=== PATIENT | female | born 1960 | race Caucasian/White ===

== ENCOUNTER 2016-09-22 05:30 | Emergency (ER) | payer OTHER ==
[~2016-09-22] VITALS: Ht 162.6 cm; Wt 69.2 kg
[~2016-09-22 05:30] MED LIST: AMB10 PO; ASPI81TA28 PO; ATV5X PO; CALC500C70 PO; CLOP1TAB15 PO; FLUO40CA8 PO; LPT40 PO; LSN5 PO; METO25TA56 PO; OXYC-106 PO; PEDICHW50 PO
[2016-09-22 05:39] VITALS: TEMP 36.6; Ht 162.6 cm; Wt 69.2 kg
[2016-09-22] MEDS ORDERED: ONDANSETRON INJ 2 MG/ML 2 ML VIAL IV STA (05:59)
[2016-09-22] MEDS ORDERED: SODIUM CHLORIDE 0.9% 1000ML 500 ML IV STA (05:59)
[2016-09-22] MEDS ORDERED: MoRPHine SULFATE 10 MG/ML CARP/VIAL IV PRN (06:00)
--- NOTE | 2016-09-22 06:09 | EMERGENCY ROOM VISIT NOTE ---
History Report prepared by Joseibnarindre: Cindy Cagle Under the Supervision of: Dr. Qasim Smith M.D. First contact with patient: 05:52 Chief Complaint: HYPERTENSION Stated Complaint: LEFT ARM PAIN/HIGH BLOOD PRESSURE History of Present Illness The patient is a 56 year old female who presents to the Emergency Room with complaints of persistent hypertension for the past day. She reports she has been experiencing left arm pain for the past day, that started after she woke up yesterday. She rates her discomfort as a 7/10. Certain movements worsen her discomfort and she thinks she may have slept on something the wrong way to cause her pain. She checked her BP at home and noticed it was high, and with her history of previous TN's, she decided to come to the ED this morning. The patient has undergone some recent medication changes but notes she takes Plavix , Metoprolol and Atorvastatin. She denies any recent chest pain but does feel mildly short of breath. She denies any recent fevers. 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 A total of 10 systems reviewed and were otherwise negative. Past Medical & Surgical Medical Problems: (1) History of TN (myocardial infarction) (2) PAD (peripheral artery disease) (3) Precordial chest pain Family History Patient reports no known family medical history. Social History Smoking Status: Current Every Day Smoker Alcohol Use: none Drug Use: none Marital Status: , Housing Status: lives with family Occupation Status: unemployed, disabled Current/Historical Medications Scheduled Aspirin (Aspirin Chewable), 81 MG PO DAILY Atorvastatin (Atorvastatin Calcium), 40 MG PO DAILY Biotin W/ Vitamins C & E (Hair/Skin/Nails 1250-7.5-7.5 Mcg-mg-Unt), 1 TAB PO DAILY Clonidine Hcl (Catapres), 0.1 MG PO BID Clopidogrel (Plavix), 75 MG PO DAILY Fluoxetine (Prozac), 40 MG PO QAM Metoprolol Succinate (Metoprolol Succinate ER), 25 MG PO DAILY Pediatric Multiple Vitamin W/ (Flintstones Chewable), 1 TAB PO QAM Scheduled PRN Lorazepam (Lorazepam), 1 TAB PO BID PRN for Anxiety/Insomnia Oxycodone/Acetaminophen 5MG/325MG (Oxycodone/Acetaminophen 5MG/325MG), 1 TABLET PO TID PRN for Pain Zolpidem Tartrate (Ambien), 10 MG PO HS PRN for Sleep Allergies Coded Allergies: No Known Allergies (Unverified , 09/22/16) Physical Exam Vital Signs Date Time Temp Pulse Resp B/P Pulse Ox O2 Delivery O2 Flow Rate FiO2 09/22/16 07:32 70 20 170/93 95 09/22/16 07:28 70 18 170/93 95 Room Air 09/22/16 06:37 76 20 155/106 95 Room Air 09/22/16 06:13 96 Room Air 09/22/16 05:58 72 09/22/16 05:39 36.6 68 24 148/106 94 Room Air Physical Exam GENERAL: Patient is in no acute distress. HEENT: No acute trauma, normocephalic atraumatic, mucous membranes moist, no nasal congestion, no scleral icterus. NECK: No stridor, no adenopathy, no meningismus, trachea is midline. LUNGS: Clear to auscultation bilaterally, no wheeze, no rhonchi, breath sounds equal. HEART: Without murmurs gallops or rubs, regular rate and rhythm. ABDOMEN: Soft, nontender, bowel sounds positive, no hernias, no peritonitis. EXTREMITIES: Tender to palpate the left lateral shoulder and the left bicep, no rash or cellulitis. Pain worsens with shoulder and elbow movement. 2+ radial pulses distally. NEUROLOGIC: Oriented x 3, no acute motor or sensory deficits, no focal weakness. SKIN: No rash, no jaundice, no diaphoresis. Medical Decision & Procedures ER Provider Diagnostic Interpretation: This X-Ray was reviewed and interpreted by myself as we do not have a radiologist on staff overnight. CHEST X-RAY No mediastinal widening, no pneumonia or pneumothorax. Laboratory Results 09/22/16 05:50 09/22/16 05:50 Test 09/22/16 05:50 Red Blood Count 5.40 M/uL (4.2-5.4) Mean Corpuscular Volume 90.7 fL (80-100) Mean Corpuscular Hemoglobin 30.6 pg (25-34) Mean Corpuscular Hemoglobin Concent 33.7 g/dl (32-36) RDW Standard Deviation 54.1 fL (36.4-46.3) RDW Coefficient of Variation 16.5 % (11.5-14.5) Mean Platelet Volume 11.2 fL (7.4-10.4) Prothrombin Time 10.7 SECONDS (9.0-12.0) Prothromb Time International Ratio 1.0 (0.9-1.1) Activated Partial Thromboplast Time 26.3 SECONDS (21.0-31.0) Partial Thromboplastin Ratio 1.0 Anion Gap 9.0 mmol/L (3-11) Est Creatinine Clear Calc Drug Dose 71.4 ml/min Estimated GFR () 89.4 Estimated GFR (Non- 77.1 BUN/Creatinine Ratio 12.8 (10-20) Calcium Level 9.9 mg/dl (8.5-10.1) Total Bilirubin 0.3 mg/dl (0.2-1) Aspartate Amino Transf (AST/SGOT) 33 U/L (15-37) Alanine Aminotransferase (ALT/SGPT) 42 U/L (12-78) Alkaline Phosphatase 94 U/L (45-117) Troponin I < 0.015 ng/ml (0-0.045) Total Protein 7.9 gm/dl (6.4-8.2) Albumin 4.0 gm/dl (3.4-5.0) Globulin 3.9 gm/dl (2.5-4.0) Albumin/Globulin Ratio 1.0 (0.9-2) Laboratory results reviewed by me. Medications Administered Medications (Trade) Dose Ordered Sig/Alexander Route Start Time Stop Time Status Last Admin Dose Admin Sodium Chloride (Nss 1000ml) 500 ml @ 999 mls/hr Q31M STAT IV 09/22/16 05:59 09/22/16 06:29 DC 09/22/16 06:12 999 MLS/HR Ondansetron HCl (Zofran Inj) 4 mg NOW STAT IV 09/22/16 05:59 09/22/16 06:01 DC 09/22/16 06:09 4 MG Morphine Sulfate (MoRPHine SULFATE INJ) 4 mg STK-MED ONCE .ROUTE 09/22/16 06:12 09/22/16 06:13 DC 09/22/16 06:09 4 MG Clonidine HCl (Catapres Tab) 0.1 mg NOW ONCE PO 09/22/16 07:15 09/22/16 07:16 DC 09/22/16 07:27 0.1 MG ECG Indication: other (hypertension) Rate (beats per minute): 61 Rhythm: normal sinus (normal sinus rhythm) Findings: RBBB, no acute ischemic change, other (baseline artifact) Change: no significant change (No significant change from previous EKG) ED Course 0554: The patient was evaluated in room B11. A complete history and physical exam was performed. 0559: Zofran 4 mg IV, NSS 500 ml @ 999 mls/hr IV. 0600: Morphine Sulfate 4 mg IV. 0659: I reevaluated the patient. Her pressure is still elevated but has improved. I discussed her results and discharge instructions and she verbalized complete understanding and agreement. 0715: Clonidine HCl 0.1 mg PO. Medical Decision The differential diagnoses considered include musculoskeletal pain, nerve impingement, pneumothorax, aortic dissection, TN, anemia, electrolyte imbalance. There is no significant leukocytosis. No worrisome anemia. No significant electrolyte abnormality, kidney failure or hepatitis. There is no coagulopathy. EKG shows a normal sinus rhythm with a right bundle branch block , no acute ischemia. Cardiac enzyme testing times one is not consistent with acute cardiac injury. Chest x-ray shows no pneumonia, mediastinal widening or pneumothorax. The patient was given IV saline, IV Zofran and IV morphine. She did receive a dose of oral clonidine. The clonidine was for her elevated blood pressure. The patient looks well, I think the pain she has in her arm is musculoskeletal. It is reproducible. Her workup is benign. Because of the persistently high blood pressure, I have added some clonidine for now. She can follow with her doctor this week for further blood pressure medication adjustment. If things are worsening, the patient can return. She does have pain medication at home to use for her left arm discomfort. Impression Primary Impression: Left arm pain Additional Impression: Hypertension Scribe Attestation The scribe's documentation has been prepared under my direction and personally reviewed by me in its entirety. I confirm that the note above accurately reflects all work, treatment, procedures, and medical decision making performed by me. Departure Information Dispostion Home / Self-Care Prescriptions Clonidine Hcl (CATAPRES) 0.1 Mg Tab 0.1 MG PO BID for 7 Days, #14 TAB Prov: Qasim Smith M.D. 09/22/16 Referrals Cookie Jones D.O. (PCP) Patient Instructions My [facility] Additional Instructions start clonidine every 12 hours continue all your other meds use your pain meds for the arm pain massage and heat may help return for worsening symptoms see your doctor this week for a recheck and recheck of your blood pressure heart testing today was all ok Problem Qualifiers
[2016-09-22] MEDS ORDERED: MoRPHine SULFATE 4 MG/ML 1 ML CARP\\VIAL ONE (06:12)
[2016-09-22 06:13] VITALS: O2SAT 96
[2016-09-22 06:26] LABS: MEAN CELL VOLUME 90.7 fL (80-100); MEAN CORPUSCULAR HEMOGLOBIN 30.6 pg (25-34); MEAN CORPUSCULAR HGB CONC 33.7 g/dl (32-36); MEAN PLATELET VOLUME 11.2 fL (7.4-10.4); PLATELET COUNT 261 K/uL (130-400); WHITE BLOOD COUNT 10.88 K/uL (4.8-10.8)
[2016-09-22] MEDS ORDERED: ZOLP10TA PO (06:37)
[2016-09-22] MEDS ORDERED: TPRSR/25 PO (06:37)
[2016-09-22 06:38] LABS: PROTHROMBIN TIME (PATIENT) 10.7 SECONDS (9.0-12.0)
[2016-09-22] MEDS ORDERED: ASPCH81X PO (06:38)
[2016-09-22] MEDS ORDERED: OXYC-643 PO (06:39)
[2016-09-22] MEDS ORDERED: BIOT1CHW PO (06:40)
[2016-09-22 06:45] LABS: ALT/SGPT 42 U/L (12-78); AST/SGOT 33 U/L (15-37); BLOOD UREA NITROGEN 11 mg/dl (7-18); BUN/CREATININE RATIO 12.8 (10-20); CALCIUM 9.9 mg/dl (8.5-10.1); CARBON DIOXIDE 28 mmol/L (21-32); CHLORIDE 108 mmol/L (98-107); CREATININE 0.85 mg/dl (0.60-1.20); GLUCOSE 116 mg/dl (70-99); POTASSIUM 3.5 mmol/L (3.5-5.1); SODIUM 145 mmol/L (136-145)
[2016-09-22 06:49] LABS: ALKALINE PHOSPHATASE 94 U/L (45-117)
--- NOTE | 2016-09-22 06:52 | DIAGNOSTIC IMAGING REPORT ---
CHEST ONE VIEW PORTABLE CLINICAL HISTORY: CHEST PAIN dyspnea COMPARISON STUDY: 01/30/2016 FINDINGS: The bones soft tissues and hemidiaphragms are normal. The cardiomediastinal silhouette is normal. The lungs are clear. The pulmonary vasculature is normal. IMPRESSION: Negative chest. Electronically signed by: Bill Osborne M.D. 09/22/2016 6:51 AM Dictated Date/Time: 09/22/2016 6:45 AM
[2016-09-22] MEDS ORDERED: CTP/1 PO (07:07)
[2016-09-22] MEDS ORDERED: CLONIDINE HCL 0.1 MG TAB PO ONE (07:15)
[2016-09-22] MEDS ORDERED: CLONIDINE HCL 0.1 MG TAB ONE (07:24)
[2016-09-22 07:32] VITALS: BP 170/93; PULSE 70; O2SAT 95
[2016-10-26] MEDS ORDERED: METR-163 PO (12:23)
[2016-10-26] MEDS ORDERED: OXYC-88 PO (12:23)
[2016-11-27] MEDS ORDERED: PRT40 PO (13:47)
[2016-11-27] MEDS ORDERED: MTR500 PO (13:47)
[2016-11-27] MEDS ORDERED: CPR500 PO (13:47)
[2017-04-03] MEDS ORDERED: PANT40TA PO (10:59)
[2017-04-03] MEDS ORDERED: HYDR-4079 PO (10:59)
== END 2016-09-22 07:34 | disposition home or self-care (01) ==
LOC: C.EDB 05:32
DX: M79.602 Pain in left arm (principal); I10 Essential (primary) hypertension; I25.2 Old myocardial infarction; I73.9 Peripheral vascular disease, unspecified; F17.200 Nicotine dependence, unspecified, uncomplicated; Z79.02 Long term (current) use of antithrombotics/antiplatelets; Z79.82 Long term (current) use of aspirin; Z79.899 Other long term (current) drug therapy

== ENCOUNTER → 2016-10-10 | Outpatient (CLI) | payer OTHER ==
[~2016-10-10] MED LIST changes: -AMB10 PO; +ASPCH81X PO; -ASPI81TA28 PO; +ATOR-24 PO; +BIOT1CHW PO; -CALC500C70 PO; +CEPH500C2 PO; +CIPR1TAB10 PO; +CPR500 PO; +DOXY100C41 PO; +HYDR-4079 PO; +KETO10TA PO; +LISI-461 PO; -LSN5 PO; -METO25TA56 PO; +METR-163 PO; +MTR500 PO; +OXYC-643 PO; +OXYC-88 PO; +PANT40TA PO; +PRT40 PO; +TPRSR/25 PO; +ZOLP10TA PO
[2016-10-10 12:39] LABS: BASO % 0.4 %; BASO ABS # 0.05 K/uL (0-0.2); COMPLETE YES; EOS % 2.4 %; HEMATOCRIT 48.5 % (37-47); IG% 0.1 %; LYMPH % 36.3 %; LYMPH ABS # 4.21 K/uL (1.2-3.4); MEAN CORPUSCULAR HEMOGLOBIN 29.4 pg (25-34); MEAN PLATELET VOLUME 10.7 fL (7.4-10.4); MONO % 4.8 %; PLATELET COUNT 249 K/uL (130-400); RED BLOOD COUNT 5.27 M/uL (4.2-5.4)
[2016-10-10 12:58] LABS: ALT/SGPT 46 U/L (12-78); AST/SGOT 36 U/L (15-37); BLOOD UREA NITROGEN 12 mg/dl (7-18); BUN/CREATININE RATIO 14.9 (10-20); CARBON DIOXIDE 27 mmol/L (21-32); CHLORIDE 110 mmol/L (98-107); CHOLESTEROL 117 mg/dl (0-200); CREATININE 0.79 mg/dl (0.60-1.20); GLUCOSE 90 mg/dl (70-99); POTASSIUM 4.3 mmol/L (3.5-5.1); SODIUM 145 mmol/L (136-145); TRIGLYCERIDES 113 mg/dl (0-150); VERY LOW DENSITY LIPOPROT CALC 23 mg/dl
[2016-10-10 13:03] LABS: CALCIUM 9.5 mg/dl (8.5-10.1)
[2016-10-10 13:04] LABS: HDL CHOLESTEROL 58 mg/dl; LDL CHOLESTEROL CALCULATED 36 mg/dl
== END | disposition home or self-care (01) ==
LOC: C.LAB1850 10:02
PROVIDERS: ATTEND Physician Assistant
DX: I10 Essential (primary) hypertension (principal); E78.00 Pure hypercholesterolemia, unspecified; I25.10 Atherosclerotic heart disease of native coronary artery without angina pectoris

== ENCOUNTER 2016-10-22 19:20 | Inpatient (IN) | payer OTHER ==
[~2016-10-22] VITALS: Ht 162.6 cm; Wt 67.5 kg
[~2016-10-22 19:20] MED LIST changes: -ATOR-24 PO; -CEPH500C2 PO; -CIPR1TAB10 PO; -CPR500 PO; -DOXY100C41 PO; -HYDR-4079 PO; -KETO10TA PO; -LISI-461 PO; -METR-163 PO; -MTR500 PO; -OXYC-106 PO; -OXYC-88 PO; -PANT40TA PO; -PRT40 PO
[2016-10-22] MEDS ORDERED: MoRPHine SULFATE 4 MG/ML 1 ML CARP\\VIAL IV STA ×2 (20:10→22:28)
[2016-10-22] MEDS ORDERED: SODIUM CHLORIDE 0.9% 1000ML 1,000 ML IV ONE (20:10)
[2016-10-22] MEDS ORDERED: ONDANSETRON INJ 2 MG/ML 2 ML VIAL IV STA (20:10)
[2016-10-22] MEDS ORDERED: SODIUM CHLORIDE 0.9% 1000ML 1,000 ML IV STA (20:10)
[2016-10-22] MEDS ORDERED: OPTIRAY 320 IV PRN (20:15)
--- NOTE | 2016-10-22 20:36 | DIAGNOSTIC IMAGING REPORT ---
SINGLE VIEW CHEST CLINICAL HISTORY: Atypical chest pain. FINDINGS: An AP, portable, upright chest radiograph is compared to study dated 09/22/2016. The examination is degraded by portable technique and apical lordotic positioning. The heart is top normal for projection. The pulmonary vasculature is noncongested. There is minimal left basilar atelectasis. The lungs and pleural spaces are otherwise clear. No pneumothorax is seen. The bony thorax is grossly intact. IMPRESSION: No active disease in the chest. Electronically signed by: Qasim Krause M.D. 10/22/2016 8:35 PM Dictated Date/Time: 10/22/2016 8:34 PM
[2016-10-22] MEDS ORDERED: LISI-461 PO (20:38)
[2016-10-22] MEDS ORDERED: ATOR-24 PO (20:38)
[2016-10-22] MEDS ORDERED: OXYC-88 PO (20:38)
[2016-10-22 20:46] LABS: BASO % 0.6 %; BASO ABS # 0.06 K/uL (0-0.2); COMPLETE YES; EOS % 1.7 %; HEMATOCRIT 47.5 % (37-47); IG% 0.3 %; LYMPH % 36.3 %; LYMPH ABS # 3.67 K/uL (1.2-3.4); MEAN CELL VOLUME 90.5 fL (80-100); MEAN CORPUSCULAR HEMOGLOBIN 29.9 pg (25-34); MEAN CORPUSCULAR HGB CONC 33.1 g/dl (32-36); MEAN PLATELET VOLUME 10.5 fL (7.4-10.4); NEUT % 55.1 %; PLATELET COUNT 230 K/uL (130-400); RED BLOOD COUNT 5.25 M/uL (4.2-5.4); WHITE BLOOD COUNT 10.11 K/uL (4.8-10.8)
[2016-10-22 21:00] LABS: PROTHROMBIN TIME (PATIENT) 10.7 SECONDS (9.0-12.0)
[2016-10-22 21:02] LABS: BUN/CREATININE RATIO 21.7 (10-20); CREATININE 0.83 mg/dl (0.60-1.20); POTASSIUM 3.6 mmol/L (3.5-5.1)
[2016-10-22 21:55] LABS: CALCIUM 9.1 mg/dl (8.5-10.1)
--- NOTE | 2016-10-22 22:46 | DIAGNOSTIC IMAGING REPORT ---
CT SCAN OF THE ABDOMEN AND PELVIS WITH IV CONTRAST CLINICAL HISTORY: Generalized abdominal pain. COMPARISON STUDY: Abdominal CT dated 04/17/2014. TECHNIQUE: Following the IV administration of 92 cc of Optiray 320, CT scan of the abdomen and pelvis is performed from the lung bases to the proximal femora. Images are reviewed in the axial, sagittal, and coronal planes. IV contrast was administered without complication. Automated dose control exposure was utilized. CT DOSE: 358.58 mGy.cm FINDINGS: Lung bases: The heart is normal in size and without pericardial effusion. There are coronary artery calcifications. A 6 mm nodule at the left lung base is unchanged from 2014 as seen on image #28. Calcified granulomas are noted in the right lung base. The lung bases are otherwise clear noting dependent atelectasis. Emphysema is suspected. Liver: The contrast-enhanced liver is normal in size, contour, and attenuation. There is mild central intrahepatic biliary ductal dilatation. The hepatic veins and portal veins are patent. Gallbladder: Surgically absent noting clips in the gallbladder fossa. Spleen: Normal in size and attenuation. Pancreas: Atrophic and grossly unremarkable. Adrenal glands: Unremarkable. Kidneys: The contrast enhanced kidneys are atrophic, asymmetrically greater on the left. There is no hydronephrosis. There are 2 nonobstructing calculi in the lower pole of left kidney measuring up to 10 mm. The kidneys enhance symmetrically. Abdominal vasculature: The abdominal aorta is normal in course and caliber noting moderate atherosclerotic calcification. A stent is seen in the left iliac artery. There is at least moderate stenosis within the proximal superior mesenteric artery. Stomach and bowel: A tiny hiatal hernia is identified. There are postoperative changes consistent with a history of Jessica-en-Y gastric bypass surgery. There is a ventral hernia containing nonobstructed loops of small bowel as seen on axial image #239. There is no bowel obstruction. There is a mildly thick-walled loop of proximal jejunum identified in the posterior mid abdomen on axial image #184. There is mild surrounding inflammation. The appendix is well-visualized and normal. Focal narrowing with mucosal thickening is suggested in the sigmoid colon on axial image #291. Peritoneum: There is no intraperitoneal free air or abdominal ascites. Lymphadenopathy: None. Pelvic viscera: The bladder, uterus, and adnexa are normal as visualized. Skeletal structures: The skeletal structures are osteopenic. There is mild lumbosacral spondylosis. No lytic or blastic lesions are seen. IMPRESSION: 1. There are postoperative changes consistent with a history of Jessica-en-Y gastric bypass surgery. No bowel obstruction is seen. 2. There is a mildly thick-walled loop of proximal jejunum seen in the midabdomen with surrounding inflammatory change. The appearance suggests a nonspecific enteritis. Clinical correlation will be required. 3. There is a ventral hernia in the midline pelvis which contains nonobstructed loops of small bowel. 4. There is a short segment of focal narrowing with associated mucosal thickening suggested in the sigmoid colon. This is not well assessed by CT and may simply represent underdistention. Follow-up with a nonemergent colonoscopy is recommended to assess for underlying colonic lesion. 5. Suspect emphysema. 6. Nonobstructing left renal calculi. 7. A 6 mm pulmonary nodule at the left lung base is unchanged dating back to 2013. This is of doubtful significance given over 2 years of stability. 8. Additional findings as above. Electronically signed by: Qasim Krause M.D. 10/22/2016 10:45 PM Dictated Date/Time: 10/22/2016 10:35 PM
[2016-10-22] MEDS ORDERED: CIPROFLOXACIN 400MG / 200ML D5W IV STA (23:36)
[2016-10-22] MEDS ORDERED: METRONIDAZOLE 500MG / 100ML NSS IV STA (23:36)
--- NOTE | 2016-10-22 23:59 | EMERGENCY ROOM VISIT NOTE ---
History Report prepared by Vishal: Promise Julien Under the Supervision of: Dr. Manas Reese M.D. First contact with patient: 20:02 Chief Complaint: ABDOMINAL PAIN Stated Complaint: STOMACH PAIN History of Present Illness The patient is a 56 year old female who presents to the Emergency Room with complaints of worsening abdominal pain starting 1 week ago. She was sent over from her doctor's office. She has abdominal pain all over and bloating which has worsened over the last week. She describes the pain as sharp and cramping. The pain worsens with eating. She has back pain which stems from her back problems. She denies any calf tenderness, chest pain, SOB, nausea, vomiting, changes in bowel movement, or urinary symptoms. She previously had an abdominal surgery for an internal hernia at which time no malignancies were found. She had a gastric bypass in 2009. She has a history of IL and peripheral artery disease. She is on Plavix. Source of History: patient Onset: 1 week ago Position: abdomen Quality: sharp, cramping Timing: worsening Modifying Factors (Worsening): eating Associated Symptoms: + back pain, No SOB, No chest pain, No nausea, No urinary symptoms, No vomiting Note: Pt denies calf pain, changes in bowel movement. Review of Systems See HPI for pertinent positives & negatives. A total of 10 systems reviewed and were otherwise negative. Past Medical & Surgical Medical Problems: (1) History of IL (myocardial infarction) (2) PAD (peripheral artery disease) (3) Precordial chest pain Old medical records were reviewed. Nurse's notes were reviewed and I agree with. Family History Diabetes mellitus FH: heart disease FH: lung disease FHx: cancer Hypertension Social History Smoking Status: Current Every Day Smoker Alcohol Use: none Drug Use: none Marital Status: Housing Status: lives with family Occupation Status: unemployed, disabled Current/Historical Medications Scheduled Aspirin (Aspirin Chewable), 81 MG PO DAILY Atorvastatin (Lipitor), 40 MG PO DAILY Biotin W/ Vitamins C & E (Hair/Skin/Nails 1250-7.5-7.5 Mcg-mg-Unt), 1 TAB PO DAILY Clopidogrel (Plavix), 75 MG PO DAILY Fluoxetine (Prozac), 40 MG PO QAM Lisinopril (Lisinopril), 10 MG PO DAILY Metoprolol Succinate (Metoprolol Succinate ER), 25 MG PO DAILY Pediatric Multiple Vitamin W/ (Flintstones Chewable), 1 TAB PO QAM Scheduled PRN Lorazepam (Lorazepam), 1 TAB PO BID PRN for Anxiety/Insomnia Oxycodone/Acetaminophen 10MG/325MG (Oxycodone/Acetaminophen 10MG/325MG), 1 TAB PO TID PRN for Pain Zolpidem Tartrate (Ambien), 10 MG PO HS PRN for Sleep Allergies Coded Allergies: No Known Allergies (Unverified , 10/22/16) Physical Exam Vital Signs Date Time Temp Pulse Resp B/P Pulse Ox O2 Delivery O2 Flow Rate FiO2 10/22/16 22:53 74 18 141/86 96 Room Air 10/22/16 21:12 76 16 133/76 95 Room Air 10/22/16 19:23 36.8 100 20 121/83 97 Room Air Physical Exam General: Mildly uncomfortable appearing middle aged female with complaints of abdominal pain, in no respiratory distress. Well developed well nourished, breathing comfortably on room air. Normal speech HEENT: Normal cephalic atraumatic. Pupils are equal round and reactive to light. Extraocular movements are intact. Sclerae anicteric. Oropharynx is pink with moist mucous membranes. No swelling of the mouth lips or tongue. Neck: Supple with a midline trachea. No meningeal signs or stiffness, no JVD or bruits. No Stridor. Chest: Clear to auscultation bilaterally. No wheezes or rhonchi. No increased work of breathing. Heart: regular rate and rhythm. Abdomen: Soft, tenderness mostly to the upper bilateral abdomen, nondistended without rebound guarding or rigidity. Surgical scar from previous surgery, no redness or warmth, reducible ventral hernia. Extremities: No cyanosis clubbing or edema. No calf tenderness or assymetry Spine/Back. Non tender to palpation. No CVA tenderness Skin: Good turgor without rashes. Neurologic exam: Cranial nerves two through 12 are intact. Motor and sensation are intact and symmetrical throughout. Medical Decision & Procedures ER Provider Diagnostic Interpretation: X-ray results as stated below per interpretation by me and the radiologist. Radiology results as stated below per my review and radiologist interpretation: SINGLE VIEW CHEST CLINICAL HISTORY: Atypical chest pain. FINDINGS: An AP, portable, upright chest radiograph is compared to study dated 09/22/2016. The examination is degraded by portable technique and apical lordotic positioning. The heart is top normal for projection. The pulmonary vasculature is noncongested. There is minimal left basilar atelectasis. The lungs and pleural spaces are otherwise clear. No pneumothorax is seen. The bony thorax is grossly intact. IMPRESSION: No active disease in the chest. Electronically signed by: Qasim Krause M.D. 10/22/2016 8:35 PM Dictated Date/Time: 10/22/2016 8:[address] SCAN OF THE ABDOMEN AND PELVIS WITH IV CONTRAST CLINICAL HISTORY: Generalized abdominal pain. COMPARISON STUDY: Abdominal CT dated 04/17/2014. TECHNIQUE: Following the IV administration of 92 cc of Optiray 320, CT scan of the abdomen and pelvis is performed from the lung bases to the proximal femora. Images are reviewed in the axial, sagittal, and coronal planes. IV contrast was administered without complication. Automated dose control exposure was utilized. CT DOSE: 358.58 mGy.cm FINDINGS: Lung bases: The heart is normal in size and without pericardial effusion. There are coronary artery calcifications. A 6 mm nodule at the left lung base is unchanged from 2014 as seen on image #28. Calcified granulomas are noted in the right lung base. The lung bases are otherwise clear noting dependent atelectasis. Emphysema is suspected. Liver: The contrast-enhanced liver is normal in size, contour, and attenuation. There is mild central intrahepatic biliary ductal dilatation. The hepatic veins and portal veins are patent. Gallbladder: Surgically absent noting clips in the gallbladder fossa. Spleen: Normal in size and attenuation. Pancreas: Atrophic and grossly unremarkable. Adrenal glands: Unremarkable. Kidneys: The contrast enhanced kidneys are atrophic, asymmetrically greater on the left. There is no hydronephrosis. There are 2 nonobstructing calculi in the lower pole of left kidney measuring up to 10 mm. The kidneys enhance symmetrically. Abdominal vasculature: The abdominal aorta is normal in course and caliber noting moderate atherosclerotic calcification. A stent is seen in the left iliac artery. There is at least moderate stenosis within the proximal superior mesenteric artery. Stomach and bowel: A tiny hiatal hernia is identified. There are postoperative changes consistent with a history of Jessica-en-Y gastric bypass surgery. There is a ventral hernia containing nonobstructed loops of small bowel as seen on axial image #239. There is no bowel obstruction. There is a mildly thick-walled loop of proximal jejunum identified in the posterior mid abdomen on axial image #184. There is mild surrounding inflammation. The appendix is well-visualized and normal. Focal narrowing with mucosal thickening is suggested in the sigmoid colon on axial image #291. Peritoneum: There is no intraperitoneal free air or abdominal ascites. Lymphadenopathy: None. Pelvic viscera: The bladder, uterus, and adnexa are normal as visualized. Skeletal structures: The skeletal structures are osteopenic. There is mild lumbosacral spondylosis. No lytic or blastic lesions are seen. IMPRESSION: 1. There are postoperative changes consistent with a history of Jessica-en-Y gastric bypass surgery. No bowel obstruction is seen. 2. There is a mildly thick-walled loop of proximal jejunum seen in the midabdomen with surrounding inflammatory change. The appearance suggests a nonspecific enteritis. Clinical correlation will be required. 3. There is a ventral hernia in the midline pelvis which contains nonobstructed loops of small bowel. 4. There is a short segment of focal narrowing with associated mucosal thickening suggested in the sigmoid colon. This is not well assessed by CT and may simply represent underdistention. Follow-up with a nonemergent colonoscopy is recommended to assess for underlying colonic lesion. 5. Suspect emphysema. 6. Nonobstructing left renal calculi. 7. A 6 mm pulmonary nodule at the left lung base is unchanged dating back to 2013. This is of doubtful significance given over 2 years of stability. 8. Additional findings as above. Electronically signed by: Qasim Krause M.D. 10/22/2016 10:45 PM Dictated Date/Time: 10/22/2016 10:35 PM Laboratory Results 10/22/16 20:35 Red Blood Count 5.25, Mean Corpuscular Volume 90.5, Mean Corpuscular Hemoglobin 29.9, Mean Corpuscular Hemoglobin Concent 33.1, Mean Platelet Volume 10.5, Neutrophils (%) (Auto) 55.1, Lymphocytes (%) (Auto) 36.3, Monocytes (%) (Auto) 6.0, Eosinophils (%) (Auto) 1.7, Basophils (%) (Auto) 0.6, Neutrophils # (Auto) 5.57, Lymphocytes # (Auto) 3.67, Monocytes # (Auto) 0.61, Eosinophils # (Auto) 0.17, Basophils # (Auto) 0.06 10/22/16 20:35 Test 10/22/16 20:35 10/22/16 20:42 White Blood Count 10.11 K/uL (4.8-10.8) Red Blood Count 5.25 M/uL (4.2-5.4) Hemoglobin 15.7 g/dL (12.0-16.0) Hematocrit 47.5 % (37-47) Mean Corpuscular Volume 90.5 fL (80-100) Mean Corpuscular Hemoglobin 29.9 pg (25-34) Mean Corpuscular Hemoglobin Concent 33.1 g/dl (32-36) Platelet Count 230 K/uL (130-400) Mean Platelet Volume 10.5 fL (7.4-10.4) Neutrophils (%) (Auto) 55.1 % Lymphocytes (%) (Auto) 36.3 % Monocytes (%) (Auto) 6.0 % Eosinophils (%) (Auto) 1.7 % Basophils (%) (Auto) 0.6 % Neutrophils # (Auto) 5.57 K/uL (1.4-6.5) Lymphocytes # (Auto) 3.67 K/uL (1.2-3.4) Monocytes # (Auto) 0.61 K/uL (0.11-0.59) Eosinophils # (Auto) 0.17 K/uL (0-0.5) Basophils # (Auto) 0.06 K/uL (0-0.2) RDW Standard Deviation 54.1 fL (36.4-46.3) RDW Coefficient of Variation 16.3 % (11.5-14.5) Immature Granulocyte % (Auto) 0.3 % Immature Granulocyte # (Auto) 0.03 K/uL (0.00-0.02) Prothrombin Time 10.7 SECONDS (9.0-12.0) Prothromb Time International Ratio 1.0 (0.9-1.1) Activated Partial Thromboplast Time 26.6 SECONDS (21.0-31.0) Partial Thromboplastin Ratio 1.0 Anion Gap 8.0 mmol/L (3-11) Est Creatinine Clear Calc Drug Dose 72.3 ml/min Estimated GFR () 92.0 Estimated GFR (Non- 79.4 BUN/Creatinine Ratio 21.7 (10-20) Calcium Level 9.1 mg/dl (8.5-10.1) Total Bilirubin 0.4 mg/dl (0.2-1) Direct Bilirubin 0.1 mg/dl (0-0.2) Aspartate Amino Transf (AST/SGOT) 17 U/L (15-37) Alanine Aminotransferase (ALT/SGPT) 23 U/L (12-78) Alkaline Phosphatase 73 U/L (45-117) Total Protein 6.3 gm/dl (6.4-8.2) Albumin 3.2 gm/dl (3.4-5.0) Lipase 99 U/L (73-393) Bedside Troponin I 0.000 ng/ml (0-0.045) Laboratory studies as stated above per my review. Medications Administered Medications (Trade) Dose Ordered Sig/Alexander Route Start Time Stop Time Status Last Admin Dose Admin Sodium Chloride 1,000 ml @ 999 mls/hr Q1H1M STAT IV 10/22/16 20:10 10/22/16 21:10 DC 10/22/16 21:02 999 MLS/HR Sodium Chloride (Nss 1000ml) 1,000 ml @ 150 mls/hr Q6H40M ONCE IV 10/22/16 20:10 10/23/16 02:49 10/22/16 21:02 150 MLS/HR Morphine Sulfate (MoRPHine SULFATE INJ) 4 mg NOW STAT IV 10/22/16 20:10 10/22/16 20:13 DC 10/22/16 21:01 4 MG Ondansetron HCl (Zofran Inj) 4 mg NOW STAT IV 10/22/16 20:10 10/22/16 20:14 DC 10/22/16 21:00 4 MG Morphine Sulfate (MoRPHine SULFATE INJ) 4 mg NOW STAT IV 10/22/16 22:28 10/22/16 22:29 DC 10/22/16 22:35 4 MG Ciprofloxacin/ Dextrose (Cipro / D5w) 400 mg NOW STAT IV 10/22/16 23:36 10/22/16 23:38 DC 10/22/16 23:46 400 MG Metronidazole (Flagyl / Nss) 500 mg NOW STAT IV 10/22/16 23:36 10/22/16 23:38 DC 10/22/16 23:46 500 MG ECG Indication: abdominal pain Rate (beats per minute): 74 Rhythm: normal sinus Findings: LAFB, RBBB, no acute ischemic change Comparison ECG Date: 22-Sep-2016 Change: no significant change ED Course 2004: Past medical records reviewed. The patient was evaluated in room C4, and a complete history and physical examination were performed. 2009: Zofran Inj 4 mg IV, Morphine Sulfate 4 mg IV, NSS 1000 ml @ 150 mls/hr IV , NSS 1000 ml @ 999 mls/hr IV. 2138: I reevaluated the patient. She still has some pain. She is going to CT now. 2224: I reevaluated the patient. She is still having pain and requests more pain medications. We are waiting on the CT results. 8: Morphine Sulfate 4 mg IV. 2323: I reevaluated the patient. She appears more comfortably, but she is still having pain. I discussed the results and treatment plan with the patient. She verbalized agreement of the treatment plan. The patient will be evaluated for further management. 2336: Metronidazole 500 mg IV, Cipro / D5w 400 mg IV. 2345: I discussed the patient's case with Dr. Ramírez, [facility] [place] - hospitalist. The patient will be evaluated for further management. Medical Decision Differentials include, but are not limited to; bowel obstruction, hernia, colitis, diverticulitis, cardiac disease, infection, electrolyte or metabolic abnormality. This patient comes in as described above. She was placed in room C4. She is here for treatment and evaluation of abdominal pains been going on for about a week and is worse after she eats. She's been afebrile she's had no vomiting or diarrhea. She does have a history of gastric bypass remotely. She's also had a history of an internal hernia that was operated on by Dr. Poon locally a couple years ago. Her abdomen exam has some mild tenderness but no peritonitis. She has a ventral hernia which is easily reducible and is not red or warm. EKG does not suggest acute coronary syndrome nor do her symptoms. She has no white count elevation fever to suggest sepsis. She has nothing to suggest liver, gallbladder, or pancreas disease. I did do a CAT scan. She does have a nonspecific enteritis which is most likely causing her symptoms. She also does have some moderate narrowing of her superior mesenteric artery and it is potential that this could be causing her symptoms as well she does have a long history of vascular disease. She has nothing to suggest an acute surgical process or bowel obstruction. She did receive morphine IV several times while she was here as well as IV Zofran and IV hydration. Given the enteritis, I also gave her Cipro and Flagyl IV and I do think she needs to be admitted for pain management and further treatment and evaluation. I have consulted Dr. Waldron to see this patient in the emergency department. Consults Time Called: [id number] Consulting Physician: Dr. Ramírez [facility] [place] - hospitalist Returned Call: [phone] I discussed the patient's case with him. The patient will be evaluated for further management. Impression Primary Impression: Central abdominal pain Additional Impressions: Enteritis SMA stenosis Scribe Attestation The scribe's documentation has been prepared under my direction and personally reviewed by me in its entirety. I confirm that the note above accurately reflects all work, treatment, procedures, and medical decision making performed by me. Departure Information Dispostion Being Evaluated By Hospitalist Referrals Cookie JonesDFridaOFrida (PCP) Patient Instructions My [facility] Problem Qualifiers
[2016-10-23] MEDS ORDERED: ONDANSETRON INJ 2 MG/ML 2 ML VIAL IV PRN (01:15)
[2016-10-23] MEDS ORDERED: ACETAMINOPHEN 325 MG TAB PO PRN (01:15)
[2016-10-23] MEDS ORDERED: ACETAMINOPHEN IV 100 ML IV PRN (01:15)
[2016-10-23] MEDS ORDERED: IV FLUIDS COMPLETED PRN (01:30)
[2016-10-23 01:45] VITALS: BP 142/91; PULSE 70; TEMP 36.5; O2SAT 96; Ht 162.6 cm; Wt 67.5 kg
[2016-10-23 02:08] VITALS: BP 142/91; PULSE 70; TEMP 36.5; O2SAT 96
[2016-10-23] MEDS: NSS + 20MEQ KCL 1000ML 1,000 ML IV SCH ×3 (02:46→21:48)
[2016-10-23] MEDS: LORAZEPAM 0.5 MG TAB PO PRN (02:58)
[2016-10-23] MEDS: MoRPHine SULFATE 2 MG/ML CARP IV PRN ×4 (03:19→14:43)
--- NOTE | 2016-10-23 05:07 | History and Physical ---
History & Physical Date & Time of Service: October 23, 2016 at 04:53. The patient was examined on 10/22/2016. Chief Complaint: Central Abdominal Pain, Enteritis Primary Care Physician: Cookie Jones D.O. History of Present Illness Source: patient The patient is a 56-year-old female presents emergency department with progressively worsening sharp, crampy abdominal pain, accompanied by bloating, that began 1 week prior to arrival. When she was seen at her PCPs office today , she was sent to the emergency department for assessment. She has a history of gastric bypass surgery in 2009, and a previous surgery for an internal hernia. She also has a history of coronary artery disease with previous RI, and peripheral arterial disease for which she is on Plavix. Family History Diabetes mellitus FH: heart disease FH: lung disease FHx: cancer Hypertension Social History Smoking Status: Current Every Day Smoker Smokeless Tobacco Use: No Alcohol Use: none Drug Use: none Marital Status: Housing status: lives with family Occupational Status: unemployed, disabled Immunizations History of Influenza Vaccine: Yes Influenza Vaccine Date: Apr 15, 2013 History of Tetanus Vaccine?: Unknown Tetanus Immunization Date: Mar 04, 2010 History of Pneumococcal: Yes Pneumococcal Date: Jul 22, 2010 History of Hepatitis B Vaccine: No Multi-Drug Resistant Organisms History of MDRO: No Allergies Coded Allergies: No Known Allergies (Unverified , 10/22/16) Home Medications Scheduled Aspirin (Aspirin Chewable), 81 MG PO DAILY Atorvastatin (Lipitor), 40 MG PO DAILY Biotin W/ Vitamins C & E (Hair/Skin/Nails 1250-7.5-7.5 Mcg-mg-Unt), 1 TAB PO DAILY Clopidogrel (Plavix), 75 MG PO DAILY Fluoxetine (Prozac), 40 MG PO QAM Lisinopril (Lisinopril), 10 MG PO DAILY Metoprolol Succinate (Metoprolol Succinate ER), 25 MG PO DAILY Pediatric Multiple Vitamin W/ (Flintstones Chewable), 1 TAB PO QAM Scheduled PRN Lorazepam (Lorazepam), 1 TAB PO BID PRN for Anxiety/Insomnia Oxycodone/Acetaminophen 10MG/325MG (Oxycodone/Acetaminophen 10MG/325MG), 1 TAB PO TID PRN for Pain Zolpidem Tartrate (Ambien), 10 MG PO HS PRN for Sleep Review of Systems Constitutional: No chills, No fatigue, No fever, No problem reported, No sweats , No weakness, No weight loss Eyes: No diplopia, No discharge, No eye pain, No problem reported, No redness, No worsening of vision ENT: No dental problems, No hearing loss, No nasal symptoms, No problem reported, No sore throat, No tinnitus, No trouble swallowing, No unusual epistaxis Respiratory: No cough, No dyspnea at rest, No dyspnea on exertion, No hemoptysis, No problem reported, No shortness of breath, No sputum, No wheezing Cardiovascular: No PND, No chest pain, No claudication, No edema, No orthopnea , No palpitations, No problem reported Abdomen: + nausea, + pain, No GI bleeding, No constipation, No diarrhea, No vomiting Musculoskeletal: + problem reported (she does have chronic low back pain due to previous back problems.), No calf pain, No joint pain, No muscle pain, No swelling Genitourinary - Female: No dysmenorrhea, No dysuria, No hematuria, No menorrhagia, No metrorrhagia, No , No problem reported, No rash, No urinary frequency, No urinary incontinence, No urinary retention, No urinary urgency, No vaginal bleeding, No vaginal discharge, No vaginal itching, No vulvodynia Neurologic: No balance problems, No memory loss, No numbness/tingling, No paralysis, No problem reported, No vertigo, No weakness Psychiatric: No anhedonism, No anxiety, No depression symptoms, No insomnia, No problem reported, No substance abuse Endocrine: No excessive thirst, No excessive urination, No fatigue, No problem reported Hematologic / Lymphatic: No abnormal bleeding/bruising, No clotting problems, No night sweats, No problem reported, No swollen lymph nodes Integumentary: No bleeding, No color change, No itch, No new/changing skin lesions, No problem reported, No rash Allergic / Immunologic: No environmental allergies, No food allergies, No frequent infections, No hives, No pet sensitivities, No poor healing, No problem reported, No prolonged convalescence, No seasonal allergies Physical Exam Vital Signs Date Time Temp Pulse Resp B/P Pulse Ox O2 Delivery O2 Flow Rate FiO2 10/23/16 02:08 36.5 70 16 142/91 96 Room Air 10/23/16 01:45 Room Air 5/4/17 01:42 72 18 128/86 96 10/23/16 00:55 70 18 135/83 95 Room Air 10/22/16 22:53 74 18 141/86 96 Room Air 10/22/16 21:12 76 16 133/76 95 Room Air 10/22/16 19:23 36.8 100 20 121/83 97 Room Air General Appearance: WD/WN, no apparent distress Head: normocephalic, atraumatic Eyes: normal inspection, PERRL, EOMI, sclerae normal ENT: normal ENT inspection, hearing grossly normal, pharynx normal Neck: supple, no adenopathy, thyroid normal, no JVD, no carotid bruits Respiratory/Chest: chest non-tender, lungs clear, normal breath sounds, no respiratory distress, no accessory muscle use Cardiovascular: regular rate, rhythm, no edema, no gallop, no JVD, no murmur, normal peripheral pulses Abdomen/GI: normal bowel sounds, soft, no pulsatile mass, + tenderness (mildly generalized), + hernia (midline abdominal hernia) Back: normal inspection, no CVA tenderness, no muscle spasm, normal range of motion Extremities/Musculoskelatal: normal inspection, no calf tenderness, normal capillary refill, no pedal edema, normal range of motion, non-tender Neurologic/Psych: technical training manager II-XII nml as tested, no motor/sensory deficits, alert, normal mood/affect, normal reflexes, oriented x 3 Skin: normal color, warm/dry, no rash Lymphatic: no adenopathy Diagnostics Laboratory Results Results Past 24 Hours Test 10/22/16 20:35 10/22/16 20:42 Range/Units White Blood Count 10.11 4.8-10.8 K/uL Red Blood Count 5.25 4.2-5.4 M/uL Hemoglobin 15.7 12.0-16.0 g/dL Hematocrit 47.5 37-47 % Mean Corpuscular Volume 90.5 80-100 fL Mean Corpuscular Hemoglobin 29.9 25-34 pg Mean Corpuscular Hemoglobin Concent 33.1 32-36 g/dl Platelet Count 230 130-400 K/uL Mean Platelet Volume 10.5 7.4-10.4 fL Neutrophils (%) (Auto) 55.1 % Lymphocytes (%) (Auto) 36.3 % Monocytes (%) (Auto) 6.0 % Eosinophils (%) (Auto) 1.7 % Basophils (%) (Auto) 0.6 % Neutrophils # (Auto) 5.57 1.4-6.5 K/uL Lymphocytes # (Auto) 3.67 1.2-3.4 K/uL Monocytes # (Auto) 0.61 0.11-0.59 K/uL Eosinophils # (Auto) 0.17 0-0.5 K/uL Basophils # (Auto) 0.06 0-0.2 K/uL RDW Standard Deviation 54.1 36.4-46.3 fL RDW Coefficient of Variation 16.3 11.5-14.5 % Immature Granulocyte % (Auto) 0.3 % Immature Granulocyte # (Auto) 0.03 0.00-0.02 K/uL Prothrombin Time 10.7 9.0-12.0 SECONDS Prothromb Time International Ratio 1.0 0.9-1.1 Activated Partial Thromboplast Time 26.6 21.0-31.0 SECONDS Partial Thromboplastin Ratio 1.0 Sodium Level 143 136-145 mmol/L Potassium Level 3.6 3.5-5.1 mmol/L Chloride Level 110 98-107 mmol/L Carbon Dioxide Level 25 21-32 mmol/L Anion Gap 8.0 3-11 mmol/L Blood Urea Nitrogen 18 7-18 mg/dl Creatinine 0.83 0.60-1.20 mg/dl Est Creatinine Clear Calc Drug Dose 72.3 ml/min Estimated GFR () 92.0 Estimated GFR (Non- 79.4 BUN/Creatinine Ratio 21.7 10-20 Random Glucose 87 70-99 mg/dl Calcium Level 9.1 8.5-10.1 mg/dl Total Bilirubin 0.4 0.2-1 mg/dl Direct Bilirubin 0.1 0-0.2 mg/dl Aspartate Amino Transf (AST/SGOT) 17 15-37 U/L Alanine Aminotransferase (ALT/SGPT) 23 12-78 U/L Alkaline Phosphatase 73 45-117 U/L Total Protein 6.3 6.4-8.2 gm/dl Albumin 3.2 3.4-5.0 gm/dl Lipase 99 73-393 U/L Bedside Troponin I 0.000 0-0.045 ng/ml Diagnostic Radiology Patient Name: LOUIS LOVE Unit Number: [id number] Dictated: 10/22/162033 Transcribed: 10/22/162033 EV Printed Date/Time: [~ rep prt dt]/[~ rep prt tm] [~ rep ct labl] - [~ rep ct ivnm] [facility] Radiology Department [place] [id number] Dictated: 10/22/162033 Transcribed: 10/22/162033 EV Printed Date/Time: [~ rep prt dt]/[~ rep prt tm] [~ rep ct labl] - [~ rep ct ivnm] [~ rep ct add3]] SINGLE VIEW CHEST CLINICAL HISTORY: Atypical chest pain. FINDINGS: An AP, portable, upright chest radiograph is compared to study dated 09/22/2016. The examination is degraded by portable technique and apical lordotic positioning. The heart is top normal for projection. The pulmonary vasculature is noncongested. There is minimal left basilar atelectasis. The lungs and pleural spaces are otherwise clear. No pneumothorax is seen. The bony thorax is grossly intact. IMPRESSION: No active disease in the chest. Electronically signed by: Qasim Krause M.D. 10/22/2016 8:35 PM Dictated Date/Time: 10/22/2016 8:34 PM The status of this report is Signed. Draft = Not yet reviewed or approved by Radiologist. Signed = Reviewed and approved by Radiologist. <AttendingPhy></AttendingPhy> <FamilyPhy>Cookie Jones D.O.</FamilyPhy> < PrimaryPhy>Cookie Jones D.O.</PrimaryPhy> <UnitNumber>[id number]</ UnitNumber> <VisitNumber>[id number]</VisitNumber> <PatientName>LOUIS LOVE</PatientName> <DateOfBirth>1960</DateOfBirth> <Location>[facility]</ Location> <ServiceDate>10/22/16</ServiceDate> <MNE>ESINDI</MNE> <OrderingPhy> Manas Reese M.D.</OrderingPhy> <OrderingPhyMNE>f rep ord dr valderrama</ OrderingPhyMNE> <DictatingPhyMNE>f rep dict dr valderrama</DictatingPhyMNE> <CCListMNE> f rep ct mne</CCListMNE> <AdmittingPhyMNE>f pt admit dr valderrama</AdmittingPhyMNE> < AttendingPhyMNE>f pt attend dr valderrama</AttendingPhyMNE> <ConsultingPhyMNE>f pt consult dr valderrama</ConsultingPhyMNE> <FamilyPhyMNE>f pt fam dr valderrama</FamilyPhyMNE> <OtherPhyMNE>f pt other dr valderrama</OtherPhyMNE> < PrimaryPhyMNE>f pt prim care dr valderrama</PrimaryPhyMNE> <ReferringPhyMNE>f pt referring dr valderrama</ReferringPhyMNE> Patient Name: LOUIS LOVE Unit Number: [id number] Dictated: 10/22/162234 Transcribed: 10/22/162234 EV Printed Date/Time: [~ rep prt dt]/[~ rep prt tm] [~ rep ct labl] - [~ rep ct ivnm] [facility] Radiology Department [place] [id number] Dictated: 10/22/162234 Transcribed: 10/22/162234 EV Printed Date/Time: [~ rep prt dt]/[~ rep prt tm] [~ rep ct labl] - [~ rep ct ivnm] CT SCAN OF THE ABDOMEN AND PELVIS WITH IV CONTRAST CLINICAL HISTORY: Generalized abdominal pain. COMPARISON STUDY: Abdominal CT dated 04/17/2014. TECHNIQUE: Following the IV administration of 92 cc of Optiray 320, CT scan of the abdomen and pelvis is performed from the lung bases to the proximal femora. Images are reviewed in the axial, sagittal, and coronal planes. IV contrast was administered without complication. Automated dose control exposure was utilized. CT DOSE: 358.58 mGy.cm FINDINGS: Lung bases: The heart is normal in size and without pericardial effusion. There are coronary artery calcifications. A 6 mm nodule at the left lung base is unchanged from 2014 as seen on image #28. Calcified granulomas are noted in the right lung base. The lung bases are otherwise clear noting dependent atelectasis. Emphysema is suspected. Liver: The contrast-enhanced liver is normal in size, contour, and attenuation. There is mild central intrahepatic biliary ductal dilatation. The hepatic veins and portal veins are patent. Gallbladder: Surgically absent noting clips in the gallbladder fossa. Spleen: Normal in size and attenuation. Pancreas: Atrophic and grossly unremarkable. Adrenal glands: Unremarkable. Kidneys: The contrast enhanced kidneys are atrophic, asymmetrically greater on the left. There is no hydronephrosis. There are 2 nonobstructing calculi in the lower pole of left kidney measuring up to 10 mm. The kidneys enhance symmetrically. Abdominal vasculature: The abdominal aorta is normal in course and caliber noting moderate atherosclerotic calcification. A stent is seen in the left iliac artery. There is at least moderate stenosis within the proximal superior mesenteric artery. Stomach and bowel: A tiny hiatal hernia is identified. There are postoperative changes consistent with a history of Jessica-en-Y gastric bypass surgery. There is a ventral hernia containing nonobstructed loops of small bowel as seen on axial image #239. There is no bowel obstruction. There is a mildly thick-walled loop of proximal jejunum identified in the posterior mid abdomen on axial image #184. There is mild surrounding inflammation. The appendix is well-visualized and normal. Focal narrowing with mucosal thickening is suggested in the sigmoid colon on axial image #291. Peritoneum: There is no intraperitoneal free air or abdominal ascites. Lymphadenopathy: None. Pelvic viscera: The bladder, uterus, and adnexa are normal as visualized. Skeletal structures: The skeletal structures are osteopenic. There is mild lumbosacral spondylosis. No lytic or blastic lesions are seen. IMPRESSION: 1. There are postoperative changes consistent with a history of Jessica-en-Y gastric bypass surgery. No bowel obstruction is seen. 2. There is a mildly thick-walled loop of proximal jejunum seen in the midabdomen with surrounding inflammatory change. The appearance suggests a nonspecific enteritis. Clinical correlation will be required. 3. There is a ventral hernia in the midline pelvis which contains nonobstructed loops of small bowel. 4. There is a short segment of focal narrowing with associated mucosal thickening suggested in the sigmoid colon. This is not well assessed by CT and may simply represent underdistention. Follow-up with a nonemergent colonoscopy is recommended to assess for underlying colonic lesion. 5. Suspect emphysema. 6. Nonobstructing left renal calculi. 7. A 6 mm pulmonary nodule at the left lung base is unchanged dating back to 2014. This is of doubtful significance given over 2 years of stability. 8. Additional findings as above. Electronically signed by: Qasim Krause M.D. 10/22/2016 10:45 PM Dictated Date/Time: 10/22/2016 10:35 PM The status of this report is Signed. Draft = Not yet reviewed or approved by Radiologist. Signed = Reviewed and approved by Radiologist. <AttendingPhy></AttendingPhy> <FamilyPhy>Cookie Jones D.O.</FamilyPhy> < PrimaryPhy>Cookie Jones D.O.</PrimaryPhy> <UnitNumber>[id number]</ UnitNumber> <VisitNumber>[id number]</VisitNumber> <PatientName>LOUIS LOVE</PatientName> <DateOfBirth>1960</DateOfBirth> <Location>[facility]</ Location> <ServiceDate>10/22/16</ServiceDate> <MNE>ESINDI</MNE> <OrderingPhy> Manas Reese M.D.</OrderingPhy> <OrderingPhyMNE>f rep ord dr valderrama</ OrderingPhyMNE> <DictatingPhyMNE>f rep dict dr valderrama</DictatingPhyMNE> <CCListMNE> f rep ct jannie</CCListMNE> <AdmittingPhyMNE>f pt admit dr valderrama</AdmittingPhyMNE> < AttendingPhyMNE>f pt attend dr valderrama</AttendingPhyMNE> <ConsultingPhyMNE>f pt consult dr valderrama</ConsultingPhyMNE> <FamilyPhyMNE>f pt fam dr valderrama</FamilyPhyMNE> <OtherPhyMNE>f pt other dr valderrama</OtherPhyMNE> < PrimaryPhyMNE>f pt prim care dr valderrama</PrimaryPhyMNE> <ReferringPhyMNE>f pt referring dr valderrama</ReferringPhyMNE> EKG EKG shows normal sinus rhythm at 74 bpm, right bundle branch block, left anterior fascicular block, no acute ST-T changes. Impression Assessment and Plan Enteritis--the patient will be admitted to the medical floor on clear liquids. We'll continue the Cipro and Flagyl IV the emergency department, and place on IV fluids. We'll consult gastroenterology, and she is status post gastric bypass 2009, and the possibility of anastomotic ulcer is always a concern. We' ll place on Protonix 40 mg IV daily, and Zofran 4 mg IV every 6 hours when necessary. CAD/hypertension/history of RI/PAD--for now hold aspirin 81 mg by mouth daily and clopidogrel 75 mg by mouth daily. Continue lisinopril 10 mg by mouth daily and metoprolol succinate ER 25 mg by mouth daily. Depression--continue fluoxetine 40 mg by mouth every morning. Hypercholesterolemia--hold atorvastatin 40 mg by mouth daily. Anxiety--continue lorazepam when necessary. Chronic pain syndrome--we'll hold by mouth Percocet, and have available morphine sulfate 2-4 mg IV every 2 hours when necessary. Level of Care Med/Surg Advanced Directives Existing Advance Directive: No Existing Living Will: No Existing Power of Flow Specialist: No Resuscitation Status FULL RESUSCITATION VTE Prophylaxis VTE Risk Assessment Done? Y/N: Yes Risk Level: Moderate Given or contraindicated: SCD's Social Service Consult None Apply
[2016-10-23] MEDS: METRONIDAZOLE / NSS 500 MG in PREMIXED NSS 100 ML IV SCH ×2 (07:44→17:36)
[2016-10-23 07:59] VITALS: BP 128/82; PULSE 73; TEMP 36.6; O2SAT 93
[2016-10-23] MEDS: METOPROLOL SUCC 25MG EXT REL TAB PO SCH (09:16)
[2016-10-23] MEDS: FLUOXETINE HCL 20 MG CAP PO SCH (09:16)
[2016-10-23] MEDS: PANTOprazole INJ 40 MG in SYRINGE 0 ML IV SCH (10:11)
[2016-10-23] MEDS: CIPROFLOXACIN / D5W 400 MG in PREMIXED IN D5W 200 ML IV SCH (12:25)
--- NOTE | 2016-10-23 12:27 | Progress Note ---
Subjective Date of Service: October 23, 2016. Subjective Pt evaluation today including: conversation w/ patient, physical exam, lab review, review of studies, review of inpatient medication list Pain: better when not eating PO Intake: NPO since admission Voiding: no voiding problems patient says that her main symptom is abdominal pain, actually not eating has helped significantly no vomiting or diarrhea she says her stools are always a little loose with the gastric bypass no blood or dark tarry stools that she has noticed overall she feels better, the Morphine helps with pain and she has been able to sleep Problem List Medical Problems: (1) Central abdominal pain Status: Acute (2) Enteritis Status: Acute (3) Hypertension Status: Acute (4) Left arm pain Status: Acute (5) Left sided chest pain Status: Acute (6) SMA stenosis Status: Acute Review of Systems Abdomen: + pain All Other Systems: Reviewed and Negative Medications Current Inpatient Medications Medications (Trade) Dose Ordered Sig/Alexander Route Start Time Stop Time Status Last Admin Dose Admin Ioversol (Optiray 320) 100 ml UD PRN IV 10/22/16 20:15 10/26/16 20:14 Acetaminophen 650 mg 650 mg Q4H PRN PO 10/23/16 01:15 11/22/16 01:14 Potassium Chloride/Sodium Chloride 1,000 ml @ 100 mls/hr Q10H IV 10/23/16 02:45 11/22/16 02:44 10/23/16 02:46 100 MLS/HR Pantoprazole Sodium 40 mg/ Syringe 10 ml @ 5 mls/min DAILY@11 IV 10/23/16 11:00 11/22/16 10:59 10/23/16 10:11 5 MLS/MIN Acetaminophen (Ofirmev Iv) 100 ml @ 400 mls/hr Q8H PRN IV 10/23/16 01:15 11/22/16 01:14 Ondansetron HCl (Zofran Inj) 4 mg Q6H PRN IV 10/23/16 01:15 11/22/16 01:14 Fluoxetine HCl (Prozac Cap) 40 mg QAM PO 10/23/16 09:00 11/22/16 08:59 10/23/16 09:16 40 MG Lorazepam (Ativan Tab) 0.5 mg BID PRN PO 10/23/16 01:15 11/22/16 01:14 10/23/16 02:58 0.5 MG Metoprolol Succinate 25 mg 25 mg DAILY PO 10/23/16 09:00 11/22/16 08:59 10/23/16 09:16 25 MG Ciprofloxacin/ Dextrose 400 mg/ Prmx 200 ml @ 100 mls/hr Q12H IV 10/23/16 12:00 11/02/16 11:59 Metronidazole/Prmx (Flagyl / Nss/ Premixed Nss) 100 ml @ 100 mls/hr Q8H IV 10/23/16 08:00 11/02/16 07:59 10/23/16 07:44 100 MLS/HR Miscellaneous (Iv Fluids Completed) 1 ea PRN PRN N/A 10/23/16 01:30 10/23/17 01:29 Morphine Sulfate (MoRPHine SULFATE INJ) 2 mg Q2H PRN IV 10/23/16 03:15 11/06/16 03:14 10/23/16 10:11 2 MG Morphine Sulfate (MoRPHine SULFATE INJ) 4 mg Q2H PRN IV 10/23/16 03:15 11/06/16 03:14 Objective Vital Signs Date Time Temp Pulse Resp B/P Pulse Ox O2 Delivery O2 Flow Rate FiO2 10/23/16 09:53 Room Air 10/23/16 07:59 36.6 73 16 128/82 93 Room Air 10/23/16 02:08 36.5 70 16 142/91 96 Room Air 10/23/16 01:45 36.5 70 16 142/91 96 Room Air 10/23/16 01:45 Room Air 10/23/16 01:42 72 18 128/86 96 10/23/16 00:55 70 18 135/83 95 Room Air 10/22/16 22:53 74 18 141/86 96 Room Air 10/22/16 21:12 76 16 133/76 95 Room Air 10/22/16 19:23 36.8 100 20 121/83 97 Room Air Physical Exam General Appearance: WD/WN, no apparent distress Eyes: normal inspection, EOMI, sclerae normal Neck: supple, no adenopathy, no JVD, trachea midline Respiratory/Chest: chest non-tender, lungs clear, normal breath sounds, no respiratory distress, no accessory muscle use Cardiovascular: regular rate, rhythm, no edema, no gallop, no JVD, no murmur Abdomen: normal bowel sounds, soft, no organomegaly, + tenderness ( periumbilical, no rebound, no rigidity) Extremities: normal range of motion, non-tender, normal inspection, no pedal edema, no calf tenderness, pelvis stable Neurologic/Psychiatric: pan devulcanizer helper II-XII nml as tested, no motor/sensory deficits, alert, normal mood/affect, oriented x 3 Skin: normal color, warm/dry, no rash Laboratory Results Last 24 Hours Test 10/22/16 20:35 10/22/16 20:42 White Blood Count 10.11 K/uL Red Blood Count 5.25 M/uL Hemoglobin 15.7 g/dL Hematocrit 47.5 % Mean Corpuscular Volume 90.5 fL Mean Corpuscular Hemoglobin 29.9 pg Mean Corpuscular Hemoglobin Concent 33.1 g/dl Platelet Count 230 K/uL Mean Platelet Volume 10.5 fL Neutrophils (%) (Auto) 55.1 % Lymphocytes (%) (Auto) 36.3 % Monocytes (%) (Auto) 6.0 % Eosinophils (%) (Auto) 1.7 % Basophils (%) (Auto) 0.6 % Neutrophils # (Auto) 5.57 K/uL Lymphocytes # (Auto) 3.67 K/uL Monocytes # (Auto) 0.61 K/uL Eosinophils # (Auto) 0.17 K/uL Basophils # (Auto) 0.06 K/uL RDW Standard Deviation 54.1 fL RDW Coefficient of Variation 16.3 % Immature Granulocyte % (Auto) 0.3 % Immature Granulocyte # (Auto) 0.03 K/uL Prothrombin Time 10.7 SECONDS Prothromb Time International Ratio 1.0 Activated Partial Thromboplast Time 26.6 SECONDS Partial Thromboplastin Ratio 1.0 Sodium Level 143 mmol/L Potassium Level 3.6 mmol/L Chloride Level 110 mmol/L Carbon Dioxide Level 25 mmol/L Anion Gap 8.0 mmol/L Blood Urea Nitrogen 18 mg/dl Creatinine 0.83 mg/dl Est Creatinine Clear Calc Drug Dose 72.3 ml/min Estimated GFR () 92.0 Estimated GFR (Non- 79.4 BUN/Creatinine Ratio 21.7 Random Glucose 87 mg/dl Calcium Level 9.1 mg/dl Total Bilirubin 0.4 mg/dl Direct Bilirubin 0.1 mg/dl Aspartate Amino Transf (AST/SGOT) 17 U/L Alanine Aminotransferase (ALT/SGPT) 23 U/L Alkaline Phosphatase 73 U/L Total Protein 6.3 gm/dl Albumin 3.2 gm/dl Lipase 99 U/L Bedside Troponin I 0.000 ng/ml Assessment and Plan 56 yo female with h/o gastric bypass, presents with one week of worsening epigastric and adan umbilical abdominal pain, poor appetite, no vomiting or diarrhea CT scan showed enteritis in the jejunum - Enteritis: continue Cipro and Flagyl, IV fluids, NPO for bowel rest overall she is feeling better, continue the Morphine PRN for pain control awaiting GI consult for recommendations continue Protonix - CAD: no chest pain, holding aspirin and Plavix for now but likely resume tomorrow continue metoprolol and lisinopril - HTN: BP stable on metoprolol and lisinopril - Depression: continue fluoxetine 40 mg by mouth every morning. - Hypercholesterolemia: hold atorvastatin 40 mg by mouth daily. - Anxiety: continue lorazepam when necessary. - DVT prophylaxis: heparin SC
[2016-10-23] MEDS: HEPARIN SOD 5000 UNIT/0.5 ML CARP SQ SCH ×2 (13:31→21:47)
--- NOTE | 2016-10-23 13:43 | Gastrointestinal Consultation ---
Gastrointestinal Consultation Date of Consultation: October 23, 2016 Attending Physician: Napoleon Burroughs Consulting Physician: Talat Parks Reason for Consultation: Abd pain History of Present Illness Patient is a 56 year old female w PMHx of CAD, PAD, sleep apnea, GERD, dyslipidemia, DM II who presented to ED w c/o sharp cramping pain on mid abd area associated w bloating x 1 week. She has hx of gastric bypass in 2009, revised Jessica en Y in 2010, also hx of incisional hernia repair, mesentery root mass excision. She had previous EGDs between 2009 - 2010 which showed gastric ulcers and stenosed vertical banded gastroplasty. She also had choledocholithiasis s/p removal and sphincterectomy. She smokes daily, denies any ETOH use, no illicit drugs. Upon eval, labs didnt' show leukocytosis, H/H stable, CMP including LFTs and Lipase normal. She had a negative CXR, CT abd/ pelvis showed non specific enteritis (mildly thick walled loop of proximal jejunum in posterior mid abd, w mild inflammation), focal narrowing w mucosal thickening on sigmoid colon. Her bowels are loose since her gastric bypass and she denies increased diarrhea recently. Also no fever, chills, n/v. She denies any recent antibx, no sick contact though she visited family members recently in hospital. Past Medical/Surgical History Medical Problems: (1) Central abdominal pain Status: Acute (2) Enteritis Status: Acute (3) Hypertension Status: Acute (4) Left arm pain Status: Acute (5) Left sided chest pain Status: Acute (6) SMA stenosis Status: Acute Past Surgical History: See above T&A Cholecystectomy Family History Diabetes mellitus FH: heart disease FH: lung disease FHx: cancer Hypertension Social History Smoking Status: Current Every Day Smoker Alcohol Use: none Drug Use: none Marital Status: Housing Status: lives with family Occupation Status: unemployed, disabled Allergies Coded Allergies: No Known Allergies (Unverified , 10/22/16) Current Medications Home Meds and Scripts Medications Dose Route/Sig Max Daily Dose Days Date Category Lisinopril 10 Mg Tab 10 Mg PO DAILY 10/22/16 Reported Lipitor (Atorvastatin Calcium) 40 Mg Tab 40 Mg PO DAILY 10/22/16 Reported Oxycodone/Acetaminophen 10MG/325MG 1 Tab Tab 1 Tab PO TID PRN 30 10/22/16 Reported Hair/Skin/Nails 1250-7.5-7.5 Mcg-mg-Unt (Biotin W/ Vitamins C & E) 1 Chw Chw 1 Tab PO DAILY 09/22/16 Reported Aspirin Chewable (Aspirin) 81 Mg Chew 81 Mg PO DAILY 09/22/16 Reported Metoprolol Succinate ER (Metoprolol Succinate) 25 Mg Tabcr 25 Mg PO DAILY 09/22/16 Reported Ambien (Zolpidem Tartrate) 10 Mg Tab 10 Mg PO HS PRN 09/22/16 Reported Plavix (Clopidogrel Bisulfate) 75 Mg Tab 75 Mg PO DAILY 01/30/16 Reported Lorazepam 0.5 Mg Tab 1 Tab PO BID PRN 01/16/16 Reported Flintstones Chewable (Pediatric Multiple Vitamin W/) 1 Chw Chw 1 Tab PO QAM 01/16/16 Reported Prozac (Fluoxetine HCl) 40 Mg Cap 40 Mg PO QAM 07/19/11 Reported Review of Systems Constitutional: No chills, No fever Respiratory: No cough, No shortness of breath Cardiac: No chest pain, No edema Abdomen: + pain, No diarrhea, No nausea, No vomiting Physical Exam Date Time Temp Pulse Resp B/P Pulse Ox O2 Delivery O2 Flow Rate FiO2 10/23/16 09:53 Room Air 10/23/16 07:59 36.6 73 16 128/82 93 Room Air 10/23/16 02:08 36.5 70 16 142/91 96 Room Air 10/23/16 01:45 36.5 70 16 142/91 96 Room Air 10/23/16 01:45 Room Air 10/23/16 01:42 72 18 128/86 96 10/23/16 00:55 70 18 135/83 95 Room Air 10/22/16 22:53 74 18 141/86 96 Room Air 10/22/16 21:12 76 16 133/76 95 Room Air 10/22/16 19:23 36.8 100 20 121/83 97 Room Air General Appearance: WD/WN, no apparent distress Eyes: normal inspection, PERRL, EOMI Neck: supple, no JVD, trachea midline Respiratory/Chest: normal breath sounds, no respiratory distress, no accessory muscle use Cardiovascular: regular rate, rhythm, no gallop, no murmur Abdomen: normal bowel sounds, soft, + tenderness (across mid abd ) Extremities: normal inspection, no pedal edema, no calf tenderness Neurologic/Psych: alert, normal mood/affect, oriented x 3 Skin: normal color, no jaundice, no rash Laboratory Results Last 24 Hours Test 10/22/16 20:35 10/22/16 20:42 White Blood Count 10.11 K/uL Red Blood Count 5.25 M/uL Hemoglobin 15.7 g/dL Hematocrit 47.5 % Mean Corpuscular Volume 90.5 fL Mean Corpuscular Hemoglobin 29.9 pg Mean Corpuscular Hemoglobin Concent 33.1 g/dl Platelet Count 230 K/uL Mean Platelet Volume 10.5 fL Neutrophils (%) (Auto) 55.1 % Lymphocytes (%) (Auto) 36.3 % Monocytes (%) (Auto) 6.0 % Eosinophils (%) (Auto) 1.7 % Basophils (%) (Auto) 0.6 % Neutrophils # (Auto) 5.57 K/uL Lymphocytes # (Auto) 3.67 K/uL Monocytes # (Auto) 0.61 K/uL Eosinophils # (Auto) 0.17 K/uL Basophils # (Auto) 0.06 K/uL RDW Standard Deviation 54.1 fL RDW Coefficient of Variation 16.3 % Immature Granulocyte % (Auto) 0.3 % Immature Granulocyte # (Auto) 0.03 K/uL Prothrombin Time 10.7 SECONDS Prothromb Time International Ratio 1.0 Activated Partial Thromboplast Time 26.6 SECONDS Partial Thromboplastin Ratio 1.0 Sodium Level 143 mmol/L Potassium Level 3.6 mmol/L Chloride Level 110 mmol/L Carbon Dioxide Level 25 mmol/L Anion Gap 8.0 mmol/L Blood Urea Nitrogen 18 mg/dl Creatinine 0.83 mg/dl Est Creatinine Clear Calc Drug Dose 72.3 ml/min Estimated GFR () 92.0 Estimated GFR (Non- 79.4 BUN/Creatinine Ratio 21.7 Random Glucose 87 mg/dl Calcium Level 9.1 mg/dl Total Bilirubin 0.4 mg/dl Direct Bilirubin 0.1 mg/dl Aspartate Amino Transf (AST/SGOT) 17 U/L Alanine Aminotransferase (ALT/SGPT) 23 U/L Alkaline Phosphatase 73 U/L Total Protein 6.3 gm/dl Albumin 3.2 gm/dl Lipase 99 U/L Bedside Troponin I 0.000 ng/ml Impression Patient is a 56 year old female w hx of gastric bypass surgery in 2009, revised in 2011; hx of gastric ulcer, here for abd pain across middle section. CT abd/ pelvis showed non specific enteritis, no obstructive process. Plan - Continue Cipro/Flagyl antibx for now - Protonix 40mg BID, encouraged tobacco cessation as this may increase risk for ulcer recurrence - Defer endoscopic evals for now. - Check stool cx and Cdiff. - Symptomatic management. I have seen, examined and agree with the plan as outlined by YOLANDA Grimes as above. -exam reveals soft abd -likely infectious etiology
[2016-10-23 15:02] LABS: ISTAT CARBON DIOXIDE 22 mEq/l (24-31); ISTAT CHLORIDE 105 mEq/L (101-112); ISTAT CREATININE 0.9 mg/dl (0.6-1.3); ISTAT HEMATOCRIT 45 % (37-47); ISTAT HEMOGLOBIN 15.3 g/dl (12.0-16.0); ISTAT IONIZED CALCIUM 1.28 mmol/l (1.12-1.32); ISTAT SODIUM 143 mEq/L (135-144)
[2016-10-23 15:10] VITALS: BP 133/83; PULSE 66; TEMP 36.5; O2SAT 99
[2016-10-23] MEDS: MoRPHine SULFATE 4 MG/ML 1 ML CARP\\VIAL IV PRN ×2 (17:41→21:47)
[2016-10-23 23:19] VITALS: BP 157/89; PULSE 72; TEMP 36.5; O2SAT 95
[2016-10-24] MEDS: METRONIDAZOLE / NSS 500 MG in PREMIXED NSS 100 ML IV SCH ×4 (00:05→23:42)
[2016-10-24] MEDS: LORAZEPAM 0.5 MG TAB PO PRN ×2 (00:05→18:13)
[2016-10-24] MEDS: CIPROFLOXACIN / D5W 400 MG in PREMIXED IN D5W 200 ML IV SCH ×3 (00:05→23:42)
[2016-10-24] MEDS: MoRPHine SULFATE 4 MG/ML 1 ML CARP\\VIAL IV PRN ×3 (00:06→06:21)
[2016-10-24] MEDS: HEPARIN SOD 5000 UNIT/0.5 ML CARP SQ SCH ×3 (05:49→21:03)
[2016-10-24 06:43] LABS: BASO % 0.9 %; BASO ABS # 0.06 K/uL (0-0.2); COMPLETE YES; EOS % 3.2 %; HEMATOCRIT 40.3 % (37-47); IG% 0.2 %; LYMPH % 39.5 %; LYMPH ABS # 2.62 K/uL (1.2-3.4); MEAN CELL VOLUME 93.9 fL (80-100); MEAN CORPUSCULAR HEMOGLOBIN 30.1 pg (25-34); MONO % 6.6 %; NEUT % 49.6 %; PLATELET COUNT 190 K/uL (130-400); RED BLOOD COUNT 4.29 M/uL (4.2-5.4); WHITE BLOOD COUNT 6.63 K/uL (4.8-10.8)
[2016-10-24 07:12] VITALS: BP 153/79; PULSE 69; TEMP 36.6; O2SAT 92
[2016-10-24 07:20] LABS: BUN/CREATININE RATIO 20.3 (10-20); CALCIUM 8.3 mg/dl (8.5-10.1); CREATININE 0.58 mg/dl (0.60-1.20); MAGNESIUM 1.9 mg/dl (1.8-2.4); POTASSIUM 4.8 mmol/L (3.5-5.1)
[2016-10-24] MEDS: METOPROLOL SUCC 25MG EXT REL TAB PO SCH (08:27)
[2016-10-24] MEDS: FLUOXETINE HCL 20 MG CAP PO SCH (08:27)
[2016-10-24] MEDS: NSS + 20MEQ KCL 1000ML 1,000 ML IV SCH (08:30)
[2016-10-24] MEDS: MoRPHine SULFATE 2 MG/ML CARP IV PRN ×6 (08:36→22:04)
[2016-10-24] MEDS ORDERED: DICYCLOMINE HCL 20 MG TAB PO ONE (10:45)
[2016-10-24] MEDS: PANTOprazole INJ 40 MG in SYRINGE 0 ML IV SCH (11:14)
--- NOTE | 2016-10-24 12:07 | Gastroenterology Progress Note ---
Progress Note Date of Service: October 24, 2016 Subjective Pt evaluation today including: conversation w/ patient, physical exam, chart review, lab review, review of inpatient medication list Pt had some CL food and had lower abd cramping. Mild nausea, no vomiting. Loose BM this AM Review of Systems Constitutional: No chills, No fever Respiratory: No cough, No shortness of breath Abdomen: + diarrhea, + nausea, + pain, + see HPI, No vomiting Medications Current Inpatient Medications Medications (Trade) Dose Ordered Sig/Alexander Route Start Time Stop Time Status Last Admin Dose Admin Ioversol (Optiray 320) 100 ml UD PRN IV 10/22/16 20:15 10/26/16 20:14 Acetaminophen 650 mg 650 mg Q4H PRN PO 10/23/16 01:15 11/22/16 01:14 Potassium Chloride/Sodium Chloride 1,000 ml @ 50 mls/hr Q20H IV 10/23/16 02:45 11/23/16 02:44 10/24/16 08:30 100 MLS/HR Pantoprazole Sodium 40 mg/ Syringe 10 ml @ 5 mls/min DAILY@11 IV 10/23/16 11:00 11/22/16 10:59 10/24/16 11:14 5 MLS/MIN Acetaminophen (Ofirmev Iv) 100 ml @ 400 mls/hr Q8H PRN IV 10/23/16 01:15 11/22/16 01:14 Ondansetron HCl (Zofran Inj) 4 mg Q6H PRN IV 10/23/16 01:15 11/22/16 01:14 Fluoxetine HCl (Prozac Cap) 40 mg QAM PO 10/23/16 09:00 11/22/16 08:59 10/24/16 08:27 40 MG Lorazepam (Ativan Tab) 0.5 mg BID PRN PO 10/23/16 01:15 11/22/16 01:14 10/24/16 00:05 0.5 MG Metoprolol Succinate 25 mg 25 mg DAILY PO 10/23/16 09:00 11/22/16 08:59 10/24/16 08:27 25 MG Ciprofloxacin/ Dextrose 400 mg/ Prmx 200 ml @ 100 mls/hr Q12H IV 10/23/16 12:00 11/02/16 11:59 10/24/16 00:05 100 MLS/HR Metronidazole/Prmx (Flagyl / Nss/ Premixed Nss) 100 ml @ 100 mls/hr Q8H IV 10/23/16 08:00 11/02/16 07:59 10/24/16 08:23 100 MLS/HR Miscellaneous (Iv Fluids Completed) 1 ea PRN PRN N/A 10/23/16 01:30 10/23/17 01:29 Morphine Sulfate (MoRPHine SULFATE INJ) 2 mg Q2H PRN IV 10/23/16 03:15 11/06/16 03:14 10/24/16 11:15 2 MG Morphine Sulfate (MoRPHine SULFATE INJ) 4 mg Q2H PRN IV 10/23/16 03:15 11/06/16 03:14 10/24/16 06:21 4 MG Heparin Sodium (Porcine) (Heparin Sq 5000 Unit/0.5ml) 5,000 unit Q8 SQ 10/23/16 14:00 11/22/16 13:59 10/24/16 05:49 5,000 UNIT Dicyclomine HCl (Bentyl Cap) 10 mg BID PO 10/24/16 21:00 11/23/16 20:59 Objective Vital Signs Date Time Temp Pulse Resp B/P Pulse Ox O2 Delivery O2 Flow Rate FiO2 10/24/16 08:00 Room Air 10/24/16 07:12 36.6 69 17 153/79 92 Room Air 10/23/16 23:38 Room Air 10/23/16 23:19 36.5 72 16 157/89 95 Room Air 10/23/16 17:30 Room Air 10/23/16 15:10 36.5 66 16 133/83 99 Room Air Physical Exam General Appearance: WD/WN, no apparent distress Eyes: normal inspection, PERRL, EOMI Neck: supple, no JVD, trachea midline Respiratory/Chest: normal breath sounds, no respiratory distress, no accessory muscle use Cardiovascular: regular rate, rhythm, no gallop, no murmur Abdomen: normal bowel sounds, soft, + tenderness (LLQ, RLQ) Neurologic/Psych: alert, normal mood/affect, oriented x 3 Skin: normal color, no jaundice, no rash Laboratory Results Last 24 Hours Test 10/24/16 06:15 White Blood Count 6.63 K/uL Red Blood Count 4.29 M/uL Hemoglobin 12.9 g/dL Hematocrit 40.3 % Mean Corpuscular Volume 93.9 fL Mean Corpuscular Hemoglobin 30.1 pg Mean Corpuscular Hemoglobin Concent 32.0 g/dl Platelet Count 190 K/uL Mean Platelet Volume 11.0 fL Neutrophils (%) (Auto) 49.6 % Lymphocytes (%) (Auto) 39.5 % Monocytes (%) (Auto) 6.6 % Eosinophils (%) (Auto) 3.2 % Basophils (%) (Auto) 0.9 % Neutrophils # (Auto) 3.29 K/uL Lymphocytes # (Auto) 2.62 K/uL Monocytes # (Auto) 0.44 K/uL Eosinophils # (Auto) 0.21 K/uL Basophils # (Auto) 0.06 K/uL RDW Standard Deviation 58.5 fL RDW Coefficient of Variation 16.9 % Immature Granulocyte % (Auto) 0.2 % Immature Granulocyte # (Auto) 0.01 K/uL Sodium Level 146 mmol/L Potassium Level 4.8 mmol/L Chloride Level 115 mmol/L Carbon Dioxide Level 26 mmol/L Anion Gap 5.0 mmol/L Blood Urea Nitrogen 12 mg/dl Creatinine 0.58 mg/dl Est Creatinine Clear Calc Drug Dose 103.5 ml/min Estimated GFR () 120.3 Estimated GFR (Non- 103.8 BUN/Creatinine Ratio 20.3 Random Glucose 70 mg/dl Calcium Level 8.3 mg/dl Magnesium Level 1.9 mg/dl Assessment and Plan Impression Patient is a 56 year old female w hx of gastric bypass surgery in 2009, revised in 2010; hx of gastric ulcer, here for abd pain across middle section. CT abd/ pelvis showed non specific enteritis, no obstructive process. Plans - Continue Cipro/Flagyl antibx for now - Protonix 40mg BID, encouraged tobacco cessation as this may increase risk for ulcer recurrence - Defer endoscopic evals for now. - Check stool cx and Cdiff. - Symptomatic management. - CL diet; advance as tolerated - Add Bentyl 10mg BID for abd cramping I have seen, examined and agree with the plan as outlined by YOLANDA Grimes as above. -exam reveals soft abd -eating regular diet in bed sitting up in bed
--- NOTE | 2016-10-24 14:59 | Progress Note ---
Subjective Date of Service: October 24, 2016. Subjective Pt evaluation today including: conversation w/ patient, physical exam, lab review, review of inpatient medication list Pain: still with pain, slightly less today PO Intake: tolerating clears Voiding: no voiding problems patient still with pain, although slightly less tolerating clear liquids no vomiting + flatus but no BM discussed with Dr. Parks, no need for any GI work up, continue Cipro/Flagyl Problem List Medical Problems: (1) Central abdominal pain Status: Acute (2) Enteritis Status: Acute (3) Hypertension Status: Acute (4) Left arm pain Status: Acute (5) Left sided chest pain Status: Acute (6) SMA stenosis Status: Acute Review of Systems Constitutional: + fatigue, + weakness Abdomen: + constipation, + pain All Other Systems: Reviewed and Negative Medications Current Inpatient Medications Medications (Trade) Dose Ordered Sig/Alexander Route Start Time Stop Time Status Last Admin Dose Admin Ioversol (Optiray 320) 100 ml UD PRN IV 10/22/16 20:15 10/26/16 20:14 Acetaminophen 650 mg 650 mg Q4H PRN PO 10/23/16 01:15 11/22/16 01:14 Potassium Chloride/Sodium Chloride 1,000 ml @ 50 mls/hr Q20H IV 10/23/16 02:45 11/23/16 02:44 10/24/16 08:30 100 MLS/HR Pantoprazole Sodium 40 mg/ Syringe 10 ml @ 5 mls/min DAILY@11 IV 10/23/16 11:00 11/22/16 10:59 10/24/16 11:14 5 MLS/MIN Acetaminophen (Ofirmev Iv) 100 ml @ 400 mls/hr Q8H PRN IV 10/23/16 01:15 11/22/16 01:14 Ondansetron HCl (Zofran Inj) 4 mg Q6H PRN IV 10/23/16 01:15 11/22/16 01:14 Fluoxetine HCl (Prozac Cap) 40 mg QAM PO 10/23/16 09:00 11/22/16 08:59 10/24/16 08:27 40 MG Lorazepam (Ativan Tab) 0.5 mg BID PRN PO 10/23/16 01:15 11/22/16 01:14 10/24/16 00:05 0.5 MG Metoprolol Succinate 25 mg 25 mg DAILY PO 10/23/16 09:00 11/22/16 08:59 10/24/16 08:27 25 MG Ciprofloxacin/ Dextrose 400 mg/ Prmx 200 ml @ 100 mls/hr Q12H IV 10/23/16 12:00 11/02/16 11:59 10/24/16 12:08 100 MLS/HR Metronidazole/Prmx (Flagyl / Nss/ Premixed Nss) 100 ml @ 100 mls/hr Q8H IV 10/23/16 08:00 11/02/16 07:59 10/24/16 08:23 100 MLS/HR Miscellaneous (Iv Fluids Completed) 1 ea PRN PRN N/A 10/23/16 01:30 10/23/17 01:29 Morphine Sulfate (MoRPHine SULFATE INJ) 2 mg Q2H PRN IV 10/23/16 03:15 11/06/16 03:14 10/24/16 13:55 2 MG Morphine Sulfate (MoRPHine SULFATE INJ) 4 mg Q2H PRN IV 10/23/16 03:15 11/06/16 03:14 10/24/16 06:21 4 MG Heparin Sodium (Porcine) (Heparin Sq 5000 Unit/0.5ml) 5,000 unit Q8 SQ 10/23/16 14:00 11/22/16 13:59 10/24/16 13:49 5,000 UNIT Dicyclomine HCl (Bentyl Cap) 10 mg BID PO 10/24/16 21:00 11/23/16 20:59 Objective Vital Signs Date Time Temp Pulse Resp B/P Pulse Ox O2 Delivery O2 Flow Rate FiO2 10/24/16 08:00 Room Air 10/24/16 07:12 36.6 69 17 153/79 92 Room Air 10/23/16 23:38 Room Air 10/23/16 23:19 36.5 72 16 157/89 95 Room Air 10/23/16 17:30 Room Air 10/23/16 15:10 36.5 66 16 133/83 99 Room Air Physical Exam General Appearance: no apparent distress, + thin Eyes: normal inspection, EOMI, sclerae normal Neck: supple, no adenopathy, no JVD Respiratory/Chest: chest non-tender, lungs clear, normal breath sounds, no respiratory distress, no accessory muscle use Cardiovascular: regular rate, rhythm, no edema, no gallop, no JVD, no murmur Abdomen: normal bowel sounds, soft, no organomegaly, + tenderness (adan umbilical) Extremities: normal range of motion, non-tender, normal inspection, no pedal edema, no calf tenderness Neurologic/Psychiatric: unit tender II-XII nml as tested, no motor/sensory deficits, alert, normal mood/affect, oriented x 3 Skin: normal color, warm/dry, no rash Lymphatic: no adenopathy Laboratory Results Last 24 Hours Test 10/24/16 06:15 White Blood Count 6.63 K/uL Red Blood Count 4.29 M/uL Hemoglobin 12.9 g/dL Hematocrit 40.3 % Mean Corpuscular Volume 93.9 fL Mean Corpuscular Hemoglobin 30.1 pg Mean Corpuscular Hemoglobin Concent 32.0 g/dl Platelet Count 190 K/uL Mean Platelet Volume 11.0 fL Neutrophils (%) (Auto) 49.6 % Lymphocytes (%) (Auto) 39.5 % Monocytes (%) (Auto) 6.6 % Eosinophils (%) (Auto) 3.2 % Basophils (%) (Auto) 0.9 % Neutrophils # (Auto) 3.29 K/uL Lymphocytes # (Auto) 2.62 K/uL Monocytes # (Auto) 0.44 K/uL Eosinophils # (Auto) 0.21 K/uL Basophils # (Auto) 0.06 K/uL RDW Standard Deviation 58.5 fL RDW Coefficient of Variation 16.9 % Immature Granulocyte % (Auto) 0.2 % Immature Granulocyte # (Auto) 0.01 K/uL Sodium Level 146 mmol/L Potassium Level 4.8 mmol/L Chloride Level 115 mmol/L Carbon Dioxide Level 26 mmol/L Anion Gap 5.0 mmol/L Blood Urea Nitrogen 12 mg/dl Creatinine 0.58 mg/dl Est Creatinine Clear Calc Drug Dose 103.5 ml/min Estimated GFR () 120.3 Estimated GFR (Non- 103.8 BUN/Creatinine Ratio 20.3 Random Glucose 70 mg/dl Calcium Level 8.3 mg/dl Magnesium Level 1.9 mg/dl Assessment and Plan 56 yo female with h/o gastric bypass, presents with one week of worsening epigastric and adan umbilical abdominal pain, poor appetite, no vomiting or diarrhea CT scan showed enteritis in the jejunum - Enteritis: continue Cipro and Flagyl, IV fluids, tolerated clear liquids, will advance to regular overall she is feeling better but still not well enough to go home, continue the Morphine PRN for pain control GI consult - no endoscopy needed continue Protonix - CAD: no chest pain, resume aspirin and Plavix continue metoprolol and lisinopril - HTN: BP stable on metoprolol and lisinopril - Depression: continue fluoxetine 40 mg by mouth every morning. - Hypercholesterolemia: hold atorvastatin 40 mg by mouth daily. - Anxiety: continue lorazepam when necessary. - DVT prophylaxis: heparin SC
[2016-10-24 15:43] VITALS: BP 160/90; PULSE 58; TEMP 36.9; O2SAT 98
[2016-10-24 16:00] VITALS: O2SAT 98
[2016-10-24 20:00] VITALS: BP 161/83
[2016-10-24] MEDS: DICYCLOMINE HCL 10 MG CAP PO SCH (20:22)
[2016-10-24 23:30] VITALS: BP 157/81; PULSE 76; TEMP 36.4; O2SAT 92
[2016-10-25] VITALS (9 sets, daily range): BP systolic 150–178; BP diastolic 87–100; PULSE 57–65; TEMP 36.4–36.5; O2SAT 95–97
[2016-10-25] MEDS: MoRPHine SULFATE 2 MG/ML CARP IV PRN ×7 (00:16→23:29)
[2016-10-25] MEDS: NSS + 20MEQ KCL 1000ML 1,000 ML IV SCH (02:55)
[2016-10-25] MEDS: HEPARIN SOD 5000 UNIT/0.5 ML CARP SQ SCH ×3 (05:38→22:49)
[2016-10-25 06:10] LABS: BASO % 0.8 %; BASO ABS # 0.06 K/uL (0-0.2); COMPLETE YES; HEMATOCRIT 40.2 % (37-47); IG% 0.3 %; LYMPH % 34.9 %; LYMPH ABS # 2.79 K/uL (1.2-3.4); MEAN CELL VOLUME 92.6 fL (80-100); MEAN CORPUSCULAR HEMOGLOBIN 30.2 pg (25-34); MEAN CORPUSCULAR HGB CONC 32.6 g/dl (32-36); MEAN PLATELET VOLUME 10.9 fL (7.4-10.4); MONO % 4.8 %; NEUT % 56.2 %; PLATELET COUNT 209 K/uL (130-400); RED BLOOD COUNT 4.34 M/uL (4.2-5.4); WHITE BLOOD COUNT 7.99 K/uL (4.8-10.8)
[2016-10-25 06:42] LABS: BUN/CREATININE RATIO 19.5 (10-20); CALCIUM 8.3 mg/dl (8.5-10.1); CREATININE 0.63 mg/dl (0.60-1.20); POTASSIUM 4.2 mmol/L (3.5-5.1)
[2016-10-25] MEDS: METRONIDAZOLE / NSS 500 MG in PREMIXED NSS 100 ML IV SCH ×3 (07:23→23:18)
[2016-10-25] MEDS: LORAZEPAM 0.5 MG TAB PO PRN ×2 (07:42→20:56)
[2016-10-25] MEDS: ASPIRIN 81 MG ECTAB PO SCH (08:31)
[2016-10-25] MEDS: METOPROLOL SUCC 25MG EXT REL TAB PO SCH (08:31)
[2016-10-25] MEDS: CLOPIDOGREL BISULFATE 75 MG TAB PO SCH (08:31)
[2016-10-25] MEDS: DICYCLOMINE HCL 10 MG CAP PO SCH ×2 (08:31→20:57)
[2016-10-25] MEDS: FLUOXETINE HCL 20 MG CAP PO SCH (08:31)
[2016-10-25] MEDS: PANTOprazole INJ 40 MG in SYRINGE 0 ML IV SCH (11:06)
[2016-10-25] MEDS: CIPROFLOXACIN / D5W 400 MG in PREMIXED IN D5W 200 ML IV SCH ×2 (12:11→23:18)
--- NOTE | 2016-10-25 13:39 | Progress Note ---
Subjective Date of Service: October 25, 2016. Subjective Pt evaluation today including: conversation w/ patient, physical exam, conversation w/ medical social consultant, review of inpatient medication list Pain: improving but still moderate PO Intake: could not eat dinner last night due to pain, breakfast went better today Voiding: no voiding problems patient does not think Jessa is helping her pain is slightly better though, eating better this AM discussed going home, she is concerned because of how bad her pain was last night I agree, we will try to d/c in the morning as long as she continues to tolerate diet she had a BM today, no vomiting Problem List Medical Problems: (1) Central abdominal pain Status: Acute (2) Enteritis Status: Acute (3) Hypertension Status: Acute (4) Left arm pain Status: Acute (5) Left sided chest pain Status: Acute (6) SMA stenosis Status: Acute Review of Systems Constitutional: + fatigue, + weakness Abdomen: + pain All Other Systems: Reviewed and Negative Medications Current Inpatient Medications Medications (Trade) Dose Ordered Sig/Alexander Route Start Time Stop Time Status Last Admin Dose Admin Ioversol (Optiray 320) 100 ml UD PRN IV 10/22/16 20:15 10/26/16 20:14 Acetaminophen 650 mg 650 mg Q4H PRN PO 10/23/16 01:15 11/22/16 01:14 Potassium Chloride/Sodium Chloride 1,000 ml @ 50 mls/hr Q20H IV 10/23/16 02:45 11/23/16 02:44 10/25/16 02:55 50 MLS/HR Pantoprazole Sodium 40 mg/ Syringe 10 ml @ 5 mls/min DAILY@11 IV 10/23/16 11:00 11/22/16 10:59 10/25/16 11:06 5 MLS/MIN Acetaminophen (Ofirmev Iv) 100 ml @ 400 mls/hr Q8H PRN IV 10/23/16 01:15 11/22/16 01:14 Ondansetron HCl (Zofran Inj) 4 mg Q6H PRN IV 10/23/16 01:15 11/22/16 01:14 Fluoxetine HCl (Prozac Cap) 40 mg QAM PO 10/23/16 09:00 11/22/16 08:59 10/25/16 08:31 40 MG Lorazepam (Ativan Tab) 0.5 mg BID PRN PO 10/23/16 01:15 11/22/16 01:14 10/25/16 07:42 0.5 MG Metoprolol Succinate 25 mg 25 mg DAILY PO 10/23/16 09:00 11/22/16 08:59 10/25/16 08:31 25 MG Ciprofloxacin/ Dextrose 400 mg/ Prmx 200 ml @ 100 mls/hr Q12H IV 10/23/16 12:00 11/02/16 11:59 10/25/16 12:11 100 MLS/HR Metronidazole/Prmx (Flagyl / Nss/ Premixed Nss) 100 ml @ 100 mls/hr Q8H IV 10/23/16 08:00 11/02/16 07:59 10/25/16 07:23 100 MLS/HR Miscellaneous (Iv Fluids Completed) 1 ea PRN PRN N/A 10/23/16 01:30 10/23/17 01:29 Morphine Sulfate (MoRPHine SULFATE INJ) 2 mg Q2H PRN IV 10/23/16 03:15 11/06/16 03:14 10/25/16 11:11 2 MG Morphine Sulfate (MoRPHine SULFATE INJ) 4 mg Q2H PRN IV 10/23/16 03:15 11/06/16 03:14 10/24/16 06:21 4 MG Heparin Sodium (Porcine) (Heparin Sq 5000 Unit/0.5ml) 5,000 unit Q8 SQ 10/23/16 14:00 11/22/16 13:59 10/25/16 05:38 5,000 UNIT Dicyclomine HCl (Bentyl Cap) 10 mg BID PO 10/24/16 21:00 11/23/16 20:59 10/25/16 08:31 10 MG Aspirin (Ecotrin Tab) 81 mg DAILY PO 10/25/16 09:00 11/24/16 08:59 10/25/16 08:31 81 MG Clopidogrel Bisulfate (plAVix TAB) 75 mg DAILY PO 10/25/16 09:00 11/24/16 08:59 10/25/16 08:31 75 MG Objective Vital Signs Date Time Temp Pulse Resp B/P Pulse Ox O2 Delivery O2 Flow Rate FiO2 10/25/16 13:33 168/94 10/25/16 11:37 36.5 61 14 150/95 95 10/25/16 08:34 155/91 10/25/16 07:54 36.5 62 14 170/100 97 Room Air 10/25/16 07:20 97 Room Air 10/24/16 23:45 Room Air 10/24/16 23:30 36.4 76 16 157/81 92 Room Air 10/24/16 20:00 161/83 10/24/16 16:00 98 Room Air 10/24/16 15:43 36.9 58 14 160/90 98 Room Air Physical Exam General Appearance: WD/WN, no apparent distress Eyes: normal inspection, EOMI, sclerae normal ENT: + pertinent finding (poor dentition) Neck: supple, no adenopathy, no JVD, trachea midline Respiratory/Chest: chest non-tender, lungs clear, normal breath sounds, no respiratory distress, no accessory muscle use Cardiovascular: regular rate, rhythm, no edema, no gallop, no JVD, no murmur Abdomen: normal bowel sounds, soft, no organomegaly, + tenderness (adan umbilical, no rebound or rigidity) Extremities: normal range of motion, non-tender, normal inspection, no pedal edema, no calf tenderness, pelvis stable Neurologic/Psychiatric: [employer]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 II-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 nml as tested, no motor/sensory deficits, alert, normal mood/affect, oriented x 3 Skin: normal color, warm/dry, no rash Lymphatic: no adenopathy Laboratory Results Last 24 Hours Test 10/25/16 05:32 White Blood Count 7.99 K/uL Red Blood Count 4.34 M/uL Hemoglobin 13.1 g/dL Hematocrit 40.2 % Mean Corpuscular Volume 92.6 fL Mean Corpuscular Hemoglobin 30.2 pg Mean Corpuscular Hemoglobin Concent 32.6 g/dl Platelet Count 209 K/uL Mean Platelet Volume 10.9 fL Neutrophils (%) (Auto) 56.2 % Lymphocytes (%) (Auto) 34.9 % Monocytes (%) (Auto) 4.8 % Eosinophils (%) (Auto) 3.0 % Basophils (%) (Auto) 0.8 % Neutrophils # (Auto) 4.50 K/uL Lymphocytes # (Auto) 2.79 K/uL Monocytes # (Auto) 0.38 K/uL Eosinophils # (Auto) 0.24 K/uL Basophils # (Auto) 0.06 K/uL RDW Standard Deviation 57.1 fL RDW Coefficient of Variation 16.7 % Immature Granulocyte % (Auto) 0.3 % Immature Granulocyte # (Auto) 0.02 K/uL Sodium Level 144 mmol/L Potassium Level 4.2 mmol/L Chloride Level 111 mmol/L Carbon Dioxide Level 27 mmol/L Anion Gap 6.0 mmol/L Blood Urea Nitrogen 12 mg/dl Creatinine 0.63 mg/dl Est Creatinine Clear Calc Drug Dose 95.3 ml/min Estimated GFR () 117.0 Estimated GFR (Non- 101.0 BUN/Creatinine Ratio 19.5 Random Glucose 107 mg/dl Calcium Level 8.3 mg/dl Magnesium Level 2.0 mg/dl Assessment and Plan 56 yo female with h/o gastric bypass, presents with one week of worsening epigastric and adan umbilical abdominal pain, poor appetite, no vomiting or diarrhea CT scan showed enteritis in the jejunum - Enteritis: continue Cipro and Flagyl, IV fluids can be stopped, regular diet overall she is feeling better but still not well enough to go home, continue the Morphine PRN for pain control GI consult - no endoscopy needed continue Protonix and Bentyl plan for d/c tomorrow - CAD: no chest pain, resume aspirin and Plavix continue metoprolol and lisinopril - HTN: BP stable on metoprolol and lisinopril - Depression: continue fluoxetine 40 mg by mouth every morning. - Hypercholesterolemia: hold atorvastatin 40 mg by mouth daily. - Anxiety: continue lorazepam when necessary. - DVT prophylaxis: heparin SC
[2016-10-25] MEDS ORDERED: OXYCODONE/ACETAMINOPHEN 10/325MG TAB PO PRN (13:45)
[2016-10-25] MEDS ORDERED: ZOLPIDEM TARTRATE 10 MG TAB PO PRN (13:45)
[2016-10-25] MEDS: LISINOPRIL 10 MG TAB PO SCH (14:04)
[2016-10-25] MEDS ORDERED: HydrALAZINE HCL 20 MG/ML VIAL IV. PRN (15:30)
[2016-10-25] MEDS ORDERED: NURSING VERBAL MED ORDER ONE (16:15)
[2016-10-25] MEDS: OXYCODONE/ACETAMINOPHEN 10/325MG TAB PO PRN (17:07)
[2016-10-26] MEDS: HEPARIN SOD 5000 UNIT/0.5 ML CARP SQ SCH ×2 (05:40→14:00)
[2016-10-26 06:55] VITALS: BP 169/92; PULSE 60; TEMP 36.5; O2SAT 99
[2016-10-26] MEDS: OXYCODONE/ACETAMINOPHEN 10/325MG TAB PO PRN (08:04)
[2016-10-26] MEDS: METRONIDAZOLE / NSS 500 MG in PREMIXED NSS 100 ML IV SCH (08:06)
[2016-10-26] MEDS: DICYCLOMINE HCL 10 MG CAP PO SCH (08:51)
[2016-10-26] MEDS: ASPIRIN 81 MG ECTAB PO SCH (08:53)
[2016-10-26] MEDS: LISINOPRIL 10 MG TAB PO SCH (08:53)
[2016-10-26] MEDS: CLOPIDOGREL BISULFATE 75 MG TAB PO SCH (08:53)
[2016-10-26 09:00] VITALS: BP 170/90; PULSE 68
[2016-10-26] MEDS: METOPROLOL SUCC 25MG EXT REL TAB PO SCH (09:13)
[2016-10-26] MEDS: FLUOXETINE HCL 20 MG CAP PO SCH (09:14)
[2016-10-26 09:46] VITALS: BP 147/80
[2016-10-26] MEDS: PANTOprazole INJ 40 MG in SYRINGE 0 ML IV SCH (10:53)
[2016-10-26] MEDS: CIPROFLOXACIN / D5W 400 MG in PREMIXED IN D5W 200 ML IV SCH ×2 (12:00→12:07)
[2016-10-26] MEDS ORDERED: OXYC-88 PO (12:23)
[2016-10-26] MEDS ORDERED: METR-163 PO (12:23)
--- NOTE | 2016-10-26 12:28 | Discharge Instructions ---
Discharge Instructions Date of Service October 26, 2016. Admission Reason for Admission: Enteritis Discharge Discharge Diagnosis / Problem: Enteritis Discharge Goals Goal(s): Decrease discomfort, Improve function Activity Recommendations Activity Limitations: resume your previous activity Lifting Limitations: none Exercise/Sports Limitations: as tolerated May Resume Sexual Activity: when tolerated Shower/Bathe: no limitations . Instructions / Follow-Up Instructions / Follow-Up Medications: - FLAGYL: 500mg TID x 4 more days to treat enteritis - PERCOCET: 3 day prescription provided to get you covered until Thursday Enteritis: seen in jejunum (section of small bowel) on CT scan, this was the only positive finding on CT and the likely cause of symptoms self limiting, you received antibiotics while admitted and will complete 4 more days of Flagyl on discharge continue to advance diet as tolerated, stay well hydrated, get rest stool cultures were all negative you were seen by gastroenterology during admission, tried Bentyl but did not help symptoms FOLLOW UP - call office of Dr. Jones to get an appointment at the end of this week or beginning of next week Current Hospital Diet Patient's current hospital diet: Regular Diet Discharge Diet Recommended Diet: Regular Diet Pending Studies Studies pending at discharge: no Laboratory Results Lipid Panel Test 10/10/16 10:09 Range/Units Triglycerides Level 113 0-150 mg/dl Cholesterol Level 117 0-200 mg/dl HDL Cholesterol 58 mg/dl Cholesterol/HDL Ratio 2.0 LDL Cholesterol, Calculated 36 mg/dl Medical Emergencies . Who to Call and When: Medical Emergencies: If at any time you feel your situation is an emergency, please call 911 immediately. . Non-Emergent Contact Non-Emergency issues call your: Primary Care Provider Call Non-Emergent contact if: your pain is worsening, you have any medication questions . . "Provider Documentation" section prepared by Napoleon Burroughs. . VTE Core Measure Inpt VTE Proph given/why not?: SCD's [place] Drug Monitoring Program Search Results: patient reviewed within database
--- NOTE | 2016-10-26 12:34 | Discharge Summary ---
Discharge Summary Date of Service October 26, 2016. Discharge Summary Admission Date: October 24, 2016 at 14:54 Discharge Date: October 26, 2016 Discharge Disposition: Home Principal Diagnosis: Enteritis Problems/Secondary Diagnoses: s/p gastric bypass chronic pain dehydration Immunizations: Have You Had Influenza Vaccine: Yes Influenza Vaccine Date: Apr 15, 2013 History of Tetanus Vaccine?: Unknown Tetanus Immunization Date: Mar 04, 2010 History of Pneumococcal: Yes Pneumococcal Date: Jul 22, 2010 History of Hepatitis B Vaccine: No Procedures: none Consultations: Gastroenterology Medication Reconciliation New Medications: Metronidazole (Flagyl) 500 Mg Tab 500 MG PO TID for 4 Days, #12 TAB Continued Medications: Aspirin (Aspirin Chewable) 81 Mg Chew 81 MG PO DAILY Atorvastatin (Lipitor) 40 Mg Tab 40 MG PO DAILY, TAB Biotin W/ Vitamins C & E (Hair/Skin/Nails 1250-7.5-7.5 Mcg-mg-Unt) 1 Chw Chw 1 TAB PO DAILY Clopidogrel (Plavix) 75 Mg Tab 75 MG PO DAILY, TAB Fluoxetine (Prozac) 40 Mg Cap 40 MG PO QAM, 0 Refills Lisinopril (Lisinopril) 10 Mg Tab 10 MG PO DAILY Lorazepam (Lorazepam) 0.5 Mg Tab 1 TAB PO BID PRN for Anxiety/Insomnia Metoprolol Succinate (Metoprolol Succinate ER) 25 Mg Tabcr 25 MG PO DAILY Oxycodone/Acetaminophen 10MG/325MG (Oxycodone/Acetaminophen 10MG/325MG) 1 Tab Tab 1 TAB PO TID PRN for Pain for 30 Days, #9 TAB 0 Refills (This prescription has been renewed) Pediatric Multiple Vitamin W/ (Flintstones Chewable) 1 Chw Chw 1 TAB PO QAM, TAB Zolpidem Tartrate (Ambien) 10 Mg Tab 10 MG PO HS PRN for Sleep, TAB Discharge Exam Patient feeling well today, eating her meals, moving bowels, no vomiting. Admits that she feels ready to go home. discussed that enteritis should resolve in the next few days said that she did not have any Percocet at home, prescribed by Dr. Jones said that she had a script for her on Thursday, prescribed 90 at a time gave her 3 day script (9 tabs) to get her through until Thursday Review of Systems: Constitutional: No chills, No fatigue, No fever, No problem reported, No sweats, No weakness, No weight loss Eyes: No diplopia, No discharge, No eye pain, No problem reported, No redness, No worsening of vision ENT: No dental problems, No hearing loss, No nasal symptoms, No problem reported, No sore throat, No tinnitus, No trouble swallowing, No unusual epistaxis Respiratory: No cough, No dyspnea at rest, No dyspnea on exertion, No hemoptysis, No problem reported, No shortness of breath, No sputum, No wheezing Cardiovascular: No PND, No chest pain, No claudication, No edema, No orthopnea, No palpitations, No problem reported Abdomen: + pain (epigastric, moderate, better), No GI bleeding, No constipation, No diarrhea, No nausea, No problem reported, No vomiting Musculoskeletal: No calf pain, No joint pain, No muscle pain, No problem reported, No swelling Genitourinary - Female: No dysuria, No urinary frequency, No urinary incontinence, No urinary urgency Neurologic: No balance problems, No memory loss, No numbness/tingling, No paralysis, No problem reported, No vertigo, No weakness Psychiatric: No anhedonism, No anxiety, No depression symptoms, No insomnia , No problem reported, No substance abuse Endocrine: No excessive thirst, No excessive urination, No fatigue, No problem reported Hematologic / Lymphatic: No abnormal bleeding/bruising, No clotting problems , No night sweats, No problem reported, No swollen lymph nodes Integumentary: No bleeding, No color change, No itch, No new/changing skin lesions, No problem reported, No rash Physical Exam: General Appearance: WD/WN, no apparent distress Eyes: normal inspection, EOMI, sclerae normal ENT: normal ENT inspection, hearing grossly normal, pharynx normal Neck: supple, no adenopathy, no JVD, trachea midline Respiratory/Chest: chest non-tender, lungs clear, normal breath sounds, no respiratory distress, no accessory muscle use Cardiovascular: regular rate, rhythm, no edema, no gallop, no JVD, no murmur , normal peripheral pulses Abdomen / GI: normal bowel sounds, soft, no organomegaly, + tenderness ( mild epigastric and periumbilical tenderness) Extremities: normal inspection, no calf tenderness, normal capillary refill , no pedal edema, normal range of motion, pelvis stable Neurologic/Psychiatric: cutter barrel drum II-XII nml as tested, no motor/sensory deficits , alert, normal mood/affect, normal reflexes, oriented x 3 Skin: normal color, warm/dry, no rash Lymphatic: no adenopathy Hospital Course 56 yo female with h/o gastric bypass, presents with one week of worsening epigastric and adan umbilical abdominal pain, poor appetite, no vomiting or diarrhea CT scan showed enteritis in the jejunum - Enteritis: continue Cipro and Flagyl, IV fluids can be stopped, regular diet will d/c on Flagyl 500mg TID x 4 more days overall she is feeling better and ready to go home GI consult - no endoscopy needed, tried Bentyl but no help with symptoms follow up with PCP - CAD: no chest pain, resume aspirin and Plavix continue metoprolol and lisinopril - HTN: BP stable on metoprolol and lisinopril - Depression: continue fluoxetine 40 mg by mouth every morning. - Hypercholesterolemia: hold atorvastatin 40 mg by mouth daily. - Anxiety: continue lorazepam when necessary. - DVT prophylaxis: heparin SC Total Time Spent: Less than 30 minutes This includes examination of the patient, discharge planning, medication reconciliation, and communication with other providers. Discharge Instructions Please refer to the electronic Patient Visit Report (Discharge Instructions) for additional information. Follow-Up Dr. Jones in one week Additional Copies To Cookie Jones D.O.
[2016-10-26 15:10] VITALS: BP 147/80; PULSE 68; TEMP 36.5; O2SAT 99
[2016-11-27] MEDS ORDERED: MTR500 PO (13:47)
[2016-11-27] MEDS ORDERED: PRT40 PO (13:47)
[2016-11-27] MEDS ORDERED: CPR500 PO (13:47)
[2017-04-03] MEDS ORDERED: PANT40TA PO (10:59)
[2017-04-03] MEDS ORDERED: HYDR-4079 PO (10:59)
== END 2016-10-26 15:45 | disposition home or self-care (01) | DRG 392 ==
LOC: ENRESERVDT → ENRESERVTM → C.EDB 19:22 → C.MSW 10-23 01:04 → OBSVTOIN 10-24 14:54
PROVIDERS: ADMIT Hospitalist; ATTEND Internal Medicine
DX: A09 Infectious gastroenteritis and colitis, unspecified (principal); I25.10 Atherosclerotic heart disease of native coronary artery without angina pectoris; I10 Essential (primary) hypertension; E11.9 Type 2 diabetes mellitus without complications; E78.00 Pure hypercholesterolemia, unspecified; G89.4 Chronic pain syndrome; I73.9 Peripheral vascular disease, unspecified; F41.9 Anxiety disorder, unspecified; F32.9 Major depressive disorder, single episode, unspecified; G47.30 Sleep apnea, unspecified; F17.200 Nicotine dependence, unspecified, uncomplicated; I25.2 Old myocardial infarction; Z87.11 Personal history of peptic ulcer disease; Z98.84 Bariatric surgery status; Z79.02 Long term (current) use of antithrombotics/antiplatelets; Z79.82 Long term (current) use of aspirin; Z79.891 Long term (current) use of opiate analgesic; Z79.899 Other long term (current) drug therapy

== ENCOUNTER 2016-11-20 20:13 | Emergency (ER) | payer OTHER ==
[~2016-11-20] VITALS: Ht 162.6 cm; Wt 67.0 kg
[~2016-11-20 20:13] MED LIST changes: +ATOR-24 PO; +LISI-461 PO; -LPT40 PO; -OXYC-643 PO; +OXYC-88 PO
[2016-11-20 20:17] VITALS: Ht 162.6 cm; Wt 67.0 kg
[2016-11-20] MEDS ORDERED: PROCHLORPERAZINE 5 MG/ML 2 ML VIAL IV STA (20:58)
[2016-11-20] MEDS ORDERED: SODIUM CHLORIDE 0.9% 1000ML 1,000 ML IV STA (20:58)
[2016-11-20] MEDS ORDERED: KETOROLAC TROMETHAMINE 30 MG/ML VIAL IV STA (20:58)
[2016-11-20] MEDS ORDERED: MoRPHine SULFATE 4 MG/ML 1 ML CARP\\VIAL IV PRN (21:00)
--- NOTE | 2016-11-20 21:36 | DIAGNOSTIC IMAGING REPORT ---
CHEST ONE VIEW PORTABLE HISTORY: Epigastric pain. COMPARISON: Chest 10/22/2016. FINDINGS: The lungs are clear. Cardiac silhouette is top normal in size. No pleural effusions. No pneumothorax. IMPRESSION: No significant change compared to the prior study. No acute process. Electronically signed by: Good Valdovinos M.D. 11/20/2016 9:35 PM Dictated Date/Time: 11/20/2016 9:34 PM
--- NOTE | 2016-11-20 23:15 | EMERGENCY ROOM VISIT NOTE ---
History Report prepared by Vishal: Sara Yoder Under the Supervision of: Dr. Nir Lucas D.O. First contact with patient: 20:51 Chief Complaint: ABDOMINAL PAIN Stated Complaint: STOMACH PAIN Nursing Triage Summary: HERE 3 WEEKS AGO FOR SAME WITH ABD PAIN IS THE SAME PAIN. History of Present Illness The patient is a 56 year old female who presents to the Emergency Room with complaints of constant abdominal pain beginning last night. The patient states that she was seen here 3 weeks ago for similar pain. She notes that it feels similar to her previous enteritis. She notes that she has an endoscopy scheduled and had a CT scan last time she was here. She complains of nausea and diarrhea. She denies any vomiting. She rates her pain as a 9/10 in severity. Source of History: patient Onset: last night Position: abdomen Symptom Intensity: 9/10 Timing: constant Associated Symptoms: + nausea, + diarrhea, No vomiting Review of Systems See HPI for pertinent positives & negatives. A total of 10 systems reviewed and were otherwise negative. Past Medical & Surgical Medical Problems: (1) History of [place] (myocardial infarction) (2) PAD (peripheral artery disease) (3) Precordial chest pain Family History Diabetes mellitus FH: heart disease FH: lung disease FHx: cancer Hypertension Social History Smoking Status: Current Every Day Smoker Alcohol Use: none Drug Use: none Marital Status: Housing Status: lives with family Occupation Status: unemployed, disabled Current/Historical Medications Scheduled Aspirin (Aspirin Chewable), 81 MG PO DAILY Atorvastatin (Lipitor), 40 MG PO DAILY Biotin W/ Vitamins C & E (Hair/Skin/Nails 1250-7.5-7.5 Mcg-mg-Unt), 1 TAB PO DAILY Clopidogrel (Plavix), 75 MG PO DAILY Fluoxetine (Prozac), 40 MG PO QAM Lisinopril (Lisinopril), 10 MG PO DAILY Metoprolol Succinate (Metoprolol Succinate ER), 25 MG PO DAILY Pediatric Multiple Vitamin W/ (Flintstones Chewable), 1 TAB PO QAM Scheduled PRN Lorazepam (Lorazepam), 1 TAB PO BID PRN for Anxiety/Insomnia Oxycodone/Acetaminophen 10MG/325MG (Oxycodone/Acetaminophen 10MG/325MG), 1 TAB PO TID PRN for Pain Zolpidem Tartrate (Ambien), 10 MG PO HS PRN for Sleep Allergies Coded Allergies: No Known Allergies (Unverified , 11/20/16) Physical Exam Vital Signs Date Time Temp Pulse Resp B/P (MAP) Pulse Ox O2 Delivery O2 Flow Rate FiO2 11/20/16 22:55 85 18 98/58 95 Room Air 11/20/16 22:04 102/66 11/20/16 21:55 93 16 86/65 96 Room Air 11/20/16 20:17 36.6 76 20 104/74 98 Room Air Physical Exam CONSTITUTIONAL/VITAL SIGNS: Reviewed / noted above. GENERAL: Non-toxic in appearance. INTEGUMENTARY: Warm, dry, and [place]. HEAD: Normocephalic. EYES: without scleral icterus or trauma. ENT/OROPHARYNX: clear and moist. LYMPHADENOPATHY/NECK: Is supple without lymphadenopathy or meningismus. RESPIRATORY: Lungs clear and equal. CARDIOVASCULAR: Regular rate and rhythm. GI/ABDOMEN: Soft. No organomegaly or pulsatile mass. No rebound or guarding. Normal bowel sounds. Mild diffuse abdominal tenderness. EXTREMITIES: Warm and well perfused. BACK: No CVA tenderness. NEUROLOGICAL: Intact without focal deficits. PSYCHIATRIC: normal affect. MUSCULOSKELETAL: Normally developed with good muscle tone. Medical Decision & Procedures ER Provider Diagnostic Interpretation: X ray results and stated below per my interpretation and radiology interpretation. CHEST ONE VIEW PORTABLE FINDINGS: The lungs are clear. Cardiac silhouette is top normal in size. No pleural effusions. No pneumothorax. IMPRESSION: No significant change compared to the prior study. No acute process. Electronically signed by: Good Valdovinos M.D. 11/20/2016 9:35 PM Dictated Date/Time: 11/20/2016 9:34 PM Laboratory Results Test 11/20/16 20:58 Laboratory results as stated above per my review. Medications Administered Medications (Trade) Dose Ordered Sig/Alexander Route Start Time Stop Time Status Last Admin Dose Admin Sodium Chloride 1,000 ml @ 999 mls/hr Q1H1M STAT IV 11/20/16 20:58 11/20/16 21:58 DC 11/20/16 21:04 999 MLS/HR Ketorolac Tromethamine (Toradol Inj) 30 mg NOW STAT IV 11/20/16 20:58 11/20/16 21:00 DC 11/20/16 21:05 30 MG Morphine Sulfate (MoRPHine SULFATE INJ) 4 mg Q1H PRN IV 11/20/16 21:00 12/04/16 20:59 11/20/16 21:06 4 MG Prochlorperazine Edisylate (Compazine Inj) 10 mg NOW STAT IV 11/20/16 20:58 11/20/16 21:00 DC 11/20/16 21:04 10 MG ED Course 2050: Previous medical records were reviewed. The patient was evaluated in room B9. A complete history and physical examination was performed. 2057: Compazine Inj 10mg IV, Toradol Inj 30mg IV, Sodium Chloride 1000 ml @ 999 mls/hr IV. 2099: Morphine Sulfate 4mg PRN IV pain. 0: I reevaluated the patient and she is feeling much better. 0: On reevaluation, the patient is doing well. I discussed the results and findings with the patient. She verbalized agreement of the treatment plan. The patient was discharged home. Medical Decision Differential considered: pancreatitis, hepatitis, or acute cholecystitis, AAA, UTI, pyelonephritis, kidney stones, appendicitis, diverticulitis, shingles, bowel obstruction mesenteric ischemia, intussusception,hernia, testicular torsion, ovarian torsion, ruptured ovarian cyst,ectopic , . Medication Reconciliation: I attest that I have personally reviewed the patient' s current medication list. Blood pressure Screening: Patient was found to have normal blood pressure on screening and does not require follow-up. This is a 56-year-old female who presents to the ED with a chief complaint of diffuse abdominal discomfort. The patient reports that she has had similar symptoms in the past and has been diagnosed with enteritis. She denies any fevers or vomiting. The patient reports some diarrhea. Her physical exam reveals mild diffuse tenderness. The chest x-ray did not show any acute disease. Lab work was apparently lost. The patient was treated with IV fluids , IV Compazine and IV morphine. She was also given IV Toradol. On reassessment , the patient was told the results of her x-ray. She was advised that her laboratory studies were lost. She was feeling somewhat better. She decided that she would rather go home and wait for additional labs to be drawn at this time. The patient was discharged, per her wishes. Impression Primary Impression: Abdominal pain Additional Impression: Diarrhea Scribe Attestation The scribe's documentation has been prepared under my direction and personally reviewed by me in its entirety. I confirm that the note above accurately reflects all work, treatment, procedures, and medical decision making performed by me. Departure Information Dispostion Home / Self-Care Referrals Cookie Jones D.O. (PCP) Patient Instructions Diarrhea, My [facility] Additional Instructions Follow-up with your doctor for further care and evaluation in 1-2 days. Return to the emergency department for worsening or new symptoms or any concerns. You have been examined and treated today on an emergency basis only. This is not a substitute for, or an effort to provide, complete comprehensive medical care. It is impossible to recognize and treat all injuries or illnesses in a single emergency department visit. It is therefore important that you follow up closely with your doctor. Call as soon as possible for an appointment. Problem Qualifiers
[2016-11-20 23:44] VITALS: BP 98/58; PULSE 85; TEMP 36.6; O2SAT 95
[2016-11-27] MEDS ORDERED: PRT40 PO (13:47)
[2016-11-27] MEDS ORDERED: CPR500 PO (13:47)
[2016-11-27] MEDS ORDERED: MTR500 PO (13:47)
[2017-04-03] MEDS ORDERED: HYDR-4079 PO (10:59)
[2017-04-03] MEDS ORDERED: PANT40TA PO (10:59)
== END 2016-11-20 23:46 | disposition home or self-care (01) ==
LOC: C.EDB 20:15
DX: R10.9 Unspecified abdominal pain (principal); R19.7 Diarrhea, unspecified; I25.2 Old myocardial infarction; I73.9 Peripheral vascular disease, unspecified; Z83.3 Family history of diabetes mellitus; Z82.49 Family history of ischemic heart disease and other diseases of the circulatory system; Z83.6 Family history of other diseases of the respiratory system; Z80.9 Family history of malignant neoplasm, unspecified; F17.210 Nicotine dependence, cigarettes, uncomplicated; Z79.82 Long term (current) use of aspirin; Z79.02 Long term (current) use of antithrombotics/antiplatelets; Z79.899 Other long term (current) drug therapy

== ENCOUNTER 2016-11-22 10:57 | Inpatient (IN) | payer OTHER ==
[~2016-11-22] VITALS: Ht 162.6 cm; Wt 66.0 kg
[2016-11-22] MEDS ORDERED: MoRPHine SULFATE 4 MG/ML 1 ML CARP\\VIAL IV STA ×3 (12:28→17:28)
[2016-11-22] MEDS ORDERED: ONDANSETRON INJ 2 MG/ML 2 ML VIAL IV STA (12:28)
[2016-11-22] MEDS ORDERED: SODIUM CHLORIDE 0.9% 1000ML 1,000 ML IV STA ×2 (12:28→16:19)
--- NOTE | 2016-11-22 12:31 | EMERGENCY ROOM VISIT NOTE ---
History Report prepared by Vishal: Sara Yoder Under the Supervision of: Dr. Nazia Youssef D.O. First contact with patient: 11:30 Chief Complaint: ABDOMINAL PAIN Stated Complaint: STOMACH PAIN Nursing Triage Summary: c/o diffuse abd pain since thursday History of Present Illness The patient is a 56 year old female who presents to the Emergency Room with complaints of constant abdominal pain beginning 3 days ago. The patient reports that she has a history of abdominal pain and has had enteritis, gastric bypass, hernias, twisted intestines, and infection. She notes that her symptoms today feel similar to when her intestines were twisted. The patient states that she has been having abdominal pain for 3 days and she notes that she was seen here in the ED 2 days ago but after feeling better she was sent home. She notes that her pain has persisted and that is why she decided to come in again today. The patient complains of nausea, increased passing of gas, and diarrhea. She denies any changes in diet, recent medication changes. She notes that she was seen here inpatient for her abdominal pain on 10/24 and she reports that her her last colonoscopy was in 2011. The patient states that she was scheduled for an endoscopy but it was postponed. She notes that her last bowel movement was last night. She rates her pain as an 8/10 in severity. Source of History: patient Onset: 3 days ago Position: abdomen Symptom Intensity: 8/10 Timing: constant Associated Symptoms: + nausea Note: The patient complains of increased passing of gas. She denies any changes in diet, recent medication changes. Review of Systems See HPI for pertinent positives & negatives. A total of 10 systems reviewed and were otherwise negative. Past Medical & Surgical Medical Problems: (1) History of PR (myocardial infarction) (2) PAD (peripheral artery disease) (3) Precordial chest pain Family History Diabetes mellitus FH: heart disease FH: lung disease FHx: cancer Hypertension Social History Smoking Status: Current Every Day Smoker Alcohol Use: none Drug Use: none Marital Status: Housing Status: lives with family Occupation Status: unemployed, disabled Current/Historical Medications Scheduled Aspirin (Aspirin Chewable), 81 MG PO DAILY Atorvastatin (Lipitor), 40 MG PO DAILY Biotin W/ Vitamins C & E (Hair/Skin/Nails 1250-7.5-7.5 Mcg-mg-Unt), 1 TAB PO DAILY Clopidogrel (Plavix), 75 MG PO DAILY Fluoxetine (Prozac), 40 MG PO QAM Lisinopril (Lisinopril), 10 MG PO DAILY Metoprolol Succinate (Metoprolol Succinate ER), 25 MG PO DAILY Pediatric Multiple Vitamin W/ (Flintstones Chewable), 1 TAB PO QAM Scheduled PRN Lorazepam (Lorazepam), 1 TAB PO BID PRN for Anxiety/Insomnia Oxycodone/Acetaminophen 10MG/325MG (Oxycodone/Acetaminophen 10MG/325MG), 1 TAB PO TID PRN for Pain Zolpidem Tartrate (Ambien), 10 MG PO HS PRN for Sleep Allergies Coded Allergies: No Known Allergies (Unverified , 11/22/16) Physical Exam Vital Signs Date Time Temp Pulse Resp B/P (MAP) Pulse Ox O2 Delivery O2 Flow Rate FiO2 11/22/16 17:19 61 16 118/72 98 Room Air 11/22/16 15:25 71 16 113/75 97 11/22/16 13:04 69 16 140/81 100 Room Air 11/22/16 10:59 36.4 72 16 107/74 95 Physical Exam GENERAL: alert, well appearing, well nourished, no distress, non-toxic EYE EXAM: normal conjunctiva, PERRL and EOM's grossly intact OROPHARYNX: no exudate, no erythema, lips, buccal mucosa, and tongue normal and mucous membranes are moist NECK: supple, no nuchal rigidity, no adenopathy, non-tender LUNGS: Clear to auscultation. Normal chest wall mechanics HEART: no murmurs, S1 normal and S2 normal ABDOMEN: abdomen soft, central abdominal tenderness, hyper-active bowel sounds, no masses, no rebound or guarding. BACK: Back is symmetrical on inspection and there is no deformity, no midline tenderness, no CVA tenderness. SKIN: no rashes and no bruising UPPER EXTREMITIES: upper extremities are grossly normal. LOWER EXTREMITIES: No pitting edema. NEURO EXAM: Normal sensorium, cranial nerves II-XII grossly intact, normal speech, no gross weakness of arms, no gross weakness of legs. Medical Decision & Procedures ER Provider Diagnostic Interpretation: Radiology results have been interpreted by the radiologist and reviewed by me. CHEST AND ABDOMEN 2 VIEWS FINDINGS: The lungs are clear. The heart is normal in size. Prior gastric bypass. Gas and stool within the colon. A few distended gas-filled loops of small bowel seen within the abdomen. These have slightly progressed in the interval. Left external iliac artery stent. Left-sided nephrolithiasis. IMPRESSION: 1. No acute process within the chest. 2. A few distended gas-filled loops of small bowel seen within the abdomen. These have slightly progressed in the interval. This could be due to the suspected enteritis or partial small bowel obstruction given the gas and stool distal within the colon. 3. Left-sided nephrolithiasis. Electronically signed by: Good Valdovinos M.D. 11/22/2016 2:14 PM Dictated Date/Time: 11/22/2016 2:[address] SCAN OF THE ABDOMEN AND PELVIS WITHOUT IV CONTRAST FINDINGS: Lung bases: The heart is normal in size and there is trace pericardial effusion. There are coronary artery calcifications. A 6 mm nodule at the left lung base is unchanged from 2014 as seen on image #42. Calcified granulomas are noted in the right lung base. The lung bases are otherwise clear noting dependent atelectasis. Liver: The unenhanced liver is normal in size, contour, and attenuation. There is mild central intrahepatic biliary ductal dilatation. Gallbladder: Surgically absent noting clips in the gallbladder fossa. Spleen: Normal in size and attenuation. Pancreas: The unenhanced pancreas is moderately atrophic and grossly unremarkable. Adrenal glands: Unremarkable. Kidneys: The unenhanced kidneys are atrophic, asymmetrically greater on the left. There is no hydronephrosis. There is no evidence of contour deforming mass lesion. There are 2 nonobstructing left renal calculi which measure up to 11 mm. No calculi are seen in the right kidney. Abdominal vasculature: The abdominal aorta is normal in course and caliber noting moderate to advanced atherosclerotic calcification. A stent is seen in the left iliac artery. Stomach and bowel: A tiny hiatal hernia is identified. There are postoperative changes consistent with a history of Jessica-en-Y gastric bypass surgery. There is a ventral hernia containing nonobstructed loops of small bowel as seen on axial image #213. There is no bowel obstruction. There is unchanged appearance of mildly thick-walled and edematous degenerative in the central pelvis, best seen on image #218. There is surrounding perienteric stranding. The appendix is well-visualized and normal. Peritoneum: There is no intraperitoneal free air or abdominal ascites. Lymphadenopathy: None. Pelvic viscera: The bladder is decompressed and grossly unremarkable. The uterus and adnexa are normal as visualized. Skeletal structures: The skeletal structures are osteopenic. There is mild lumbosacral spondylosis. No lytic or blastic lesions are seen. IMPRESSION: 1. Significantly suboptimal examination without oral and IV contrast. 2. There are postoperative changes consistent with a history of Jessica-en-Y gastric bypass surgery. No bowel obstruction is seen. 3. Again seen are thick walled and mildly distended loops of jejunum in the mid abdomen with surrounding inflammatory change. This has modestly worsened from the 10/22/2016 examination, and the appearance remains typical for a nonspecific enteritis. Clinical correlation will be required. 4. There is a ventral hernia in the midline pelvis which contains nonobstructed loops of small bowel. 5. Nonobstructing left renal calculi. 6. A 6 mm pulmonary nodule at the left lung base is unchanged dating back to 2013. This is of doubtful significance given over 2 years of stability. 7. Additional findings as above. Electronically signed by: Qasim Krause M.D. 11/22/2016 3:19 PM Dictated Date/Time: 11/22/2016 3:03 PM Laboratory Results Test 11/22/16 11:20 11/22/16 13:00 11/22/16 14:50 Total Bilirubin 0.3 mg/dl (0.2-1) Aspartate Amino Transf (AST/SGOT) 10 U/L (15-37) Alanine Aminotransferase (ALT/SGPT) 17 U/L (12-78) Alkaline Phosphatase 74 U/L (45-117) Total Protein 6.7 gm/dl (6.4-8.2) Albumin 3.1 gm/dl (3.4-5.0) Globulin 3.6 gm/dl (2.5-4.0) Albumin/Globulin Ratio 0.9 (0.9-2) Lipase 87 U/L (73-393) Lactic Acid Level 0.9 mmol/L (0.4-2.0) Urine WBC (Auto) 1-5 /hpf (0-5) Urine RBC (Auto) 0-4 /hpf (0-4) Urine Hyaline Casts (Auto) 5-10 /lpf (0-5) Urine Epithelial Cells (Auto) >30 /lpf (0-5) Urine Bacteria (Auto) NEG (NEG) Laboratory results per my review. Medications Administered Medications (Trade) Dose Ordered Sig/Alexander Route Start Time Stop Time Status Last Admin Dose Admin Sodium Chloride 1,000 ml @ 999 mls/hr Q1H1M STAT IV 11/22/16 12:28 11/22/16 13:28 DC 11/22/16 13:06 999 MLS/HR Ondansetron HCl (Zofran Inj) 4 mg NOW STAT IV 11/22/16 12:28 11/22/16 12:33 DC 11/22/16 13:05 4 MG Morphine Sulfate (MoRPHine SULFATE INJ) 4 mg NOW STAT IV 11/22/16 12:28 11/22/16 12:33 DC 11/22/16 13:06 4 MG Morphine Sulfate (MoRPHine SULFATE INJ) 4 mg NOW STAT IV 11/22/16 14:31 11/22/16 14:33 DC 11/22/16 14:50 4 MG Dicyclomine HCl (Bentyl Tab) 20 mg NOW STAT PO 11/22/16 16:18 11/22/16 16:19 DC 11/22/16 16:18 20 MG Ketorolac Tromethamine (Toradol Inj) 30 mg NOW STAT IV 11/22/16 16:18 11/22/16 16:19 DC 11/22/16 16:32 30 MG Sodium Chloride 1,000 ml @ 999 mls/hr Q1H1M STAT IV 11/22/16 16:19 11/22/16 17:19 DC 11/22/16 16:19 999 MLS/HR Pantoprazole Sodium 40 mg/ Syringe 10 ml @ 5 mls/min NOW ONCE IV 11/22/16 16:30 11/22/16 16:31 DC 11/22/16 16:38 5 MLS/MIN Al Hydroxide/Mg Hydroxide (Maalox Susp) 15 ml NOW STAT PO 11/22/16 16:29 11/22/16 16:30 DC 11/22/16 16:38 15 ML Morphine Sulfate (MoRPHine SULFATE INJ) 4 mg NOW STAT IV 11/22/16 17:28 11/22/16 17:29 DC 11/22/16 17:39 4 MG Metronidazole (Flagyl / Nss) 500 mg NOW STAT IV 11/22/16 17:36 11/22/16 17:39 DC 11/22/16 17:47 500 MG Ciprofloxacin/ Dextrose (Cipro / D5W) 400 mg NOW STAT IV 11/22/16 17:36 11/22/16 17:39 DC 11/22/16 17:59 400 MG ECG Indication: abdominal pain Rate (beats per minute): 66 Rhythm: sinus rhythm Findings: RBBB, left axis deviation, other (normal QTC, inverted T waves in L3 , AVF and V3) Comparison ECG Date: 10/22/16 Change: no significant change ED Course 1130: The patient was evaluated in room C10. A complete history and physical exam was performed. 1228: Morphine Sulfate 4mg IV, Zofran Inj 4mg IV, Sodium Chloride 1000 ml @ 999 mls/hr IV. 1431: Morphine Sulfate 4mg IV. 1618: Toradol Inj 30mg IV, Bentyl Tab 20mg PO. 1619: Sodium Chloride 1000 ml @ 999 mls/hr IV. 1621: I reevaluated the patient and updated her. She still has some slight abdominal pain. 1629: Maalox Susp 15ml PO, Pantoprazole 10ml @ 5mls/min. 1728: I reevaluated the patient and she is still having a lot of pain. 1728: Morphine Sulfate 4mg IV. 1735: I reviewed the patient's case with Dr. Mcclelland of [facility]. He will evaluate the patient for further management. He recommends re-initiation of Cipro and Flagyl. 1736: Cipro / D5W 400mg IV, Flagyl/Nss 500mg IV. 1742: Upon reevaluation, the patient is doing well. I discussed the findings and the treatment plan with the patient. She expresses agreement and understanding. I spoke with Dr. Mcclelland of the [facility] Hospitalist Service. The patient will be evaluated for further management. Medical Decision Differential diagnosis: Etiologies such as appendicitis, diverticulitis, PUD, biliary pathology, UTI, pancreatitis, obstruction, mesenteric ischemia, aortic pathology, infections, inflammatory bowel disease, renal colic, as well as others were entertained. Pt well appearing here despite complaints. Unclear etiology of recurrent pain. Ct similar to prior, yet pain had resolved for several weeks before returning. Pt awaiting additional Gi evaluation and procedures. Likely inflammatory reaction, however discussed antibiotics with hospitalists. Doubt ischemic, no evidence of perf, labs reassuring. However given persistent pain not well controlled, pt admitted for additional evaluation/treatment. Consults Time Called: 173 Consulting Physician: Dr. Mcclelland - [facility] Returned Call: 1730 I reviewed the patient's case with Dr. Mcclelland of [facility]. He will evaluate the patient for further management. He recommends re-initiation of Cipro and Flagyl. Impression Primary Impression: Central abdominal pain Scribe Attestation The scribe's documentation has been prepared under my direction and personally reviewed by me in its entirety. I confirm that the note above accurately reflects all work, treatment, procedures, and medical decision making performed by me. Departure Information Referrals Cookie Jones D.O. (PCP) Patient Instructions [facility]
[2016-11-22 12:52] LABS: BASO % 0.3 %; BASO ABS # 0.04 K/uL (0-0.2); COMPLETE YES; EOS % 1.9 %; HEMATOCRIT 46.6 % (37-47); IG% 0.2 %; LYMPH % 31.2 %; LYMPH ABS # 3.59 K/uL (1.2-3.4); MEAN CELL VOLUME 92.6 fL (80-100); MEAN CORPUSCULAR HGB CONC 33.5 g/dl (32-36); MEAN PLATELET VOLUME 10.9 fL (7.4-10.4); MONO % 5.7 %; NEUT % 60.7 %; PLATELET COUNT 199 K/uL (130-400); RED BLOOD COUNT 5.03 M/uL (4.2-5.4); WHITE BLOOD COUNT 11.49 K/uL (4.8-10.8)
[2016-11-22 12:59] LABS: ALT/SGPT 17 U/L (12-78); AST/SGOT 10 U/L (15-37); BLOOD UREA NITROGEN 15 mg/dl (7-18); BUN/CREATININE RATIO 16.1 (10-20); CALCIUM 8.8 mg/dl (8.5-10.1); CARBON DIOXIDE 26 mmol/L (21-32); CHLORIDE 112 mmol/L (98-107); CREATININE 0.91 mg/dl (0.60-1.20); GLUCOSE 100 mg/dl (70-99); POTASSIUM 3.8 mmol/L (3.5-5.1); SODIUM 145 mmol/L (136-145)
[2016-11-22 13:04] LABS: ALB/GLOB RATIO 0.9 (0.9-2); ALKALINE PHOSPHATASE 74 U/L (45-117)
--- NOTE | 2016-11-22 14:16 | DIAGNOSTIC IMAGING REPORT ---
CHEST AND ABDOMEN 2 VIEWS HISTORY: Generalized abdominal pain. COMPARISON: Chest 11/20/2016. Abdomen and pelvis CT 10/22/2016. FINDINGS: The lungs are clear. The heart is normal in size. Prior gastric bypass. Gas and stool within the colon. A few distended gas-filled loops of small bowel seen within the abdomen. These have slightly progressed in the interval. Left external iliac artery stent. Left-sided nephrolithiasis. IMPRESSION: 1. No acute process within the chest. 2. A few distended gas-filled loops of small bowel seen within the abdomen. These have slightly progressed in the interval. This could be due to the suspected enteritis or partial small bowel obstruction given the gas and stool distal within the colon. 3. Left-sided nephrolithiasis. Electronically signed by: Good Valdovinos M.D. 11/22/2016 2:14 PM Dictated Date/Time: 11/22/2016 2:09 PM
[2016-11-22 15:08] LABS: URINE APPEARANCE CLEAR (CLEAR); URINE COLOR DK YELLOW; URINE EPITHELIAL CELL AUTO >30 /lpf (0-5); URINE NITRITE NEG (NEG); URINE PH 5.5 (4.5-7.5); URINE SPECIFIC GRAVITY 1.028 (1.000-1.030); UROBILINOGEN NEG (NEG); ZZUR CULT IF INDIC CLEAN CATCH NO
--- NOTE | 2016-11-22 15:20 | DIAGNOSTIC IMAGING REPORT ---
CT SCAN OF THE ABDOMEN AND PELVIS WITHOUT IV CONTRAST CLINICAL HISTORY: Generalized abdominal pain. COMPARISON STUDY: Abdominal CT scans dated 10/22/2016 and 04/17/2014. TECHNIQUE: CT scan of the abdomen and pelvis is performed from the lung bases to the proximal femora. Images are reviewed in the axial, sagittal, and coronal planes. IV contrast was not administered as per the referring clinician. Note that the examination was performed in significantly suboptimal fashion without oral and IV contrast. Automated dose control exposure was utilized. CT DOSE: 324.17 mGy.cm FINDINGS: Lung bases: The heart is normal in size and there is trace pericardial effusion. There are coronary artery calcifications. A 6 mm nodule at the left lung base is unchanged from 2014 as seen on image #42. Calcified granulomas are noted in the right lung base. The lung bases are otherwise clear noting dependent atelectasis. Liver: The unenhanced liver is normal in size, contour, and attenuation. There is mild central intrahepatic biliary ductal dilatation. Gallbladder: Surgically absent noting clips in the gallbladder fossa. Spleen: Normal in size and attenuation. Pancreas: The unenhanced pancreas is moderately atrophic and grossly unremarkable. Adrenal glands: Unremarkable. Kidneys: The unenhanced kidneys are atrophic, asymmetrically greater on the left. There is no hydronephrosis. There is no evidence of contour deforming mass lesion. There are 2 nonobstructing left renal calculi which measure up to 11 mm. No calculi are seen in the right kidney. Abdominal vasculature: The abdominal aorta is normal in course and caliber noting moderate to advanced atherosclerotic calcification. A stent is seen in the left iliac artery. Stomach and bowel: A tiny hiatal hernia is identified. There are postoperative changes consistent with a history of Jessica-en-Y gastric bypass surgery. There is a ventral hernia containing nonobstructed loops of small bowel as seen on axial image #213. There is no bowel obstruction. There is unchanged appearance of mildly thick-walled and edematous degenerative in the central pelvis, best seen on image #218. There is surrounding perienteric stranding. The appendix is well-visualized and normal. Peritoneum: There is no intraperitoneal free air or abdominal ascites. Lymphadenopathy: None. Pelvic viscera: The bladder is decompressed and grossly unremarkable. The uterus and adnexa are normal as visualized. Skeletal structures: The skeletal structures are osteopenic. There is mild lumbosacral spondylosis. No lytic or blastic lesions are seen. IMPRESSION: 1. Significantly suboptimal examination without oral and IV contrast. 2. There are postoperative changes consistent with a history of Jessica-en-Y gastric bypass surgery. No bowel obstruction is seen. 3. Again seen are thick walled and mildly distended loops of jejunum in the mid abdomen with surrounding inflammatory change. This has modestly worsened from the 10/22/2016 examination, and the appearance remains typical for a nonspecific enteritis. Clinical correlation will be required. 4. There is a ventral hernia in the midline pelvis which contains nonobstructed loops of small bowel. 5. Nonobstructing left renal calculi. 6. A 6 mm pulmonary nodule at the left lung base is unchanged dating back to 2014. This is of doubtful significance given over 2 years of stability. 7. Additional findings as above. Electronically signed by: Qasim Krause M.D. 11/22/2016 3:19 PM Dictated Date/Time: 11/22/2016 3:03 PM
[2016-11-22 15:23] LABS: MANUAL MICROSCOPIC REQUIRED? NO; REVIEW REQ? NO
[2016-11-22 15:24] LABS: URINE BILIRUBIN NEG (NEG)
[2016-11-22] MEDS ORDERED: DICYCLOMINE HCL 20 MG TAB PO STA (16:18)
[2016-11-22] MEDS ORDERED: KETOROLAC TROMETHAMINE 30 MG/ML VIAL IV STA (16:18)
[2016-11-22] MEDS ORDERED: ALUMINUM/MAGNESIUM SUSP 30 ML UDC PO STA (16:29)
[2016-11-22] MEDS ORDERED: PANTOprazole INJ 40 MG in SYRINGE 0 ML IV ONE (16:30)
[2016-11-22] MEDS ORDERED: METRONIDAZOLE 500MG / 100ML NSS IV STA (17:36)
[2016-11-22] MEDS ORDERED: CIPROFLOXACIN 400MG / 200ML D5W IV STA (17:36)
[2016-11-22] MEDS ORDERED: ONDANSETRON INJ 2 MG/ML 2 ML VIAL IV PRN (18:15)
[2016-11-22] MEDS ORDERED: ACETAMINOPHEN 325 MG TAB PO PRN (18:15)
--- NOTE | 2016-11-22 18:40 | History and Physical ---
History & Physical Date & Time of Service: Nov 22, 2016 at 18:30 Chief Complaint: Stomach Pain Primary Care Physician: Cookie Jones D.O. History of Present Illness Source: patient Pt is a 56 yo female who presents to the ER with complaints of progressive diffuse abdominal pain beginning 3 days ago. The patient reports that she has a history of abdominal pain and was recently admitted to [facility] [place] for enteritis just this past month. At that time pt was diagnosed with enteritis and placed on cipro and flagyl. She notes initially feeling well on discharge but notes her pain just started again and has persisted for past 3 days. The patient complains of nausea, increased passing of gas, and diarrhea. She denies any changes in diet, recent medication changes. The patient states that she was scheduled for an endoscopy but it was postponed due to GI wanting to have the endoscopy in the hospital instead as OP due to cardiac hx. Family History Diabetes mellitus FH: heart disease FH: lung disease FHx: cancer Hypertension Social History Smoking Status: Current Every Day Smoker Drug Use: none Marital Status: Housing status: lives with family Occupational Status: unemployed, disabled Immunizations History of Influenza Vaccine: Yes Influenza Vaccine Date: Apr 15, 2013 History of Tetanus Vaccine?: Unknown Tetanus Immunization Date: Mar 04, 2010 History of Pneumococcal: Yes Pneumococcal Date: Jul 22, 2010 History of Hepatitis B Vaccine: No Multi-Drug Resistant Organisms History of MDRO: No Allergies Coded Allergies: No Known Allergies (Unverified , 11/22/16) Home Medications Scheduled Aspirin (Aspirin Chewable), 81 MG PO DAILY Atorvastatin (Lipitor), 40 MG PO DAILY Biotin W/ Vitamins C & E (Hair/Skin/Nails 1250-7.5-7.5 Mcg-mg-Unt), 1 TAB PO DAILY Clopidogrel (Plavix), 75 MG PO DAILY Fluoxetine (Prozac), 40 MG PO QAM Lisinopril (Lisinopril), 10 MG PO DAILY Metoprolol Succinate (Metoprolol Succinate ER), 25 MG PO DAILY Pediatric Multiple Vitamin W/ (Flintstones Chewable), 1 TAB PO QAM Scheduled PRN Lorazepam (Lorazepam), 1 TAB PO BID PRN for Anxiety/Insomnia Oxycodone/Acetaminophen 10MG/325MG (Oxycodone/Acetaminophen 10MG/325MG), 1 TAB PO TID PRN for Pain Zolpidem Tartrate (Ambien), 10 MG PO HS PRN for Sleep Review of Systems Constitutional: No fever, No chills, No sweats, No weight loss, No weakness Respiratory: No cough, No sputum, No wheezing, No shortness of breath, No dyspnea on exertion Cardiovascular: No chest pain, No orthopnea, No PND, No edema Abdomen: + pain, + nausea, + diarrhea, No vomiting, No constipation Musculoskeletal: No joint pain, No muscle pain, No swelling, No calf pain Genitourinary - Female: No dysuria, No urinary frequency, No urinary urgency, No urinary incontinence Neurologic: No memory loss, No paralysis, No weakness, No numbness/tingling Psychiatric: No depression symptoms, No anhedonism, No anxiety, No insomnia Integumentary: No rash, No itch Physical Exam Vital Signs Date Time Temp Pulse Resp B/P (MAP) Pulse Ox O2 Delivery O2 Flow Rate FiO2 11/22/16 17:19 61 16 118/72 98 Room Air 11/22/16 15:25 71 16 113/75 97 11/22/16 13:04 69 16 140/81 100 Room Air 11/22/16 10:59 36.4 72 16 107/74 95 General Appearance: WD/WN, + mild distress Head: normocephalic, atraumatic Eyes: normal inspection, PERRL, EOMI, sclerae normal Neck: supple, no adenopathy, thyroid normal, no JVD Respiratory/Chest: lungs clear, normal breath sounds, no respiratory distress, no accessory muscle use Cardiovascular: regular rate, rhythm, no edema, no gallop, no JVD Abdomen/GI: normal bowel sounds, non tender, soft, no organomegaly Back: normal inspection, no CVA tenderness, no muscle spasm, normal range of motion Neurologic/Psych: alert, normal mood/affect, normal reflexes, oriented x 3 Diagnostics Laboratory Results Results Past 24 Hours Test 11/22/16 11:20 11/22/16 13:00 11/22/16 14:50 Range/Units White Blood Count 11.49 4.8-10.8 K/uL Red Blood Count 5.03 4.2-5.4 M/uL Hemoglobin 15.6 12.0-16.0 g/dL Hematocrit 46.6 37-47 % Mean Corpuscular Volume 92.6 80-100 fL Mean Corpuscular Hemoglobin 31.0 25-34 pg Mean Corpuscular Hemoglobin Concent 33.5 32-36 g/dl Platelet Count 199 130-400 K/uL Mean Platelet Volume 10.9 7.4-10.4 fL Neutrophils (%) (Auto) 60.7 % Lymphocytes (%) (Auto) 31.2 % Monocytes (%) (Auto) 5.7 % Eosinophils (%) (Auto) 1.9 % Basophils (%) (Auto) 0.3 % Neutrophils # (Auto) 6.97 1.4-6.5 K/uL Lymphocytes # (Auto) 3.59 1.2-3.4 K/uL Monocytes # (Auto) 0.65 0.11-0.59 K/uL Eosinophils # (Auto) 0.22 0-0.5 K/uL Basophils # (Auto) 0.04 0-0.2 K/uL RDW Standard Deviation 57.5 36.4-46.3 fL RDW Coefficient of Variation 16.9 11.5-14.5 % Immature Granulocyte % (Auto) 0.2 % Immature Granulocyte # (Auto) 0.02 0.00-0.02 K/uL Sodium Level 145 136-145 mmol/L Potassium Level 3.8 3.5-5.1 mmol/L Chloride Level 112 98-107 mmol/L Carbon Dioxide Level 26 21-32 mmol/L Anion Gap 7.0 3-11 mmol/L Blood Urea Nitrogen 15 7-18 mg/dl Creatinine 0.91 0.60-1.20 mg/dl Est Creatinine Clear Calc Drug Dose 65.3 ml/min Estimated GFR () 82.3 Estimated GFR (Non- 71.0 BUN/Creatinine Ratio 16.1 10-20 Random Glucose 100 70-99 mg/dl Calcium Level 8.8 8.5-10.1 mg/dl Total Bilirubin 0.3 0.2-1 mg/dl Aspartate Amino Transf (AST/SGOT) 10 15-37 U/L Alanine Aminotransferase (ALT/SGPT) 17 12-78 U/L Alkaline Phosphatase 74 45-117 U/L Troponin I < 0.015 0-0.045 ng/ml Total Protein 6.7 6.4-8.2 gm/dl Albumin 3.1 3.4-5.0 gm/dl Globulin 3.6 2.5-4.0 gm/dl Albumin/Globulin Ratio 0.9 0.9-2 Lipase 87 73-393 U/L Lactic Acid Level 0.9 0.4-2.0 mmol/L Urine Color DK YELLOW Urine Appearance CLEAR CLEAR Urine pH 5.5 4.5-7.5 Urine Specific Harmony 1.028 1.000-1.030 Urine Protein NEG NEG Urine Glucose (UA) NEG NEG Urine Ketones 1+ NEG Urine Occult Blood NEG NEG Urine Nitrite NEG NEG Urine Bilirubin NEG NEG Urine Urobilinogen NEG NEG Urine Leukocyte Esterase TRACE NEG Urine WBC (Auto) 1-5 0-5 /hpf Urine RBC (Auto) 0-4 0-4 /hpf Urine Hyaline Casts (Auto) 5-10 0-5 /lpf Urine Epithelial Cells (Auto) >30 0-5 /lpf Urine Bacteria (Auto) NEG NEG Impression Assessment and Plan Abd pain likely from worsening enteritis as evidenced from CT abd/pelvis--the patient will be admitted to the medical floor on clear liquids. Start on Cipro and Flagyl IV and place on IV fluids. We'll consult gastroenterology for further recs and hopefully endoscopy during inpatient stay. We'll place on Protonix 40 mg IV daily, and Zofran 4 mg IV every 6 hours when necessary. CAD/hypertension/history of NC/PAD--cont aspirin 81 mg by mouth daily and clopidogrel 75 mg by mouth daily. Continue lisinopril 10 mg by mouth daily and metoprolol succinate ER 25 mg by mouth daily. Depression--continue fluoxetine 40 mg by mouth every morning. Hypercholesterolemia--cont atorvastatin 40 mg by mouth daily. Anxiety--continue lorazepam when necessary. Chronic pain syndrome--cont PO percocet and morphine IV PRN Pt is FULL CODE VTE Prophylaxis VTE Risk Assessment Done? Y/N: Yes Risk Level: Moderate
[2016-11-22 20:00] VITALS: BP 113/76; TEMP 36.6; O2SAT 95; Ht 162.6 cm; Wt 66.0 kg
[2016-11-22 20:13] VITALS: BP 133/88; PULSE 62; TEMP 36.8; O2SAT 100
[2016-11-22] MEDS: OXYCODONE/ACETAMINOPHEN 10/325MG TAB PO PRN (21:37)
[2016-11-22] MEDS: SODIUM CHLORIDE 0.9% 1000ML 1,000 ML IV SCH (21:38)
[2016-11-22] MEDS: ZOLPIDEM TARTRATE 10 MG TAB PO PRN (21:42)
[2016-11-22 23:16] VITALS: BP 113/76; PULSE 75; TEMP 36.6; O2SAT 95
[2016-11-23 00:05] VITALS: O2SAT 95
[2016-11-23] MEDS: METRONIDAZOLE / NSS 500 MG in PREMIXED NSS 100 ML IV SCH ×3 (02:22→17:11)
[2016-11-23] MEDS: LORAZEPAM 0.5 MG TAB PO PRN ×2 (03:25→16:05)
[2016-11-23] MEDS: CIPROFLOXACIN / D5W 400 MG in PREMIXED IN D5W 200 ML IV SCH ×2 (06:20→17:11)
[2016-11-23] MEDS: SODIUM CHLORIDE 0.9% 1000ML 1,000 ML IV SCH ×2 (06:21→16:06)
[2016-11-23 06:58] LABS: BASO % 0.3 %; BASO ABS # 0.02 K/uL (0-0.2); COMPLETE YES; EOS % 3.3 %; HEMATOCRIT 40.3 % (37-47); IG% 0.1 %; LYMPH % 31.5 %; LYMPH ABS # 2.41 K/uL (1.2-3.4); MEAN CELL VOLUME 93.3 fL (80-100); MEAN CORPUSCULAR HEMOGLOBIN 29.2 pg (25-34); MEAN CORPUSCULAR HGB CONC 31.3 g/dl (32-36); MEAN PLATELET VOLUME 10.9 fL (7.4-10.4); MONO % 4.8 %; PLATELET COUNT 175 K/uL (130-400); RED BLOOD COUNT 4.32 M/uL (4.2-5.4); WHITE BLOOD COUNT 7.65 K/uL (4.8-10.8)
[2016-11-23 07:05] LABS: BLOOD UREA NITROGEN 13 mg/dl (7-18); CALCIUM 8.1 mg/dl (8.5-10.1); CARBON DIOXIDE 25 mmol/L (21-32); CHLORIDE 116 mmol/L (98-107); CREATININE 0.57 mg/dl (0.60-1.20); GLUCOSE 74 mg/dl (70-99); POTASSIUM 4.1 mmol/L (3.5-5.1); SODIUM 147 mmol/L (136-145)
[2016-11-23] MEDS: LISINOPRIL 10 MG TAB PO SCH (07:40)
[2016-11-23] MEDS: OXYCODONE/ACETAMINOPHEN 10/325MG TAB PO PRN ×2 (07:40→19:32)
[2016-11-23] MEDS: CLOPIDOGREL BISULFATE 75 MG TAB PO SCH (07:40)
[2016-11-23] MEDS: METOPROLOL SUCC 25MG EXT REL TAB PO SCH (07:41)
[2016-11-23] MEDS: ATORVASTATIN 40 MG TAB PO SCH (07:41)
[2016-11-23] MEDS: ASPIRIN 81 MG CHEW PO SCH (07:42)
[2016-11-23] MEDS: FLINTSTONES COMPLETE CHEWABLE TAB PO SCH (07:42)
[2016-11-23] MEDS: FLUOXETINE HCL 20 MG CAP PO SCH (07:42)
[2016-11-23 07:51] VITALS: BP 150/89; PULSE 62; TEMP 36.6; O2SAT 96
[2016-11-23 08:00] VITALS: O2SAT 95
[2016-11-23] MEDS: PANTOprazole INJ 40 MG in SYRINGE 0 ML IV SCH (10:04)
[2016-11-23] MEDS ORDERED: HYDROmorphone INJ 1 MG/ML SYR ONE (12:05)
[2016-11-23 15:24] VITALS: BP 135/78; PULSE 55; TEMP 36.5; O2SAT 96
--- NOTE | 2016-11-23 15:55 | Progress Note ---
Subjective Date of Service: Nov 23, 2016. Subjective Pt evaluation today including: conversation w/ patient, physical exam, lab review, review of inpatient medication list Pain: 7 out of 10 PO Intake: full liquids Voiding: no voiding problems patient complains about not getting additional pain medications will try to provide comfort with Dilaudid plan for EGD tomorrow overall very little improvement in symptoms Problem List Medical Problems: (1) Central abdominal pain Status: Acute (2) Central abdominal pain Status: Acute (3) Diarrhea Status: Acute (4) Enteritis Status: Acute (5) Hypertension Status: Acute (6) Left arm pain Status: Acute (7) Left sided chest pain Status: Acute (8) SMA stenosis Status: Acute Review of Systems Abdomen: + pain, + diarrhea All Other Systems: Reviewed and Negative Medications Current Inpatient Medications Medications (Trade) Dose Ordered Sig/Alexander Route Start Time Stop Time Status Last Admin Dose Admin Acetaminophen (Tylenol Tab) 650 mg Q4H PRN PO 11/22/16 18:15 12/22/16 18:14 Ondansetron HCl (Zofran Inj) 4 mg Q6H PRN IV 11/22/16 18:15 12/22/16 18:14 Aspirin (Aspirin Chew) 81 mg DAILY PO 11/23/16 09:00 12/23/16 08:59 11/23/16 07:42 81 MG Atorvastatin Calcium (Lipitor Tab) 40 mg DAILY PO 11/23/16 09:00 12/23/16 08:59 11/23/16 07:41 40 MG Clopidogrel Bisulfate (plAVix TAB) 75 mg DAILY PO 11/23/16 09:00 12/23/16 08:59 11/23/16 07:40 75 MG Fluoxetine HCl (Prozac Cap) 40 mg QAM PO 11/23/16 09:00 12/23/16 08:59 11/23/16 07:42 40 MG Lisinopril (Zestril Tab) 10 mg DAILY PO 11/23/16 09:00 12/23/16 08:59 11/23/16 07:40 10 MG Lorazepam (Ativan Tab) 0.5 mg BID PRN PO 11/22/16 18:15 12/22/16 18:14 11/23/16 03:25 0.5 MG Metoprolol Succinate (Toprol Xl Tab) 25 mg DAILY PO 11/23/16 09:00 12/23/16 08:59 11/23/16 07:41 25 MG Oxycodone/ Acetaminophen (Percocet 10-325MG Tab) 1 tab TID PRN PO 11/22/16 18:15 12/06/16 18:14 11/23/16 07:40 1 TAB Multivitamins (Flintstones Complete Tab) 1 tab QAM PO 11/23/16 09:00 12/23/16 08:59 11/23/16 07:42 1 TAB Zolpidem Tartrate (Ambien Tab) 10 mg HS PRN PO 11/22/16 18:15 12/22/16 18:14 11/22/16 21:42 10 MG Ciprofloxacin/ Dextrose 400 mg/ Prmx 200 ml @ 100 mls/hr Q12@0600,1800 IV 11/23/16 06:00 12/03/16 05:59 11/23/16 06:20 100 MLS/HR Metronidazole 500 mg/Prmx 100 ml @ 100 mls/hr Q8@0200,1000,1800 IV 11/23/16 02:00 12/03/16 01:59 11/23/16 10:04 100 MLS/HR Pantoprazole Sodium 40 mg/ Syringe 10 ml @ 5 mls/min DAILY@11 IV 11/23/16 11:00 12/23/16 10:59 11/23/16 10:04 5 MLS/MIN Sodium Chloride 1,000 ml @ 100 mls/hr Q10H IV 11/22/16 20:30 12/22/16 20:29 11/23/16 06:21 100 MLS/HR Hydromorphone HCl (Dilaudid Inj) 0.5 mg Q4H PRN IV 11/23/16 11:45 12/07/16 11:44 Objective Vital Signs Date Time Temp Pulse Resp B/P (MAP) Pulse Ox O2 Delivery O2 Flow Rate FiO2 11/23/16 15:24 36.5 55 16 135/78 (97) 96 Room Air 11/23/16 08:00 95 Room Air 11/23/16 07:51 36.6 62 16 150/89 (109) 96 Room Air 11/23/16 00:05 95 Room Air 11/22/16 23:16 36.6 75 18 113/76 (88) 95 Room Air 11/22/16 20:13 36.8 62 18 133/88 (103) 100 Room Air 11/22/16 20:00 36.6 18 113/76 95 Room Air 11/22/16 19:15 72 18 107/80 98 11/22/16 18:36 68 16 136/86 98 Room Air 11/22/16 17:19 61 16 118/72 98 Room Air Physical Exam General Appearance: WD/WN, no apparent distress Eyes: normal inspection, EOMI, sclerae normal Neck: supple, no adenopathy, no JVD, trachea midline Respiratory/Chest: chest non-tender, lungs clear, normal breath sounds, no respiratory distress, no accessory muscle use Cardiovascular: regular rate, rhythm, no edema, no gallop, no JVD, no murmur Abdomen: normal bowel sounds, soft, no organomegaly, + tenderness (epigastric) Extremities: normal range of motion, non-tender, normal inspection, no pedal edema, no calf tenderness Neurologic/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: 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 as tested, no motor/sensory deficits, alert, normal mood/affect, oriented x 3 Skin: normal color, warm/dry, no rash Lymphatic: no adenopathy Laboratory Results Last 24 Hours Test 11/22/16 22:05 11/23/16 06:18 11/23/16 13:55 Troponin I < 0.015 ng/ml < 0.015 ng/ml < 0.015 ng/ml White Blood Count 7.65 K/uL Red Blood Count 4.32 M/uL Hemoglobin 12.6 g/dL Hematocrit 40.3 % Mean Corpuscular Volume 93.3 fL Mean Corpuscular Hemoglobin 29.2 pg Mean Corpuscular Hemoglobin Concent 31.3 g/dl Platelet Count 175 K/uL Mean Platelet Volume 10.9 fL Neutrophils (%) (Auto) 60.0 % Lymphocytes (%) (Auto) 31.5 % Monocytes (%) (Auto) 4.8 % Eosinophils (%) (Auto) 3.3 % Basophils (%) (Auto) 0.3 % Neutrophils # (Auto) 4.59 K/uL Lymphocytes # (Auto) 2.41 K/uL Monocytes # (Auto) 0.37 K/uL Eosinophils # (Auto) 0.25 K/uL Basophils # (Auto) 0.02 K/uL RDW Standard Deviation 56.8 fL RDW Coefficient of Variation 16.6 % Immature Granulocyte % (Auto) 0.1 % Immature Granulocyte # (Auto) 0.01 K/uL Sodium Level 147 mmol/L Potassium Level 4.1 mmol/L Chloride Level 116 mmol/L Carbon Dioxide Level 25 mmol/L Anion Gap 6.0 mmol/L Blood Urea Nitrogen 13 mg/dl Creatinine 0.57 mg/dl Est Creatinine Clear Calc Drug Dose 104.3 ml/min Estimated GFR () 121.0 Estimated GFR (Non- 104.4 BUN/Creatinine Ratio 22.0 Random Glucose 74 mg/dl Calcium Level 8.1 mg/dl Assessment and Plan Abd pain likely from worsening enteritis as evidenced from CT abd/pelvis-- slightly better today, still c/o 7 out of 10 pain GI consulted, patient said she is on for EGD tomorrow continue Cipro and Flagyl, Protonix on Percocet 10/325mg which she takes at home, will add some Dilaudid IV for breakthrough NPO after midnight CAD/hypertension/history of AL/PAD--cont aspirin 81 mg by mouth daily and clopidogrel 75 mg by mouth daily. Continue lisinopril 10 mg by mouth daily and metoprolol succinate ER 25 mg by mouth daily. Depression--continue fluoxetine 40 mg by mouth every morning. Hypercholesterolemia--cont atorvastatin 40 mg by mouth daily. Anxiety--continue lorazepam when necessary. Chronic pain syndrome--cont PO percocet and morphine IV PRN Pt is FULL CODE
[2016-11-23 16:00] VITALS: O2SAT 95
[2016-11-23] MEDS: HYDROmorphone INJ 1 MG/ML SYR IV PRN ×2 (16:05→21:33)
--- NOTE | 2016-11-23 16:06 | Medical Consult ---
Consultation Note Date of Service Nov 23, 2016. 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 She was hospitalized in early October for this pain, underwent CT which showed jejunal wall thickening, and was dx'd with infection enteritis, and treated with cipro and flagyl. She reports some mild relief of pain at time of discharge, but pain then recurred. Pain has increased in severity since last Thu, preventing pt from eating. She was seen in ER on and then dc'd home after receiving Morphine and Toradol; she was admitted last night after she returned to ER and CT again showed mild jejunal wall thickening in the central abdomen. She was admitted for w/u, and has been treated with bowel rest, narcs, cipro/flagyl. Her pain this morning is unchanged from admission, and she is taking only small amts of PO per her report. Her bowel movements are typically irregular and have been unremarkable. Denies fever. Denies NSAID use. Denies recent weight loss. Weight stable in [facility]. On chronic narcotics, but use has been stable. Past Medical history/ Surgical History: See above T&A Cholecystectomy Family History Diabetes mellitus FH: heart disease FH: lung disease FHx: cancer Hypertension Social History Smoking Status: Current Every Day Smoker Alcohol Use: none Drug Use: none Marital Status: Housing Status: lives with family Occupation Status: unemployed, disabled Date Time Temp Pulse Resp B/P (MAP) Pulse Ox O2 Delivery O2 Flow Rate FiO2 11/23/16 15:24 36.5 55 16 135/78 (97) 96 Room Air 11/23/16 08:00 95 Room Air 11/23/16 07:51 36.6 62 16 150/89 (109) 96 Room Air 11/23/16 00:05 95 Room Air 11/22/16 23:16 36.6 75 18 113/76 (88) 95 Room Air 11/22/16 20:13 36.8 62 18 133/88 (103) 100 Room Air 11/22/16 20:00 36.6 18 113/76 95 Room Air 11/22/16 19:15 72 18 107/80 98 11/22/16 18:36 68 16 136/86 98 Room Air 11/22/16 17:19 61 16 118/72 98 Room Air Tearful, crying. She does not appear to be in pain HEENT: oc clear. anicteric, moist, no cervical LAD CV: RRR Resp: CTA ABD: mod pannus. Abd is soft but mildly distended with normal BS. SHe has mod tenderness throughout abdomen upon deep palpation Extrem: no edema Labs and imaging reviewed. A/P: Abdominal pain, CT findings of jejunal wall thickening - Etiology of her symptoms are not clear, and I am not sure if her pain is related to CT findings of jejunal wall thick. Will schedule for EGD for to r/ o PUD and abdominal doppler to rule out mesenteric vasc stenosis. If these tests are unrevealing, would consider MR angiography, again to r/o vasc stenosis and SBFT to look for obstructive or adhesive disease. DDX includes functional disease, mass lesion of small intestine, functional disease, or ( less likely) IBD. WOuld consider further testing for these possibilities if initial w/u unrevealing. - THere does not seem to be a clear indication for abx - the duration of her symptoms is longer than wuold be expected for an infectious enteritis, and she is without diarrhea or fever. An infectious enteritis seems unlikely, but will check stool cx. Cont clears for now.
[2016-11-23] MEDS: ZOLPIDEM TARTRATE 10 MG TAB PO PRN (21:33)
[2016-11-23 22:47] VITALS: BP 155/98; PULSE 66; TEMP 36.8; O2SAT 96
[2016-11-24] MEDS: METRONIDAZOLE / NSS 500 MG in PREMIXED NSS 100 ML IV SCH ×3 (01:46→17:53)
[2016-11-24] MEDS: HYDROmorphone INJ 1 MG/ML SYR IV PRN ×5 (01:47→21:51)
[2016-11-24] MEDS: SODIUM CHLORIDE 0.9% 1000ML 1,000 ML IV SCH ×3 (01:51→20:12)
[2016-11-24 03:34] VITALS: BP 159/97; PULSE 57; TEMP 36.8; O2SAT 97
[2016-11-24] MEDS: CIPROFLOXACIN / D5W 400 MG in PREMIXED IN D5W 200 ML IV SCH ×2 (05:38→17:53)
[2016-11-24 07:46] LABS: BASO % 0.6 %; BASO ABS # 0.04 K/uL (0-0.2); COMPLETE YES; EOS % 3.5 %; HEMATOCRIT 39.5 % (37-47); IG% 0.2 %; LYMPH % 36.7 %; LYMPH ABS # 2.41 K/uL (1.2-3.4); MEAN CELL VOLUME 93.8 fL (80-100); MEAN CORPUSCULAR HEMOGLOBIN 29.7 pg (25-34); MEAN CORPUSCULAR HGB CONC 31.6 g/dl (32-36); MEAN PLATELET VOLUME 11.3 fL (7.4-10.4); MONO % 5.8 %; NEUT % 53.2 %; PLATELET COUNT 185 K/uL (130-400); RED BLOOD COUNT 4.21 M/uL (4.2-5.4); WHITE BLOOD COUNT 6.56 K/uL (4.8-10.8)
[2016-11-24 07:52] VITALS: BP_SYST 156; BP_SYST 159; BP_DIAS 100; BP_DIAS 97; PULSE 57; TEMP 36.8; O2SAT 97
[2016-11-24 08:18] LABS: BUN/CREATININE RATIO 9.7 (10-20); CREATININE 0.61 mg/dl (0.60-1.20); POTASSIUM 3.9 mmol/L (3.5-5.1)
[2016-11-24 08:38] LABS: CALCIUM 8.1 mg/dl (8.5-10.1)
--- NOTE | 2016-11-24 09:18 | DIAGNOSTIC IMAGING REPORT ---
DOPPLER ULTRASOUND OF THE MAJOR MESENTERIC VESSELS CLINICAL HISTORY: Abdominal pain. COMPARISON STUDY: CT of the abdomen and pelvis November 22, 2016. FINDINGS: Peak systolic velocity within the superior mesenteric artery was 192 cm/s. Peak systolic velocity within the celiac axis was 98 cm/s. There was moderate atherosclerotic plaque within the abdominal aorta. IMPRESSION: No evidence of a hemodynamically significant stenosis within the superior mesenteric artery or celiac axis. Electronically signed by: Darrel Galicia M.D. 11/24/2016 9:17 AM Dictated Date/Time: 11/24/2016 9:08 AM
[2016-11-24] MEDS ORDERED: LIDOCAINE HCL 2% 2 ML VIAL (20MG/ML) ONE (09:46)
[2016-11-24] MEDS ORDERED: FENTANYL CITRATE INJ 50 MCG/1 ML 2 ML VIAL ONE (09:46)
[2016-11-24] MEDS ORDERED: PROPOFOL IV EMULSION 10 MG/ML 20 ML VIAL IV ONE (09:46)
[2016-11-24] MEDS ORDERED: EpHEDrine SULFATE INJ 50 MG/ML AMP IV PRN (10:15)
[2016-11-24] MEDS ORDERED: ATROPINE SULFATE 0.1 MG/ML 5ML SYR IV PRN (10:15)
--- NOTE | 2016-11-24 10:49 | Anesthesiology Progress Note ---
Anesthesia Post Op Note Date & Time Nov 24, 2016 at 10:49 Vital Signs Pain Intensity: 0 Vital Signs Past 12 Hours Date Time Temp Pulse Resp B/P (MAP) Pulse Ox O2 Delivery O2 Flow Rate FiO2 11/24/16 10:40 57 18 175/104 97 Room Air 11/24/16 10:26 59 18 140/78 96 Room Air 11/24/16 10:19 57 18 122/63 97 Room Air 11/24/16 09:43 37.2 58 18 168/101 98 Room Air 11/24/16 07:52 36.8 57 16 156/100 (118) 97 Room Air 159/97 (117) 11/24/16 04:05 Room Air 11/24/16 03:34 36.8 57 16 159/97 97 Room Air 11/24/16 00:05 Room Air Notes Mental Status: alert / awake / arousable, participated in evaluation Pt Amnestic to Procedure: Yes Nausea / Vomiting: adequately controlled Pain: adequately controlled Airway Patency, RR, SpO2: stable & adequate BP & HR: stable & adequate Hydration State: stable & adequate Anesthetic Complications: no major complications apparent
[2016-11-24 11:00] VITALS: BP 176/93; PULSE 54; TEMP 36.5; O2SAT 98
[2016-11-24] MEDS: METOPROLOL SUCC 25MG EXT REL TAB PO SCH (11:09)
[2016-11-24] MEDS: ASPIRIN 81 MG CHEW PO SCH (11:21)
[2016-11-24] MEDS: ATORVASTATIN 40 MG TAB PO SCH (11:22)
[2016-11-24] MEDS: FLINTSTONES COMPLETE CHEWABLE TAB PO SCH (11:22)
[2016-11-24] MEDS: FLUOXETINE HCL 20 MG CAP PO SCH (11:23)
[2016-11-24] MEDS: CLOPIDOGREL BISULFATE 75 MG TAB PO SCH (11:23)
[2016-11-24] MEDS: LISINOPRIL 10 MG TAB PO SCH (11:23)
--- NOTE | 2016-11-24 11:25 | GI REPORT ---
Procedure Date: 11/24/2016 9:54 AM Procedure: Upper GI endoscopy Indications: Epigastric abdominal pain, Nausea Medicines: See the Anesthesia note for documentation of the administered medications Complications: No immediate complications. Estimated Blood Loss: Estimated blood loss: none. Procedure: Pre-Anesthesia Assessment: - Prior to the procedure, a History and Physical was performed, and patient medications, allergies and sensitivities were reviewed. The patient's tolerance of previous anesthesia was reviewed. - The risks and benefits of the procedure and the sedation options and risks were discussed with the patient. All questions were answered and informed consent was obtained. - Patient identification and proposed procedure were verified prior to the procedure by the physician and the nurse. The procedure was verified in the pre-procedure area. - Pre-procedure physical examination revealed no contraindications to sedation. - After reviewing the risks and benefits, the patient was deemed in satisfactory condition to undergo the procedure. After obtaining informed consent, the endoscope was passed under direct vision. Throughout the procedure, the patient's blood pressure, pulse, and oxygen saturations were monitored continuously. The On-site loaner was introduced through the mouth, and advanced to the afferent and efferent jejunal loops. The upper GI endoscopy was accomplished without difficulty. The patient tolerated the procedure well. Findings: The esophagus was normal. Evidence of a gastric bypass was found. A gastric pouch with a small size was found. The gastrojejunal anastomosis was characterized by healthy appearing mucosa. The jejunojejunal anastomosis was characterized by healthy appearing mucosa. The examined jejunum was normal. Impression: - Normal esophagus. - Gastric bypass with a small-sized pouch. Gastrojejunal anastomosis characterized by healthy appearing mucosa. - Normal examined jejunum. - No specimens collected. Recommendation: - Return patient to hospital smalls for ongoing care. - Advance diet as tolerates. Manish Simeon M.D. Manish Simeon MD 11/24/2016 11:24:34 AM This report has been signed electronically. Note Initiated On: 11/24/2016 9:54 AM I attest to the content of the Intraoperative Record and orders documented therein, exceptions below
[2016-11-24] MEDS: LORAZEPAM 0.5 MG TAB PO PRN (11:29)
[2016-11-24] MEDS: PANTOprazole INJ 40 MG in SYRINGE 0 ML IV SCH (11:53)
--- NOTE | 2016-11-24 12:36 | Hospitalist Progress Note ---
Hospitalist Progress Note Date of Service Nov 24, 2016. Subjective Pt evaluation today including: conversation w/ patient, physical exam, chart review, lab review, review of studies, review of inpatient medication list Patient seen and evaluated. EGD and Abd U/S completed today. No evidence of gastric ulcers and no significant stenosis suggesting mesenteric stenosis Reporting pain is improving but remains in lower abdomen and reports it is near the area of her ventral hernia. States the pain is generally constant but feels like she may spasm and it feels like her bowels are "clamped down" Constitutional: No fever, No chills Respiratory: No cough, No shortness of breath Cardiovascular: No chest pain Abdomen: + pain (mid abdomen), + problem reported (bloating), No nausea, No vomiting Musculoskeletal: No swelling, No calf pain Female : No dysuria Medications Current Inpatient Medications Medications (Trade) Dose Ordered Sig/Alexander Route Start Time Stop Time Status Last Admin Dose Admin Acetaminophen (Tylenol Tab) 650 mg Q4H PRN PO 11/22/16 18:15 12/22/16 18:14 Ondansetron HCl (Zofran Inj) 4 mg Q6H PRN IV 11/22/16 18:15 12/22/16 18:14 Aspirin (Aspirin Chew) 81 mg DAILY PO 11/23/16 09:00 12/23/16 08:59 11/24/16 11:21 81 MG Atorvastatin Calcium (Lipitor Tab) 40 mg DAILY PO 11/23/16 09:00 12/23/16 08:59 11/24/16 11:22 40 MG Clopidogrel Bisulfate (plAVix TAB) 75 mg DAILY PO 11/23/16 09:00 12/23/16 08:59 11/24/16 11:23 75 MG Fluoxetine HCl (Prozac Cap) 40 mg QAM PO 11/23/16 09:00 12/23/16 08:59 11/24/16 11:23 40 MG Lisinopril (Zestril Tab) 10 mg DAILY PO 11/23/16 09:00 12/23/16 08:59 11/24/16 11:23 10 MG Lorazepam (Ativan Tab) 0.5 mg BID PRN PO 11/22/16 18:15 12/22/16 18:14 11/24/16 11:29 0.5 MG Metoprolol Succinate (Toprol Xl Tab) 25 mg DAILY PO 11/23/16 09:00 12/23/16 08:59 11/23/16 07:41 25 MG Oxycodone/ Acetaminophen (Percocet 10-325MG Tab) 1 tab TID PRN PO 11/22/16 18:15 12/06/16 18:14 11/23/16 19:32 1 TAB Multivitamins (Flintstones Complete Tab) 1 tab QAM PO 11/23/16 09:00 12/23/16 08:59 11/24/16 11:22 1 TAB Zolpidem Tartrate (Ambien Tab) 10 mg HS PRN PO 11/22/16 18:15 12/22/16 18:14 11/23/16 21:33 10 MG Ciprofloxacin/ Dextrose 400 mg/ Prmx 200 ml @ 100 mls/hr Q12@0600,1800 IV 11/23/16 06:00 12/03/16 05:59 11/24/16 05:38 100 MLS/HR Metronidazole 500 mg/Prmx 100 ml @ 100 mls/hr Q8@0200,1000,1800 IV 11/23/16 02:00 12/03/16 01:59 11/24/16 11:53 100 MLS/HR Pantoprazole Sodium 40 mg/ Syringe 10 ml @ 5 mls/min DAILY@11 IV 11/23/16 11:00 12/23/16 10:59 11/24/16 11:53 5 MLS/MIN Sodium Chloride 1,000 ml @ 100 mls/hr Q10H IV 11/22/16 20:30 12/22/16 20:29 11/24/16 11:53 100 MLS/HR Hydromorphone HCl (Dilaudid Inj) 0.5 mg Q4H PRN IV 11/23/16 11:45 12/07/16 11:44 11/24/16 05:38 0.5 MG Ephedrine Sulfate (EpHEDrine SULFATE INJ) 5 mg Q5M PRN IV 11/24/16 10:15 11/24/16 15:15 Atropine Sulfate (Atropine Sulfate 0.1MG/Ml Inj) 0.5 mg Q1M PRN IV 11/24/16 10:15 11/24/16 15:15 Objective Vital Signs Date Time Temp Pulse Resp B/P (MAP) Pulse Ox O2 Delivery O2 Flow Rate FiO2 11/24/16 11:00 36.5 54 14 176/93 (120) 98 Room Air 11/24/16 10:40 57 18 175/104 97 Room Air 11/24/16 10:26 59 18 140/78 96 Room Air 11/24/16 10:19 57 18 122/63 97 Room Air 11/24/16 09:43 37.2 58 18 168/101 98 Room Air 11/24/16 08:00 Room Air 11/24/16 07:52 36.8 57 16 156/100 (118) 97 Room Air 159/97 (117) 11/24/16 04:05 Room Air 11/24/16 03:34 36.8 57 16 159/97 97 Room Air 11/24/16 00:05 Room Air 11/23/16 22:47 36.8 66 16 155/98 (117) 96 Room Air 11/23/16 20:05 Room Air 11/23/16 16:00 95 Room Air 11/23/16 15:24 36.5 55 16 135/78 (97) 96 Room Air Physical Exam General Appearance: WD/WN, no apparent distress Eyes: sclerae normal ENT: hearing grossly normal Neck: supple, no JVD, trachea midline Respiratory/Chest: lungs clear, normal breath sounds, no respiratory distress, no accessory muscle use Cardiovascular: regular rate, rhythm, no gallop, no murmur Abdomen: normal bowel sounds, soft, + tenderness (mid-abdomen extending to R and L lower quadrants) Extremities: no pedal edema, no calf tenderness Neurologic/Psychiatric: alert, oriented x 3 Skin: normal color, warm/dry Laboratory Results Last 24 Hours Test 11/23/16 13:55 11/24/16 07:11 Troponin I < 0.015 ng/ml White Blood Count 6.56 K/uL Red Blood Count 4.21 M/uL Hemoglobin 12.5 g/dL Hematocrit 39.5 % Mean Corpuscular Volume 93.8 fL Mean Corpuscular Hemoglobin 29.7 pg Mean Corpuscular Hemoglobin Concent 31.6 g/dl Platelet Count 185 K/uL Mean Platelet Volume 11.3 fL Neutrophils (%) (Auto) 53.2 % Lymphocytes (%) (Auto) 36.7 % Monocytes (%) (Auto) 5.8 % Eosinophils (%) (Auto) 3.5 % Basophils (%) (Auto) 0.6 % Neutrophils # (Auto) 3.49 K/uL Lymphocytes # (Auto) 2.41 K/uL Monocytes # (Auto) 0.38 K/uL Eosinophils # (Auto) 0.23 K/uL Basophils # (Auto) 0.04 K/uL RDW Standard Deviation 56.4 fL RDW Coefficient of Variation 16.2 % Immature Granulocyte % (Auto) 0.2 % Immature Granulocyte # (Auto) 0.01 K/uL Sodium Level 144 mmol/L Potassium Level 3.9 mmol/L Chloride Level 111 mmol/L Carbon Dioxide Level 26 mmol/L Anion Gap 7.0 mmol/L Blood Urea Nitrogen 6 mg/dl Creatinine 0.61 mg/dl Est Creatinine Clear Calc Drug Dose 97.5 ml/min Estimated GFR () 118.3 Estimated GFR (Non- 102.1 BUN/Creatinine Ratio 9.7 Random Glucose 86 mg/dl Calcium Level 8.1 mg/dl Assessment and Plan Abdominal Pain: Enteritis - Ciprofloxacin 400 mg IV Q12H and Flagyl 500 mg IV Q8H - Protonix 40 mg IV daily - GI following - recommendations reviewed -- EGD completed - no evidence of PUD -- Abd U/S - report reviewed - no significant stenosis -- Advance diet as tolerated Chronic Pain Syndrome: - Percocet 1 tab TID PRN CAD S/P [place] with H/O PAD and HTN: - ASA 81 mg daily and Plavix 75 mg daily - Lisinopril 10 mg daily and Metoprolol Succ 25 mg daily HLD: - Atorvastatin 40 mg daily Anxiety/Depression: - Prozac 40 mg daily and Ativan BID PRN Code Status: FULL RESUSCITATION Disposition: Possible D/C 1-2 days
[2016-11-24] MEDS: OXYCODONE/ACETAMINOPHEN 10/325MG TAB PO PRN (15:31)
[2016-11-24 15:34] VITALS: BP 157/86; PULSE 57; TEMP 36.4; O2SAT 94
[2016-11-24] MEDS: ZOLPIDEM TARTRATE 10 MG TAB PO PRN (21:51)
[2016-11-24 23:36] VITALS: BP 158/92; PULSE 63; TEMP 36.8; O2SAT 96
[2016-11-24] MEDS: HydrALAZINE HCL 20 MG/ML VIAL IV. PRN (23:58)
[2016-11-25] VITALS: O2SAT 96
[2016-11-25 01:22] VITALS: BP 156/88
[2016-11-25] MEDS: OXYCODONE/ACETAMINOPHEN 10/325MG TAB PO PRN ×3 (01:28→18:53)
[2016-11-25] MEDS: METRONIDAZOLE / NSS 500 MG in PREMIXED NSS 100 ML IV SCH ×2 (01:32→09:31)
[2016-11-25] MEDS: HYDROmorphone INJ 1 MG/ML SYR IV PRN ×5 (03:23→21:30)
[2016-11-25] MEDS: LORAZEPAM 0.5 MG TAB PO PRN ×2 (04:52→18:53)
[2016-11-25] MEDS: CIPROFLOXACIN / D5W 400 MG in PREMIXED IN D5W 200 ML IV SCH (05:43)
[2016-11-25] MEDS: SODIUM CHLORIDE 0.9% 1000ML 1,000 ML IV SCH (07:10)
[2016-11-25 07:49] VITALS: BP 156/88; PULSE 77; TEMP 36.5; O2SAT 94
[2016-11-25 07:58] LABS: BASO % 0.4 %; BASO ABS # 0.03 K/uL (0-0.2); COMPLETE YES; EOS % 3.1 %; IG% 0.1 %; LYMPH % 33.9 %; LYMPH ABS # 2.28 K/uL (1.2-3.4); MEAN CELL VOLUME 91.5 fL (80-100); MEAN CORPUSCULAR HEMOGLOBIN 30.7 pg (25-34); MEAN CORPUSCULAR HGB CONC 33.5 g/dl (32-36); MEAN PLATELET VOLUME 10.7 fL (7.4-10.4); MONO % 6.1 %; NEUT % 56.4 %; PLATELET COUNT 193 K/uL (130-400); RED BLOOD COUNT 4.37 M/uL (4.2-5.4); WHITE BLOOD COUNT 6.73 K/uL (4.8-10.8)
[2016-11-25 08:24] LABS: BUN/CREATININE RATIO 8.9 (10-20); CREATININE 0.55 mg/dl (0.60-1.20)
[2016-11-25 08:47] LABS: CALCIUM 8.7 mg/dl (8.5-10.1)
--- NOTE | 2016-11-25 09:11 | DIAGNOSTIC IMAGING REPORT ---
GI SERIES AND SMALL BOWEL CLINICAL HISTORY: abdominal pain, history of gastric bypass COMPARISON STUDY: CT scan dated 11/22/2016 FLUOROSCOPY TIME: 2.3 minutes. FINDINGS: The patient swallowed barium without difficulty. There are postsurgical changes of a gastric bypass. The gastrojejunostomy appears patent. On the 20 minute film, there is a small amount of contrast within the excluded stomach. This was not visualized initial images, and may represent reflux through the afferent loop. There are no transition zone to indicate bowel obstruction. Contrast reached the colon within 50 minutes. Fluoroscopic palpation reveal no intrinsic small bowel abnormalities. There were no definite small bowel abnormalities to correlate with the thick walled mid abdominal bowel loops. Note is made of several left renal calculi. IMPRESSION: 1. Postsurgical changes are prior gastric bypass 2. No evidence of bowel obstruction 3. There were no definite findings to correlate with the thick walled bowel loops described on the recent CT scan. Electronically signed by: Brayan Buck M.D. 11/25/2016 9:10 AM Dictated Date/Time: 11/25/2016 9:05 AM
[2016-11-25] MEDS: ASPIRIN 81 MG CHEW PO SCH (09:28)
[2016-11-25] MEDS: FLINTSTONES COMPLETE CHEWABLE TAB PO SCH (09:28)
[2016-11-25] MEDS: ATORVASTATIN 40 MG TAB PO SCH (09:29)
[2016-11-25] MEDS: FLUOXETINE HCL 20 MG CAP PO SCH (09:29)
[2016-11-25] MEDS: CLOPIDOGREL BISULFATE 75 MG TAB PO SCH (09:29)
[2016-11-25] MEDS: METOPROLOL SUCC 25MG EXT REL TAB PO SCH (09:30)
[2016-11-25] MEDS: LISINOPRIL 10 MG TAB PO SCH (09:30)
--- NOTE | 2016-11-25 10:45 | Gastroenterology Progress Note ---
Progress Note Date of Service: Nov 25, 2016 Subjective Pt evaluation today including: conversation w/ patient, physical exam Pt was seen and evaluated this AM. She tells me her pain is improving and is less wide spread. More localized to mid abdomen - no more radiation of pain to her back. No nausea. No vomiting. No BM today. No BRB or melena. EGD 11/24/16: The esophagus was normal.Evidence of a gastric bypass was found. A gastric pouch with a small size was found. The gastrojejunal anastomosis was characterized by healthy appearing mucosa. The jejunojejunal anastomosis was characterized by healthy appearing mucosa. The examined jejunum was normal. Bowel series 11/25/16: The patient swallowed barium without difficulty. There are postsurgical changes of a gastric bypass. The gastrojejunostomy appears patent. On the 20 minute film, there is a small amount of contrast within the excluded stomach. This was not visualized initial images, and may represent reflux through the afferent loop. There are no transition zone to indicate bowel obstruction. Contrast reached the colon within 50 minutes. Fluoroscopic palpation reveal no intrinsic small bowel abnormalities. There were no definite small bowel abnormalities to correlate with the thick walled mid abdominal bowel loops. Review of Systems Constitutional: No fever, No chills Respiratory: + shortness of breath, No cough Cardiac: No chest pain, No edema Abdomen: + pain, + constipation, No nausea, No vomiting, No diarrhea Medications Current Inpatient Medications Medications (Trade) Dose Ordered Sig/Alexander Route Start Time Stop Time Status Last Admin Dose Admin Acetaminophen (Tylenol Tab) 650 mg Q4H PRN PO 11/22/16 18:15 12/22/16 18:14 Ondansetron HCl (Zofran Inj) 4 mg Q6H PRN IV 11/22/16 18:15 12/22/16 18:14 Aspirin (Aspirin Chew) 81 mg DAILY PO 11/23/16 09:00 12/23/16 08:59 11/25/16 09:28 81 MG Atorvastatin Calcium (Lipitor Tab) 40 mg DAILY PO 11/23/16 09:00 12/23/16 08:59 11/25/16 09:29 40 MG Clopidogrel Bisulfate (plAVix TAB) 75 mg DAILY PO 11/23/16 09:00 12/23/16 08:59 11/25/16 09:29 75 MG Fluoxetine HCl (Prozac Cap) 40 mg QAM PO 11/23/16 09:00 12/23/16 08:59 11/25/16 09:29 40 MG Lisinopril (Zestril Tab) 10 mg DAILY PO 11/23/16 09:00 12/23/16 08:59 11/25/16 09:30 10 MG Lorazepam (Ativan Tab) 0.5 mg BID PRN PO 11/22/16 18:15 12/22/16 18:14 11/25/16 04:52 0.5 MG Metoprolol Succinate (Toprol Xl Tab) 25 mg DAILY PO 11/23/16 09:00 12/23/16 08:59 11/25/16 09:30 25 MG Oxycodone/ Acetaminophen (Percocet 10-325MG Tab) 1 tab TID PRN PO 11/22/16 18:15 12/06/16 18:14 11/25/16 01:28 1 TAB Multivitamins (Flintstones Complete Tab) 1 tab QAM PO 11/23/16 09:00 12/23/16 08:59 11/25/16 09:28 1 TAB Zolpidem Tartrate (Ambien Tab) 10 mg HS PRN PO 11/22/16 18:15 12/22/16 18:14 11/24/16 21:51 10 MG Ciprofloxacin/ Dextrose 400 mg/ Prmx 200 ml @ 100 mls/hr Q12@0600,1800 IV 11/23/16 06:00 12/03/16 05:59 11/25/16 05:43 100 MLS/HR Metronidazole 500 mg/Prmx 100 ml @ 100 mls/hr Q8@0200,1000,1800 IV 11/23/16 02:00 12/03/16 01:59 11/25/16 09:31 100 MLS/HR Pantoprazole Sodium 40 mg/ Syringe 10 ml @ 5 mls/min DAILY@11 IV 11/23/16 11:00 12/23/16 10:59 11/24/16 11:53 5 MLS/MIN Sodium Chloride 1,000 ml @ 100 mls/hr Q10H IV 11/22/16 20:30 12/22/16 20:29 11/25/16 07:10 100 MLS/HR Hydromorphone HCl (Dilaudid Inj) 0.5 mg Q4H PRN IV 11/23/16 11:45 12/07/16 11:44 11/25/16 09:26 0.5 MG Hydralazine HCl (HydrALAZINE INJ) 20 mg Q6 PRN IV. 11/24/16 15:00 12/24/16 14:59 11/24/16 23:58 20 MG Objective Vital Signs Date Time Temp Pulse Resp B/P (MAP) Pulse Ox O2 Delivery O2 Flow Rate FiO2 11/25/16 08:00 Room Air 11/25/16 07:49 36.5 77 18 156/88 (110) 94 Room Air 11/25/16 01:22 156/88 (110) 11/25/16 00:00 96 Room Air 11/24/16 23:36 36.8 63 16 158/92 (114) 96 Room Air 11/24/16 16:00 Room Air 11/24/16 15:34 36.4 57 18 157/86 (109) 94 Room Air 11/24/16 11:00 36.5 54 14 176/93 (120) 98 Room Air 11/24/16 10:40 57 18 175/104 97 Room Air Physical Exam General Appearance: no apparent distress Eyes: PERRL ENT: hearing grossly normal Neck: supple Respiratory/Chest: lungs clear, no accessory muscle use Cardiovascular: regular rate, rhythm Abdomen: normal bowel sounds, soft, no organomegaly, no pulsatile mass, + distended Neurologic/Psych: alert, normal mood/affect, oriented x 3 Skin: normal color, no jaundice, warm/dry Laboratory Results Last 24 Hours Test 11/25/16 07:25 White Blood Count 6.73 K/uL Red Blood Count 4.37 M/uL Hemoglobin 13.4 g/dL Hematocrit 40.0 % Mean Corpuscular Volume 91.5 fL Mean Corpuscular Hemoglobin 30.7 pg Mean Corpuscular Hemoglobin Concent 33.5 g/dl Platelet Count 193 K/uL Mean Platelet Volume 10.7 fL Neutrophils (%) (Auto) 56.4 % Lymphocytes (%) (Auto) 33.9 % Monocytes (%) (Auto) 6.1 % Eosinophils (%) (Auto) 3.1 % Basophils (%) (Auto) 0.4 % Neutrophils # (Auto) 3.79 K/uL Lymphocytes # (Auto) 2.28 K/uL Monocytes # (Auto) 0.41 K/uL Eosinophils # (Auto) 0.21 K/uL Basophils # (Auto) 0.03 K/uL RDW Standard Deviation 53.8 fL RDW Coefficient of Variation 16.0 % Immature Granulocyte % (Auto) 0.1 % Immature Granulocyte # (Auto) 0.01 K/uL Sodium Level 144 mmol/L Potassium Level 4.0 mmol/L Chloride Level 111 mmol/L Carbon Dioxide Level 24 mmol/L Anion Gap 9.0 mmol/L Blood Urea Nitrogen 5 mg/dl Creatinine 0.55 mg/dl Est Creatinine Clear Calc Drug Dose 108.1 ml/min Estimated GFR () 122.4 Estimated GFR (Non- 105.6 BUN/Creatinine Ratio 8.9 Random Glucose 86 mg/dl Calcium Level 8.7 mg/dl Magnesium Level 2.0 mg/dl Assessment and Plan Abdominal pain with unclear etiology CT suggestive of jejunal wall thickening ( on cipro/flagyl and improving). EGD, doppler and SBFT unremarkable. Continue Cipro/Flagyl Diet as tolerated Monitor stools Miralax daily I performed a history and physical examination of the patient. I have discussed the patient's case, impression and plan with YOLANDA Marrufo . Her note reflects my findings and plan. Normal SBFT. No signs of acute luminal disease. This may be related to adhesions. Manish Simeon MD
[2016-11-25] MEDS: PANTOprazole INJ 40 MG in SYRINGE 0 ML IV SCH (10:50)
--- NOTE | 2016-11-25 13:41 | Hospitalist Progress Note ---
Hospitalist Progress Note Date of Service Nov 25, 2016. Subjective Pt evaluation today including: conversation w/ patient, physical exam, chart review, lab review, review of studies, review of inpatient medication list Patient seen and evaluated. Abd pain improving and centrally located at site of hernia. Has not had BM since admission. Tolerated full liquid diet and would like to have solids and this has been ordered. DC'd IVF. Imaging has been unremarkable for underlying etiology. Was tried on Bentyl on previous admission and didn't think it worked but was told by her PCP it wasn't a high enough dose and is willing to consider trying this again. Constitutional: No fever, No chills Respiratory: No shortness of breath Cardiovascular: No chest pain Abdomen: + pain (central around hernia), No nausea, No vomiting, No diarrhea , No constipation Musculoskeletal: No swelling, No calf pain Female : + urinary frequency, No dysuria Medications Current Inpatient Medications Medications (Trade) Dose Ordered Sig/Alexander Route Start Time Stop Time Status Last Admin Dose Admin Acetaminophen (Tylenol Tab) 650 mg Q4H PRN PO 11/22/16 18:15 12/22/16 18:14 Ondansetron HCl (Zofran Inj) 4 mg Q6H PRN IV 11/22/16 18:15 12/22/16 18:14 Aspirin (Aspirin Chew) 81 mg DAILY PO 11/23/16 09:00 12/23/16 08:59 11/25/16 09:28 81 MG Atorvastatin Calcium (Lipitor Tab) 40 mg DAILY PO 11/23/16 09:00 12/23/16 08:59 11/25/16 09:29 40 MG Clopidogrel Bisulfate (plAVix TAB) 75 mg DAILY PO 11/23/16 09:00 12/23/16 08:59 11/25/16 09:29 75 MG Fluoxetine HCl (Prozac Cap) 40 mg QAM PO 11/23/16 09:00 12/23/16 08:59 11/25/16 09:29 40 MG Lisinopril (Zestril Tab) 10 mg DAILY PO 11/23/16 09:00 12/23/16 08:59 11/25/16 09:30 10 MG Lorazepam (Ativan Tab) 0.5 mg BID PRN PO 11/22/16 18:15 12/22/16 18:14 11/25/16 04:52 0.5 MG Metoprolol Succinate (Toprol Xl Tab) 25 mg DAILY PO 11/23/16 09:00 12/23/16 08:59 11/25/16 09:30 25 MG Oxycodone/ Acetaminophen (Percocet 10-325MG Tab) 1 tab TID PRN PO 11/22/16 18:15 12/06/16 18:14 11/25/16 10:50 1 TAB Multivitamins (Flintstones Complete Tab) 1 tab QAM PO 11/23/16 09:00 12/23/16 08:59 11/25/16 09:28 1 TAB Zolpidem Tartrate (Ambien Tab) 10 mg HS PRN PO 11/22/16 18:15 12/22/16 18:14 11/24/16 21:51 10 MG Pantoprazole Sodium 40 mg/ Syringe 10 ml @ 5 mls/min DAILY@11 IV 11/23/16 11:00 12/23/16 10:59 11/25/16 10:50 5 MLS/MIN Hydromorphone HCl (Dilaudid Inj) 0.5 mg Q4H PRN IV 11/23/16 11:45 12/07/16 11:44 11/25/16 13:36 0.5 MG Hydralazine HCl (HydrALAZINE INJ) 20 mg Q6 PRN IV. 11/24/16 15:00 12/24/16 14:59 11/24/16 23:58 20 MG Ciprofloxacin (Cipro Tab) 500 mg BID PO 11/25/16 21:00 12/05/16 20:59 UNV Metronidazole (Flagyl Tab) 500 mg TID PO 11/25/16 14:00 12/05/16 13:59 UNV Objective Vital Signs Date Time Temp Pulse Resp B/P (MAP) Pulse Ox O2 Delivery O2 Flow Rate FiO2 11/25/16 08:00 Room Air 11/25/16 07:49 36.5 77 18 156/88 (110) 94 Room Air 11/25/16 01:22 156/88 (110) 11/25/16 00:00 96 Room Air 11/24/16 23:36 36.8 63 16 158/92 (114) 96 Room Air 11/24/16 16:00 Room Air 11/24/16 15:34 36.4 57 18 157/86 (109) 94 Room Air Physical Exam General Appearance: WD/WN, no apparent distress Eyes: sclerae normal ENT: hearing grossly normal Neck: supple, no JVD, trachea midline Respiratory/Chest: lungs clear, normal breath sounds, no respiratory distress, no accessory muscle use Cardiovascular: regular rate, rhythm, no gallop, no murmur Abdomen: normal bowel sounds, soft, + tenderness (with deep palpation; RLQ appears to have toughened skin/scar tissue; hernia board well-differentiated to palpation and easily reducible) Extremities: no pedal edema, no calf tenderness Neurologic/Psychiatric: alert, oriented x 3 Skin: normal color, warm/dry Laboratory Results Last 24 Hours Test 11/25/16 07:25 White Blood Count 6.73 K/uL Red Blood Count 4.37 M/uL Hemoglobin 13.4 g/dL Hematocrit 40.0 % Mean Corpuscular Volume 91.5 fL Mean Corpuscular Hemoglobin 30.7 pg Mean Corpuscular Hemoglobin Concent 33.5 g/dl Platelet Count 193 K/uL Mean Platelet Volume 10.7 fL Neutrophils (%) (Auto) 56.4 % Lymphocytes (%) (Auto) 33.9 % Monocytes (%) (Auto) 6.1 % Eosinophils (%) (Auto) 3.1 % Basophils (%) (Auto) 0.4 % Neutrophils # (Auto) 3.79 K/uL Lymphocytes # (Auto) 2.28 K/uL Monocytes # (Auto) 0.41 K/uL Eosinophils # (Auto) 0.21 K/uL Basophils # (Auto) 0.03 K/uL RDW Standard Deviation 53.8 fL RDW Coefficient of Variation 16.0 % Immature Granulocyte % (Auto) 0.1 % Immature Granulocyte # (Auto) 0.01 K/uL Sodium Level 144 mmol/L Potassium Level 4.0 mmol/L Chloride Level 111 mmol/L Carbon Dioxide Level 24 mmol/L Anion Gap 9.0 mmol/L Blood Urea Nitrogen 5 mg/dl Creatinine 0.55 mg/dl Est Creatinine Clear Calc Drug Dose 108.1 ml/min Estimated GFR () 122.4 Estimated GFR (Non- 105.6 BUN/Creatinine Ratio 8.9 Random Glucose 86 mg/dl Calcium Level 8.7 mg/dl Magnesium Level 2.0 mg/dl Assessment and Plan Abdominal Pain: Enteritis - Ciprofloxacin 500 mg po Q12H and Flagyl 500 mg po Q8H - DAY #4 - Protonix 40 mg daily - Trial of Bentyl 10 mg BID in the past but is willing to try it again (was told by PCP that a possible higher dose would help) - Bentyl 20 mg QID? - GI following - recommendations reviewed Chronic Pain Syndrome: - Percocet 1 tab TID PRN CAD S/P [place] with H/O PAD and HTN: - ASA 81 mg daily and Plavix 75 mg daily - Lisinopril 10 mg daily and Metoprolol Succ 25 mg daily HLD: - Atorvastatin 40 mg daily Anxiety/Depression: - Prozac 40 mg daily and Ativan BID PRN Code Status: FULL RESUSCITATION Disposition: Monitor for diet tolerance of regulars today - assess pain and possible D/C tomorrow Continued [facility] stay due to: inadequate po fluid intake Discharge planning: home
[2016-11-25] MEDS: METRONIDAZOLE 500 MG TAB PO SCH ×2 (14:26→21:13)
[2016-11-25 14:51] VITALS: BP 156/95; PULSE 77; TEMP 36.7; O2SAT 95
[2016-11-25] MEDS ORDERED: HYDROmorphone INJ 1 MG/ML SYR IV STA (15:21)
[2016-11-25 16:12] LABS: URINE APPEARANCE CLEAR (CLEAR); URINE BILIRUBIN NEG (NEG); URINE COLOR YELLOW; URINE NITRITE NEG (NEG); URINE SPECIFIC GRAVITY 1.006 (1.000-1.030); UROBILINOGEN NEG (NEG); ZZUR CULT IF INDIC CLEAN CATCH NO
[2016-11-25 16:15] LABS: MANUAL MICROSCOPIC REQUIRED? NO; REVIEW REQ? NO
[2016-11-25] MEDS: CIPROFLOXACIN 500 MG TAB PO SCH (21:13)
[2016-11-25] MEDS: HydrALAZINE HCL 20 MG/ML VIAL IV. PRN (23:36)
[2016-11-25] MEDS: ZOLPIDEM TARTRATE 10 MG TAB PO PRN (23:37)
[2016-11-25 23:41] VITALS: BP 176/101; PULSE 68; TEMP 36.5; O2SAT 95
[2016-11-26] VITALS: O2SAT 96
[2016-11-26] MEDS: HYDROmorphone INJ 1 MG/ML SYR IV PRN ×5 (01:45→20:19)
[2016-11-26 05:25] VITALS: BP 152/94; O2SAT 70
[2016-11-26 05:47] LABS: BASO % 0.4 %; BASO ABS # 0.04 K/uL (0-0.2); COMPLETE YES; EOS % 2.5 %; HEMATOCRIT 46.9 % (37-47); IG% 0.3 %; LYMPH % 26.2 %; LYMPH ABS # 2.54 K/uL (1.2-3.4); MEAN CELL VOLUME 90.4 fL (80-100); MEAN CORPUSCULAR HEMOGLOBIN 29.7 pg (25-34); MEAN CORPUSCULAR HGB CONC 32.8 g/dl (32-36); MEAN PLATELET VOLUME 10.9 fL (7.4-10.4); NEUT % 63.6 %; PLATELET COUNT 266 K/uL (130-400); RED BLOOD COUNT 5.19 M/uL (4.2-5.4); WHITE BLOOD COUNT 9.68 K/uL (4.8-10.8)
[2016-11-26 06:17] LABS: BUN/CREATININE RATIO 11.8 (10-20); CALCIUM 8.9 mg/dl (8.5-10.1); CREATININE 0.65 mg/dl (0.60-1.20); POTASSIUM 4.1 mmol/L (3.5-5.1)
[2016-11-26] MEDS: METRONIDAZOLE 500 MG TAB PO SCH ×3 (07:42→20:39)
[2016-11-26] MEDS: LISINOPRIL 10 MG TAB PO SCH (07:43)
[2016-11-26] MEDS: PANTOprazole SOD 40 MG TAB PO SCH (07:43)
[2016-11-26] MEDS: METOPROLOL SUCC 25MG EXT REL TAB PO SCH (07:43)
[2016-11-26] MEDS: FLUOXETINE HCL 20 MG CAP PO SCH (07:43)
[2016-11-26] MEDS: CLOPIDOGREL BISULFATE 75 MG TAB PO SCH (07:43)
[2016-11-26] MEDS: ASPIRIN 81 MG CHEW PO SCH (07:43)
[2016-11-26] MEDS: FLINTSTONES COMPLETE CHEWABLE TAB PO SCH (07:43)
[2016-11-26] MEDS: ATORVASTATIN 40 MG TAB PO SCH (07:43)
[2016-11-26] MEDS: CIPROFLOXACIN 500 MG TAB PO SCH ×2 (07:44→20:39)
[2016-11-26] MEDS: OXYCODONE/ACETAMINOPHEN 10/325MG TAB PO PRN ×2 (07:50→17:21)
[2016-11-26 08:01] VITALS: BP 121/80; PULSE 71; TEMP 36.7; O2SAT 95
[2016-11-26] MEDS: LORAZEPAM 0.5 MG TAB PO PRN (10:18)
--- NOTE | 2016-11-26 15:05 | Progress Note ---
Subjective Date of Service: Nov 26, 2016. Subjective Pt evaluation today including: conversation w/ patient, physical exam, chart review, lab review, review of studies, conversation w/ change management consultant, review of inpatient medication list Continue complaining about mid abdominal pain, common dose, tolerate some diet, however and the abdominal pain not related to the eating food Problem List Medical Problems: (1) Central abdominal pain Status: Acute (2) Central abdominal pain Status: Acute (3) Diarrhea Status: Acute (4) Enteritis Status: Acute (5) Hypertension Status: Acute (6) Left arm pain Status: Acute (7) Left sided chest pain Status: Acute (8) SMA stenosis Status: Acute Review of Systems Constitutional: No fever, No chills, No sweats, No weight loss, No weakness, No fatigue, No problem reported Eyes: No worsening of vision, No eye pain, No redness, No discharge, No diplopia ENT: No hearing loss, No unusual epistaxis, No nasal symptoms, No sore throat, No tinnitus, No dental problems, No trouble swallowing Respiratory: No cough, No sputum, No wheezing, No shortness of breath, No dyspnea on exertion, No dyspnea at rest, No hemoptysis Cardiac: No chest pain, No orthopnea, No PND, No edema, No claudication, No palpitations Abdomen: + pain, No nausea, No vomiting, No diarrhea, No constipation Musculoskeletal: No joint pain, No muscle pain, No swelling, No calf pain Female : No dysuria, No urinary frequency, No hematuria, No incontinence, No abnormal vaginal bleeding, No vaginal discharge Neurologic: No memory loss, No paralysis, No weakness, No numbness/tingling, No vertigo, No balance problems Psychiatric: No depression symptoms, No anhedonism, No anxiety, No insomnia, No substance abuse Heme: No abnormal bleeding/bruising, No clotting problems, No swollen lymph nodes, No night sweats Endo: No fatigue, No excessive thirst, No excessive urination Skin: No rash, No itch, No new/changing skin lesions, No color change, No bleeding Objective Vital Signs Date Time Temp Pulse Resp B/P (MAP) Pulse Ox O2 Delivery O2 Flow Rate FiO2 11/26/16 08:01 36.7 71 16 121/80 (94) 95 11/26/16 08:00 Room Air 11/26/16 05:25 18 152/94 (113) 70 6/7/17 00:00 96 Room Air 11/25/16 23:41 36.5 68 20 176/101 (126) 95 Room Air 11/25/16 16:00 Room Air Physical Exam General Appearance: WD/WN, no apparent distress Eyes: normal inspection, PERRL, EOMI, sclerae normal ENT: normal ENT inspection, hearing grossly normal, pharynx normal Neck: supple, no adenopathy, thyroid normal, no JVD, no carotid bruits, trachea midline Respiratory/Chest: chest non-tender, normal breath sounds, no respiratory distress, no accessory muscle use, + decreased breath sounds Cardiovascular: regular rate, rhythm, no edema, no gallop, no JVD, no murmur Abdomen: normal bowel sounds, soft, no organomegaly, no pulsatile mass, + tenderness (mid abdomen, mild) Extremities: normal range of motion, non-tender, normal inspection, no pedal edema, no calf tenderness, normal capillary refill, pelvis stable Neurologic/Psychiatric: fisher trammel net II-XII nml as tested, no motor/sensory deficits, alert, normal mood/affect, oriented x 3 Skin: normal color, warm/dry, no rash Lymphatic: no adenopathy Laboratory Results Last 24 Hours Test 11/25/16 16:05 11/26/16 05:23 Urine Color YELLOW Urine Appearance CLEAR Urine pH 8.0 Urine Specific Kennedy 1.006 Urine Protein NEG Urine Glucose (UA) NEG Urine Ketones NEG Urine Occult Blood NEG Urine Nitrite NEG Urine Bilirubin NEG Urine Urobilinogen NEG Urine Leukocyte Esterase NEG White Blood Count 9.68 K/uL Red Blood Count 5.19 M/uL Hemoglobin 15.4 g/dL Hematocrit 46.9 % Mean Corpuscular Volume 90.4 fL Mean Corpuscular Hemoglobin 29.7 pg Mean Corpuscular Hemoglobin Concent 32.8 g/dl Platelet Count 266 K/uL Mean Platelet Volume 10.9 fL Neutrophils (%) (Auto) 63.6 % Lymphocytes (%) (Auto) 26.2 % Monocytes (%) (Auto) 7.0 % Eosinophils (%) (Auto) 2.5 % Basophils (%) (Auto) 0.4 % Neutrophils # (Auto) 6.15 K/uL Lymphocytes # (Auto) 2.54 K/uL Monocytes # (Auto) 0.68 K/uL Eosinophils # (Auto) 0.24 K/uL Basophils # (Auto) 0.04 K/uL RDW Standard Deviation 53.2 fL RDW Coefficient of Variation 15.9 % Immature Granulocyte % (Auto) 0.3 % Immature Granulocyte # (Auto) 0.03 K/uL Sodium Level 143 mmol/L Potassium Level 4.1 mmol/L Chloride Level 108 mmol/L Carbon Dioxide Level 28 mmol/L Anion Gap 7.0 mmol/L Blood Urea Nitrogen 8 mg/dl Creatinine 0.65 mg/dl Est Creatinine Clear Calc Drug Dose 91.5 ml/min Estimated GFR () 115.8 Estimated GFR (Non- 99.9 BUN/Creatinine Ratio 11.8 Random Glucose 108 mg/dl Calcium Level 8.9 mg/dl Assessment and Plan 56-year-old white female with the condition in below: Abdominal Pain: With evidence of Enteritis , possible is resolving Report epigastric pain surrounding the hernia area, possible no pain is from the hiatal hernia, history of history of bypass surgery hx of large abdominal hernia that is reducible, and was seen by surgeon and there is discussion above hernia repairing Will awaiting surgeon input - Ciprofloxacin 500 mg po Q12H and Flagyl 500 mg po Q8H - DAY #5 - Protonix 40 mg daily -Continue Bentyl 10 mg BID in the past, it may be help Bentyl 20 mg QID would be okay - GI following - recommendations reviewed Chronic Pain Syndrome: - Percocet 1 tab TID PRN CAD S/P VT with H/O PAD and HTN: - ASA 81 mg daily and Plavix 75 mg daily - Lisinopril 10 mg daily and Metoprolol Succ 25 mg daily HLD: - Atorvastatin 40 mg daily Anxiety/Depression: - Prozac 40 mg daily and Ativan BID PRN GI and DVT prophylaxis is covered Waiting for surgeon input to have procedure or not I advance diet, possible discharge home tomorrow if surgeon no planning for procedure Encourage out of bed and walk Continued [facility] stay due to: inadequate po fluid intake Discharge planning: home
[2016-11-26 15:46] VITALS: BP 122/84; PULSE 64; TEMP 36.4; O2SAT 95
[2016-11-26 23:08] VITALS: BP 116/76; PULSE 60; TEMP 36.3; O2SAT 96
[2016-11-27] VITALS: O2SAT 96
[2016-11-27] MEDS: ZOLPIDEM TARTRATE 10 MG TAB PO PRN (00:38)
[2016-11-27] MEDS: HYDROmorphone INJ 1 MG/ML SYR IV PRN ×2 (00:38→04:53)
[2016-11-27 06:44] LABS: BASO % 0.5 %; BASO ABS # 0.05 K/uL (0-0.2); COMPLETE YES; EOS % 3.9 %; HEMATOCRIT 43.6 % (37-47); IG% 0.5 %; LYMPH ABS # 3.16 K/uL (1.2-3.4); MEAN CELL VOLUME 91.6 fL (80-100); MEAN CORPUSCULAR HEMOGLOBIN 29.8 pg (25-34); MEAN CORPUSCULAR HGB CONC 32.6 g/dl (32-36); MEAN PLATELET VOLUME 10.4 fL (7.4-10.4); MONO % 6.4 %; NEUT % 54.7 %; PLATELET COUNT 268 K/uL (130-400); RED BLOOD COUNT 4.76 M/uL (4.2-5.4); WHITE BLOOD COUNT 9.29 K/uL (4.8-10.8)
[2016-11-27 07:20] LABS: BUN/CREATININE RATIO 15.1 (10-20); CALCIUM 8.5 mg/dl (8.5-10.1); CREATININE 0.78 mg/dl (0.60-1.20); POTASSIUM 4.5 mmol/L (3.5-5.1)
[2016-11-27 07:27] VITALS: BP 139/85; PULSE 63; TEMP 36.4; O2SAT 93
[2016-11-27] MEDS: FLINTSTONES COMPLETE CHEWABLE TAB PO SCH (08:06)
[2016-11-27] MEDS: ASPIRIN 81 MG CHEW PO SCH (08:06)
[2016-11-27] MEDS: ATORVASTATIN 40 MG TAB PO SCH (08:07)
[2016-11-27] MEDS: METRONIDAZOLE 500 MG TAB PO SCH ×2 (08:07→14:57)
[2016-11-27] MEDS: CIPROFLOXACIN 500 MG TAB PO SCH (08:07)
[2016-11-27] MEDS: CLOPIDOGREL BISULFATE 75 MG TAB PO SCH (08:08)
[2016-11-27] MEDS: LISINOPRIL 10 MG TAB PO SCH (08:08)
[2016-11-27] MEDS: METOPROLOL SUCC 25MG EXT REL TAB PO SCH (08:08)
[2016-11-27] MEDS: PANTOprazole SOD 40 MG TAB PO SCH (08:09)
[2016-11-27] MEDS: FLUOXETINE HCL 20 MG CAP PO SCH (08:09)
[2016-11-27] MEDS: OXYCODONE/ACETAMINOPHEN 10/325MG TAB PO PRN (08:14)
--- NOTE | 2016-11-27 10:28 | Surgery Consultation ---
Consultation Date of Consultation: Nov 27, 2016. Attending Physician: Viral Michael MD, PhD Reason for Consultation: Ventral hernia History of Present Illness Gem is a 56 year-old female who presented to emergency department first on November 20 with complaint of abdominal pain, was treated with IV pain medication and sent home and then returned on November 22 with similar complaint but increasing abdominal pain. Gem was just admitted to hospital at beginning of October and was found to have enteritis of the distal Jejunum and was treated with IV antibiotics. She was discharged home and then her pain returned last week. Describes abdominal burning pain in the lower abdomen with nausea , vomiting, and bloating. States she has had a hernia for about 10 years and will notice the hernia protruding and becoming hard at times and unable to be "pushed back in". Since this admission she had a CT scan which again showed mildly distended loops of Jejunum in the mid pelvis with surrounding inflammatory change consistent with enteritis. She was placed on IV cipro and flagyl, IV fluids, and pain management. She underwent EGD given history of gastric ulcers and s/p gastric bypass which was unremarkable and not biopsies were taken. She also had a SBFT which was unremarkable, no signs of obstruction. Our services consulted for ventral hernia. She was trailed on soft diet yesterday and pain increased to when she presented to the emergency room and more in the mid abdomen. She has had multiple abdominal surgeries and last surgery was around [id number] in which she states surgeon in [place] was planning to fix the hernia however was too complicated and just closed her up without repair. She does have mesh in the abdomen from previous hernia repair. Her last bowel movement was last evening. Currently tolerating full liquids. Past Medical/Surgical History Medical Problems: (1) Central abdominal pain Status: Acute (2) Central abdominal pain Status: Acute (3) Diarrhea Status: Acute (4) Enteritis Status: Acute (5) Hypertension Status: Acute (6) Left arm pain Status: Acute (7) Left sided chest pain Status: Acute (8) SMA stenosis Status: Acute Family History Diabetes mellitus FH: heart disease FH: lung disease FHx: cancer Hypertension Social History Smoking Status: Current Every Day Smoker Drug Use: none Marital Status: Housing Status: lives with family Occupation Status: unemployed, disabled Allergies Coded Allergies: No Known Allergies (Unverified , 11/22/16) Home Medications Scheduled Aspirin (Aspirin Chewable), 81 MG PO DAILY Atorvastatin (Lipitor), 40 MG PO DAILY Biotin W/ Vitamins C & E (Hair/Skin/Nails 1250-7.5-7.5 Mcg-mg-Unt), 1 TAB PO DAILY Clopidogrel (Plavix), 75 MG PO DAILY Fluoxetine (Prozac), 40 MG PO QAM Lisinopril (Lisinopril), 10 MG PO DAILY Metoprolol Succinate (Metoprolol Succinate ER), 25 MG PO DAILY Pediatric Multiple Vitamin W/ (Flintstones Chewable), 1 TAB PO QAM Scheduled PRN Lorazepam (Lorazepam), 1 TAB PO BID PRN for Anxiety/Insomnia Oxycodone/Acetaminophen 10MG/325MG (Oxycodone/Acetaminophen 10MG/325MG), 1 TAB PO TID PRN for Pain Zolpidem Tartrate (Ambien), 10 MG PO HS PRN for Sleep Current Inpatient Medications Current Inpatient Medications Medications (Trade) Dose Ordered Sig/Alexander Route Start Time Stop Time Status Last Admin Dose Admin Acetaminophen (Tylenol Tab) 650 mg Q4H PRN PO 11/22/16 18:15 12/22/16 18:14 Ondansetron HCl (Zofran Inj) 4 mg Q6H PRN IV 11/22/16 18:15 12/22/16 18:14 Aspirin (Aspirin Chew) 81 mg DAILY PO 11/23/16 09:00 12/23/16 08:59 11/27/16 08:06 81 MG Atorvastatin Calcium (Lipitor Tab) 40 mg DAILY PO 11/23/16 09:00 12/23/16 08:59 11/27/16 08:07 40 MG Clopidogrel Bisulfate (plAVix TAB) 75 mg DAILY PO 11/23/16 09:00 12/23/16 08:59 11/27/16 08:08 75 MG Fluoxetine HCl (Prozac Cap) 40 mg QAM PO 11/23/16 09:00 12/23/16 08:59 11/27/16 08:09 40 MG Lisinopril (Zestril Tab) 10 mg DAILY PO 11/23/16 09:00 12/23/16 08:59 11/27/16 08:08 10 MG Lorazepam (Ativan Tab) 0.5 mg BID PRN PO 11/22/16 18:15 7/3/17 18:14 11/26/16 10:18 0.5 MG Metoprolol Succinate (Toprol Xl Tab) 25 mg DAILY PO 11/23/16 09:00 12/23/16 08:59 11/27/16 08:08 25 MG Oxycodone/ Acetaminophen (Percocet 10-325MG Tab) 1 tab TID PRN PO 11/22/16 18:15 12/06/16 18:14 11/27/16 08:14 1 TAB Multivitamins (Flintstones Complete Tab) 1 tab QAM PO 11/23/16 09:00 12/23/16 08:59 11/27/16 08:06 1 TAB Zolpidem Tartrate (Ambien Tab) 10 mg HS PRN PO 11/22/16 18:15 12/22/16 18:14 11/27/16 00:38 10 MG Hydromorphone HCl (Dilaudid Inj) 0.5 mg Q4H PRN IV 11/23/16 11:45 12/07/16 11:44 11/27/16 04:53 0.5 MG Hydralazine HCl (HydrALAZINE INJ) 20 mg Q6 PRN IV. 11/24/16 15:00 12/24/16 14:59 11/25/16 23:36 20 MG Ciprofloxacin (Cipro Tab) 500 mg BID PO 11/25/16 21:00 12/03/16 08:49 11/27/16 08:07 500 MG Metronidazole (Flagyl Tab) 500 mg TID PO 11/25/16 14:00 12/02/16 20:59 11/27/16 08:07 500 MG Pantoprazole Sodium (Protonix Tab) 40 mg QAM PO 11/26/16 09:00 12/26/16 08:59 11/27/16 08:09 40 MG Review of Systems Constitutional: No fever, No chills, No sweats, No weight loss Respiratory: No shortness of breath Cardiovascular: No chest pain Abdomen: + pain (cramping and burning in nature which turned to pain), + nausea , + vomiting, + problem reported (hernia mid abdomen, occasionally pops out and uanblet to push back in), No GI bleeding Genitourinary - Female: No dysuria, No urinary frequency Physical Exam Date Time Temp Pulse Resp B/P (MAP) Pulse Ox O2 Delivery O2 Flow Rate FiO2 11/27/16 08:00 Room Air 11/27/16 07:27 36.4 63 16 139/85 (103) 93 11/27/16 00:00 96 Room Air 11/26/16 23:08 36.3 60 16 116/76 (89) 96 Room Air 11/26/16 16:00 Room Air 11/26/16 15:46 36.4 64 16 122/84 (97) 95 Room Air General Appearance: WD/WN, no apparent distress Head: normocephalic, atraumatic Eyes: sclerae normal Respiratory/Chest: lungs clear, normal breath sounds, no respiratory distress, no accessory muscle use Cardiovascular: regular rate, rhythm, no murmur Abdomen/GI: soft, no organomegaly, no pulsatile mass, + pertinent finding ( large ventral hernia midline, completely reducible, no pain on palpation. no guarding or rigidity) Back: normal inspection Extremities/Musculoskelatal: normal inspection Neurologic/Psych: alert, normal mood/affect, oriented x 3 Skin: normal color, warm/dry, no rash Laboratory Results Last 24 Hours Test 11/27/16 06:02 11/27/16 06:09 Sodium Level 143 mmol/L Potassium Level 4.5 mmol/L Chloride Level 108 mmol/L Carbon Dioxide Level 29 mmol/L Anion Gap 6.0 mmol/L Blood Urea Nitrogen 12 mg/dl Creatinine 0.78 mg/dl Est Creatinine Clear Calc Drug Dose 76.2 ml/min Estimated GFR () 99.2 Estimated GFR (Non- 85.6 BUN/Creatinine Ratio 15.1 Random Glucose 93 mg/dl Calcium Level 8.5 mg/dl White Blood Count 9.29 K/uL Red Blood Count 4.76 M/uL Hemoglobin 14.2 g/dL Hematocrit 43.6 % Mean Corpuscular Volume 91.6 fL Mean Corpuscular Hemoglobin 29.8 pg Mean Corpuscular Hemoglobin Concent 32.6 g/dl Platelet Count 268 K/uL Mean Platelet Volume 10.4 fL Neutrophils (%) (Auto) 54.7 % Lymphocytes (%) (Auto) 34.0 % Monocytes (%) (Auto) 6.4 % Eosinophils (%) (Auto) 3.9 % Basophils (%) (Auto) 0.5 % Neutrophils # (Auto) 5.08 K/uL Lymphocytes # (Auto) 3.16 K/uL Monocytes # (Auto) 0.59 K/uL Eosinophils # (Auto) 0.36 K/uL Basophils # (Auto) 0.05 K/uL RDW Standard Deviation 54.5 fL RDW Coefficient of Variation 16.1 % Immature Granulocyte % (Auto) 0.5 % Immature Granulocyte # (Auto) 0.05 K/uL CT SCAN OF THE ABDOMEN AND PELVIS WITHOUT IV CONTRAST CLINICAL HISTORY: Generalized abdominal pain. COMPARISON STUDY: Abdominal CT scans dated 10/22/2016 and 04/17/2014. TECHNIQUE: CT scan of the abdomen and pelvis is performed from the lung bases to the proximal femora. Images are reviewed in the axial, sagittal, and coronal planes. IV contrast was not administered as per the referring clinician. Note that the examination was performed in significantly suboptimal fashion without oral and IV contrast. Automated dose control exposure was utilized. CT DOSE: 324.17 mGy.cm FINDINGS: Lung bases: The heart is normal in size and there is trace pericardial effusion. There are coronary artery calcifications. A 6 mm nodule at the left lung base is unchanged from 2014 as seen on image #42. Calcified granulomas are noted in the right lung base. The lung bases are otherwise clear noting dependent atelectasis. Liver: The unenhanced liver is normal in size, contour, and attenuation. There is mild central intrahepatic biliary ductal dilatation. Gallbladder: Surgically absent noting clips in the gallbladder fossa. Spleen: Normal in size and attenuation. Pancreas: The unenhanced pancreas is moderately atrophic and grossly unremarkable. Adrenal glands: Unremarkable. Kidneys: The unenhanced kidneys are atrophic, asymmetrically greater on the left. There is no hydronephrosis. There is no evidence of contour deforming mass lesion. There are 2 nonobstructing left renal calculi which measure up to 11 mm. No calculi are seen in the right kidney. Abdominal vasculature: The abdominal aorta is normal in course and caliber noting moderate to advanced atherosclerotic calcification. A stent is seen in the left iliac artery. Stomach and bowel: A tiny hiatal hernia is identified. There are postoperative changes consistent with a history of Jessica-en-Y gastric bypass surgery. There is a ventral hernia containing nonobstructed loops of small bowel as seen on axial image #213. There is no bowel obstruction. There is unchanged appearance of mildly thick-walled and edematous degenerative in the central pelvis, best seen on image #218. There is surrounding perienteric stranding. The appendix is well-visualized and normal. Peritoneum: There is no intraperitoneal free air or abdominal ascites. Lymphadenopathy: None. Pelvic viscera: The bladder is decompressed and grossly unremarkable. The uterus and adnexa are normal as visualized. Skeletal structures: The skeletal structures are osteopenic. There is mild lumbosacral spondylosis. No lytic or blastic lesions are seen. IMPRESSION: 1. Significantly suboptimal examination without oral and IV contrast. 2. There are postoperative changes consistent with a history of Jessica-en-Y gastric bypass surgery. No bowel obstruction is seen. 3. Again seen are thick walled and mildly distended loops of jejunum in the mid abdomen with surrounding inflammatory change. This has modestly worsened from the 10/22/2016 examination, and the appearance remains typical for a nonspecific enteritis. Clinical correlation will be required. 4. There is a ventral hernia in the midline pelvis which contains nonobstructed loops of small bowel. 5. Nonobstructing left renal calculi. 6. A 6 mm pulmonary nodule at the left lung base is unchanged dating back to 2013. This is of doubtful significance given over 2 years of stability. 7. Additional findings as above. GI SERIES AND SMALL BOWEL CLINICAL HISTORY: abdominal pain, history of gastric bypass COMPARISON STUDY: CT scan dated 11/22/2016 FLUOROSCOPY TIME: 2.3 minutes. FINDINGS: The patient swallowed barium without difficulty. There are postsurgical changes of a gastric bypass. The gastrojejunostomy appears patent. On the 20 minute film, there is a small amount of contrast within the excluded stomach. This was not visualized initial images, and may represent reflux through the afferent loop. There are no transition zone to indicate bowel obstruction. Contrast reached the colon within 50 minutes. Fluoroscopic palpation reveal no intrinsic small bowel abnormalities. There were no definite small bowel abnormalities to correlate with the thick walled mid abdominal bowel loops. Note is made of several left renal calculi. IMPRESSION: 1. Postsurgical changes are prior gastric bypass 2. No evidence of bowel obstruction 3. There were no definite findings to correlate with the thick walled bowel loops described on the recent CT scan. Assessment & Plan Ventral hernia without obstruction and reducible -vitals stable - history of ventral hernia repair and possible lysis of adhesions? - History of gastric bypass - CT scan on this admission again showed some jejunal thickening and surrounding inflammation suggesting nonspecific enteritis, no bowel obstruction - EGD unremarkable Plan: Patient's ventral hernia is completely reducible and patient is not having any obstructive symptoms. Given the recent enteritis would prefer to see patient as an outpatient to discuss elective ventral hernia repair. There is no acute surgical indication for hernia repair during this hospital stay. Follow-up with Dr. Vidales in 1 week following discharge Continue management per hospitalist service Thank you for consultation and involving us in the care of this patient. Dr. Vidales has seen and examined patient, agrees with above.
[2016-11-27] MEDS ORDERED: PRT40 PO (13:47)
[2016-11-27] MEDS ORDERED: CPR500 PO (13:47)
[2016-11-27] MEDS ORDERED: MTR500 PO (13:47)
--- NOTE | 2016-11-27 13:47 | Discharge Instructions ---
Discharge Instructions Date of Service Nov 27, 2016. Admission Reason for Admission: Abdominal Pain Discharge Discharge Diagnosis / Problem: enteritis Discharge Goals Goal(s): Decrease discomfort, Improve function, Increase independence, Improve disease control, Improve nutritional status, Learn about illness, Diagnostic testing, Therapeutic intervention, Prevent Disease Progression, Specific goals Activity Recommendations Activity Limitations: resume your previous activity . Instructions / Follow-Up Instructions / Follow-Up you have enteritis, I am giving you 5 days more of oral antibiotics, low residual diet you have Ventral hernia without obstruction and reducible you need to follow-up with Dr. Vidales in 1 week following discharge 56-year-old white female with the condition in below: - you need to follow up with your primary care physician in 1 week, - take medication as instructed, never overdose or any misuse, or take with alcohol, because misuse of medicine may cause organ damage or , call your primary care physician if have questions of medicaitons. - call your primary care physician OR go to local emergency room if has any fever/chill, chest pain, shortness of breathing, nausea/vomiting/abdominal pain , facial droop/slurry speech/local weakness, or if has any questions. - fall precaution - diet as instructed - you need to follow up with your subspecialist - you should understand that it is important to follow up the above instruction , and "not following the above instruction" may cause delayed or missed care of your medical conditions which may cause permanent organ damage and even . Current Hospital Diet Patient's current hospital diet: AHA Diet (Heart Healthy) Discharge Diet Recommended Diet: N/A (low residual diet) Procedures Procedures Performed: EGD Pending Studies Studies pending at discharge: no Laboratory Results Lipid Panel Test 10/10/16 10:09 Range/Units Triglycerides Level 113 0-150 mg/dl Cholesterol Level 117 0-200 mg/dl HDL Cholesterol 58 mg/dl Cholesterol/HDL Ratio 2.0 LDL Cholesterol, Calculated 36 mg/dl Medical Emergencies . Who to Call and When: Medical Emergencies: If at any time you feel your situation is an emergency, please call 911 immediately. . Non-Emergent Contact Non-Emergency issues call your: Primary Care Provider, It Systems Manager, Surgeon . . "Provider Documentation" section prepared by Viral Michael. . VTE Core Measure Inpt VTE Proph given/why not?: SCD's
[2016-11-27 14:29] VITALS: BP 139/85; PULSE 63; TEMP 36.4; O2SAT 93
--- NOTE | 2016-11-27 15:25 | Discharge Summary ---
Discharge Summary Date of Service Nov 27, 2016. Discharge Summary Admission Date: Nov 22, 2016 at 18:10 Discharge Date: Nov 27, 2016 Discharge Disposition: Home Principal Diagnosis: enteritis, Problems/Secondary Diagnoses: Ventral hernia without obstruction and reducible y Immunizations: Have You Had Influenza Vaccine: Yes Influenza Vaccine Date: Apr 15, 2013 History of Tetanus Vaccine?: Unknown Tetanus Immunization Date: Mar 04, 2010 History of Pneumococcal: Yes Pneumococcal Date: Jul 22, 2010 History of Hepatitis B Vaccine: No Procedures: EGD, small bowel follow-through, Consultations: GI consult and surgical consult Medication Reconciliation New Medications: Ciprofloxacin (Ciprofloxacin HCl) 500 Mg Tab 500 MG PO BID for 5 Days, #10 TAB Metronidazole (Metronidazole) 500 Mg Tab 500 MG PO TID for 5 Days, #15 TAB Pantoprazole (Pantoprazole Sodium) 40 Mg Tab 40 MG PO QAM for 7 Days, #7 TAB Continued Medications: Aspirin (Aspirin Chewable) 81 Mg Chew 81 MG PO DAILY Atorvastatin (Lipitor) 40 Mg Tab 40 MG PO DAILY, TAB Biotin W/ Vitamins C & E (Hair/Skin/Nails 1250-7.5-7.5 Mcg-mg-Unt) 1 Chw Chw 1 TAB PO DAILY Clopidogrel (Plavix) 75 Mg Tab 75 MG PO DAILY, TAB Fluoxetine (Prozac) 40 Mg Cap 40 MG PO QAM, 0 Refills Lisinopril (Lisinopril) 10 Mg Tab 10 MG PO DAILY Lorazepam (Lorazepam) 0.5 Mg Tab 1 TAB PO BID PRN for Anxiety/Insomnia Metoprolol Succinate (Metoprolol Succinate ER) 25 Mg Tabcr 25 MG PO DAILY Oxycodone/Acetaminophen 10MG/325MG (Oxycodone/Acetaminophen 10MG/325MG) 1 Tab Tab 1 TAB PO TID PRN for Pain for 30 Days, #9 TAB 0 Refills Pediatric Multiple Vitamin W/ (Flintstones Chewable) 1 Chw Chw 1 TAB PO QAM, TAB Zolpidem Tartrate (Ambien) 10 Mg Tab 10 MG PO HS PRN for Sleep, TAB Discharge Exam Abdominal pain is better, dressed up, ready to go home, no nausea vomiting, no diarrhea or constipation, generally feeling good Review of Systems: Constitutional: No fever, No chills, No sweats, No weight loss, No weakness , No fatigue, No problem reported Eyes: No worsening of vision, No eye pain, No redness, No discharge, No diplopia, No problem reported ENT: No hearing loss, No unusual epistaxis, No nasal symptoms, No sore throat, No tinnitus, No dental problems, No trouble swallowing, No problem reported Respiratory: No cough, No sputum, No wheezing, No shortness of breath, No dyspnea on exertion, No dyspnea at rest, No hemoptysis, No problem reported Cardiovascular: No chest pain, No orthopnea, No PND, No edema, No claudication, No palpitations, No problem reported Abdomen: No pain, No nausea, No vomiting, No diarrhea, No constipation, No GI bleeding, No problem reported Musculoskeletal: No joint pain, No muscle pain, No swelling, No calf pain, No problem reported Genitourinary - Female: No dysuria, No urinary frequency, No urinary urgency , No urinary incontinence, No urinary retention, No hematuria, No dysmenorrhea, No menorrhagia, No metrorrhagia, No rash, No vaginal bleeding, No vaginal discharge, No vaginal itching, No vulvodynia, No , No problem reported Neurologic: No memory loss, No paralysis, No weakness, No numbness/tingling , No vertigo, No balance problems, No problem reported Psychiatric: No depression symptoms, No anhedonism, No anxiety, No insomnia , No substance abuse, No problem reported Endocrine: No fatigue, No excessive thirst, No excessive urination, No problem reported Hematologic / Lymphatic: No abnormal bleeding/bruising, No clotting problems , No swollen lymph nodes, No night sweats, No problem reported Integumentary: No rash, No itch, No new/changing skin lesions, No color change, No bleeding, No problem reported Physical Exam: General Appearance: WD/WN, no apparent distress Eyes: normal inspection, PERRL ENT: normal ENT inspection, hearing grossly normal Neck: supple, thyroid normal Respiratory/Chest: chest non-tender, no respiratory distress, no accessory muscle use, + decreased breath sounds Cardiovascular: regular rate, rhythm, no edema, no gallop Abdomen / GI: normal bowel sounds, non tender, + pertinent finding (middle abdomen hiatal hernia) Extremities: normal inspection, no calf tenderness, normal capillary refill Neurologic/Psychiatric: 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, no motor/sensory deficits , alert, normal mood/affect Skin: normal color, warm/dry Hospital Course 56-year-old white female with the condition in below: Abdominal Pain: With evidence of Enteritis , improving and resolving Report epigastric pain surrounding the hernia area, possible no pain is from the hiatal hernia, history of history of bypass surgery hx of large abdominal hernia that is reducible, and was seen by surgeon and there is discussion above hernia repairing Will awaiting surgeon input - Ciprofloxacin 500 mg po Q12H and Flagyl 500 mg po Q8H - DAY #6, will continue to complete a course of antibiotic treatment - Protonix 40 mg daily -Continue Bentyl 10 mg BID in the past, it may be help Bentyl 20 mg QID would be okay - GI following - recommendations reviewed Chronic Pain Syndrome: - Percocet 1 tab TID PRN CAD S/P [place] with H/O PAD and HTN: - ASA 81 mg daily and Plavix 75 mg daily - Lisinopril 10 mg daily and Metoprolol Succ 25 mg daily HLD: - Atorvastatin 40 mg daily Anxiety/Depression: - Prozac 40 mg daily and Ativan BID PRN GI and DVT prophylaxis is covered Patient discussed with surgeon about her discharge plan and follow-up plan , Instructions / Follow-Up you have enteritis, I am giving you 5 days more of oral antibiotics, low residual diet you have Ventral hernia without obstruction and reducible you need to follow-up with Dr. Vidales in 1 week following discharge 56-year-old white female with the condition in below: - you need to follow up with your primary care physician in 1 week, - take medication as instructed, never overdose or any misuse, or take with alcohol, because misuse of medicine may cause organ damage or , call your primary care physician if have questions of medicaitons. - call your primary care physician OR go to local emergency room if has any fever/chill, chest pain, shortness of breathing, nausea/vomiting/abdominal pain , facial droop/slurry speech/local weakness, or if has any questions. - fall precaution - diet as instructed - you need to follow up with your subspecialist - you should understand that it is important to follow up the above instruction , and "not following the above instruction" may cause delayed or missed care of your medical conditions which may cause permanent organ damage and even . Total Time Spent: Less than 30 minutes This includes examination of the patient, discharge planning, medication reconciliation, and communication with other providers. Discharge Instructions Please refer to the electronic Patient Visit Report (Discharge Instructions) for additional information. Additional Copies To Dc Still M.D.
[2017-04-03] MEDS ORDERED: HYDR-4079 PO (10:59)
[2017-04-03] MEDS ORDERED: PANT40TA PO (10:59)
== END 2016-11-27 14:00 | disposition home or self-care (01) | DRG 392 ==
LOC: C.EDB 10:58 → C.MED 18:10 → ENRESERV 19:00
PROVIDERS: ADMIT Hospitalist; ATTEND Hospitalist
PROC: 0DJ08ZZ Inspection of Upper Intestinal Tract, Via Natural or Artificial Opening Endoscopic (ICD-10-PCS; principal; 2016-11-24 09:40)
DX: K52.9 Noninfective gastroenteritis and colitis, unspecified (principal); R68.89 Other general symptoms and signs; Z98.0 Intestinal bypass and anastomosis status; I73.9 Peripheral vascular disease, unspecified; I25.2 Old myocardial infarction; Z83.3 Family history of diabetes mellitus; F17.200 Nicotine dependence, unspecified, uncomplicated; Z79.82 Long term (current) use of aspirin; F32.9 Major depressive disorder, single episode, unspecified; F41.9 Anxiety disorder, unspecified; G89.4 Chronic pain syndrome; E78.5 Hyperlipidemia, unspecified; I10 Essential (primary) hypertension; K25.9 Gastric ulcer, unspecified as acute or chronic, without hemorrhage or perforation; E11.9 Type 2 diabetes mellitus without complications; Z79.891 Long term (current) use of opiate analgesic

== ENCOUNTER → 2017-03-26 | Outpatient (CLI) | payer OTHER ==
[~2017-03-26] MED LIST changes: +CPR500 PO; +MTR500 PO; +PRT40 PO
== END | disposition home or self-care (01) ==
LOC: C.MAMM 14:03
PROVIDERS: ATTEND Family Medicine
DX: R29.890 Loss of height (principal); M85.851 Other specified disorders of bone density and structure, right thigh; M85.852 Other specified disorders of bone density and structure, left thigh

== ENCOUNTER 2017-04-14 06:25 | Inpatient (IN) | payer OTHER ==
[2017-04-03 10:59] VITALS: BMI 25.0
--- NOTE | 2017-04-03 11:35 | PAT Medication Instructions ---
Service Date Apr 03, 2017. Current Home Medication List Aspirin (Aspirin Chewable), 81 MG PO HS Atorvastatin (Lipitor), 40 MG PO HS Biotin W/ Vitamins C & E (Hair/Skin/Nails 1250-7.5-7.5 Mcg-mg-Unt), 1 TAB PO HS Clopidogrel (Plavix), 75 MG PO HS Fluoxetine (Prozac), 40 MG PO HS Hydrocodone/Acetaminophen 10MG/325MG ([place] 10MG/325MG), 1-2 TABS PO Q4H PRN for Pain Lisinopril (Lisinopril), 10 MG PO HS Lorazepam (Lorazepam), 1 TAB PO BID PRN for Anxiety/Insomnia Metoprolol Succinate (Metoprolol Succinate ER), 25 MG PO HS Pantoprazole (Protonix), 40 MG PO HS Pediatric Multiple Vitamin W/ (Flintstones Chewable), 1 TAB PO HS Zolpidem Tartrate (Ambien), 10 MG PO HS PRN for Sleep Medication Instructions For Your Scheduled Surgery - Instructions to be given by surgeon: Clopidogrel (Plavix), 75 MG PO HS - Hold the following medications 24 hours prior to surgery: Lisinopril (Lisinopril), 10 MG PO HS - Take the following medications the morning of surgery with a sip of water OTHERWISE NOTHING TO EAT OR DRINK AFTER MIDNIGHT: Lorazepam (Lorazepam), 1 TAB PO BID PRN for Anxiety/Insomnia Hydrocodone/Acetaminophen 10MG/325MG ([place] 10MG/325MG), 1-2 TABS PO Q4H PRN for Pain (may take if needed up to 4 hours prior to surgery) - Take the following medications as scheduled the night before surgery: Atorvastatin (Lipitor), 40 MG PO HS Biotin W/ Vitamins C & E (Hair/Skin/Nails 1250-7.5-7.5 Mcg-mg-Unt), 1 TAB PO HS Fluoxetine (Prozac), 40 MG PO HS Metoprolol Succinate (Metoprolol Succinate ER), 25 MG PO HS Pantoprazole (Protonix), 40 MG PO HS Pediatric Multiple Vitamin W/ (Flintstones Chewable), 1 TAB PO HS Zolpidem Tartrate (Ambien), 10 MG PO HS PRN for Sleep Lorazepam (Lorazepam), 1 TAB PO BID PRN for Anxiety/Insomnia Aspirin (Aspirin Chewable), 81 MG PO HS Hydrocodone/Acetaminophen 10MG/325MG ([place] 10MG/325MG), 1-2 TABS PO Q4H PRN for Pain If you have any questions please call us at [phone] or [phone] or [phone]
[2017-04-03 12:38] LABS: CALCIUM 9.6 mg/dl (8.5-10.1); CREATININE 0.78 mg/dl (0.60-1.20); POTASSIUM 4.3 mmol/L (3.5-5.1)
[2017-04-03 14:28] LABS: BASO % 0.4 %; BASO ABS # 0.04 K/uL (0-0.2); COMPLETE YES; EOS % 1.2 %; HEMATOCRIT 49.4 % (37-47); IG% 0.3 %; LYMPH % 34.3 %; LYMPH ABS # 3.15 K/uL (1.2-3.4); MEAN CORPUSCULAR HEMOGLOBIN 29.8 pg (25-34); MEAN CORPUSCULAR HGB CONC 32.8 g/dl (32-36); MEAN PLATELET VOLUME 10.7 fL (7.4-10.4); MONO % 3.9 %; NEUT % 59.9 %; PLATELET COUNT 289 K/uL (130-400); RED BLOOD COUNT 5.43 M/uL (4.2-5.4); WHITE BLOOD COUNT 9.19 K/uL (4.8-10.8)
[~2017-04-14] VITALS: Ht 160 cm; Wt 65.7 kg
[2017-04-14] VITALS (8 sets, daily range): BP systolic 118–167; BP diastolic 72–100; PULSE 78–104; TEMP 36.6–37.3; O2SAT 91–98; Ht 160 cm; Wt 65.7 kg
[~2017-04-14 06:25] MED LIST changes: -CPR500 PO; +HYDR-4079 PO; +LACTATED RINGER'S 1000ML 1,000 ML IV SCH; -MTR500 PO; -OXYC-88 PO; +PANT40TA PO; -PRT40 PO
[2017-04-14] MEDS ORDERED: FENTANYL CITRATE INJ 50 MCG/1 ML 2 ML VIAL ONE ×4 (08:14→11:22)
[2017-04-14] MEDS ORDERED: MIDAZOLAM HCL 1 MG/ML 2ML VIAL ONE (08:14)
[2017-04-14] MEDS ORDERED: LIDOCAINE HCL 2% 2 ML VIAL (20MG/ML) ONE (08:14)
--- NOTE | 2017-04-14 08:25 | History & Physical Bridge Note ---
H&P Re-Evaluation Bridge Note: I have examined the patient, reviewed the History & Physical and in the interval since the performance of the History & Physical I have noted the following changes of clinical significance: No changes noted pt marked SO( daughter at bedside)
[2017-04-14] MEDS ORDERED: BUPIVACAINE 0.5 % 5 MG/1 ML MPF 30ML VIAL ONE (08:26)
[2017-04-14] MEDS ORDERED: LIDOCAINE HCL 1% 20 ML VIAL ONE (08:26)
[2017-04-14] MEDS ORDERED: BACITRACIN 50000 UNIT VIAL ONE (08:26)
[2017-04-14] MEDS ORDERED: CEFAZOLIN SOD 1 GM VIAL ONE (08:44)
[2017-04-14] MEDS ORDERED: METOPROLOL TARTRATE 1 MG/ML VIAL ONE (08:50)
[2017-04-14] MEDS ORDERED: PROPOFOL IV EMULSION 10 MG/ML 20 ML VIAL IV ONE (08:58)
[2017-04-14] MEDS ORDERED: SUCCINYLCHOLINE 100MG/5ML SYR IV ONE (08:58)
[2017-04-14] MEDS ORDERED: CISATRACURIUM BESYLATE IV SOLN 2 MG/ML 10 ML VIAL ONE (08:58)
[2017-04-14] MEDS ORDERED: HYDROmorphone INJ 2 MG/ML SYR/VIAL ONE (09:16)
[2017-04-14] MEDS ORDERED: EpHEDrine SULFATE 50MG/5ML SYR ONE (09:40)
[2017-04-14] MEDS ORDERED: PHENYLEPHRINE 100MCG/ML 5ML SYR ONE (09:40)
[2017-04-14] MEDS ORDERED: BACITRACIN OINT 15 GM TUBE ONE (11:08)
[2017-04-14] MEDS ORDERED: FLUMAZENIL 0.1 MG/1 ML 10 ML VIAL IV PRN (11:30)
[2017-04-14] MEDS ORDERED: OXYCODONE/ACETAMINOPHEN 5-325 TAB PO PRN (11:30)
[2017-04-14] MEDS ORDERED: PROMETHAZINE HCL INJ 12.5 MG in SODIUM CHLORIDE 0.9% 50ML 50 ML IV PRN (11:30)
[2017-04-14] MEDS ORDERED: EpHEDrine SULFATE INJ 50 MG/ML AMP IV PRN (11:30)
[2017-04-14] MEDS ORDERED: MoRPHine SULFATE 2 MG/ML CARP IV PRN (11:30)
[2017-04-14] MEDS ORDERED: LABETALOL HCL IV 5 MG/ML 20ML IV PRN (11:30)
[2017-04-14] MEDS ORDERED: ATROPINE SULFATE 0.1 MG/ML 5ML SYR IV PRN (11:30)
[2017-04-14] MEDS ORDERED: NALOXONE HCL 0.4 MG/1 ML VIAL/CARP IV PRN (11:30)
[2017-04-14] MEDS ORDERED: ONDANSETRON INJ 2 MG/ML 2 ML VIAL IV PRN ×2 (11:30)
[2017-04-14] MEDS ORDERED: KETOROLAC TROMETHAMINE 30 MG/ML VIAL IV. PRN (11:30)
--- NOTE | 2017-04-14 11:36 | [facility] Operative Report ---
Operative Report Operative Date Apr 14, 2017. Pre-Operative Diagnosis Incisional Hernia Post-Operative Diagnosis Incisional Hernia Procedure(s) Performed Open Repair Compartement Separation Incisional Hernia with Noemi vidal Surgeon Dr. Miladis Still Direct Marketing Coordinator Surgeon(s) Binh Garcia PA-C Estimated Blood Loss 75mL Findings large defect annabelle [id number] Specimens Microbiology Specimen: A: Urine from sterile pool catheter insertion for culture and sensitivity Drains 2 # 19 ivy Description of Procedure or summary dictated confirmation number [id number] I attest to the content of the Intraoperative Record and any orders documented therein. Any exceptions are noted below.
[2017-04-14] MEDS: HYDROmorphone INJ 1 MG/ML SYR IV PRN ×4 (11:37→11:52)
--- NOTE | 2017-04-14 12:11 | OPERATIVE REPORT ---
DATE OF OPERATION: 04/14/2017 SURGEON: Dc Still MD. TECHNOLOGY ADVISOR: Manas Dubois PA-C. PREOPERATIVE DIAGNOSIS: Symptomatic incisional hernia. POSTOPERATIVE DIAGNOSIS: Symptomatic incisional hernia, defect approximately 15 x 15 cm. PROCEDURE: Open repair of symptomatic incisional hernia, which compartment separation and Marlex mesh onlay. SUMMARY: The patient was brought into the operating room theater. Ellsworth catheter was inserted. The abdomen was prepped with Betadine scrubbing solution and properly draped. Systemic antibiotics were given. The patient had an incisional hernia that was from the umbilicus towards the xiphoid area, not so much extending that area. The defect was quite prominent. She had previous gastric bypass surgery. The area was then entered making a linear incision through the old scar. The incision itself was probably about 18 cm or more. This was deepened through subcutaneous tissue, where we met with significant amount of scar tissue and actually we were able to dissect a plane that we thought was peritoneum, although was significantly scarred in. We entered the peritoneal cavity in 1 area and initially saw the loop of small bowel was strictly adherent pretty much throughout the whole length of this and hernial sac once we were finished and noticed it. At this point, I elected to close this and tried not to handle the bowel which was a small opening that we made, it was proximally approximately half an inch or so. I oversewed that peritoneum staying away from the bowel and then took our plane of dissection more laterally until we were onto the abdominal wall in a [place] and circumferentially scored the subcutaneous tissue from the abdominal wall laterally all the way circumferentially a lot. After having done this, we could actually outline the edges of the defect, which turned out to be about 15 x 15 cm or so. Once we had that plane of dissection, we can tear it anteriorly so we were able then to see some subcutaneous tissue along with the hernial sac that the patient had making another small opening in the peritoneum in the more cephalic area and closed that with a chromic suture. I elected at this point, that we deric the defect, the size of the defect with interrupted 3-0 silk and Polar sutures. Then I elected to score and reinforce the hernial sac area with a compartment separation using the anterior compartment of the rectus sheath. The anterior fascia which was scored circumferentially approximately 3 cm or so from its edge had sufficiently enough mobilizing the rectus that we had very little tension on this anterior rectus sheath as we brought it in line and oversewed it over the hernial sac. We did that with #1 PDS. Hemostasis was satisfactory. There was no tension on this compartment closure. I then brought in a sheet of Marlex mesh which was about 30 x 30 cm and cut it appropriately and then sutured on the lateral aspect of the incised rectus sheath lateral to the rectus circumferentially using an 0 silk suture. The repair appeared to be free of any tension. We cut the mesh appropriately so it was tension free and we actually over ran a little bit on the suture line on the fascia to overlap closure. Once this has been completed, we then used 3-0 interrupted chromics to attach the mesh onto the previously made closure of the rectus sheath. Two Vikram drains were placed through separate stab wound inferior to the incision and placed on top of the mesh. Topical antibiotics was used plus Xylocaine and the wound was closed with 2-0 Dexon in multiple layers approximating the subcutaneous tissue on to the mesh. Skin edges closer vertical mattress of 2-0 Prolene. Dressing was applied. The procedure was tolerated well by the patient. Estimated blood loss was approximately 75 mL. The patient was taken to recovery room in good condition. I attest to the content of the Intraoperative Record and any orders documented therein. Any exceptions are noted below. MTDD
[2017-04-14] MEDS: LACTATED RINGER'S 1000ML 1,000 ML IV SCH ×2 (13:49→19:20)
[2017-04-14] MEDS: MoRPHine SULFATE 2 MG/ML CARP IV PRN ×3 (14:09→21:45)
[2017-04-14] MEDS: OXYCODONE/ACETAMINOPHEN 5-325 TAB PO PRN ×2 (15:20→19:23)
[2017-04-14] MEDS: CEFAZOLIN IV 2,000 MG in SYRINGE 0 ML IV SCH (16:11)
[2017-04-15] VITALS (7 sets, daily range): BP systolic 119–165; BP diastolic 80–92; PULSE 66–79; TEMP 36.5–37.1; O2SAT 90–95
[2017-04-15] MEDS: CEFAZOLIN IV 2,000 MG in SYRINGE 0 ML IV SCH (00:27)
[2017-04-15] MEDS: OXYCODONE/ACETAMINOPHEN 5-325 TAB PO PRN ×5 (00:47→21:15)
[2017-04-15] MEDS: LACTATED RINGER'S 1000ML 1,000 ML IV SCH ×3 (03:16→17:09)
[2017-04-15] MEDS: MoRPHine SULFATE 4 MG/ML 1 ML CARP\\VIAL IV PRN ×5 (03:17→23:32)
[2017-04-15 06:49] LABS: BASO % 0.2 %; BASO ABS # 0.03 K/uL (0-0.2); COMPLETE YES; EOS % 0.7 %; HEMATOCRIT 39.8 % (37-47); IG% 0.2 %; LYMPH % 24.7 %; LYMPH ABS # 3.01 K/uL (1.2-3.4); MEAN CELL VOLUME 91.7 fL (80-100); MEAN CORPUSCULAR HEMOGLOBIN 29.7 pg (25-34); MEAN CORPUSCULAR HGB CONC 32.4 g/dl (32-36); MEAN PLATELET VOLUME 10.7 fL (7.4-10.4); MONO % 6.8 %; NEUT % 67.4 %; PLATELET COUNT 176 K/uL (130-400); RED BLOOD COUNT 4.34 M/uL (4.2-5.4)
[2017-04-15 07:02] LABS: PROTHROMBIN TIME (PATIENT) 10.7 SECONDS (9.0-12.0)
[2017-04-15 07:21] LABS: BUN/CREATININE RATIO 13.9 (10-20); CALCIUM 8.7 mg/dl (8.5-10.1); CREATININE 0.63 mg/dl (0.60-1.20); POTASSIUM 3.9 mmol/L (3.5-5.1)
--- NOTE | 2017-04-15 07:50 | SURGERY PROGRESS NOTE ---
DATE: 04/15/2017 Gem is alert, coherent with expected abdominal discomfort since she had surgery yesterday. Intraoperative findings were discussed with the patient. The binder was removed as she was lying in bed. The dressings are almost dry. The abdomen is benign. Her Vikram drainage has been 35 total, serous, slightly sanguineous. Her urine output was 850. At this point, we will discontinue the Ellsworth, increase her activity and diet and most likely she will be in the hospital another day or so due to the extent of the surgery. Overall, she is progressing well. Her laboratory this morning was also noted along with her vitals.
[2017-04-15] MEDS: MoRPHine SULFATE 2 MG/ML CARP IV PRN (08:05)
[2017-04-15] MEDS ORDERED: ENOXAPARIN 40 MG/0.4 ML SYR SQ SCH (09:00)
[2017-04-15] MEDS: HEPARIN SOD 5000 UNIT/0.5 ML CARP SQ SCH ×2 (09:33→21:09)
[2017-04-15] MEDS ORDERED: NURSING VERBAL MED ORDER ONE (17:45)
[2017-04-15] MEDS: ATORVASTATIN 40 MG TAB PO SCH (21:06)
[2017-04-15] MEDS: CLOPIDOGREL BISULFATE 75 MG TAB PO SCH (21:06)
[2017-04-15] MEDS: ASPIRIN 81 MG ECTAB PO SCH (21:06)
[2017-04-15] MEDS: LISINOPRIL 10 MG TAB PO SCH (21:06)
[2017-04-15] MEDS: FLUOXETINE HCL 20 MG CAP PO SCH (21:06)
[2017-04-15] MEDS: PANTOprazole SOD 40 MG TAB PO SCH (21:06)
[2017-04-15] MEDS: METOPROLOL SUCC 25MG EXT REL TAB PO SCH (21:06)
[2017-04-16] VITALS (10 sets, daily range): BP systolic 147–181; BP diastolic 87–105; PULSE 75–82; TEMP 36.8–37.3; O2SAT 83–93
[2017-04-16] MEDS: OXYCODONE/ACETAMINOPHEN 5-325 TAB PO PRN ×3 (01:59→11:43)
[2017-04-16] MEDS: MoRPHine SULFATE 2 MG/ML CARP IV PRN ×2 (03:46→09:55)
[2017-04-16] MEDS ORDERED: ACETAMINOPHEN IV 100 ML IV PRN (06:45)
--- NOTE | 2017-04-16 06:46 | SURGERY PROGRESS NOTE ---
DATE: 04/16/2017 Gem is second postoperative day status post open abdominal hernia repair, incisional with compartment separation and Marlex mesh onlay. She is still complaining of abdominal discomfort, although this seems to be all related to the hernia, her abdomen is benign. She had minimal Vikram drainage and both were removed, it was serosanguineous. She does have the skin incision along the edge of old scar, is slightly compromised but very limited, but she does have lower area on both sides of the incision, probably about 10 cm or so, it seems to be mostly bruising of the skin and subcutaneous tissue, no liz ischemia. We will keep an eye on this. I encouraged her to walk around. She can wear the binder when she is up and around, but certainly she should be lying in bed, probably avoid binder. She tolerated her diet and she stated she has started passing some flatus. Her last vitals showed a temperature of 37.1, pulse 74, respiratory rate 16, blood pressure 146/88. She was restarted on the meds yesterday. At this point, we will increase activity. She may shower, and hopefully once her pain is managed, she may be able to be discharged. SUSAN
[2017-04-16] MEDS: HEPARIN SOD 5000 UNIT/0.5 ML CARP SQ SCH ×2 (08:00→20:04)
[2017-04-16] MEDS: DOCUSATE SODIUM 100 MG CAP PO SCH ×2 (10:00→21:47)
--- NOTE | 2017-04-16 10:26 | Clinical Documentation Query ---
CLINICAL DOCUMENTATION QUERY 56 yo female admitted for open incisional hernia repair. In your clinical opinion is this patient being managed for: ( ) Urinary tract infection ( x) Not Agree ( ) Other explanation of clinical findings (Please Explain) ( ) Unable to determine (Please Define) ( ) Need to Discuss The medical record reflects the following clinical findings, treatment, and risk factors. Clinical Indicators: Urine culture positive for Klebsiella Pneumoniae Treatment: Ancef IV, IV hydration, I&O Risk Factors: Ellsworth catheter, s/p surgical intervention Please clarify and document your clinical opinion in the progress notes and discharge summary. Terms such as "probable", "suspected", "likely", "questionable", "possible", or "still to be ruled out" are acceptable. IF IN AGREEMENT, YOU MUST DOCUMENT ABOVE DIAGNOSTIC STATEMENT IN DAILY PROGRESS NOTES AND DISCHARGE SUMMARY. This document is not part of the patient's record. Thank You, Lin Berry RN [phone]
[2017-04-16] MEDS: MoRPHine SULFATE 4 MG/ML 1 ML CARP\\VIAL IV PRN (14:39)
[2017-04-16] MEDS: KETOROLAC TROMETHAMINE 30 MG/ML VIAL IV PRN ×2 (16:49→23:06)
[2017-04-16] MEDS: LORAZEPAM 1 MG TAB PO PRN (16:49)
[2017-04-16] MEDS: OXYCODONE/ACETAMINOPHEN 10/325MG TAB PO PRN (19:58)
[2017-04-16] MEDS: FLUOXETINE HCL 20 MG CAP PO SCH (21:46)
[2017-04-16] MEDS: ASPIRIN 81 MG ECTAB PO SCH (21:46)
[2017-04-16] MEDS: CLOPIDOGREL BISULFATE 75 MG TAB PO SCH (21:47)
[2017-04-16] MEDS: ATORVASTATIN 40 MG TAB PO SCH (21:47)
[2017-04-16] MEDS: METOPROLOL SUCC 25MG EXT REL TAB PO SCH (21:48)
[2017-04-16] MEDS: PANTOprazole SOD 40 MG TAB PO SCH (21:48)
[2017-04-16] MEDS: LISINOPRIL 10 MG TAB PO SCH (21:49)
[2017-04-17] VITALS (7 sets, daily range): BP systolic 98–132; BP diastolic 66–84; PULSE 72–87; TEMP 36.8–38.1; O2SAT 89–92
[2017-04-17] MEDS: OXYCODONE/ACETAMINOPHEN 10/325MG TAB PO PRN ×4 (02:14→20:50)
[2017-04-17] MEDS: LORAZEPAM 1 MG TAB PO PRN ×2 (05:35→11:26)
[2017-04-17] MEDS: KETOROLAC TROMETHAMINE 30 MG/ML VIAL IV PRN (05:35)
--- NOTE | 2017-04-17 07:21 | Surgery Progress Note ---
Surgery Progress Note Date of Service Apr 17, 2017. Subjective Post OP Day: 3 + flatus, + pain controlled (better this AM), No bowel movement, No nausea Objective Vital Signs: Date Time Temp Pulse Resp B/P (MAP) Pulse Ox O2 Delivery O2 Flow Rate FiO2 04/16/17 23:26 37.3 82 16 147/87 (107) 90 Room Air 04/16/17 21:45 76 167/96 (119) 04/16/17 20:00 Room Air 04/16/17 18:45 93 Room Air 04/16/17 18:40 36.9 82 18 148/87 (107) 93 Room Air 04/16/17 16:10 181/105 (130) 04/16/17 15:37 Room Air 04/16/17 14:51 37.2 82 16 170/94 (119) 91 Nasal Cannula 2.0 04/16/17 11:45 37.3 79 24 167/105 (125) 88 Room Air 04/16/17 10:21 Room Air 04/16/17 09:00 90 2.0 04/16/17 08:29 83 Nasal Cannula 04/16/17 08:07 Room Air 2.0 04/16/17 07:28 36.8 75 22 165/99 (121) 83 Room Air Abdomen: non distended, soft Incision(s): clean, no drainage, ecchymosis (periumbilical skin, same as yesterday), findings (similar skin edge necrosis of central incision) Laboratory Results: Results Past 24 Hours Test 04/17/17 04:44 Range/Units Assessment & Plan s/p incisional hernia repair/component separation pain control better, try to transition to po meds only start on po Cipro for UTI, specimen taken in OR preop home when tolerating po meds seen with Dr. Still
[2017-04-17] MEDS ORDERED: CIPR1TAB10 PO (07:44)
[2017-04-17] MEDS ORDERED: KETO10TA PO (07:44)
[2017-04-17] MEDS ORDERED: OXYC-106 PO (07:44)
--- NOTE | 2017-04-17 07:46 | Discharge Instructions ---
Discharge Instructions Date of Service Apr 17, 2017. Admission Reason for Admission: Incisional Hernia, Diabetes Discharge Discharge Diagnosis / Problem: hernia repair Discharge Goals Goal(s): Decrease discomfort Activity Recommendations Activity Limitations: as noted below Lifting Limitations: no more than 10 pounds Shower/Bathe: no limitations (ok to shower) Driving or Machine Use: 1 week . Instructions / Follow-Up Instructions / Follow-Up Dr. Still within 1 week, call [phone] to schedule or if you have any questions Current Hospital Diet Patient's current hospital diet: Regular Diet Discharge Diet Recommended Diet: Regular Diet Procedures Procedures Performed: Open Repair Compartement Separation Incisional Hernia with Marlex onlay Pending Studies Studies pending at discharge: no Medical Emergencies . Who to Call and When: Medical Emergencies: If at any time you feel your situation is an emergency, please call 911 immediately. . Non-Emergent Contact Non-Emergency issues call your: Surgeon Call Non-Emergent contact if: you have a fever, temperature is above 101.5, your pain is not controlled, wound has increased drainage, wound has increased redness, you have any medication questions . "Provider Documentation" section prepared by David Pro. . VTE Core Measure Inpt VTE Proph given/why not?: Unfractionated heparin SQ [place] Drug Monitoring Program Search Results: patient reviewed within database
[2017-04-17 07:58] LABS: HEMATOCRIT 37.9 % (37-47); MEAN CELL VOLUME 90.5 fL (80-100); MEAN CORPUSCULAR HEMOGLOBIN 31.3 pg (25-34); MEAN CORPUSCULAR HGB CONC 34.6 g/dl (32-36); MEAN PLATELET VOLUME 11.4 fL (7.4-10.4); PLATELET COUNT 174 K/uL (130-400); RED BLOOD COUNT 4.19 M/uL (4.2-5.4); WHITE BLOOD COUNT 11.31 K/uL (4.8-10.8)
[2017-04-17] MEDS: HEPARIN SOD 5000 UNIT/0.5 ML CARP SQ SCH ×2 (08:18→19:35)
[2017-04-17] MEDS: CIPROFLOXACIN 500 MG TAB PO SCH ×2 (09:24→20:47)
[2017-04-17] MEDS: DOCUSATE SODIUM 100 MG CAP PO SCH ×2 (09:24→20:48)
[2017-04-17] MEDS: KETOROLAC TROMETHAMINE 10 MG TAB PO PRN ×2 (10:35→16:43)
[2017-04-17] MEDS: MoRPHine SULFATE 4 MG/ML 1 ML CARP\\VIAL IV PRN ×2 (13:21→19:29)
[2017-04-17] MEDS: FLUOXETINE HCL 20 MG CAP PO SCH (20:48)
[2017-04-17] MEDS: PANTOprazole SOD 40 MG TAB PO SCH (20:48)
[2017-04-17] MEDS: CLOPIDOGREL BISULFATE 75 MG TAB PO SCH (20:48)
[2017-04-17] MEDS: ATORVASTATIN 40 MG TAB PO SCH (20:48)
[2017-04-17] MEDS: METOPROLOL SUCC 25MG EXT REL TAB PO SCH (20:49)
[2017-04-17] MEDS: LISINOPRIL 10 MG TAB PO SCH (20:50)
[2017-04-17] MEDS: ASPIRIN 81 MG ECTAB PO SCH (20:50)
[2017-04-18] MEDS: OXYCODONE/ACETAMINOPHEN 10/325MG TAB PO PRN ×3 (05:54→16:16)
[2017-04-18] MEDS: LORAZEPAM 1 MG TAB PO PRN ×2 (06:12→12:45)
[2017-04-18 07:58] VITALS: BP 106/69; PULSE 71; TEMP 36.7; O2SAT 91
[2017-04-18] MEDS: MoRPHine SULFATE 2 MG/ML CARP IV PRN (08:27)
[2017-04-18] MEDS: DOCUSATE SODIUM 100 MG CAP PO SCH (09:30)
[2017-04-18] MEDS: CIPROFLOXACIN 500 MG TAB PO SCH (09:30)
[2017-04-18] MEDS: KETOROLAC TROMETHAMINE 10 MG TAB PO PRN ×2 (09:31→15:33)
[2017-04-18] MEDS: HEPARIN SOD 5000 UNIT/0.5 ML CARP SQ SCH (09:31)
--- NOTE | 2017-04-18 10:28 | SURGERY PROGRESS NOTE ---
DATE: 04/18/2017 Gem is 4th postoperative day status post repair of large incisional hernia with compartment separation and onlay Marlex mesh. Overall, she is doing well. Her main issue has been pain management, which she apparently at this time seems to be making an improvement on it. She is tolerating her diet. She is starting to pass some flatus, but he has not had a bowel movement. Last vitals show a temperature of 36.7, pulse 71, respirations 16, blood pressure 106/69, O2 sats 91 on room air. Her abdomen is benign. She has some slight skin compromise and pretty much unchanged both lower aspect of the abdomen near the panniculus and the midline incision. There is no drainage. There is no seepage around the incision. We are treating also for UTI. She had no symptoms but at the time of the surgery when we inserted a Ellsworth catheter, we got a urine for cultures, which confirmed the findings and treated appropriately. From my point of view at this time if she can tolerate her analgesics she can be discharged. Instructions are written on the chart including the prescription of meds. MTDD
[2017-04-18 12:54] VITALS: BP_SYST 102; BP_SYST 106; BP_DIAS 69; BP_DIAS 71; PULSE 71; PULSE 81; TEMP 36.6; TEMP 36.7; O2SAT 91
[2017-04-18 15:25] VITALS: BP 102/71; PULSE 81; TEMP 36.6; O2SAT 91
--- NOTE | 2017-04-21 09:59 | Anesthesiology Progress Note ---
Anesthesia Post Op Note Date & Time Apr 21, 2017 at 09:59 Vital Signs Pain Intensity: 6.0 Notes Mental Status: alert / awake / arousable, participated in evaluation Pt Amnestic to Procedure: Yes Nausea / Vomiting: adequately controlled Pain: adequately controlled Airway Patency, RR, SpO2: stable & adequate BP & HR: stable & adequate Hydration State: stable & adequate Anesthetic Complications: no major complications apparent
--- NOTE | 2017-04-22 11:30 | Discharge Summary ---
Discharge Summary Date of Service Apr 22, 2017. Admission Date/Reason Apr 14, 2017 at 07:50 Incisional Hernia, Diabetes. Discharge Date/Disposition Apr 18, 2017 Home Diagnosis Principal Diagnosis: Incisional Hernia, Diabetes. Procedure(s) Performed Open repair of symptomatic incisional hernia, with compartment separation and Marlex mesh onlay. Medication Reconciliation New Medications: Ciprofloxacin Hcl (Cipro) 500 Mg Tab 500 MG PO BID, #12 TAB Ketorolac Tromethamine (Toradol) 10 Mg Tab 10 MG PO Q6H PRN for Pain, #10 TAB Oxycodone/Acetaminophen 10MG/325MG (Percocet 10MG/325MG) Tab 1 TAB PO Q4H PRN for Pain, #30 TAB Continued Medications: Aspirin (Aspirin Chewable) 81 Mg Chew 81 MG PO HS Atorvastatin (Lipitor) 40 Mg Tab 40 MG PO HS, TAB Biotin W/ Vitamins C & E (Hair/Skin/Nails 1250-7.5-7.5 Mcg-mg-Unt) 1 Chw Chw 1 TAB PO HS Clopidogrel (Plavix) 75 Mg Tab 75 MG PO HS, TAB Fluoxetine (Prozac) 40 Mg Cap 40 MG PO HS, 0 Refills Lisinopril (Lisinopril) 10 Mg Tab 10 MG PO HS Lorazepam (Lorazepam) 0.5 Mg Tab 1 TAB PO BID PRN for Anxiety/Insomnia Metoprolol Succinate (Metoprolol Succinate ER) 25 Mg Tabcr 25 MG PO HS Pantoprazole (Protonix) 40 Mg Tab 40 MG PO HS, #30 TAB Pediatric Multiple Vitamin W/ (Flintstones Chewable) 1 Chw Chw 1 TAB PO HS, TAB Zolpidem Tartrate (Ambien) 10 Mg Tab 10 MG PO HS PRN for Sleep, TAB Discontinued Medications: Hydrocodone/Acetaminophen 10MG/325MG ([place] 10MG/325MG) Tab 1-2 TABS PO Q4H PRN for Pain, TAB PRN PAIN Admission Physical Exam As per Admitting History & Physical. Hospital Course Patient came in for an elective incisional hernia repair on 04/14/17. The hernia was repaired successfully with an open procedure utilizing marlex mesh. POD#1: Patient is alert with expected abdominal discomfort. Abdomen is benign, D /C pool, Vikram drainage has been 35 total serosanguinous. She has been using abdominal binder when OOB. Continue to increase activity and advance diet as tolerated.' POD#2: Abdominal discomfort continues, Vikram drain removed (minimal drainage), some bruising of the skin surrounding surgical incisions (will continue to watch ), + Flatus, continue use of binder, increase activity, advance diet. She may shower. POD#3: s/p incisional hernia repair/component separation, pain control better, try to transition to po meds only, start on po Cipro for UTI, specimen taken in OR preop, home when tolerating po meds. POD#4: Pain diminishing, tolerating PO pain meds. Tolerating diet. Abdomen benign. D/C to home today. Follow-up instructions and discharge prescriptions will be provided to the patient. Discharge Instructions Please refer to the electronic Patient Visit Report (Discharge Instructions) for additional information.
== END 2017-04-18 17:15 | disposition home or self-care (01) | DRG 354 ==
LOC: C.ACU 06:25 → C.MSW 07:50 → ENRESERV 11:58
PROVIDERS: ADMIT Surgery; ATTEND Surgery
PROC: 0KNK0ZZ Release Right Abdomen Muscle, Open Approach (ICD-10-PCS; principal; 2017-04-14 08:15)
PROC: 0WUF0JZ Supplement Abdominal Wall with Synthetic Substitute, Open Approach (ICD-10-PCS; principal; 2017-04-14 08:15)
PROC: 0KNL0ZZ Release Left Abdomen Muscle, Open Approach (ICD-10-PCS; principal; 2017-04-14 08:15)
DX: K43.2 Incisional hernia without obstruction or gangrene (principal); N39.0 Urinary tract infection, site not specified; I77.9 Disorder of arteries and arterioles, unspecified; F41.9 Anxiety disorder, unspecified; I20.9 Angina pectoris, unspecified; I25.10 Atherosclerotic heart disease of native coronary artery without angina pectoris; F17.210 Nicotine dependence, cigarettes, uncomplicated; E11.9 Type 2 diabetes mellitus without complications; K21.9 Gastro-esophageal reflux disease without esophagitis; E78.00 Pure hypercholesterolemia, unspecified

== ENCOUNTER 2017-04-25 12:33 | Inpatient (IN) | payer OTHER ==
[~2017-04-25] VITALS: Ht 157.5 cm; Wt 68.5 kg
[~2017-04-25 12:33] MED LIST changes: +CIPR1TAB10 PO; -HYDR-4079 PO; +KETO10TA PO; -LACTATED RINGER'S 1000ML 1,000 ML IV SCH; +OXYC-106 PO
[2017-04-25] MEDS ORDERED: CEPH500C2 PO (13:04)
[2017-04-25] MEDS ORDERED: OXYCODONE HCL IR 5 MG TAB (IMMEDIATE RELEASE) PO STA (13:29)
[2017-04-25 14:01] LABS: BASO % 0.4 %; BASO ABS # 0.07 K/uL (0-0.2); COMPLETE YES; EOS % 1.6 %; HEMATOCRIT 39.8 % (37-47); IG% 0.8 %; LYMPH % 17.8 %; LYMPH ABS # 3.52 K/uL (1.2-3.4); MEAN CELL VOLUME 91.7 fL (80-100); MEAN CORPUSCULAR HEMOGLOBIN 30.6 pg (25-34); MEAN CORPUSCULAR HGB CONC 33.4 g/dl (32-36); MEAN PLATELET VOLUME 9.3 fL (7.4-10.4); MONO % 3.5 %; NEUT % 75.9 %; PLATELET COUNT 544 K/uL (130-400); RED BLOOD COUNT 4.34 M/uL (4.2-5.4); WHITE BLOOD COUNT 19.77 K/uL (4.8-10.8)
[2017-04-25 14:09] LABS: PARTIAL THROMBOPLASTIN RATIO 1.2; PROTHROMBIN TIME (PATIENT) 10.9 SECONDS (9.0-12.0)
--- NOTE | 2017-04-25 14:15 | EMERGENCY ROOM VISIT NOTE ---
ED Visit Note First contact with patient: 12:40 I did evaluate and examine this patient myself. I did guide management for the patient. I agree with the APC's assessment as discussed. Please see the APC's dictation for further details. I did independently review the blood work. The patient's white blood cell count is almost 20,000. She has had no fevers at home. The wound margins appear to be necrotic. I did have Dr. Vidales of surgery evaluate the patient. He did examine the patient here and admitted the patient to the hospital.
[2017-04-25 14:16] LABS: BUN/CREATININE RATIO 31.5 (10-20); CALCIUM 9.3 mg/dl (8.5-10.1); CREATININE 0.65 mg/dl (0.60-1.20); POTASSIUM 4.1 mmol/L (3.5-5.1)
--- NOTE | 2017-04-25 14:18 | EMERGENCY ROOM VISIT NOTE ---
History First contact with patient: 12:40 Chief Complaint: WOUND DEHISCENCE Stated Complaint: SURGICAL INCISION OPENED History of Present Illness The patient is a 56 year old female who presents to the Emergency Room with complaints of her surgical incision opening up. The patient states that she had an incisional hernia repair done by Dr. Alcala on April 14. She had the sutures removed on Thursday. She states that they put Steri-Strips on the upper portion of the incision but did not put any on the lower portion which has now opened up. She states that he thought the skin was too thin in that area and was afraid that Steri-Strips would pull the skin off. The patient admits to mild drainage from this area. She contacted Dr. Matt WALKER's office and they instructed her to come to the emergency room. She has an appointment at his office on Thursday. Review of Systems 10 system review was performed and was negative unless stated otherwise history of present illness. Past Medical/Surgical History Medical Problems: (1) History of [place] (myocardial infarction) (2) PAD (peripheral artery disease) (3) Precordial chest pain Surgical Problems: (1) S/P hernia repair Family History Diabetes mellitus FH: heart disease FH: lung disease FHx: cancer Hypertension Social History Smoking Status: Current Every Day Smoker Alcohol Use: none Drug Use: none Marital Status: Housing Status: lives with family Occupation Status: unemployed, disabled Current/Historical Medications Scheduled Aspirin (Aspirin Chewable), 81 MG PO HS Atorvastatin (Lipitor), 40 MG PO HS Biotin W/ Vitamins C & E (Hair/Skin/Nails 1250-7.5-7.5 Mcg-mg-Unt), 1 TAB PO HS Cephalexin Monohydrate (Keflex), 500 MG PO Q6 Clopidogrel (Plavix), 75 MG PO HS Fluoxetine (Prozac), 40 MG PO HS Lisinopril (Lisinopril), 10 MG PO HS Metoprolol Succinate (Metoprolol Succinate ER), 25 MG PO HS Pantoprazole (Protonix), 40 MG PO HS Pediatric Multiple Vitamin W/ (Flintstones Chewable), 1 TAB PO HS Scheduled PRN Lorazepam (Lorazepam), 1 TAB PO BID PRN for Anxiety/Insomnia Oxycodone/Acetaminophen 10MG/325MG (Percocet 10MG/325MG), 1 TAB PO Q4H PRN for Pain Zolpidem Tartrate (Ambien), 10 MG PO HS PRN for Sleep Physical Exam Vital Signs Date Time Temp Pulse Resp B/P (MAP) Pulse Ox O2 Delivery O2 Flow Rate FiO2 04/25/17 12:35 36.9 81 18 153/90 95 Room Air Physical Exam GENERAL 56-year-old female appears in no acute distress. MENTAL Status: Alert and oriented 3. LUNGS: Clear auscultation without wheezes rales or rhonchi. CARDIAC: Regular rate and rhythm without murmur. Pulses is full and equal throughout. ABDOMEN: Positive bowel sounds all 4 quadrants. Incision is noted midline of the mid to lower abdomen. Approximately 4 cm of the inferior portion of the incision has opened up. This appears just to be superficial. Fatty tissue is visualized. No deep structures are visualized. The wound has opened up approximately 3-5 mm. The surrounding tissue is very ecchymotic. There is no erythema or increased temperature to touch. I do not visualize any purulent drainage. Medical Decision & Procedures Laboratory Results 04/25/17 13:45 Red Blood Count 4.34, Mean Corpuscular Volume 91.7, Mean Corpuscular Hemoglobin 30.6, Mean Corpuscular Hemoglobin Concent 33.4, Mean Platelet Volume 9.3, Neutrophils (%) (Auto) 75.9, Lymphocytes (%) (Auto) 17.8, Monocytes (%) (Auto) 3.5, Eosinophils (%) (Auto) 1.6, Basophils (%) (Auto) 0.4, Neutrophils # (Auto) 15.02, Lymphocytes # (Auto) 3.52, Monocytes # (Auto) 0.69, Eosinophils # (Auto) 0.32, Basophils # (Auto) 0.07 Test 04/25/17 13:45 White Blood Count 19.77 K/uL (4.8-10.8) Red Blood Count 4.34 M/uL (4.2-5.4) Hemoglobin 13.3 g/dL (12.0-16.0) Hematocrit 39.8 % (37-47) Mean Corpuscular Volume 91.7 fL (80-100) Mean Corpuscular Hemoglobin 30.6 pg (25-34) Mean Corpuscular Hemoglobin Concent 33.4 g/dl (32-36) Platelet Count 544 K/uL (130-400) Mean Platelet Volume 9.3 fL (7.4-10.4) Neutrophils (%) (Auto) 75.9 % Lymphocytes (%) (Auto) 17.8 % Monocytes (%) (Auto) 3.5 % Eosinophils (%) (Auto) 1.6 % Basophils (%) (Auto) 0.4 % Neutrophils # (Auto) 15.02 K/uL (1.4-6.5) Lymphocytes # (Auto) 3.52 K/uL (1.2-3.4) Monocytes # (Auto) 0.69 K/uL (0.11-0.59) Eosinophils # (Auto) 0.32 K/uL (0-0.5) Basophils # (Auto) 0.07 K/uL (0-0.2) RDW Standard Deviation 53.5 fL (36.4-46.3) RDW Coefficient of Variation 16.0 % (11.5-14.5) Immature Granulocyte % (Auto) 0.8 % Immature Granulocyte # (Auto) 0.15 K/uL (0.00-0.02) Prothrombin Time 10.9 SECONDS (9.0-12.0) Prothromb Time International Ratio 1.0 (0.9-1.1) Activated Partial Thromboplast Time 31.6 SECONDS (21.0-31.0) Partial Thromboplastin Ratio 1.2 Medications Administered Medications (Trade) Dose Ordered Sig/Alexander Route Start Time Stop Time Status Last Admin Dose Admin Oxycodone HCl (Roxicodone Immediate Rel Tab) 10 mg NOW STAT PO 04/25/17 13:29 04/25/17 13:31 DC 04/25/17 13:55 10 MG ED Course The patient was evaluated. The patient's EMR medication list were reviewed. Even though Dr. Alcala s not senior safety management consultant I had the secretary of state try his pager. Dr. Matt diop did not answer his page. The patient was independently evaluated by Dr. Cast. CBC and differential and renal profile was ordered. Surgical consult was obtained. The patient's lab work was reviewed. Patient's white count was over 19,000 therefore the surgeon will be admitting the patient. Medical Decision Differential diagnosis include simple wound dehiscence, infection, sepsis, necrosis of tissue [place] Drug Monitoring Program Search Results: patient reviewed within database Medication Reconcilliation Current Medication List: was personally reviewed by me Blood Pressure Screening Patient's blood pressure: Elevated blood pressure Impression Primary Impression: Elevated white blood cell count Additional Impression: Wound dehiscence, surgical Departure Information Dispostion Being Evaluated By Surgeon Condition GOOD Referrals Cookie Jones D.O. (PCP) Patient Instructions My [facility] Problem Qualifiers Primary Impression: Elevated white blood cell count Leukocytosis type: unspecified Qualified Codes: D72.829 - Elevated white blood cell count, unspecified Additional Impression: Wound dehiscence, surgical Encounter type: initial encounter Qualified Codes: T81.31XA - Disruption of external operation (surgical) wound, not elsewhere classified, initial encounter
--- NOTE | 2017-04-25 14:41 | Surgery Consultation ---
Consultation Date of Consultation: Apr 25, 2017. Attending Physician: History of Present Illness The patient is a 56 year old female who presents to the Emergency Room with complaints of her surgical incision opening up. The patient states that she had an incisional hernia repair done by Dr. Alcala on April 14. She had the sutures removed on Thursday. She states that they put Steri-Strips on the upper portion of the incision but did not put any on the lower portion which has now opened up. She states that he thought the skin was too thin in that area and was afraid that Steri-Strips would pull the skin off. The patient admits to mild drainage from this area. She contacted Dr. Matt WALKER's office and they instructed her to come to the emergency room. She has an appointment at his office on Thursday. I saw pt at ER, pt denies fever, no diarrhea, pt is on po keflex. but today, the WBC is 19.770. there is 4 cm open wound on middle line abdomen, subcutanous layer, small amount drainage, no pus is seen, Past Medical/Surgical History Medical Problems: (1) Central abdominal pain Status: Acute (2) Central abdominal pain Status: Acute (3) Diarrhea Status: Acute (4) Enteritis Status: Acute (5) Hypertension Status: Acute (6) Left arm pain Status: Acute (7) Left sided chest pain Status: Acute (8) SMA stenosis Status: Acute Family History Diabetes mellitus FH: heart disease FH: lung disease FHx: cancer Hypertension Social History Smoking Status: Current Every Day Smoker Smokeless Tobacco Use: No Alcohol Use: occasionally Drug Use: none Marital Status: Housing Status: lives with family Occupation Status: unemployed, disabled Allergies Coded Allergies: No Known Allergies (Unverified , 04/25/17) Home Medications Scheduled Aspirin (Aspirin Chewable), 81 MG PO HS Atorvastatin (Lipitor), 40 MG PO HS Biotin W/ Vitamins C & E (Hair/Skin/Nails 1250-7.5-7.5 Mcg-mg-Unt), 1 TAB PO HS Cephalexin Monohydrate (Keflex), 500 MG PO Q6 Clopidogrel (Plavix), 75 MG PO HS Fluoxetine (Prozac), 40 MG PO HS Lisinopril (Lisinopril), 10 MG PO HS Metoprolol Succinate (Metoprolol Succinate ER), 25 MG PO HS Pantoprazole (Protonix), 40 MG PO HS Pediatric Multiple Vitamin W/ (Flintstones Chewable), 1 TAB PO HS Scheduled PRN Lorazepam (Lorazepam), 1 TAB PO BID PRN for Anxiety/Insomnia Oxycodone/Acetaminophen 10MG/325MG (Percocet 10MG/325MG), 1 TAB PO Q4H PRN for Pain Zolpidem Tartrate (Ambien), 10 MG PO HS PRN for Sleep Review of Systems Constitutional: No fever, No chills, No sweats, No weight loss, No weakness, No fatigue, No problem reported Eyes: No worsening of vision, No eye pain, No redness, No discharge, No diplopia, No problem reported ENT: No hearing loss, No unusual epistaxis, No nasal symptoms, No sore throat, No tinnitus, No dental problems, No trouble swallowing, No problem reported Respiratory: No cough, No sputum, No wheezing, No shortness of breath, No dyspnea on exertion, No dyspnea at rest, No hemoptysis, No problem reported Cardiovascular: + problem reported (PVD), No chest pain, No orthopnea, No PND, No edema, No claudication, No palpitations Abdomen: + pain, + problem reported (S/P open repair ventral hernia with mesh on 02/12/2017) Musculoskeletal: No joint pain, No muscle pain, No swelling, No calf pain, No problem reported Genitourinary - Female: No dysuria, No urinary frequency, No urinary urgency, No urinary incontinence, No urinary retention, No hematuria, No dysmenorrhea, No menorrhagia, No metrorrhagia, No rash, No vaginal bleeding, No vaginal discharge, No vaginal itching, No vulvodynia, No , No problem reported Neurologic: No memory loss, No paralysis, No weakness, No numbness/tingling, No vertigo, No balance problems, No problem reported Psychiatric: No depression symptoms, No anhedonism, No anxiety, No insomnia, No substance abuse, No problem reported Endocrine: No fatigue, No excessive thirst, No excessive urination, No problem reported Hematologic / Lymphatic: No abnormal bleeding/bruising, No clotting problems, No swollen lymph nodes, No night sweats, No problem reported Integumentary: No rash, No itch, No new/changing skin lesions, No color change , No bleeding, No problem reported Physical Exam Date Time Temp Pulse Resp B/P (MAP) Pulse Ox O2 Delivery O2 Flow Rate FiO2 04/25/17 12:35 36.9 81 18 153/90 95 Room Air General Appearance: WD/WN, no apparent distress Head: normocephalic Eyes: normal inspection ENT: hearing grossly normal Neck: supple, no JVD Respiratory/Chest: chest non-tender, lungs clear, normal breath sounds Cardiovascular: regular rate, rhythm, no edema, no gallop, no JVD, no murmur Abdomen/GI: normal bowel sounds, non tender, soft, no organomegaly (4 cm open incision on middle line andomen, superficial layer, small amount drainage from the incision, some brown color around the incision, ) Extremities/Musculoskelatal: normal inspection, no calf tenderness, normal capillary refill Neurologic/Psych: no motor/sensory deficits, alert, normal mood/affect Skin: normal color, warm/dry, no rash Laboratory Results Last 24 Hours Test 04/25/17 13:45 White Blood Count 19.77 K/uL Red Blood Count 4.34 M/uL Hemoglobin 13.3 g/dL Hematocrit 39.8 % Mean Corpuscular Volume 91.7 fL Mean Corpuscular Hemoglobin 30.6 pg Mean Corpuscular Hemoglobin Concent 33.4 g/dl Platelet Count 544 K/uL Mean Platelet Volume 9.3 fL Neutrophils (%) (Auto) 75.9 % Lymphocytes (%) (Auto) 17.8 % Monocytes (%) (Auto) 3.5 % Eosinophils (%) (Auto) 1.6 % Basophils (%) (Auto) 0.4 % Neutrophils # (Auto) 15.02 K/uL Lymphocytes # (Auto) 3.52 K/uL Monocytes # (Auto) 0.69 K/uL Eosinophils # (Auto) 0.32 K/uL Basophils # (Auto) 0.07 K/uL RDW Standard Deviation 53.5 fL RDW Coefficient of Variation 16.0 % Immature Granulocyte % (Auto) 0.8 % Immature Granulocyte # (Auto) 0.15 K/uL Prothrombin Time 10.9 SECONDS Prothromb Time International Ratio 1.0 Activated Partial Thromboplast Time 31.6 SECONDS Partial Thromboplastin Ratio 1.2 Sodium Level 140 mmol/L Potassium Level 4.1 mmol/L Chloride Level 108 mmol/L Carbon Dioxide Level 26 mmol/L Anion Gap 6.0 mmol/L Blood Urea Nitrogen 21 mg/dl Creatinine 0.65 mg/dl Est Creatinine Clear Calc Drug Dose 88.7 ml/min Estimated GFR () 115.8 Estimated GFR (Non- 99.9 BUN/Creatinine Ratio 31.5 Random Glucose 81 mg/dl Calcium Level 9.3 mg/dl Assessment & Plan pt is a 56 year old female who presents with Er with open incision on abdomen, pt is S/P open repair ventral hernia with mesh on 02/12/2017, IMP: open wound on abdomen incision, base on high WBC 19.7 wound culture sent admit to hospital apply bacitricin on wound with cover 4x4 gouze. IV antibiotic repeat labs in am will F/U
[2017-04-25] MEDS ORDERED: ACETAMINOPHEN 325 MG TAB PO PRN (14:45)
[2017-04-25 16:40] VITALS: BP 180/110; PULSE 83; TEMP 37.2; O2SAT 96; Ht 157.5 cm; Wt 68.5 kg
[2017-04-25 17:00] VITALS: BP 173/93
[2017-04-25 17:19] VITALS: BP 160/88; PULSE 75
[2017-04-25] MEDS: D5W AND 1/2NSS + 20MEQ KCL 1,000 ML IV SCH (17:21)
[2017-04-25] MEDS: METRONIDAZOLE / NSS 500 MG in PREMIXED NSS 100 ML IV SCH (17:21)
[2017-04-25] MEDS: CIPROFLOXACIN / D5W 400 MG in PREMIXED IN D5W 200 ML IV SCH (17:21)
[2017-04-25 19:59] VITALS: BP 131/83; PULSE 75
[2017-04-25] MEDS: OXYCODONE/ACETAMINOPHEN 5-325 TAB PO PRN (20:00)
[2017-04-25 23:25] VITALS: BP 131/83; PULSE 75; TEMP 37.2; O2SAT 96
[2017-04-26] MEDS: OXYCODONE/ACETAMINOPHEN 5-325 TAB PO PRN ×4 (00:41→15:43)
[2017-04-26] MEDS: METRONIDAZOLE / NSS 500 MG in PREMIXED NSS 100 ML IV SCH ×2 (00:42→09:03)
[2017-04-26] MEDS: HYDROmorphone INJ 0.5 MG/0.5 ML SYR IV PRN ×6 (03:01→23:28)
[2017-04-26] MEDS: CIPROFLOXACIN / D5W 400 MG in PREMIXED IN D5W 200 ML IV SCH ×2 (05:42→17:30)
[2017-04-26 07:07] LABS: BASO % 0.4 %; BASO ABS # 0.06 K/uL (0-0.2); COMPLETE YES; EOS % 2.6 %; HEMATOCRIT 35.3 % (37-47); IG% 0.6 %; LYMPH % 21.6 %; LYMPH ABS # 2.94 K/uL (1.2-3.4); MEAN CELL VOLUME 91.5 fL (80-100); MEAN CORPUSCULAR HEMOGLOBIN 29.8 pg (25-34); MEAN CORPUSCULAR HGB CONC 32.6 g/dl (32-36); MEAN PLATELET VOLUME 9.1 fL (7.4-10.4); MONO % 4.4 %; NEUT % 70.4 %; PLATELET COUNT 525 K/uL (130-400); RED BLOOD COUNT 3.86 M/uL (4.2-5.4); WHITE BLOOD COUNT 13.59 K/uL (4.8-10.8)
[2017-04-26 07:53] LABS: CALCIUM 8.6 mg/dl (8.5-10.1); CREATININE 0.55 mg/dl (0.60-1.20); POTASSIUM 4.4 mmol/L (3.5-5.1)
[2017-04-26 07:56] LABS: ALB/GLOB RATIO 0.6 (0.9-2)
[2017-04-26 08:05] VITALS: BP 132/83; PULSE 69; TEMP 36.6; O2SAT 94
--- NOTE | 2017-04-26 09:59 | Surgery Progress Note ---
Surgery Progress Note Date of Service Apr 26, 2017. Subjective + feeling well pt is doing better, the wound is dry, pt denies fever, WBC down 13.59. Objective Vital Signs: Date Time Temp Pulse Resp B/P (MAP) Pulse Ox O2 Delivery O2 Flow Rate FiO2 04/26/17 08:22 Room Air 04/26/17 08:05 36.6 69 16 132/83 (99) 94 Room Air 04/25/17 23:25 37.2 75 17 131/83 (99) 96 Room Air 04/25/17 23:25 Room Air 04/25/17 19:59 75 131/83 (99) 04/25/17 17:19 75 160/88 (112) 04/25/17 17:00 173/93 (119) 04/25/17 16:40 37.2 83 18 180/110 (133) 96 Room Air 04/25/17 16:40 Room Air 04/25/17 16:40 Room Air 04/25/17 16:02 74 18 158/85 96 04/25/17 14:23 76 18 164/100 96 Room Air 04/25/17 12:35 36.9 81 18 153/90 95 Room Air General Appearance: WD/WN, no apparent distress Head: normocephalic Neck: supple, no JVD Respiratory/Chest: chest non-tender, lungs clear Cardiovascular: regular rate, rhythm, no edema, no gallop, no JVD, no murmur Abdomen: normal bowel sounds, non tender, non distended, soft (open wound on lower abdomen middle line, gt wound is dry, ) Extremities: normal range of motion, non-tender, normal inspection Laboratory Results: Results Past 24 Hours Test 04/25/17 13:45 04/26/17 06:46 Range/Units White Blood Count 19.77 13.59 4.8-10.8 K/uL Red Blood Count 4.34 3.86 4.2-5.4 M/uL Hemoglobin 13.3 11.5 12.0-16.0 g/dL Hematocrit 39.8 35.3 37-47 % Mean Corpuscular Volume 91.7 91.5 80-100 fL Mean Corpuscular Hemoglobin 30.6 29.8 25-34 pg Mean Corpuscular Hemoglobin Concent 33.4 32.6 32-36 g/dl Platelet Count 544 525 130-400 K/uL Mean Platelet Volume 9.3 9.1 7.4-10.4 fL Neutrophils (%) (Auto) 75.9 70.4 % Lymphocytes (%) (Auto) 17.8 21.6 % Monocytes (%) (Auto) 3.5 4.4 % Eosinophils (%) (Auto) 1.6 2.6 % Basophils (%) (Auto) 0.4 0.4 % Neutrophils # (Auto) 15.02 9.55 1.4-6.5 K/uL Lymphocytes # (Auto) 3.52 2.94 1.2-3.4 K/uL Monocytes # (Auto) 0.69 0.60 0.11-0.59 K/uL Eosinophils # (Auto) 0.32 0.36 0-0.5 K/uL Basophils # (Auto) 0.07 0.06 0-0.2 K/uL RDW Standard Deviation 53.5 53.3 36.4-46.3 fL RDW Coefficient of Variation 16.0 15.9 11.5-14.5 % Immature Granulocyte % (Auto) 0.8 0.6 % Immature Granulocyte # (Auto) 0.15 0.08 0.00-0.02 K/uL Prothrombin Time 10.9 9.0-12.0 SECONDS Prothromb Time International Ratio 1.0 0.9-1.1 Activated Partial Thromboplast Time 31.6 21.0-31.0 SECONDS Partial Thromboplastin Ratio 1.2 Sodium Level 140 140 136-145 mmol/L Potassium Level 4.1 4.4 3.5-5.1 mmol/L Chloride Level 108 106 98-107 mmol/L Carbon Dioxide Level 26 27 21-32 mmol/L Anion Gap 6.0 7.0 3-11 mmol/L Blood Urea Nitrogen 21 15 7-18 mg/dl Creatinine 0.65 0.55 0.60-1.20 mg/dl Est Creatinine Clear Calc Drug Dose 88.7 104.9 ml/min Estimated GFR () 115.8 122.4 Estimated GFR (Non- 99.9 105.6 BUN/Creatinine Ratio 31.5 27.0 10-20 Random Glucose 81 91 70-99 mg/dl Calcium Level 9.3 8.6 8.5-10.1 mg/dl Nucleated RBC Absolute Count (auto) 0.02 0-0 K/uL Nucleated Red Blood Cells % 0.2 % Total Bilirubin 0.2 0.2-1 mg/dl Aspartate Amino Transf (AST/SGOT) 12 15-37 U/L Alanine Aminotransferase (ALT/SGPT) 12 12-78 U/L Alkaline Phosphatase 80 45-117 U/L Total Protein 5.8 6.4-8.2 gm/dl Albumin 2.1 3.4-5.0 gm/dl Globulin 3.7 2.5-4.0 gm/dl Albumin/Globulin Ratio 0.6 0.9-2 Microbiology Results 04/25/17 Gram Stain - Final, Resulted 04/25/17 Wound Culture, Resulted Pending Assessment & Plan pt is doing better, no fever, I called Fredrick BROWN last night, who will see pt on Thursday continue treatment repeat labs in AM, will F/U
[2017-04-26] MEDS: D5W AND 1/2NSS + 20MEQ KCL 1,000 ML IV SCH (13:22)
[2017-04-26 15:33] VITALS: BP 156/82; PULSE 84; TEMP 36.9; O2SAT 93
[2017-04-26 19:41] VITALS: BP 121/79; PULSE 81; TEMP 36.7; O2SAT 93
[2017-04-26 23:16] VITALS: BP 150/87; PULSE 65; TEMP 37.2; O2SAT 93
[2017-04-27] MEDS: HYDROmorphone INJ 0.5 MG/0.5 ML SYR IV PRN ×6 (02:38→19:59)
[2017-04-27] MEDS: CIPROFLOXACIN / D5W 400 MG in PREMIXED IN D5W 200 ML IV SCH (05:55)
[2017-04-27 06:04] LABS: BASO % 0.5 %; BASO ABS # 0.07 K/uL (0-0.2); COMPLETE YES; EOS % 1.9 %; HEMATOCRIT 36.2 % (37-47); IG% 0.8 %; LYMPH % 23.2 %; LYMPH ABS # 3.02 K/uL (1.2-3.4); MEAN CELL VOLUME 91.2 fL (80-100); MEAN CORPUSCULAR HEMOGLOBIN 30.5 pg (25-34); MEAN CORPUSCULAR HGB CONC 33.4 g/dl (32-36); MEAN PLATELET VOLUME 9.1 fL (7.4-10.4); MONO % 3.9 %; NEUT % 69.7 %; PLATELET COUNT 564 K/uL (130-400); RED BLOOD COUNT 3.97 M/uL (4.2-5.4); WHITE BLOOD COUNT 12.99 K/uL (4.8-10.8)
[2017-04-27 06:38] LABS: BUN/CREATININE RATIO 21.5 (10-20); CALCIUM 8.8 mg/dl (8.5-10.1); CREATININE 0.53 mg/dl (0.60-1.20); POTASSIUM 4.5 mmol/L (3.5-5.1)
[2017-04-27 06:41] LABS: ALB/GLOB RATIO 0.6 (0.9-2)
[2017-04-27] MEDS ORDERED: ZOLPIDEM TARTRATE 10 MG TAB PO PRN (06:45)
[2017-04-27] MEDS ORDERED: LORAZEPAM 0.5 MG TAB PO PRN (06:45)
[2017-04-27] MEDS ORDERED: PIPERACILL/TAZOBAC CONSULT ACTIVE PRN (07:00)
[2017-04-27 07:52] VITALS: BP 150/90; PULSE 76; TEMP 36.4; O2SAT 93
[2017-04-27] MEDS: OXYCODONE/ACETAMINOPHEN 10/325MG TAB PO PRN ×4 (07:54→23:29)
[2017-04-27] MEDS: D5W AND 1/2NSS + 20MEQ KCL 1,000 ML IV SCH ×2 (07:56→08:20)
[2017-04-27] MEDS: DOCUSATE SODIUM 100 MG CAP PO SCH ×2 (07:56→20:56)
[2017-04-27] MEDS ORDERED: PIPERACILL/TAZOBAC IV 3.375 GM in DEXTROSE 5% 100ML IV ONE (08:00)
[2017-04-27 08:05] VITALS: O2SAT 93
--- NOTE | 2017-04-27 08:29 | SURGERY PROGRESS NOTE ---
DATE: 04/27/2017 Gem was admitted by Dr. Vidales on 04/25/2017 for what appeared to be a small wound dehisced in the midline incision. She was started on broad spectrum antibiotics. As I see her today, she definitely has ischemic on the lower aspect of the incision bilaterally, probably from the flaps that we raised to close this large abdominal defect that was onlay Marlex mesh. She also has areas of what appeared to be hematomas most likely from the perioperative injection of anticoagulation. She is still on Plavix. With this finding today, the patient's temperature is 37.2, pulse 65, respirations 16, blood pressure 150/87, O2 sat is 93 on room air. Laboratory chaney yesterday electrolytes were fine. White count was 12.99 slightly decreased from admission, but she still has a left shift. At this point, my plan is to proceed with surgery in a sense to do an abdominal wall debridement and proximally place a VAC system once this is all completely debrided. The risk of this was explained to the patient includes possibility of a mesh infection, but hopefully it is a Marlex mesh that may close over with the VAC system. Of note, when she was discharged, she continued to smoke at home. She has not smoked since she was admitted. I am not sure how much this had to do with it, but she did have a large incisional hernia at the abdominal wall that the skin and subcutaneous tissue was pretty much thinned out over it. We will keep her n.p.o. after midnight, change her antibiotics. As expected microbiology was noted as a Gram-negative staph and core bacteria. Final cultures are pending.
[2017-04-27 12:00] VITALS: BP 128/82; PULSE 84; TEMP 36.9; O2SAT 92
[2017-04-27] MEDS ORDERED: PIPERACILL/TAZOBAC IV 3.375 GM in DEXTROSE 5% 100ML 100 ML IV SCH (12:00)
[2017-04-27] MEDS: PIPERACILL/TAZOBAC IV 3.375 GM in DEXTROSE 5% 100ML IV SCH ×2 (12:17→20:50)
--- NOTE | 2017-04-27 14:32 | Anesthesiology Progress Note ---
Anesthesia Progress Note Date of Service Apr 27, 2017. Progress Notes Pt added on for I&D abdominal wound on 04/28/17. Chart reviewed and pre-op evaluation competed. Pt s/p incisional hernia repair on 04/14/17. No issues with anesthesia. Patient evaluated, discussed anesthetic plan, consent to be obtained on day of surgery.
[2017-04-27 15:09] VITALS: BP 107/73; PULSE 76; TEMP 37.2; O2SAT 92
[2017-04-27] MEDS: ASPIRIN 81 MG CHEW PO SCH (20:54)
[2017-04-27] MEDS: ATORVASTATIN 20 MG TAB PO SCH (20:56)
[2017-04-27] MEDS: CLOPIDOGREL BISULFATE 75 MG TAB PO SCH (20:57)
[2017-04-27] MEDS: PANTOprazole SOD 40 MG TAB PO SCH (20:57)
[2017-04-27] MEDS: FLUOXETINE HCL 20 MG CAP PO SCH (20:58)
[2017-04-27 21:00] VITALS: BP 113/74; PULSE 75
[2017-04-27] MEDS: LISINOPRIL 10 MG TAB PO SCH (21:00)
[2017-04-27] MEDS: METOPROLOL SUCC 25MG EXT REL TAB PO SCH (21:03)
[2017-04-27 23:05] VITALS: BP 111/71; PULSE 76; TEMP 37.5; O2SAT 91
[2017-04-28] VITALS (11 sets, daily range): BP systolic 102–139; BP diastolic 66–84; PULSE 67–89; TEMP 36.4–37.1; O2SAT 91–95
[2017-04-28] MEDS: HYDROmorphone INJ 0.5 MG/0.5 ML SYR IV PRN ×2 (01:18→07:46)
[2017-04-28] MEDS: PIPERACILL/TAZOBAC IV 3.375 GM in DEXTROSE 5% 100ML IV SCH ×3 (04:09→22:07)
[2017-04-28] MEDS: D5W AND 1/2NSS + 20MEQ KCL 1,000 ML IV SCH (04:09)
[2017-04-28] MEDS: OXYCODONE/ACETAMINOPHEN 10/325MG TAB PO PRN ×2 (04:10→14:07)
--- NOTE | 2017-04-28 06:50 | SURGERY PROGRESS NOTE ---
DATE: 04/28/2017 Gem is resting comfortably anticipating surgery today. On examination she has some skin necrosis along the midline incision just at the edge. In the lower aspect almost in the panniculus, she does have more evidence of what it appears to be a hematoma underneath the skin with some skin ischemia. At this point, we will proceed with debridement and evacuation of this area and wait a day or so and apply a wound VAC. The patient is agreeable to that. Discussions regarding wound VAC and fci care were also had with the patient.
[2017-04-28] MEDS: DOCUSATE SODIUM 100 MG CAP PO SCH ×2 (07:46→20:47)
[2017-04-28] MEDS ORDERED: LIDOCAINE HCL 2% 2 ML VIAL (20MG/ML) ONE (10:57)
[2017-04-28] MEDS ORDERED: MIDAZOLAM HCL 1 MG/ML 2ML VIAL ONE (10:57)
[2017-04-28] MEDS ORDERED: FENTANYL CITRATE INJ 50 MCG/1 ML 2 ML VIAL ONE ×2 (10:57→11:39)
[2017-04-28] MEDS ORDERED: PROPOFOL IV EMULSION 10 MG/ML 20 ML VIAL IV ONE ×2 (10:57→11:24)
[2017-04-28] MEDS ORDERED: BUPIVACAINE 0.5 % 5 MG/1 ML MPF 30ML VIAL ONE (10:58)
[2017-04-28] MEDS ORDERED: ONDANSETRON INJ 2 MG/ML 2 ML VIAL ONE (11:17)
[2017-04-28] MEDS ORDERED: DEXAMETHASONE SOD INJ 4 MG/ML VIAL ONE (11:17)
[2017-04-28] MEDS ORDERED: EpHEDrine SULFATE 50MG/5ML SYR ONE (11:30)
[2017-04-28] MEDS ORDERED: HYDROmorphone INJ 0.5 MG/0.5 ML SYR IV PRN (12:00)
--- NOTE | 2017-04-28 12:00 | [facility] Operative Report ---
Operative Report Operative Date Apr 28, 2017. Pre-Operative Diagnosis Abdominal wall abscess Post-Operative Diagnosis necrosisskin and sub cutaneous tissue Procedure(s) Performed Abdominal Wall Debridement skin and sub cut [id number] Surgeon Dr Still Centrifugal Spinner Surgeon(s) David Pro PA-C Estimated Blood Loss 150ML Findings necrosis a skin and sub cutaneous tissue annabelle 20 x 10 cm size Specimens Culture #1 necrotic abdominal wall abscess for gram stain, aerobic and anaerobic sent out at 1130 Culture #2 necrotic abdominal wall abscess for gram stain, aerobic and anaerobic sent out at 1130 a. Abdominal wall abscess (skin and subcutaneous tissue) Description of Procedure OR summary dictated I attest to the content of the Intraoperative Record and any orders documented therein. Any exceptions are noted below.
[2017-04-28] MEDS ORDERED: HYDROmorphone INJ 2 MG/ML SYR/VIAL ONE (12:10)
--- NOTE | 2017-04-28 12:12 | OPERATIVE REPORT ---
DATE OF OPERATION: 04/28/2017 SURGEON: Dc Still MD EDITOR MANAGING NEWSPAPER: David Pro PA-C PREOPERATIVE DIAGNOSIS: Abscess and necrosed abdominal wall. POSTOPERATIVE DIAGNOSIS: Necrosis of the skin and subcutaneous tissue in the abdominal wall finds about 20 cm transversely about 10 cm. PROCEDURE: Wide debridement of abdominal wall skin and subcutaneous tissue. DESCRIPTION OF PROCEDURE: The patient was brought into the operating room theater. The abdomen was prepped with Betadine solution and properly draped. The patient had had a midline incision made from above down to the umbilicus and we repaired a large abdominal wall defect hernia from previous surgery. Again at this point, the patient had necrosis, mostly what appeared to be in a panniculus involving transversely from the inferior aspect of the incision to both flanks with some induration on both areas. The skin necrosis was elliptically incised down to the subcutaneous tissue which was quite edematous and necrotic what appeared to be like venous obstruction as primary etiology. We went down all the way down to the abdominal wall where we were able to find some viable tissue, was subcutaneous tissue being viable. The abdominal wall itself was free of any inflammation. The mesh, we could see in the inferior aspect was intact. We then continued debridement mostly what appeared to be the panniculus all the way to the right side and when we were done, we closed both iliac crests. As we had freed this all up and by the time we were finished, we had about 20 x 10 cm area of resection. Once hemostasis was satisfactory, we then packed the area with a large 6-inch Kerlix moist and held it in place loosely with some nylon sutures. Our intent was that we probably leave this in a day or so and then bring the patient back after this and cleaned it up once more, change the dressing and may be put a VAC system. Estimated blood loss was approximately 150 mL. I attest to the content of the Intraoperative Record and any orders documented therein. Any exception s are noted below.
[2017-04-28] MEDS ORDERED: EpHEDrine SULFATE INJ 50 MG/ML AMP IV PRN (12:15)
[2017-04-28] MEDS ORDERED: ATROPINE SULFATE 0.1 MG/ML 5ML SYR IV PRN (12:15)
[2017-04-28] MEDS ORDERED: NALOXONE HCL 0.4 MG/1 ML VIAL/CARP IV PRN ×2 (12:15→16:15)
[2017-04-28] MEDS ORDERED: LABETALOL HCL IV 5 MG/ML 20ML IV PRN (12:15)
[2017-04-28] MEDS ORDERED: PROMETHAZINE HCL INJ 12.5 MG in SODIUM CHLORIDE 0.9% 50ML 50 ML IV PRN (12:15)
[2017-04-28] MEDS ORDERED: ONDANSETRON INJ 2 MG/ML 2 ML VIAL IV PRN (12:15)
[2017-04-28] MEDS ORDERED: FLUMAZENIL 0.1 MG/1 ML 10 ML VIAL IV PRN (12:15)
[2017-04-28] MEDS: HYDROmorphone INJ 1 MG/ML SYR IV PRN ×4 (12:33→12:48)
--- NOTE | 2017-04-28 12:56 | Anesthesiology Progress Note ---
Anesthesia Post Op Note Date & Time Apr 28, 2017 at 12:55 Vital Signs Pain Intensity: 8 Vital Signs Past 12 Hours Date Time Temp Pulse Resp B/P (MAP) Pulse Ox O2 Delivery O2 Flow Rate FiO2 04/28/17 12:35 78 15 147/80 94 Oxymask 4 04/28/17 12:25 73 16 139/84 95 Oxymask 4 04/28/17 12:15 77 16 135/79 95 Oxymask 10 04/28/17 12:05 71 16 145/79 97 Oxymask 10 04/28/17 11:59 36.8 68 16 145/80 96 Oxymask 10 04/28/17 11:34 Room Air 04/28/17 08:02 37.1 68 20 128/72 (90) 94 Room Air 04/28/17 07:40 Room Air 04/28/17 03:35 37.1 67 16 139/84 (102) 92 Room Air Notes Mental Status: alert / awake / arousable, participated in evaluation Pt Amnestic to Procedure: Yes Nausea / Vomiting: adequately controlled Pain: adequately controlled Airway Patency, RR, SpO2: stable & adequate BP & HR: stable & adequate Hydration State: stable & adequate Anesthetic Complications: no major complications apparent
[2017-04-28] MEDS ORDERED: HYDROmorphone INJ 1 MG/ML SYR IV PRN (13:00)
--- NOTE | 2017-04-28 14:18 | Progress Note ---
Progress Note Date of Service Apr 28, 2017. Progress Note ID Consult Dictated# [id number] A/P: 1. Abd wound -Continue abx, follow cultures
[2017-04-28] MEDS: SODIUM CHLORIDE 0.9% 1000ML 1,000 ML IV SCH (16:15)
--- NOTE | 2017-04-28 16:24 | INFECT. DISEASE CONSULTATION ---
DATE OF CONSULTATION: 04/28/2017 REQUESTING PHYSICIAN: Dr. Vidales. HISTORY OF PRESENT ILLNESS: This is a 56-year-old female who was admitted to the hospital after she had wound dehiscence. She initially underwent surgery on 04/14/2017 for an incisional hernia repair. She did have mesh placement at that time. She did follow up in the office and had her Steri-Strips checked. She did have a significant wound dehiscence measuring 4 cm at the time of hospitalization. She was initially cultured and grew corynebacterium and coagulase negative staph, and no sensitivities were done. She has been on Zosyn and is tolerating this well. In the ER, she was found to have a white blood cell count of 19, this has improved to 12. She has been afebrile since admission to the hospital. She had appearance of necrotic tissue and was taken to the operating room earlier today for incision and debridement. She tolerated this well. She is just returning from the operating room and is groggy on my examination. She does have family present with her and they help provide history. She currently is complaining of abdominal pain. She denies any fevers or chills. She has no nausea, vomiting or diarrhea. Otherwise, her remaining review of systems are unremarkable. Intraoperative cultures were obtained and results of these are pending. She previously was on Keflex prior to hospitalization. PAST MEDICAL HISTORY: Significant for enteritis, hypertension, SMA stenosis. PAST SURGICAL HISTORY: Significant for incisional hernia repair with mesh placement on the . FAMILY HISTORY: Noncontributory. SOCIAL HISTORY: Significant for daily tobacco use. She denies any drug or alcohol use. ALLERGIES: She has no known drug allergies. MEDICATIONS: Include Dilaudid, Romazicon, Zofran, promethazine, labetalol, aspirin, Lipitor, Plavix, Prozac, lisinopril, Toprol-XL, Protonix, Zosyn, Colace, Ativan, Percocet, Ambien. PHYSICAL EXAMINATION: VITAL SIGNS: She is afebrile, pulse 72, respiratory rate 16, blood pressure 114/72, oxygen saturation is 93% on 4 liters nasal cannula. GENERAL: She is awake but groggy. She is appropriate. HEENT: Mucous membranes are dry. Extraocular muscles are intact. HEART: Rate is regular. I did not auscultate a murmur. LUNGS: Clear. ABDOMEN: Not examined secondary to recent surgery and abdominal pain. SKIN: Without rash. There is no edema. LABORATORY STUDIES: CBC yesterday reveals a white blood cell count 12.9, hemoglobin 12.1 and platelets of 564. Chemistry panel on the 6th reveals a sodium of 141, potassium 4.5, chloride 108, bicarbonate 27, BUN 11, creatinine 0.5, glucose 82. LFTs are within normal limits. Previous superficial cultures growing skin maritza. OR cultures are pending. There is no imaging from this admission to review. ASSESSMENT AND PLAN: Abdominal wound dehiscence. She will remain on Zosyn pending the results of her intraoperative cultures, and antibiotics will be adjusted accordingly. We will follow along with you. Thank you for this consultation.
[2017-04-28] MEDS: HYDROmorphone HCL 0.5MG/ML 50 ML CASSETTE IV PRN ×2 (17:28→22:59)
[2017-04-28] MEDS: ASPIRIN 81 MG CHEW PO SCH (20:47)
[2017-04-28] MEDS: ATORVASTATIN 20 MG TAB PO SCH (20:47)
[2017-04-28] MEDS: FLUOXETINE HCL 20 MG CAP PO SCH (20:47)
[2017-04-28] MEDS: METOPROLOL SUCC 25MG EXT REL TAB PO SCH (20:47)
[2017-04-28] MEDS: LISINOPRIL 10 MG TAB PO SCH (20:47)
[2017-04-28] MEDS: CLOPIDOGREL BISULFATE 75 MG TAB PO SCH (20:47)
[2017-04-28] MEDS: PANTOprazole SOD 40 MG TAB PO SCH (20:47)
[2017-04-28] MEDS: LORAZEPAM INJ 1 MG in SYRINGE 0.5 ML IV PRN (21:13)
[2017-04-29] VITALS (9 sets, daily range): BP systolic 96–129; BP diastolic 58–78; PULSE 67–96; TEMP 36.8–37.8; O2SAT 95–97
[2017-04-29] MEDS: D5W AND 1/2NSS + 20MEQ KCL 1,000 ML IV SCH ×2 (01:06→22:02)
[2017-04-29] MEDS: PIPERACILL/TAZOBAC IV 3.375 GM in DEXTROSE 5% 100ML IV SCH ×3 (05:42→22:02)
[2017-04-29] MEDS: LORAZEPAM INJ 1 MG in SYRINGE 0.5 ML IV PRN ×3 (05:42→22:04)
[2017-04-29] MEDS: HYDROmorphone HCL 0.5MG/ML 50 ML CASSETTE IV PRN ×3 (07:07→23:07)
--- NOTE | 2017-04-29 07:12 | Surgery Progress Note ---
Surgery Progress Note Date of Service Apr 29, 2017. Subjective Post OP Day: 1 pain control better with REGISTERED MAIL CLERK, Ativan also added, no nausea Objective Vital Signs: Date Time Temp Pulse Resp B/P (MAP) Pulse Ox O2 Delivery O2 Flow Rate FiO2 04/29/17 03:40 36.8 67 16 129/78 (95) 95 Nasal Cannula 4.0 04/29/17 00:43 37.6 04/28/17 23:30 36.6 69 16 112/76 (88) 95 Nasal Cannula 4.0 04/28/17 23:25 Nasal Cannula 4.0 04/28/17 20:30 37.0 80 20 106/71 (83) 92 Nasal Cannula 4.0 04/28/17 19:51 36.7 77 18 102/66 (78) 91 Nasal Cannula 2.0 04/28/17 18:30 36.7 89 18 118/80 (93) 94 Nasal Cannula 4.0 04/28/17 17:29 37.1 74 16 102/71 (81) 93 Nasal Cannula 4.0 04/28/17 15:30 36.4 68 18 112/70 (84) 92 Nasal Cannula 4.0 04/28/17 15:30 Nasal Cannula 4.0 04/28/17 14:30 36.5 68 17 112/71 (85) 91 Nasal Cannula 4.0 04/28/17 13:59 36.6 72 16 114/72 (86) 93 Nasal Cannula 4.0 04/28/17 13:30 36.7 70 14 123/80 (94) 94 Nasal Cannula 4.0 04/28/17 13:30 Nasal Cannula 4.0 04/28/17 13:05 70 14 129/74 95 Oxymask 4 04/28/17 12:55 36.4 67 14 132/81 95 Oxymask 4 04/28/17 12:45 77 14 141/85 95 Oxymask 4 04/28/17 12:35 78 15 147/80 94 Oxymask 4 04/28/17 12:25 73 16 139/84 95 Oxymask 4 04/28/17 12:15 77 16 135/79 95 Oxymask 10 04/28/17 12:05 71 16 145/79 97 Oxymask 10 04/28/17 11:59 36.8 68 16 145/80 96 Oxymask 10 04/28/17 11:34 Room Air 04/28/17 08:02 37.1 68 20 128/72 (90) 94 Room Air 04/28/17 07:40 Room Air Abdomen: non distended Incision(s): dry (dressing) Laboratory Results: Microbiology Results 04/28/17 Gram Stain, Received Pending 04/28/17 Bacterial Culture, Received Pending 04/28/17 Gram Stain, Received Pending 04/28/17 Bacterial Culture, Received Pending Assessment & Plan s/p debridement of abdominal wall/skin necrosis continue IV abx will take back to OR tomorrow for second look seen with Dr. Still
[2017-04-29 08:41] LABS: BASO % 0.2 %; BASO ABS # 0.03 K/uL (0-0.2); COMPLETE YES; EOS % 0.3 %; IG% 0.4 %; LYMPH % 16.6 %; LYMPH ABS # 2.76 K/uL (1.2-3.4); MEAN CELL VOLUME 92.9 fL (80-100); MEAN CORPUSCULAR HEMOGLOBIN 30.3 pg (25-34); MEAN CORPUSCULAR HGB CONC 32.6 g/dl (32-36); MEAN PLATELET VOLUME 8.9 fL (7.4-10.4); MONO % 4.9 %; NEUT % 77.6 %; PLATELET COUNT 677 K/uL (130-400); RED BLOOD COUNT 4.09 M/uL (4.2-5.4); WHITE BLOOD COUNT 16.65 K/uL (4.8-10.8)
[2017-04-29] MEDS: DOCUSATE SODIUM 100 MG CAP PO SCH ×2 (09:08→22:03)
--- NOTE | 2017-04-29 09:58 | Progress Note ---
Subjective Date of Service: Apr 29, 2017. Subjective Pt evaluation today including: conversation w/ patient, physical exam, chart review, lab review pt seen in followup, improved today. pain controlled, denies f/c. tolerating zosyn. for OR in am. hungry. no n/v/d. OR culture with rare gpc on gram stain. All remaining ros reviewed and are negative. Problem List Medical Problems: (1) Central abdominal pain Status: Acute (2) Central abdominal pain Status: Acute (3) Diarrhea Status: Acute (4) Elevated white blood cell count Status: Acute (5) Enteritis Status: Acute (6) Hypertension Status: Acute (7) Left arm pain Status: Acute (8) Left sided chest pain Status: Acute (9) SMA stenosis Status: Acute (10) Wound dehiscence, surgical Status: Acute Objective Vital Signs Date Time Temp Pulse Resp B/P (MAP) Pulse Ox O2 Delivery O2 Flow Rate FiO2 04/29/17 08:02 96 Nasal Cannula 4.0 04/29/17 07:50 37.2 74 18 100/68 (79) 96 Nasal Cannula 04/29/17 03:40 36.8 67 16 129/78 (95) 95 Nasal Cannula 4.0 04/29/17 00:43 37.6 04/28/17 23:30 36.6 69 16 112/76 (88) 95 Nasal Cannula 4.0 04/28/17 23:25 Nasal Cannula 4.0 04/28/17 20:30 37.0 80 20 106/71 (83) 92 Nasal Cannula 4.0 04/28/17 19:51 36.7 77 18 102/66 (78) 91 Nasal Cannula 2.0 04/28/17 18:30 36.7 89 18 118/80 (93) 94 Nasal Cannula 4.0 04/28/17 17:29 37.1 74 16 102/71 (81) 93 Nasal Cannula 4.0 04/28/17 15:30 36.4 68 18 112/70 (84) 92 Nasal Cannula 4.0 04/28/17 15:30 Nasal Cannula 4.0 04/28/17 14:30 36.5 68 17 112/71 (85) 91 Nasal Cannula 4.0 04/28/17 13:59 36.6 72 16 114/72 (86) 93 Nasal Cannula 4.0 04/28/17 13:30 36.7 70 14 123/80 (94) 94 Nasal Cannula 4.0 04/28/17 13:30 Nasal Cannula 4.0 04/28/17 13:05 70 14 129/74 95 Oxymask 4 04/28/17 12:55 36.4 67 14 132/81 95 Oxymask 4 04/28/17 12:45 77 14 141/85 95 Oxymask 4 04/28/17 12:35 78 15 147/80 94 Oxymask 4 04/28/17 12:25 73 16 139/84 95 Oxymask 4 04/28/17 12:15 77 16 135/79 95 Oxymask 10 04/28/17 12:05 71 16 145/79 97 Oxymask 10 04/28/17 11:59 36.8 68 16 145/80 96 Oxymask 10 04/28/17 11:34 Room Air Physical Exam General Appearance: WD/WN, no apparent distress Eyes: normal inspection, EOMI Neck: supple Respiratory/Chest: lungs clear, normal breath sounds, no respiratory distress Cardiovascular: regular rate, rhythm, no edema Abdomen: soft, + pertinent finding (abd binder in place, c/d/i) Extremities: non-tender, no pedal edema Neurologic/Psychiatric: alert, oriented x 3 Skin: normal color, no rash Laboratory Results Item Value Date Time Gram Stain - Final Resulted 04/28/17 1125 Tissue Abdomen Gram Stain - Final Resulted 04/28/17 1125 Abscess Abdomen Last 24 Hours Test 04/29/17 08:23 White Blood Count 16.65 K/uL Red Blood Count 4.09 M/uL Hemoglobin 12.4 g/dL Hematocrit 38.0 % Mean Corpuscular Volume 92.9 fL Mean Corpuscular Hemoglobin 30.3 pg Mean Corpuscular Hemoglobin Concent 32.6 g/dl Platelet Count 677 K/uL Mean Platelet Volume 8.9 fL Neutrophils (%) (Auto) 77.6 % Lymphocytes (%) (Auto) 16.6 % Monocytes (%) (Auto) 4.9 % Eosinophils (%) (Auto) 0.3 % Basophils (%) (Auto) 0.2 % Neutrophils # (Auto) 12.92 K/uL Lymphocytes # (Auto) 2.76 K/uL Monocytes # (Auto) 0.82 K/uL Eosinophils # (Auto) 0.05 K/uL Basophils # (Auto) 0.03 K/uL RDW Standard Deviation 54.1 fL RDW Coefficient of Variation 15.9 % Immature Granulocyte % (Auto) 0.4 % Immature Granulocyte # (Auto) 0.07 K/uL Assessment and Plan (1) Wound dehiscence, surgical Assessment & Plan: continue zosyn, add vanco for rare gpc noted on OR culture and follow cultures, OR findings in am. Problem Qualifiers (1) Wound dehiscence, surgical: Encounter type: initial encounter Qualified Codes: T81.31XA - Disruption of external operation (surgical) wound, not elsewhere classified, initial encounter
[2017-04-29] MEDS ORDERED: VANCOMYCIN CONSULT ACTIVE PRN (12:45)
[2017-04-29] MEDS ORDERED: VANCOMYCIN INJ 1,750 MG in SODIUM CHLORIDE 0.9% 500ML 500 ML IV ONE (12:45)
[2017-04-29 13:35] LABS: CREATININE 0.8 mg/dl (0.60-1.20)
--- NOTE | 2017-04-29 13:59 | Pharmacy Progress Note ---
Pharmacy Antibiotic Consult Date of Service: Apr 29, 2017. Pharmacy Dosing Scope Pharmacy is consulted to initiate vancomycin IV dosing therapy, order appropriate labs and adjust drug dose/frequency. Subjective The patient is a 56 year old female admitted on Apr 25, 2017 at 14:47. Objective Height (Feet): 5 Height (Inches): 2.00 Weight (Kilograms): 68.500 Lab Results (24hrs): Test 04/29/17 08:23 04/29/17 12:39 White Blood Count 16.65 K/uL (4.8-10.8) Red Blood Count 4.09 M/uL (4.2-5.4) Hemoglobin 12.4 g/dL (12.0-16.0) Hematocrit 38.0 % (37-47) Mean Corpuscular Volume 92.9 fL (80-100) Mean Corpuscular Hemoglobin 30.3 pg (25-34) Mean Corpuscular Hemoglobin Concent 32.6 g/dl (32-36) Platelet Count 677 K/uL (130-400) Mean Platelet Volume 8.9 fL (7.4-10.4) Neutrophils (%) (Auto) 77.6 % Lymphocytes (%) (Auto) 16.6 % Monocytes (%) (Auto) 4.9 % Eosinophils (%) (Auto) 0.3 % Basophils (%) (Auto) 0.2 % Neutrophils # (Auto) 12.92 K/uL (1.4-6.5) Lymphocytes # (Auto) 2.76 K/uL (1.2-3.4) Monocytes # (Auto) 0.82 K/uL (0.11-0.59) Eosinophils # (Auto) 0.05 K/uL (0-0.5) Basophils # (Auto) 0.03 K/uL (0-0.2) RDW Standard Deviation 54.1 fL (36.4-46.3) RDW Coefficient of Variation 15.9 % (11.5-14.5) Immature Granulocyte % (Auto) 0.4 % Immature Granulocyte # (Auto) 0.07 K/uL (0.00-0.02) Creatinine 0.80 mg/dl (0.60-1.20) Est Creatinine Clear Calc Drug Dose 72.1 ml/min Estimated GFR () 96.2 Estimated GFR (Non- 83.0 Assessment & Plan Patient started on zosyn 04/27 for wound infection, now vancomycin add for Gm+ coverage per ID. Patient is s/p debridement of abdominal wall/skin necrosis. Vancomycin: * LD of vancomycin 1750 mg (~25 mg/kg) x 1 given * Will start MD of vancomycin 1000 mg (~15 mg/kg) iv q 12 hrs to achieve an estimated trough ~15-20 mcg/ml * Repeat cx of abdomen are still pending at this time * Estimated kinetics: t1/2~10 hrs, ke~.06 hr-1, CrCl ~72 ml/min * Will await further sensitivities before ordering vancomycin trough Pharmacy will continue to follow and will adjust dose/frequency as necessary. Thank you
[2017-04-29] MEDS: SODIUM CHLORIDE 0.9% 1000ML 1,000 ML IV SCH (16:15)
[2017-04-29] MEDS: LISINOPRIL 10 MG TAB PO SCH (21:00)
[2017-04-29] MEDS: METOPROLOL SUCC 25MG EXT REL TAB PO SCH (21:00)
[2017-04-29] MEDS: PANTOprazole SOD 40 MG TAB PO SCH (22:03)
[2017-04-29] MEDS: CLOPIDOGREL BISULFATE 75 MG TAB PO SCH (22:03)
[2017-04-29] MEDS: FLUOXETINE HCL 20 MG CAP PO SCH (22:04)
[2017-04-29] MEDS: ATORVASTATIN 20 MG TAB PO SCH (22:04)
[2017-04-29] MEDS: ASPIRIN 81 MG CHEW PO SCH (22:04)
[2017-04-30] VITALS (10 sets, daily range): BP systolic 92–109; BP diastolic 60–73; PULSE 72–99; TEMP 36.5–38.8; O2SAT 92–97
[2017-04-30] MEDS: VANCOMYCIN INJ 1,000 MG in SODIUM CHLORIDE 0.9% 250ML 250 ML IV SCH ×2 (01:48→13:43)
[2017-04-30] MEDS: LORAZEPAM INJ 1 MG in SYRINGE 0.5 ML IV PRN ×2 (05:55→21:38)
[2017-04-30] MEDS: PIPERACILL/TAZOBAC IV 3.375 GM in DEXTROSE 5% 100ML IV SCH ×3 (05:55→21:39)
--- NOTE | 2017-04-30 06:31 | SURGERY PROGRESS NOTE ---
DATE: 04/30/2017 Gem is resting comfortably. She has spiked a temperature last evening until this morning where it is 38.8, pulse is 99. The abdomen is completely benign. The packing is intact. There is no evidence of any further ischemia of the abdominal wall. At this point, we will proceed with changing of the packing and possibly either leaving it open or applying a VAC system. We will obtain blood cultures at this time and also get a chest x-ray.
[2017-04-30] MEDS: HYDROmorphone HCL 0.5MG/ML 50 ML CASSETTE IV PRN ×6 (07:06→23:07)
[2017-04-30 07:16] LABS: BASO % 0.3 %; BASO ABS # 0.06 K/uL (0-0.2); COMPLETE YES; EOS % 0.8 %; HEMATOCRIT 33.5 % (37-47); IG% 0.3 %; LYMPH % 16.7 %; LYMPH ABS # 2.88 K/uL (1.2-3.4); MEAN CELL VOLUME 92.5 fL (80-100); MEAN CORPUSCULAR HEMOGLOBIN 29.6 pg (25-34); MEAN CORPUSCULAR HGB CONC 31.9 g/dl (32-36); MEAN PLATELET VOLUME 8.8 fL (7.4-10.4); MONO % 6.7 %; NEUT % 75.2 %; PLATELET COUNT 559 K/uL (130-400); RED BLOOD COUNT 3.62 M/uL (4.2-5.4)
--- NOTE | 2017-04-30 07:20 | DIAGNOSTIC IMAGING REPORT ---
CHEST ONE VIEW PORTABLE HISTORY: 56 years-old Female preop preoperative exam without acute chest complaints COMPARISON: Acute abdominal series radiographs 11/22/2016 TECHNIQUE: Portable upright AP view of the chest FINDINGS: Cardiac silhouette is mildly enlarged, unchanged. There is no pneumothorax or pleural effusion. Linear subsegmental bibasilar opacities suggest atelectasis. No overt pulmonary edema. Surgical clips of the right upper abdomen suggest prior cholecystectomy. IMPRESSION: Linear subsegmental opacities suggest atelectasis. No acute cardiopulmonary process. The above report was generated using voice recognition software. It may contain grammatical, syntax or spelling errors. Electronically signed by: Huy Hi M.D. 04/30/2017 7:18 AM Dictated Date/Time: 04/30/2017 7:17 AM
[2017-04-30 07:52] LABS: CREATININE 0.78 mg/dl (0.60-1.20)
[2017-04-30] MEDS ORDERED: ONDANSETRON INJ 2 MG/ML 2 ML VIAL IV PRN ×2 (08:00→11:45)
[2017-04-30] MEDS ORDERED: ATROPINE SULFATE 0.1 MG/ML 5ML SYR IV PRN (08:00)
[2017-04-30] MEDS ORDERED: EpHEDrine SULFATE INJ 50 MG/ML AMP IV PRN (08:00)
[2017-04-30] MEDS: DOCUSATE SODIUM 100 MG CAP PO SCH ×2 (08:48→20:43)
[2017-04-30] MEDS ORDERED: MIDAZOLAM HCL 1 MG/ML 2ML VIAL ONE (10:22)
[2017-04-30] MEDS ORDERED: FENTANYL CITRATE INJ 50 MCG/1 ML 2 ML VIAL ONE ×4 (10:22→11:29)
[2017-04-30] MEDS ORDERED: CEFOXITIN SOD 1 GM VIAL ONE (10:26)
[2017-04-30] MEDS ORDERED: ONDANSETRON INJ 2 MG/ML 2 ML VIAL ONE (11:04)
[2017-04-30] MEDS ORDERED: PROPOFOL IV EMULSION 10 MG/ML 20 ML VIAL IV ONE (11:04)
[2017-04-30] MEDS ORDERED: DEXAMETHASONE SOD INJ 4 MG/ML VIAL ONE (11:04)
[2017-04-30] MEDS ORDERED: HYDROmorphone INJ 2 MG/ML SYR/VIAL ONE (11:32)
[2017-04-30] MEDS ORDERED: PHENYLEPHRINE 100MCG/ML 5ML SYR ONE (11:34)
[2017-04-30] MEDS ORDERED: EpHEDrine SULFATE 50MG/5ML SYR ONE (11:34)
--- NOTE | 2017-04-30 11:48 | [facility] Operative Report ---
Operative Report Operative Date Apr 30, 2017. Pre-Operative Diagnosis Ischemic Abdominal Wall Skin and Subcutaneous Tissue Post-Operative Diagnosis Same as preoperative Procedure(s) Performed Wide Debridement of Abdominal Wall Skin and Subcutaneous Tissue(3cm width and 20cm [facility] Surgeon Dr. Dc Still [facility] Manager Surgeon(s) Dvaid Pro PA-C Estimated Blood Loss 150 cc Findings ongoing ischemia of lower abdominal skin and sub cut tissue Specimens None per surgeon Drains 2 19 ivy and 0ne 5/8 inch brian I attest to the content of the Intraoperative Record and any orders documented therein. Any exceptions are noted below.
[2017-04-30] MEDS: FENTANYL CITRATE INJ 50 MCG/1 ML 2 ML VIAL IV PRN ×4 (12:17→12:32)
--- NOTE | 2017-04-30 12:30 | Anesthesiology Progress Note ---
Anesthesia Post Op Note Date & Time Apr 30, 2017 at 12:30 Vital Signs Pain Intensity: 5 Vital Signs Past 12 Hours Date Time Temp Pulse Resp B/P (MAP) Pulse Ox O2 Delivery O2 Flow Rate FiO2 04/30/17 12:20 88 14 112/71 95 Nasal Cannula 4 04/30/17 12:10 95 14 102/76 98 Nasal Cannula 4 04/30/17 12:00 90 14 115/71 98 Oxymask 10 04/30/17 11:50 92 16 106/75 98 Oxymask 10 04/30/17 11:42 37.7 95 14 109/68 98 Oxymask 10 04/30/17 07:43 36.7 82 16 94/62 (73) 94 2.0 04/30/17 07:10 Nasal Cannula 4.0 04/30/17 06:22 37.4 04/30/17 03:09 38.8 99 16 106/73 (84) 97 Nasal Cannula 4.0 Notes Mental Status: alert / awake / arousable, participated in evaluation Pt Amnestic to Procedure: Yes Nausea / Vomiting: adequately controlled Pain: adequately controlled Airway Patency, RR, SpO2: stable & adequate BP & HR: stable & adequate Hydration State: stable & adequate Anesthetic Complications: no major complications apparent
--- NOTE | 2017-04-30 14:56 | Progress Note ---
Subjective Date of Service: Apr 30, 2017. Subjective Pt evaluation today including: conversation w/ patient, physical exam, chart review, lab review pt seen in followup, had surgery today, increased debridement. pt lethargic, c/ o surgical site pain. had fever ovenight, cxr with atelectasis. blood cultures pending. OR culture 04/28 with director of reimbursement 1/2 cultures, spoke with micro will do sensitivities. continues on abx. tolerating well. remaining ros reviewed and are negative. Problem List Medical Problems: (1) Central abdominal pain Status: Acute (2) Central abdominal pain Status: Acute (3) Diarrhea Status: Acute (4) Elevated white blood cell count Status: Acute (5) Enteritis Status: Acute (6) Hypertension Status: Acute (7) Left arm pain Status: Acute (8) Left sided chest pain Status: Acute (9) SMA stenosis Status: Acute (10) Wound dehiscence, surgical Status: Acute Objective Vital Signs Date Time Temp Pulse Resp B/P (MAP) Pulse Ox O2 Delivery O2 Flow Rate FiO2 04/30/17 14:14 36.6 82 16 106/71 (83) 95 Nasal Cannula 4.0 04/30/17 13:45 36.8 84 14 109/73 (85) 94 Nasal Cannula 4.0 04/30/17 13:15 36.9 90 14 104/69 (81) 94 Nasal Cannula 4.0 04/30/17 13:15 Nasal Cannula 4.0 04/30/17 13:15 94 Nasal Cannula 4.0 04/30/17 12:50 92 16 109/73 95 Nasal Cannula 4 04/30/17 12:40 91 13 105/66 95 Nasal Cannula 4 04/30/17 12:30 89 15 103/70 95 Nasal Cannula 4 04/30/17 12:20 88 14 112/71 95 Nasal Cannula 4 04/30/17 12:10 95 14 102/76 98 Nasal Cannula 4 04/30/17 12:00 90 14 115/71 98 Oxymask 10 04/30/17 11:50 92 16 106/75 98 Oxymask 10 04/30/17 11:42 37.7 95 14 109/68 98 Oxymask 10 04/30/17 07:43 36.7 82 16 94/62 (73) 94 2.0 04/30/17 07:10 Nasal Cannula 4.0 04/30/17 06:22 37.4 04/30/17 03:09 38.8 99 16 106/73 (84) 97 Nasal Cannula 4.0 04/29/17 23:45 Nasal Cannula 4.0 04/29/17 22:57 37.5 04/29/17 22:55 37.8 96 16 106/71 (83) 95 Nasal Cannula 4.0 04/29/17 19:15 37.8 94 16 109/72 (84) 95 Nasal Cannula 4.0 04/29/17 16:20 Nasal Cannula 4.0 04/29/17 15:08 37.5 85 17 96/65 (75) 97 Nasal Cannula 4.0 Physical Exam General Appearance: WD/WN, no apparent distress Eyes: normal inspection, EOMI Neck: supple Respiratory/Chest: lungs clear, normal breath sounds, no respiratory distress, + decreased breath sounds Cardiovascular: regular rate, rhythm, no edema Abdomen: soft, + pertinent finding (maddie drain with serosang drainage, abd binder in place) Extremities: non-tender, no pedal edema Neurologic/Psychiatric: alert, oriented x 3 Skin: normal color, no rash Laboratory Results Item Value Date Time Gram Stain - Final Resulted 04/28/17 1125 Tissue Abdomen Gram Stain - Final Resulted 04/28/17 1125 Abscess Abdomen Gram Stain - Final Resulted 04/28/17 1125 Tissue Abdomen Last 24 Hours Test 04/30/17 06:40 04/30/17 12:52 White Blood Count 17.20 K/uL Red Blood Count 3.62 M/uL Hemoglobin 10.7 g/dL Hematocrit 33.5 % Mean Corpuscular Volume 92.5 fL Mean Corpuscular Hemoglobin 29.6 pg Mean Corpuscular Hemoglobin Concent 31.9 g/dl Platelet Count 559 K/uL Mean Platelet Volume 8.8 fL Neutrophils (%) (Auto) 75.2 % Lymphocytes (%) (Auto) 16.7 % Monocytes (%) (Auto) 6.7 % Eosinophils (%) (Auto) 0.8 % Basophils (%) (Auto) 0.3 % Neutrophils # (Auto) 12.93 K/uL Lymphocytes # (Auto) 2.88 K/uL Monocytes # (Auto) 1.15 K/uL Eosinophils # (Auto) 0.13 K/uL Basophils # (Auto) 0.06 K/uL RDW Standard Deviation 55.5 fL RDW Coefficient of Variation 16.1 % Immature Granulocyte % (Auto) 0.3 % Immature Granulocyte # (Auto) 0.05 K/uL Creatinine 0.78 mg/dl Est Creatinine Clear Calc Drug Dose 73.9 ml/min Estimated GFR () 99.2 Estimated GFR (Non- 85.6 Bedside Glucose 115 mg/dl Assessment and Plan (1) Wound dehiscence, surgical Assessment & Plan: continue abx, follow final culture Problem Qualifiers (1) Wound dehiscence, surgical: Encounter type: initial encounter Qualified Codes: T81.31XA - Disruption of external operation (surgical) wound, not elsewhere classified, initial encounter
--- NOTE | 2017-04-30 15:00 | OPERATIVE REPORT ---
DATE OF OPERATION: 04/30/2017 SURGEON: Dc Still MD NURSING HOME ASSISTANT ADMINISTRATOR: David Pro PA-C PREOPERATIVE DIAGNOSIS: Status post wide excision and debridement of subcutaneous tissue and abdominal wall. POSTOPERATIVE DIAGNOSIS: Further necrosis of the abdominal wall skin and subcutaneous tissue. PROCEDURE: Excision of necrotic tissue approximately 3 cm in diameter and 20 cm in length of the abdominal wall and removal of previous packing. SUMMARY: The patient was brought into the operating room theater. The abdominal binder was taken off as was the dressing, what we could see was some further ischemia of the inferior aspect of the transverse line of resection from before in the incision. We at this point had some redundant almost panniculus in the area and we decided to resect this to the point that it was more of appeared to be viable. Therefore, we took a piece of skin, probably about 3 cm diameter and 20 cm in length from one the iliac crest to the other. This bled very well. Throughout the procedure, we had removed the previous packing, which showed a general amount of oozing in the abdominal wall, but there was no evidence of any purulence. The Marlex mesh that was previously seen in the midline was pretty much appeared to be incorporating. There was no evidence of any gross infection in the area. We tried to control most of the oozing. The patient had been on Plavix and heparin. At this point, once we had the area fairly secured as far as hemostasis, I elected then to close this over 2 Vikram drains that were brought out on either side of the incision and placed in the abdominal wall and underneath the panniculus that we had resected. We also placed a transverse Madison drain 5/8 in an inch just underneath the skin incision. The idea was that this patient may not drain well with just leaving the Vikram drains, that may not be sufficient to evacuate the area, especially if they clotted off. Once we had completed this, we then closed the subcutaneous tissue with a few interrupted Prolene suture and the skin edge to take the tension off the skin edge. We then sealed the whole incision with a Vaseline gauze transversely from one iliac crest to the other and applied a 4 x 4's dressing along with an Elastoplast. At the end of the procedure, the patient retained suction with Vikram drainage. My intent is for the patient that maybe tomorrow remove the Madison drain and leave the Vikram drain intact and depending how she does clinically, I will see if it opens up more, then may need to place a VAC system. I attest to the content of the Intraoperative Record and any orders documented therein. Any exceptions are noted below. SUSAN
[2017-04-30] MEDS: SODIUM CHLORIDE 0.9% 1000ML 1,000 ML IV SCH (16:15)
[2017-04-30 17:00] LABS: HEMATOCRIT 31.5 % (37-47)
[2017-04-30] MEDS: D5W AND 1/2NSS + 20MEQ KCL 1,000 ML IV SCH (20:42)
[2017-04-30] MEDS: ATORVASTATIN 20 MG TAB PO SCH (20:43)
[2017-04-30] MEDS: ASPIRIN 81 MG CHEW PO SCH (20:43)
[2017-04-30] MEDS: FLUOXETINE HCL 20 MG CAP PO SCH (20:44)
[2017-04-30] MEDS: PANTOprazole SOD 40 MG TAB PO SCH (20:44)
[2017-04-30] MEDS: METOPROLOL SUCC 25MG EXT REL TAB PO SCH (20:46)
[2017-04-30] MEDS: LISINOPRIL 10 MG TAB PO SCH (20:47)
[2017-05-01] VITALS (9 sets, daily range): BP systolic 91–118; BP diastolic 57–71; PULSE 70–91; TEMP 36.5–37.2; O2SAT 91–99
[2017-05-01] MEDS ORDERED: VANCOMYCIN TROUGH ONE (01:30)
[2017-05-01] MEDS: VANCOMYCIN INJ 1,000 MG in SODIUM CHLORIDE 0.9% 250ML 250 ML IV SCH (01:52)
[2017-05-01] MEDS: LORAZEPAM INJ 1 MG in SYRINGE 0.5 ML IV PRN ×4 (04:01→23:37)
[2017-05-01] MEDS: PIPERACILL/TAZOBAC IV 3.375 GM in DEXTROSE 5% 100ML IV SCH ×3 (05:41→22:38)
[2017-05-01] MEDS: HYDROmorphone HCL 0.5MG/ML 50 ML CASSETTE IV PRN ×3 (07:00→23:12)
[2017-05-01 07:11] LABS: BASO % 0.2 %; BASO ABS # 0.03 K/uL (0-0.2); EOS % 0.7 %; HEMATOCRIT 27.8 % (37-47); IG% 0.2 %; LYMPH % 15.7 %; MEAN CELL VOLUME 93.6 fL (80-100); MEAN CORPUSCULAR HEMOGLOBIN 29.6 pg (25-34); MEAN CORPUSCULAR HGB CONC 31.7 g/dl (32-36); MEAN PLATELET VOLUME 8.6 fL (7.4-10.4); MONO % 6.6 %; NEUT % 76.6 %; PLATELET COUNT 585 K/uL (130-400); RED BLOOD COUNT 2.97 M/uL (4.2-5.4); WHITE BLOOD COUNT 14.04 K/uL (4.8-10.8)
[2017-05-01 07:36] LABS: ANISOCYTOSIS PRESENT; COMPLETE YES; HYPOCHROMIA PRESENT
[2017-05-01 07:41] LABS: BUN/CREATININE RATIO 21.7 (10-20); CALCIUM 8.6 mg/dl (8.5-10.1); CREATININE 0.68 mg/dl (0.60-1.20); POTASSIUM 4.8 mmol/L (3.5-5.1)
--- NOTE | 2017-05-01 07:53 | Surgery Progress Note ---
Surgery Progress Note Date of Service May 01, 2017. Subjective Post OP Day: 06/24 + pain controlled, + using GUT DROPPER, No nausea dressing changed several times overnight Objective Vital Signs: Date Time Temp Pulse Resp B/P (MAP) Pulse Ox O2 Delivery O2 Flow Rate FiO2 05/01/17 03:05 36.5 73 14 106/71 (83) 96 Nasal Cannula 4.0 04/30/17 23:50 Nasal Cannula 4.0 04/30/17 22:57 36.7 72 14 96/65 (75) 96 Nasal Cannula 4.0 04/30/17 19:02 36.8 87 18 97/64 (75) 92 Nasal Cannula 4.0 04/30/17 16:12 36.5 80 18 92/60 (71) 94 Nasal Cannula 4.0 04/30/17 15:35 Nasal Cannula 4.0 04/30/17 15:13 36.8 81 18 105/70 (82) 95 Nasal Cannula 4.0 04/30/17 14:14 36.6 82 16 106/71 (83) 95 Nasal Cannula 4.0 04/30/17 13:45 36.8 84 14 109/73 (85) 94 Nasal Cannula 4.0 04/30/17 13:15 36.9 90 14 104/69 (81) 94 Nasal Cannula 4.0 04/30/17 13:15 Nasal Cannula 4.0 04/30/17 13:15 94 Nasal Cannula 4.0 04/30/17 12:50 92 16 109/73 95 Nasal Cannula 4 04/30/17 12:40 91 13 105/66 95 Nasal Cannula 4 04/30/17 12:30 89 15 103/70 95 Nasal Cannula 4 04/30/17 12:20 88 14 112/71 95 Nasal Cannula 4 04/30/17 12:10 95 14 102/76 98 Nasal Cannula 4 04/30/17 12:00 90 14 115/71 98 Oxymask 10 04/30/17 11:50 92 16 106/75 98 Oxymask 10 04/30/17 11:42 37.7 95 14 109/68 98 Oxymask 10 Physical Exam: Ivy drainage (minimal ivy, mostly brian drainage) Abdomen: soft Incision(s): clean, ecchymosis (RLQ from previous heparin injections) Laboratory Results: Results Past 24 Hours Test 04/30/17 12:52 04/30/17 16:48 05/01/17 01:27 05/01/17 06:55 Range/Units Bedside Glucose 115 70-90 mg/dl Hemoglobin 10.1 8.8 12.0-16.0 g/dL Hematocrit 31.5 27.8 37-47 % Vancomycin Level Trough 12.0 SEE COMMENT mcg/ml White Blood Count 14.04 4.8-10.8 K/uL Red Blood Count 2.97 4.2-5.4 M/uL Mean Corpuscular Volume 93.6 80-100 fL Mean Corpuscular Hemoglobin 29.6 25-34 pg Mean Corpuscular Hemoglobin Concent 31.7 32-36 g/dl Platelet Count 585 130-400 K/uL Mean Platelet Volume 8.6 7.4-10.4 fL Neutrophils (%) (Auto) 76.6 % Lymphocytes (%) (Auto) 15.7 % Monocytes (%) (Auto) 6.6 % Eosinophils (%) (Auto) 0.7 % Basophils (%) (Auto) 0.2 % Neutrophils # (Auto) 10.76 1.4-6.5 K/uL Lymphocytes # (Auto) 2.20 1.2-3.4 K/uL Monocytes # (Auto) 0.92 0.11-0.59 K/uL Eosinophils # (Auto) 0.10 0-0.5 K/uL Basophils # (Auto) 0.03 0-0.2 K/uL RDW Standard Deviation 54.0 36.4-46.3 fL RDW Coefficient of Variation 15.9 11.5-14.5 % Immature Granulocyte % (Auto) 0.2 % Immature Granulocyte # (Auto) 0.03 0.00-0.02 K/uL Hypochromasia PRESENT Anisocytosis PRESENT Sodium Level 137 136-145 mmol/L Potassium Level 4.8 3.5-5.1 mmol/L Chloride Level 105 98-107 mmol/L Carbon Dioxide Level 29 21-32 mmol/L Anion Gap 3.0 3-11 mmol/L Blood Urea Nitrogen 15 7-18 mg/dl Creatinine 0.68 0.60-1.20 mg/dl Est Creatinine Clear Calc Drug Dose 84.8 ml/min Estimated GFR () 114.1 Estimated GFR (Non- 98.5 BUN/Creatinine Ratio 21.7 10-20 Random Glucose 125 70-99 mg/dl Calcium Level 8.6 8.5-10.1 mg/dl Assessment & Plan s/p debridement of abdominal wall, second look with closure moderate post op (blood loss) anemia, continue to monitor continue IV abx brian drain removed cont abdominal binder when OOB Plavix stopped, cont SCDs seen with Dr. Still
[2017-05-01] MEDS: DOCUSATE SODIUM 100 MG CAP PO SCH ×2 (08:41→22:28)
--- NOTE | 2017-05-01 09:11 | Pharmacy Progress Note ---
Pharmacy Abx Dose Short Note Date of Service May 01, 2017. Assessment & Plan Pt on Vanco/Zosyn for abdominal infxn. Cx's growing CoNS and Corynebacterium. Per surgical note there was further necrosis of the abdominal wall. Trough came back slightly subtherapeutic at 12.0mcg/mL. Given the amount of ischemic tissue I have increased the dose to Vanco 1250mg (~18mg/kg) q12. Trough ordered for @ 0130 this will be Css. Goal trough: 15-20mcg/mL Pharmacy will continue to follow and will adjust dose/frequency as necessary. Thank you.
--- NOTE | 2017-05-01 10:51 | Progress Note ---
Subjective Date of Service: May 01, 2017. Subjective Pt evaluation today including: conversation w/ patient, physical exam, chart review, lab review pt seen in followup, less pain today but still with discomfort. no f/c. tolerating abx. 04/28 culture with MEDICAL IMAGING SPECIALIST, sensitivity pending. blood culture negative. overall feeling better. All remaining ros reviewed and are negative. Problem List Medical Problems: (1) Central abdominal pain Status: Acute (2) Central abdominal pain Status: Acute (3) Diarrhea Status: Acute (4) Elevated white blood cell count Status: Acute (5) Enteritis Status: Acute (6) Hypertension Status: Acute (7) Left arm pain Status: Acute (8) Left sided chest pain Status: Acute (9) SMA stenosis Status: Acute (10) Wound dehiscence, surgical Status: Acute Objective Vital Signs Date Time Temp Pulse Resp B/P (MAP) Pulse Ox O2 Delivery O2 Flow Rate FiO2 05/01/17 09:08 91 Nasal Cannula 4.0 05/01/17 08:09 36.5 72 15 118/70 (86) 91 Nasal Cannula 4.0 05/01/17 07:20 Nasal Cannula 4.0 05/01/17 03:05 36.5 73 14 106/71 (83) 96 Nasal Cannula 4.0 04/30/17 23:50 Nasal Cannula 4.0 04/30/17 22:57 36.7 72 14 96/65 (75) 96 Nasal Cannula 4.0 04/30/17 19:02 36.8 87 18 97/64 (75) 92 Nasal Cannula 4.0 04/30/17 16:12 36.5 80 18 92/60 (71) 94 Nasal Cannula 4.0 04/30/17 15:35 Nasal Cannula 4.0 04/30/17 15:13 36.8 81 18 105/70 (82) 95 Nasal Cannula 4.0 04/30/17 14:14 36.6 82 16 106/71 (83) 95 Nasal Cannula 4.0 04/30/17 13:45 36.8 84 14 109/73 (85) 94 Nasal Cannula 4.0 04/30/17 13:15 36.9 90 14 104/69 (81) 94 Nasal Cannula 4.0 04/30/17 13:15 Nasal Cannula 4.0 04/30/17 13:15 94 Nasal Cannula 4.0 04/30/17 12:50 92 16 109/73 95 Nasal Cannula 4 04/30/17 12:40 91 13 105/66 95 Nasal Cannula 4 04/30/17 12:30 89 15 103/70 95 Nasal Cannula 4 04/30/17 12:20 88 14 112/71 95 Nasal Cannula 4 04/30/17 12:10 95 14 102/76 98 Nasal Cannula 4 04/30/17 12:00 90 14 115/71 98 Oxymask 10 04/30/17 11:50 92 16 106/75 98 Oxymask 10 04/30/17 11:42 37.7 95 14 109/68 98 Oxymask 10 Physical Exam General Appearance: WD/WN, no apparent distress Eyes: normal inspection, EOMI Neck: supple Respiratory/Chest: lungs clear, normal breath sounds, no respiratory distress Cardiovascular: regular rate, rhythm, no edema Abdomen: non tender, + pertinent finding (abd binder in place) Extremities: non-tender, no pedal edema Neurologic/Psychiatric: alert, oriented x 3 Skin: normal color, no rash Laboratory Results Item Value Date Time Gram Stain - Final Resulted 04/28/17 1125 Tissue Abdomen Gram Stain - Final Resulted 04/28/17 1125 Abscess Abdomen Last 24 Hours Test 04/30/17 12:52 04/30/17 16:48 05/01/17 01:27 05/01/17 06:55 Bedside Glucose 115 mg/dl Hemoglobin 10.1 g/dL 8.8 g/dL Hematocrit 31.5 % 27.8 % Vancomycin Level Trough 12.0 mcg/ml White Blood Count 14.04 K/uL Red Blood Count 2.97 M/uL Mean Corpuscular Volume 93.6 fL Mean Corpuscular Hemoglobin 29.6 pg Mean Corpuscular Hemoglobin Concent 31.7 g/dl Platelet Count 585 K/uL Mean Platelet Volume 8.6 fL Neutrophils (%) (Auto) 76.6 % Lymphocytes (%) (Auto) 15.7 % Monocytes (%) (Auto) 6.6 % Eosinophils (%) (Auto) 0.7 % Basophils (%) (Auto) 0.2 % Neutrophils # (Auto) 10.76 K/uL Lymphocytes # (Auto) 2.20 K/uL Monocytes # (Auto) 0.92 K/uL Eosinophils # (Auto) 0.10 K/uL Basophils # (Auto) 0.03 K/uL RDW Standard Deviation 54.0 fL RDW Coefficient of Variation 15.9 % Immature Granulocyte % (Auto) 0.2 % Immature Granulocyte # (Auto) 0.03 K/uL Hypochromasia PRESENT Anisocytosis PRESENT Sodium Level 137 mmol/L Potassium Level 4.8 mmol/L Chloride Level 105 mmol/L Carbon Dioxide Level 29 mmol/L Anion Gap 3.0 mmol/L Blood Urea Nitrogen 15 mg/dl Creatinine 0.68 mg/dl Est Creatinine Clear Calc Drug Dose 84.8 ml/min Estimated GFR () 114.1 Estimated GFR (Non- 98.5 BUN/Creatinine Ratio 21.7 Random Glucose 125 mg/dl Calcium Level 8.6 mg/dl Assessment and Plan (1) Wound dehiscence, surgical Assessment & Plan: continue abx, follow cultures. may need additional debridement Problem Qualifiers (1) Wound dehiscence, surgical: Encounter type: initial encounter Qualified Codes: T81.31XA - Disruption of external operation (surgical) wound, not elsewhere classified, initial encounter
[2017-05-01] MEDS: D5W AND 1/2NSS + 20MEQ KCL 1,000 ML IV SCH (12:30)
[2017-05-01] MEDS: VANCOMYCIN INJ 1,250 MG in SODIUM CHLORIDE 0.9% 250ML 250 ML IV SCH (13:43)
[2017-05-01] MEDS: SODIUM CHLORIDE 0.9% 1000ML 1,000 ML IV SCH (18:23)
[2017-05-01] MEDS: METOPROLOL SUCC 25MG EXT REL TAB PO SCH (21:00)
[2017-05-01] MEDS: LISINOPRIL 10 MG TAB PO SCH (21:00)
[2017-05-01] MEDS: ASPIRIN 81 MG CHEW PO SCH (22:27)
[2017-05-01] MEDS: ATORVASTATIN 20 MG TAB PO SCH (22:28)
[2017-05-01] MEDS: PANTOprazole SOD 40 MG TAB PO SCH (22:29)
[2017-05-01] MEDS: FLUOXETINE HCL 20 MG CAP PO SCH (22:30)
[2017-05-02] VITALS (8 sets, daily range): BP systolic 90–108; BP diastolic 58–74; PULSE 77–89; TEMP 36.6–36.8; O2SAT 90–100
[2017-05-02] MEDS: VANCOMYCIN INJ 1,250 MG in SODIUM CHLORIDE 0.9% 250ML 250 ML IV SCH ×2 (03:00→12:49)
[2017-05-02] MEDS: PIPERACILL/TAZOBAC IV 3.375 GM in DEXTROSE 5% 100ML IV SCH ×3 (05:38→22:19)
[2017-05-02] MEDS: HYDROmorphone HCL 0.5MG/ML 50 ML CASSETTE IV PRN ×3 (07:01→23:18)
[2017-05-02 07:02] LABS: BASO % 0.5 %; BASO ABS # 0.06 K/uL (0-0.2); EOS % 3.2 %; HEMATOCRIT 23.9 % (37-47); IG% 0.3 %; LYMPH % 24.3 %; LYMPH ABS # 2.84 K/uL (1.2-3.4); MEAN CELL VOLUME 92.6 fL (80-100); MEAN CORPUSCULAR HEMOGLOBIN 29.1 pg (25-34); MEAN CORPUSCULAR HGB CONC 31.4 g/dl (32-36); MEAN PLATELET VOLUME 8.7 fL (7.4-10.4); MONO % 4.4 %; NEUT % 67.3 %; PLATELET COUNT 527 K/uL (130-400); RED BLOOD COUNT 2.58 M/uL (4.2-5.4); WHITE BLOOD COUNT 11.69 K/uL (4.8-10.8)
[2017-05-02 07:26] LABS: CREATININE 0.71 mg/dl (0.60-1.20)
[2017-05-02 07:48] LABS: COMPLETE YES; HYPERSEGMENTED POLYS 1+
[2017-05-02] MEDS: DOCUSATE SODIUM 100 MG CAP PO SCH ×2 (07:53→21:13)
[2017-05-02] MEDS: D5W AND 1/2NSS + 20MEQ KCL 1,000 ML IV SCH (07:53)
[2017-05-02] MEDS: LORAZEPAM INJ 1 MG in SYRINGE 0.5 ML IV PRN ×2 (07:54→16:09)
--- NOTE | 2017-05-02 09:59 | Surgery Progress Note ---
Surgery Progress Note Date of Service May 02, 2017. Subjective Post OP Day: POD # 2/4 + complaints (Wound tender, pain controlled), + pain controlled, + using DIRECTOR OF SURGERY, + diet (Regular diet, Has not eaten much yet. ), No nausea, No vomiting Abdominal binder in place. No fever, chills, sweats. Objective Vital Signs: Date Time Temp Pulse Resp B/P (MAP) Pulse Ox O2 Delivery O2 Flow Rate FiO2 05/02/17 07:47 36.8 77 18 108/74 (85) 97 Nasal Cannula 4.0 05/02/17 07:30 Nasal Cannula 2.0 05/02/17 03:18 36.6 77 14 98/64 (75) 94 Nasal Cannula 4.5 05/02/17 00:00 Room Air 05/01/17 23:23 37.2 82 14 99/65 (76) 93 Nasal Cannula 4.5 05/01/17 22:20 80 97/64 (75) 05/01/17 19:07 36.5 91 18 91/57 (68) 99 Nasal Cannula 4.0 05/01/17 15:50 97 Room Air 4.0 05/01/17 15:14 36.7 89 16 100/65 (77) 94 Room Air 05/01/17 11:52 36.6 70 14 104/70 (81) 98 Nasal Cannula 4.0 Physical Exam: LORETA drainage (JP1=5ml and JP2=10ml this AM, serosanguinous) General Appearance: no apparent distress, + mild distress (Tenderness to surgical incisions) Head: normocephalic, atraumatic Neck: supple, trachea midline Abdomen: no organomegaly, + distended, + guarding, + tenderness (Generalized over incision sites) Incision(s): clean, intact, drainage (Mild), erythema (Mild) Laboratory Results: Results Past 24 Hours Test 05/02/17 06:37 Range/Units White Blood Count 11.69 4.8-10.8 K/uL Red Blood Count 2.58 4.2-5.4 M/uL Hemoglobin 7.5 12.0-16.0 g/dL Hematocrit 23.9 37-47 % Mean Corpuscular Volume 92.6 80-100 fL Mean Corpuscular Hemoglobin 29.1 25-34 pg Mean Corpuscular Hemoglobin Concent 31.4 32-36 g/dl Platelet Count 527 130-400 K/uL Mean Platelet Volume 8.7 7.4-10.4 fL Neutrophils (%) (Auto) 67.3 % Lymphocytes (%) (Auto) 24.3 % Monocytes (%) (Auto) 4.4 % Eosinophils (%) (Auto) 3.2 % Basophils (%) (Auto) 0.5 % Neutrophils # (Auto) 7.87 1.4-6.5 K/uL Lymphocytes # (Auto) 2.84 1.2-3.4 K/uL Monocytes # (Auto) 0.51 0.11-0.59 K/uL Eosinophils # (Auto) 0.37 0-0.5 K/uL Basophils # (Auto) 0.06 0-0.2 K/uL RDW Standard Deviation 53.6 36.4-46.3 fL RDW Coefficient of Variation 15.9 11.5-14.5 % Immature Granulocyte % (Auto) 0.3 % Immature Granulocyte # (Auto) 0.04 0.00-0.02 K/uL Hypersegmented Polys 1+ Creatinine 0.71 0.60-1.20 mg/dl Est Creatinine Clear Calc Drug Dose 81.2 ml/min Estimated GFR () 111.1 Estimated GFR (Non- 95.9 Assessment & Plan s/p debridement of abdominal wall. second look with closure Patient seen and examined with Dr. Hunter. Incision healing well, no signs of infection, ischemia or necrosis. Continue to monitor. Path - Benign fibrous and adipose tissue Post-op blood loss, Hgb=7.5 Hct=23.9 this AM - Continue to monitor, Plavix stopped Pain controlled on DIRECTOR OF SURGERY, will try to switch to PO pain control. Continue IV Abx LORETA x [address] Continue abdominal binder, Continue SCDs Patient seen and examined, agree with above. Status post debridement of necrotic abdominal wall x2 following incisional hernia repair. Pain moderately controlled with perishable fruit inspector. Incision intact, no erythema, necrosis, or hematoma/ seroma. LORETA drains in place, serosanguinous fluid. hct 23, no evidence of active bleeding. Will continue to monitor. Cont abx, monitor hct, transition to oral pain meds. Encourage ambulation. Hold plavix and a/c. D. Jan Hunter, DO regular diet
[2017-05-02] MEDS: OXYCODONE/ACETAMINOPHEN 5-325 TAB PO PRN ×2 (12:54→19:39)
[2017-05-02] MEDS ORDERED: NURSING DECISION MEDICATION ORDER SCH (16:15)
[2017-05-02] MEDS: METOPROLOL SUCC 25MG EXT REL TAB PO SCH (21:00)
[2017-05-02] MEDS: LISINOPRIL 10 MG TAB PO SCH (21:00)
[2017-05-02] MEDS: PANTOprazole SOD 40 MG TAB PO SCH (21:12)
[2017-05-02] MEDS: ASPIRIN 81 MG CHEW PO SCH (21:13)
[2017-05-02] MEDS: ATORVASTATIN 20 MG TAB PO SCH (21:13)
[2017-05-02] MEDS: FLUOXETINE HCL 20 MG CAP PO SCH (21:14)
[2017-05-03] VITALS (8 sets, daily range): BP systolic 94–129; BP diastolic 62–87; PULSE 74–87; TEMP 36.7–37.5; O2SAT 91–98
[2017-05-03] MEDS: SODIUM CHLORIDE 0.9% 1000ML 1,000 ML IV SCH (01:19)
[2017-05-03] MEDS ORDERED: VANCOMYCIN TROUGH ONE (01:30)
--- NOTE | 2017-05-03 02:41 | Pharmacy Progress Note ---
Pharmacy Abx Dose Short Note Date of Service May 03, 2017. Assessment & Plan Assessment * Ms Leo is a 56 year old female receiving IV Vancomycin/Zosyn for treatment of an abdominal wound infx (s/p surgical debridement of necrotic tissue). * Day #5 of Vancomycin therapy, Day #7 of Zosyn therapy. Plan Vancomycin * Trough level of 18.7 mcg/mL is therapeutic * Continue dose of Vanc 1250 mg IV every 12 hours * Goal trough level for wound infection, vanc GREGORIO 2 : 15 to 20 mcg/mL * No further levels have been ordered at this time. If patient remains on vanc therapy, will re-consider additional monitoring in a few days. Zosyn 3.375gm IV q8h Pharmacy will continue to follow and will adjust dose/frequency as necessary. Thank you.
[2017-05-03] MEDS: VANCOMYCIN INJ 1,250 MG in SODIUM CHLORIDE 0.9% 250ML 250 ML IV SCH ×2 (02:57→13:31)
[2017-05-03] MEDS: LORAZEPAM INJ 1 MG in SYRINGE 0.5 ML IV PRN ×2 (03:28→16:56)
[2017-05-03] MEDS: PIPERACILL/TAZOBAC IV 3.375 GM in DEXTROSE 5% 100ML IV SCH ×3 (05:38→22:40)
[2017-05-03] MEDS: HYDROmorphone HCL 0.5MG/ML 50 ML CASSETTE IV PRN ×3 (06:53→14:58)
[2017-05-03 07:49] LABS: BASO % 0.7 %; BASO ABS # 0.08 K/uL (0-0.2); EOS % 3.6 %; HEMATOCRIT 23.8 % (37-47); IG% 0.4 %; LYMPH % 23.7 %; LYMPH ABS # 2.69 K/uL (1.2-3.4); MEAN CELL VOLUME 92.2 fL (80-100); MEAN CORPUSCULAR HEMOGLOBIN 29.8 pg (25-34); MEAN CORPUSCULAR HGB CONC 32.4 g/dl (32-36); MEAN PLATELET VOLUME 8.7 fL (7.4-10.4); MONO % 4.9 %; NEUT % 66.7 %; PLATELET COUNT 632 K/uL (130-400); RED BLOOD COUNT 2.58 M/uL (4.2-5.4); WHITE BLOOD COUNT 11.36 K/uL (4.8-10.8)
[2017-05-03 08:07] LABS: PROTHROMBIN TIME (PATIENT) 10.7 SECONDS (9.0-12.0)
[2017-05-03 08:16] LABS: COMPLETE YES
[2017-05-03 08:23] LABS: BUN/CREATININE RATIO 22.8 (10-20); CALCIUM 8.7 mg/dl (8.5-10.1); CREATININE 0.65 mg/dl (0.60-1.20); POTASSIUM 4.3 mmol/L (3.5-5.1)
[2017-05-03] MEDS: D5W AND 1/2NSS + 20MEQ KCL 1,000 ML IV SCH (09:06)
[2017-05-03] MEDS: DOCUSATE SODIUM 100 MG CAP PO SCH ×2 (09:06→20:53)
[2017-05-03] MEDS: OXYCODONE/ACETAMINOPHEN 5-325 TAB PO PRN ×4 (09:06→22:45)
--- NOTE | 2017-05-03 11:54 | Surgery Progress Note ---
Surgery Progress Note Date of Service May 03, 2017. Subjective Post OP Day: POD # 3/5 + complaints (Generalized abdominal pain), + ambulating (slowly as tolerated), + using SPLITTER HAND (for breakthrough pain), + diet (Regular diet but hasnt eaten much. ), No SOB, No bowel movement (none today), No nausea, No vomiting Generalized abdominal pain, worse with movement. Patient states it is hard to get in and out of bed. Objective Vital Signs: Date Time Temp Pulse Resp B/P (MAP) Pulse Ox O2 Delivery O2 Flow Rate FiO2 05/03/17 10:54 Room Air 05/03/17 07:36 36.7 87 16 115/76 (89) 96 Nasal Cannula 2.0 Humidified Oxygen 05/03/17 03:14 36.8 74 16 129/81 (97) 96 Nasal Cannula 2.0 05/03/17 00:00 98 Nasal Cannula 2.0 Humidified Oxygen 05/02/17 23:00 36.7 82 14 101/68 (79) 99 Nasal Cannula 2.0 Humidified Oxygen 05/02/17 21:11 89 92/63 (73) 05/02/17 19:31 36.7 88 18 90/58 (69) 97 Nasal Cannula 2.0 05/02/17 15:10 36.8 84 16 97/65 (76) 93 Room Air 05/02/17 15:05 100 Nasal Cannula 2.0 05/02/17 14:41 36.7 86 18 93/63 (73) 90 Room Air General Appearance: WD/WN, no apparent distress Head: normocephalic, atraumatic Neck: supple, trachea midline Abdomen: no organomegaly, + distended, + guarding, + tenderness (Moderate, generalized), + pertinent finding (Ischemic discoloration on right side of incision) Incision(s): clean, intact, drainage (Dressing on right side of abdomen saturated with blood.), erythema Laboratory Results: Results Past 24 Hours Test 05/03/17 01:34 05/03/17 07:25 Range/Units Vancomycin Level Trough 18.7 SEE COMMENT mcg/ml White Blood Count 11.36 4.8-10.8 K/uL Red Blood Count 2.58 4.2-5.4 M/uL Hemoglobin 7.7 12.0-16.0 g/dL Hematocrit 23.8 37-47 % Mean Corpuscular Volume 92.2 80-100 fL Mean Corpuscular Hemoglobin 29.8 25-34 pg Mean Corpuscular Hemoglobin Concent 32.4 32-36 g/dl Platelet Count 632 130-400 K/uL Mean Platelet Volume 8.7 7.4-10.4 fL Neutrophils (%) (Auto) 66.7 % Lymphocytes (%) (Auto) 23.7 % Monocytes (%) (Auto) 4.9 % Eosinophils (%) (Auto) 3.6 % Basophils (%) (Auto) 0.7 % Neutrophils # (Auto) 7.58 1.4-6.5 K/uL Lymphocytes # (Auto) 2.69 1.2-3.4 K/uL Monocytes # (Auto) 0.56 0.11-0.59 K/uL Eosinophils # (Auto) 0.41 0-0.5 K/uL Basophils # (Auto) 0.08 0-0.2 K/uL RDW Standard Deviation 53.2 36.4-46.3 fL RDW Coefficient of Variation 15.7 11.5-14.5 % Immature Granulocyte % (Auto) 0.4 % Immature Granulocyte # (Auto) 0.04 0.00-0.02 K/uL Prothrombin Time 10.7 9.0-12.0 SECONDS Prothromb Time International Ratio 1.0 0.9-1.1 Sodium Level 140 136-145 mmol/L Potassium Level 4.3 3.5-5.1 mmol/L Chloride Level 107 98-107 mmol/L Carbon Dioxide Level 26 21-32 mmol/L Anion Gap 7.0 3-11 mmol/L Blood Urea Nitrogen 15 7-18 mg/dl Creatinine 0.65 0.60-1.20 mg/dl Est Creatinine Clear Calc Drug Dose 88.7 ml/min Estimated GFR () 115.8 Estimated GFR (Non- 99.9 BUN/Creatinine Ratio 22.8 10-20 Random Glucose 75 70-99 mg/dl Calcium Level 8.7 8.5-10.1 mg/dl Assessment & Plan 05/03/2017: POD # 3/5 s/p debridement of abdominal wall, second look for closure. Patient seen and examined with Dr. Hunter. In some pain - will combine PO meds with SPLITTER HAND for breakthrough. Dressing saturated with blood, Incision intact, Blue discoloration of skin on the right side of abdomen along incision - bruising vs. ischemia. Plan to return to OR tomorrow 05/04/2017 for surgical exploration, possible further debridement and possible wound vac. NPO after midnight. Recommend continued antibiotic therapy per ID. 05/02/2017: s/p debridement of abdominal wall. second look with closure Patient seen and examined with Dr. Hunter. Incision healing well, no signs of infection, ischemia or necrosis. Continue to monitor. Path - Benign fibrous and adipose tissue Post-op blood loss, Hgb=7.5 Hct=23.9 this AM - Continue to monitor, Plavix stopped Pain controlled on SPLITTER HAND, will try to switch to PO pain control. Continue IV Abx LORETA x [address] Continue abdominal binder, Continue SCDs ambulate (as tolerated) s/p debridement of abdominal wall. second look with closure Patient seen and examined with Dr. Hunter. Incision healing well, no signs of infection, ischemia or necrosis. Continue to monitor. Path - Benign fibrous and adipose tissue Post-op blood loss, Hgb=7.5 Hct=23.9 this AM - Continue to monitor, Plavix stopped Pain controlled on SPLITTER HAND, will try to switch to PO pain control. Continue IV Abx LORETA x [address] Continue abdominal binder, Continue SCDs
[2017-05-03] MEDS: ASPIRIN 81 MG CHEW PO SCH (20:52)
[2017-05-03] MEDS: LISINOPRIL 10 MG TAB PO SCH (20:52)
[2017-05-03] MEDS: ATORVASTATIN 20 MG TAB PO SCH (20:53)
[2017-05-03] MEDS: FLUOXETINE HCL 20 MG CAP PO SCH (20:53)
[2017-05-03] MEDS: METOPROLOL SUCC 25MG EXT REL TAB PO SCH (20:53)
[2017-05-03] MEDS: PANTOprazole SOD 40 MG TAB PO SCH (20:53)
[2017-05-04] VITALS (7 sets, daily range): BP systolic 100–129; BP diastolic 68–88; PULSE 69–82; TEMP 36.6–37.2; O2SAT 91–96
[2017-05-04] MEDS: HYDROmorphone HCL 0.5MG/ML 50 ML CASSETTE IV PRN ×2 (00:06→07:06)
[2017-05-04] MEDS: SODIUM CHLORIDE 0.9% 1000ML 1,000 ML IV SCH (00:08)
[2017-05-04] MEDS: VANCOMYCIN INJ 1,250 MG in SODIUM CHLORIDE 0.9% 250ML 250 ML IV SCH ×2 (01:34→13:24)
[2017-05-04] MEDS: LORAZEPAM INJ 1 MG in SYRINGE 0.5 ML IV PRN ×3 (01:35→18:59)
[2017-05-04] MEDS: PIPERACILL/TAZOBAC IV 3.375 GM in DEXTROSE 5% 100ML IV SCH ×3 (05:59→21:54)
--- NOTE | 2017-05-04 08:52 | Surgery Progress Note ---
Surgery Progress Note Date of Service May 04, 2017. Subjective 56-year-old female status post incisional hernia repair requiring incision and drainage and debridement of necrotic tissue 2. Her pain was better controlled yesterday. They did not have to change her dressings anymore. Objective Vital Signs: Date Time Temp Pulse Resp B/P (MAP) Pulse Ox O2 Delivery O2 Flow Rate FiO2 05/04/17 03:30 36.7 71 15 119/82 (94) 91 Room Air 05/03/17 23:55 Room Air 05/03/17 23:00 36.8 85 14 94/62 (73) 91 Room Air 05/03/17 20:50 87 107/70 (82) 05/03/17 20:00 37.1 85 18 111/73 (86) 93 Room Air 05/03/17 15:45 Room Air 05/03/17 14:56 36.8 75 18 101/66 (78) 92 Room Air 05/03/17 12:04 37.5 85 18 129/87 (101) 91 Room Air 05/03/17 10:54 Room Air 05/03/17 07:36 36.7 87 16 115/76 (89) 96 Nasal Cannula 2.0 Humidified Oxygen Physical Exam: LORETA drainage (serosanguineous) General Appearance: WD/WN, no apparent distress Abdomen: normal bowel sounds, soft, + tenderness (appropriate tenderness to palpation along incision.) Incision(s): clean, dry, intact, no erythema, no drainage Assessment & Plan Status post debridement of necrotic abdominal wall x2 following incisional hernia repair. Incision intact, no erythema, necrosis, or hematoma/seroma. Concerning area of purpura to right abdominal wall appears to be stable after discussing this with our PA who was in the case last week. Therefore we will hold off on the operating room. We'll transition her to oral pain meds and work on discharging her the next day or 2. Follow up in the clinic for possible drain removal this week.
[2017-05-04] MEDS: D5W AND 1/2NSS + 20MEQ KCL 1,000 ML IV SCH (09:00)
[2017-05-04] MEDS: DOCUSATE SODIUM 100 MG CAP PO SCH ×2 (09:00→20:36)
--- NOTE | 2017-05-04 09:00 | Surgery Progress Note ---
Surgery Progress Note Date of Service May 04, 2017. Subjective Post OP Day: 4/6 + complaints (pain when moving around), + using VIBRATION ANALYST, No nausea Objective Vital Signs: Date Time Temp Pulse Resp B/P (MAP) Pulse Ox O2 Delivery O2 Flow Rate FiO2 05/04/17 08:42 94 Room Air 05/04/17 08:08 36.8 74 16 126/88 (101) 94 Room Air 74 05/04/17 03:30 36.7 71 15 119/82 (94) 91 Room Air 05/03/17 23:55 Room Air 05/03/17 23:00 36.8 85 14 94/62 (73) 91 Room Air 05/03/17 20:50 87 107/70 (82) 05/03/17 20:00 37.1 85 18 111/73 (86) 93 Room Air 05/03/17 15:45 Room Air 05/03/17 14:56 36.8 75 18 101/66 (78) 92 Room Air 05/03/17 12:04 37.5 85 18 129/87 (101) 91 Room Air 05/03/17 10:54 Room Air Physical Exam: Ivy drainage (left 5 cc, right 0 cc overnight) Incision(s): clean, dry, intact, no erythema, ecchymosis (right lower skin flap with mild induration) Assessment & Plan s/p debridement of abdominal wall, second look with closure lower skin flap stable over past 24 hours and appears more ecchymotic than ischemic, will hold on exploration/wound vac H&H stable, will d/c IVF will d/c VIBRATION ANALYST, start Percocet 10/325, dilaudid for breakthrough probably remove ivy drains tomorrow home when tolerating po analgesics and if wound appears stable over next 24- [address] Hunter
[2017-05-04] MEDS: OXYCODONE/ACETAMINOPHEN 10/325MG TAB PO PRN ×3 (09:14→20:41)
--- NOTE | 2017-05-04 09:35 | Progress Note ---
Subjective Date of Service: May 04, 2017. Subjective Pt evaluation today including: conversation w/ patient, physical exam, chart review, lab review pt eating breakfast, was to go to OR but now on hold. ? plan for vac. still with some pain but improved. no f/c. remains on abx. afebrile overnight. no n/v/ d. no sob, cough. All remaining ros reviewed and are negative. Problem List Medical Problems: (1) Central abdominal pain Status: Acute (2) Central abdominal pain Status: Acute (3) Diarrhea Status: Acute (4) Elevated white blood cell count Status: Acute (5) Enteritis Status: Acute (6) Hypertension Status: Acute (7) Left arm pain Status: Acute (8) Left sided chest pain Status: Acute (9) SMA stenosis Status: Acute (10) Wound dehiscence, surgical Status: Acute Objective Vital Signs Date Time Temp Pulse Resp B/P (MAP) Pulse Ox O2 Delivery O2 Flow Rate FiO2 05/04/17 08:42 94 Room Air 05/04/17 08:08 36.8 74 16 126/88 (101) 94 Room Air 05/04/17 03:30 36.7 71 15 119/82 (94) 91 Room Air 05/03/17 23:55 Room Air 05/03/17 23:00 36.8 85 14 94/62 (73) 91 Room Air 05/03/17 20:50 87 107/70 (82) 05/03/17 20:00 37.1 85 18 111/73 (86) 93 Room Air 05/03/17 15:45 Room Air 05/03/17 14:56 36.8 75 18 101/66 (78) 92 Room Air 05/03/17 12:04 37.5 85 18 129/87 (101) 91 Room Air 05/03/17 10:54 Room Air Physical Exam General Appearance: WD/WN, no apparent distress Eyes: normal inspection, EOMI Neck: supple Respiratory/Chest: lungs clear, normal breath sounds, no respiratory distress Cardiovascular: regular rate, rhythm, no edema Abdomen: soft Extremities: non-tender, no pedal edema Neurologic/Psychiatric: alert, oriented x 3 Skin: normal color, no rash Laboratory Results Item Value Date Time Blood Culture - Preliminary Resulted 04/30/17 0654 Blood NO GROWTH TO DATE. Blood Culture - Preliminary Resulted 04/30/17 0640 Blood NO GROWTH TO DATE. Assessment and Plan (1) Wound dehiscence, surgical Assessment & Plan: will stop zosyn and continue vanco for now. hopefully can d/ c home on po abx - doxy 100mg po bid. will follow. Problem Qualifiers (1) Wound dehiscence, surgical: Encounter type: initial encounter Qualified Codes: T81.31XA - Disruption of external operation (surgical) wound, not elsewhere classified, initial encounter
[2017-05-04] MEDS: HYDROmorphone INJ 1 MG/ML SYR IV PRN ×2 (16:24→22:17)
[2017-05-04] MEDS: FLUOXETINE HCL 20 MG CAP PO SCH (20:36)
[2017-05-04] MEDS: LISINOPRIL 10 MG TAB PO SCH (20:36)
[2017-05-04] MEDS: ATORVASTATIN 20 MG TAB PO SCH (20:36)
[2017-05-04] MEDS: METOPROLOL SUCC 25MG EXT REL TAB PO SCH (20:36)
[2017-05-04] MEDS: PANTOprazole SOD 40 MG TAB PO SCH (20:36)
[2017-05-04] MEDS: ASPIRIN 81 MG CHEW PO SCH (20:36)
[2017-05-05] MEDS: HYDROmorphone INJ 1 MG/ML SYR IV PRN ×3 (00:33→07:33)
[2017-05-05] MEDS: VANCOMYCIN INJ 1,250 MG in SODIUM CHLORIDE 0.9% 250ML 250 ML IV SCH (02:18)
[2017-05-05] MEDS: PIPERACILL/TAZOBAC IV 3.375 GM in DEXTROSE 5% 100ML IV SCH (05:36)
[2017-05-05 06:29] LABS: CREATININE 0.74 mg/dl (0.60-1.20)
[2017-05-05] MEDS ORDERED: NURSING VERBAL MED ORDER ONE (07:45)
[2017-05-05 07:47] VITALS: BP 131/80; PULSE 116; TEMP 37; O2SAT 90
[2017-05-05 07:59] VITALS: BP 111/72; PULSE 57; TEMP 36.6; O2SAT 92
[2017-05-05] MEDS: DOCUSATE SODIUM 100 MG CAP PO SCH (08:49)
[2017-05-05] MEDS: LORAZEPAM INJ 1 MG in SYRINGE 0.5 ML IV PRN (09:12)
[2017-05-05] MEDS ORDERED: OXYC-106 PO (09:27)
[2017-05-05] MEDS ORDERED: DOXY100C41 PO (09:27)
--- NOTE | 2017-05-05 09:29 | Discharge Instructions ---
Discharge Instructions Date of Service May 05, 2017. Admission Reason for Admission: Open Wound Anterior Abdominal Wall Discharge Discharge Diagnosis / Problem: debridement of abdominal wall Discharge Goals Goal(s): Decrease discomfort Activity Recommendations Activity Limitations: as noted below Lifting Limitations: no more than 10 pounds Shower/Bathe: no limitations (ok to shower, do not soak incision under water) . Instructions / Follow-Up Instructions / Follow-Up Dr. Hunter in 1 week, call the office to schedule [phone] You may take ibuprofen 600 mg every 6 hours as needed Current Hospital Diet Patient's current hospital diet: Regular Diet Discharge Diet Recommended Diet: Regular Diet Procedures Procedures Performed: Wide Debridement of Abdominal Wall Skin and Subcutaneous Tissue(3cm width and 20cm lengh Pending Studies Studies pending at discharge: no Medical Emergencies . Who to Call and When: Medical Emergencies: If at any time you feel your situation is an emergency, please call 911 immediately. . Non-Emergent Contact Non-Emergency issues call your: Surgeon Call Non-Emergent contact if: you have a fever, temperature is above 101.5, your pain is not controlled, you have any medication questions . "Provider Documentation" section prepared by David Pro. . VTE Core Measure Inpt VTE Proph given/why not?: SCD's
[2017-05-05] MEDS ORDERED: IBUPROFEN 600 MG TAB PO PRN (09:30)
[2017-05-05] MEDS ORDERED: IBUPROFEN 600 MG TAB PO ONE (09:50)
[2017-05-05] MEDS: OXYCODONE/ACETAMINOPHEN 10/325MG TAB PO PRN (10:06)
[2017-05-05 10:35] VITALS: BP 111/72; PULSE 57; TEMP 36.6; O2SAT 92
--- NOTE | 2017-05-05 10:38 | Surgery Progress Note ---
Surgery Progress Note Date of Service May 05, 2017. Subjective + pain controlled (Percocet, few doses of Dilaudid) Objective Vital Signs: Date Time Temp Pulse Resp B/P (MAP) Pulse Ox O2 Delivery O2 Flow Rate FiO2 05/05/17 07:59 36.6 57 18 111/72 (85) 92 Room Air 05/05/17 07:45 Room Air 05/05/17 00:15 Room Air 05/04/17 23:05 37.2 72 15 113/75 (88) 91 Room Air 05/04/17 20:34 82 129/84 (99) 05/04/17 15:30 Room Air 05/04/17 15:25 37.1 82 18 113/74 (87) 93 Room Air 05/04/17 12:03 36.6 69 16 100/68 (79) 96 Room Air Physical Exam: Ivy drainage (no drainage from either drain overnight) Abdomen: soft Incision(s): clean, ecchymosis (lower right skin flap, similar to previous) Laboratory Results: Results Past 24 Hours Test 05/05/17 05:43 Range/Units Creatinine 0.74 0.60-1.20 mg/dl Est Creatinine Clear Calc Drug Dose 77.9 ml/min Estimated GFR () 105.7 Estimated GFR (Non- 91.2 Assessment & Plan s/p debridement of abdominal wall, second look with closure lower skin flap stable over past 48 hrs Percocet 10/325, prn motrin ivy drains removed seen with Dr. Dale beckham for discharge with home health, po pineda per ID
--- NOTE | 2017-05-06 10:56 | EDITING REQUIRED CODING QUERY ---
CODING QUERY To promote full compliance with coding requirements relating to patient care, provider participation is requested in all cases of boat camp operator uncertainty. Please assist us with the question(s) below: Coding Question(s): Please clarify below, in your clinical opinion, regarding the abscess and necrosis of the skin and subcutaneous tissue in the abdominal wall. ( ) This was likely a postoperative complication ( ) This was not likely a postoperative complication Physician's Response(s): Thank you Reshma Mohamud Principal Diagnosis: "_that condition established after study, to be chiefly responsible for occasioning the admission of the patient to the hospital for care." Co-Existing Principal Diagnosis: "_when two or more diagnoses equally meet the criteria for principal diagnosis as determined by the circumstances of admission, diagnostic work up, and/or therapy provided, and the Alphabetic Index, Tabular List, or another coding guideline does not provide sequencing direction, any one of the diagnoses may be sequenced first." "When the physician has documented what appears to be a current diagnosis in the body of the record, but has not included the diagnosis in the final diagnostic statement, the physician should be asked whether the diagnosis should be added." (Source [facility]oding [facility] 2 QTR90. p3-4)
--- NOTE | 2017-05-18 11:47 | DISCHARGE SUMMARY ---
PRIMARY DISCHARGE DIAGNOSES: 1. Necrosis of abdominal wall status post repair of incisional hernia. 2. Blood loss anemia. SECONDARY DISCHARGE DIAGNOSES: 1. Hypertension. 2. Coronary artery disease. 3. Peripheral vascular disease. PROCEDURE PERFORMED: 1. Wide debridement of abdominal wall skin and subcutaneous tissue on 04/28/[address] Still. 2. Excision of necrotic skin 3 x 20 cm and removal of packing on 04/30/2017. CONSULTATIONS: Infectious disease, Dr. Naidu for antibiotic selection. HOSPITAL COURSE: The patient is a 56-year-old female who presented to the Emergency Department approximately 11 days status post repair of large incisional hernia and a few days after removal of skin dano in the office with complaint of her incision opening. She was admitted over the weekend with Dr. Vidales's service, was started on IV antibiotics. She was transferred to Dr. Still's service and then taken to the operating room the next day for debridement of the abdominal wall. Initial cultures grew gram positive cocci. She was continued on Zosyn throughout admission. Infectious disease was consulted for antibiotic selection. Cultures eventually returned with a coag negative Staph and a corynebacterium. She was taken back to the operating room for planned second look procedure on April 30 and had additional excision of necrotic skin. The wound was able to be closed over a Gricel drain with Vikram drains were also placed in the subQ. Ina drain was removed on postoperative day #1. Pain control continued to be an issue. 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 She had some ecchymosis vs cyanosis of the incision along the lower aspect of the right. This was in the area of previous heparin injections and appeared stable over the next few days. The remainder of the incision was healing well. Vikram drainage continued to decrease and on postoperative day #5 were removed. She had been able to transition to oral pain meds and was stable for discharge at that time. Her H&H were stable at 7 and 24. She did not require transfusion. DISCHARGE INSTRUCTIONS: Discharge home. Follow up with Dr. Hunter within 1 week. DISCHARGE MEDICATIONS: Percocet 10/325 one tablet every 4 hours as needed, doxycycline 1 tablet p.o. b.i.d. x7 days. Resume other home medications aspirin 81 mg daily, Lipitor 40 mg daily, Biotin supplement, Plavix 75 mg daily, Prozac 40 mg daily, lisinopril 10 mg at bedtime, Ativan 1 mg as needed twice daily, metoprolol 25 mg at bedtime, Protonix 40 mg daily, Flintstones chewable vitamin and Ambien 10 mg at bedtime as needed. She was previously taking Keflex at home she can discontinue that. MTDD
--- NOTE | 2017-05-22 10:11 | EDITING REQUIRED CODING QUERY ---
CODING QUERY To promote full compliance with coding requirements relating to patient care, provider participation is requested in all cases of radio presenter uncertainty. Please assist us with the question(s) below: Coding Question(s): 1. Please clarify below, in your clinical opinion, regarding the abscess and necrosis of the skin and subcutaneous tissue in the abdominal wall. (x ) This was likely a postoperative complication ( ) This was not likely a postoperative complication 2. There is documentation of surgical wound dehiscence early in the record. This is not documented on the Discharge Summary. Please clarify below. ( ) There was surgical wound dehiscence ( x) There was no surgical wound dehiscence Physician's Response(s): Thank you Reshma Mohamud Principal Diagnosis: "_that condition established after study, to be chiefly responsible for occasioning the admission of the patient to the hospital for care." Co-Existing Principal Diagnosis: "_when two or more diagnoses equally meet the criteria for principal diagnosis as determined by the circumstances of admission, diagnostic work up, and/or therapy provided, and the Alphabetic Index, Tabular List, or another coding guideline does not provide sequencing direction, any one of the diagnoses may be sequenced first." "When the physician has documented what appears to be a current diagnosis in the body of the record, but has not included the diagnosis in the final diagnostic statement, the physician should be asked whether the diagnosis should be added." (Source Coding [facility] 2 QTR90. p3-4)
== END 2017-05-05 12:15 | disposition home health service (06) | DRG 857 ==
LOC: C.EDB 12:35 → C.MSW 14:47 → ENRESERV 15:25
PROVIDERS: ADMIT Surgery; ATTEND Surgery
PROC: 0JB80ZX Excision of Abdomen Subcutaneous Tissue and Fascia, Open Approach, Diagnostic (ICD-10-PCS; 2017-04-28)
PROC: 0JQ80ZZ Repair Abdomen Subcutaneous Tissue and Fascia, Open Approach (ICD-10-PCS; principal; 2017-04-30 09:55)
PROC: 0JB80ZZ Excision of Abdomen Subcutaneous Tissue and Fascia, Open Approach (ICD-10-PCS; principal; 2017-04-30 09:55)
DX: T81.4XXA Infection following a procedure, initial encounter (principal); L02.211 Cutaneous abscess of abdominal wall; I96 Gangrene, not elsewhere classified; D62 Acute posthemorrhagic anemia; B95.7 Other staphylococcus as the cause of diseases classified elsewhere; B96.89 Other specified bacterial agents as the cause of diseases classified elsewhere; I25.2 Old myocardial infarction; I73.9 Peripheral vascular disease, unspecified; I11.9 Hypertensive heart disease without heart failure; I25.10 Atherosclerotic heart disease of native coronary artery without angina pectoris; F17.200 Nicotine dependence, unspecified, uncomplicated; Z79.899 Other long term (current) drug therapy; Z79.82 Long term (current) use of aspirin; Z79.02 Long term (current) use of antithrombotics/antiplatelets; Z87.19 Personal history of other diseases of the digestive system; Z83.3 Family history of diabetes mellitus; Z82.49 Family history of ischemic heart disease and other diseases of the circulatory system; Y83.8 Other surgical procedures as the cause of abnormal reaction of the patient, or of later complication, without mention of misadventure at the time of the procedure

== ENCOUNTER → 2017-08-27 | Outpatient (CLI) | payer OTHER ==
[~2017-08-27] MED LIST changes: -CIPR1TAB10 PO; -KETO10TA PO
--- NOTE | 2017-08-27 12:51 | DIAGNOSTIC IMAGING REPORT ---
ABDOMINAL WALL ULTRASOUND FOR HERNIA EVALUATION CLINICAL HISTORY: R20.8 incisional pain. Hernia versus abscess. COMPARISON STUDY: No previous studies for comparison. FINDINGS: Just lateral to the incision site within the right lower quadrant there is a 2.7 x 1.1 x 2.8 cm heterogeneous subcutaneous mass. This revealed no evidence of hyperemia. There are no defects within the underlying muscle to indicate a hernia. This lesion is nonspecific but could represent an area of fat necrosis or organizing hematoma. CT scanning could also be obtained for further characterization. IMPRESSION: 2.7 x 1.1 x 2.8 cm heterogeneous subcutaneous mass just lateral to the incision site within the right lower quadrant. The mass has nonspecific ultrasound characteristics, but possibly represents an area of fat necrosis or organizing hematoma. There is no surrounding hyperemia Electronically signed by: Brayan Buck M.D. 08/27/2017 12:49 PM Dictated Date/Time: 08/27/2017 12:43 PM
== END | disposition home or self-care (01) ==
LOC: C.ULTR 12:02
PROVIDERS: ATTEND Physician Assistant
DX: R20.8 Other disturbances of skin sensation (principal); R22.2 Localized swelling, mass and lump, trunk

== ENCOUNTER 2021-05-13 09:23 | Inpatient (IN) ==
[2021-05-13] MEDS ORDERED: KETOROLAC TROMETHAMINE 15 MG/ML VIAL IV ONE (09:48)
[2021-05-13] MEDS ORDERED: MoRPHine SULFATE 4 MG/ML 1 ML CARP\\VIAL IV STA ×2 (09:48→11:43)
--- NOTE | 2021-05-13 09:49 | Emergency Department Note ---
Impression & Plan Hydronephrosis with renal and ureteral calculus obstruction, Urinary tract infection ED Provider Note NAME: LOUIS LOVE AGE: 60 SEX: F : 1960 ARRIVES VIA: Ambulance INFORMANT: Patient, ED PROVIDER(S): Momo Cole DO CHIEF COMPLAINT: Urinary symptoms HPI: The patient is a 60-year-old female who presented to the emergency department by ambulance for an evaluation of urinary symptoms. The patient describes lower abdominal pain. She describes having significant difficulty urinating. She was evaluated initially by the resident. The patient passed a stone and then had a large amount of urine. The patient states her pain minimally improved. She has been having urinary hesitancy. She also is having cloudy urine. She denies having any nausea or vomiting. She denies having any fever. She does complain of some back pain. She does not of a history of kidney stones that she knows of. She is not been seen by her primary care physician for the symptoms. She states the pain is moderate to severe at this time. She has had no recent traveling. The patient has been trying [id number] medication without relief. ROS: See above HPI for pertinent positives & negatives. A total of 10 systems reviewed and were otherwise negative. PAST MEDICAL HISTORY: See Below PAST SURGICAL HISTORY: See Below FAMILY HISTORY: See Below SOCIAL HISTORY: See Below HOME MEDICATIONS: See Below ALLERGIES: See Below VITALS: See Below PHYSICAL EXAMINATION: GENERAL: The patient is awake and alert. The patient is mildly anxious appearing. There is no odor of urine. EYES: The conjunctivae are clear. The pupils are round and reactive. EARS, NOSE, MOUTH AND THROAT: The nose is without any evidence of any deformity. NECK: The neck is nontender and supple. RESPIRATORY: Normal respiratory effort is noted there is no evidence of wheezing rhonchi or rales CARDIOVASCULAR: Regular rate and rhythm noted there no murmurs rubs or gallops normal S1 normal S2. GASTROINTESTINAL: The abdomen is soft and mildly distended. There is suprapubic tenderness to palpation but no guarding or rigidity. BACK: No midline tenderness or or step-off noted range of motion in flexion extension as well as rotation no signs of muscle spasm noted MUSCULOSKELETAL/EXTREMITIES: There is no evidence of gross deformity full range of motion is noted in the hips and shoulders. SKIN: There is no obvious evidence of any rash. There are no petechiae, pallor or cyanosis noted. NEUROLOGIC: Patient is awake alert and oriented x3. MEDICAL DECISION MAKING: The patient is a 60-year-old female who presented to the emergency department for an evaluation of flank pain. The patient had back pain as well as urinary symptoms. While in the room the patient did pass a very large ureteral calculus. She had passage of a significant amount of urine after this. The pa connie continued to have symptoms so further laboratory and radiographic studies were obtained. The patient was found no signs of urinary tract infection on urinalysis as well as a distal ureteral calculus with hydronephrosis. The patient was feeling much better on subsequent reevaluation but because of the presence of urinary tract infection her case was discussed with the on-call [facility] urologist. They have recommended that the patient be evaluated by the hospitalist team for inpatient management and then the patient will be seen by urology to determine if she requires any intervention such as ureteral stenting. The patient was agreeable to plan. We discussed the case with the [facility] hospitalist as well. Triage Nursing notes reviewed. Prior medical records reviewed Vital Signs: reviewed and remarkable for elevated blood pressure. Differential diagnosis: Etiologies such as appendicitis, diverticulitis, obstruction, inflammatory bowel disease, renal colic, PUD, biliary pathology, pancreatitis, mesenteric ischemia, aortic pathology, infections, genitourinary, UTI, perforated viscus, as well as others were entertained. ER treatment provided: See below Diagnostics interpreted by me: ECG: none Cardiac Monitoring: An order was placed for continuous cardiac monitoring. The monitor shows a rate of 77 bpm with sinus rhythm. Laboratory studies: As stated above and show below. Imaging studies: See below Consultation(s): The case was discussed with Dr. Helton who [facility] as well as the [facility] urology group. Past Med/Surg History Medical History Abdominal mass Abdominal pain (06/26/14) Coronary artery disease History of anemia History of MT (myocardial infarction) Open wound anterior abdominal wall Partial small bowel obstruction Precordial chest pain Vomiting Surgical History H/O colonoscopy H/O hernia repair (06/26/14) EXPLORATORY LAPAROTOMY lyses of adhesions reduction internal hernia biopsy desmoid process root of mesentery culture of necrotic mass Dr. Still Hx of excision of epidermal inclusion cyst (01/30/21) Excision of cyst back of neck in office Dr. Still S/P hernia repair (04/14/17) Open repair compartement separation incisional hernia with marlex onlay 04/14/17 Status post surgery Abdominal wall debridement skin and sub cut [address] Still 04/28/17 Excision of necrtoic tissue apprx. 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: No marital status: / current occupational status: disabled How many Children do You have: 1 How many Children do You have Comment: custody of great niece Feels Safe at Home: Yes during the past year weight has: remained stable Allergies Allergies Allergy/AdvReac Type Severity Reaction Status Date / Time lisinopril AdvReac Mild Cough Verified 01/30/21 11:21 Home Meds Home Medications Medication Instructions Recorded Confirmed fluoxetine 20 mg capsule 20 mg PO DAILY 05/28/18 05/13/21 hydrocodone 10 mg-acetaminophen 1 tab PO Q6 PRN 05/28/18 05/13/21 325 mg tablet zolpidem 10 mg tablet (Ambien) 10 mg PO HS tab 11/22/20 05/13/21 gabapentin 300 mg capsule 300 mg PO DAILY 05/13/21 05/13/21 levetiracetam 500 mg tablet 500 mg PO DAILY 05/13/21 05/13/21 Previous Rx's Medication Instructions Recorded atorvastatin 40 mg tablet 40 mg PO DAILY #90 tab 11/22/20 clopidogrel 75 mg tablet 75 mg PO DAILY #90 tab 11/22/20 olmesartan 5 mg tablet 5 mg PO DAILY #90 tab 11/22/20 Results & Data (ED) Vital Signs Vital Signs - 24 hr 05/13/21 09:26 05/13/21 10:28 Temperature 36.7 C Temperature Source Oral Pulse Rate 84 Pulse Rate [Left Finger] 77 Pulse Rhythm Regular Pulse Strength Normal Respiratory Rate 18 20 Respiratory Effort / Characteristics Non-Labored Spontaneous Respiratory Depth Normal Respiratory Pattern Regular Blood Pressure 217/114 H Blood Pressure [Left Arm] 174/98 H Blood Pressure Mean 148 Blood Pressure Mean [Left Arm] 123 Blood Pressure Position Sitting Blood Pressure Position [Left Arm] Sitting Pulse Oximetry 98 98 Oxygen Delivery Method Room Air Sepsis Recent Fever Within 48 Hours No Sepsis New/Unexplained Change in Mental Status No Sepsis Action Taken by Nursing No Action Required Home Medications Current Medication List: was personally reviewed by me Laboratory Data Attestation: I reviewed the patient's lab results. Result diagrams: 05/13/21 09:54 05/13/21 09:54 Lab Results 05/13/21 05/13/21 05/13/21 Range/Units 09:54 09:54 09:54 WBC 10.01 (4.8-10.8) K/uL RBC 4.85 (4.2-5.4) M/uL Hgb 15.0 (12.0-16.0) g/dL Hct 45.1 (37-47) % MCV 93.0 (80-100) fL MCH 30.9 (25-34) pg MCHC 33.3 (32-36) g/dL RDW Std Deviation 55.3 H (36.4-46.3) fL RDW Coeff of Jeny 16.3 H (11.5-14.5) % Plt Count 281 (130-400) K/uL MPV 10.6 H (7.4-10.4) fL Immature Gran % (Auto) 0.2 % Neut % (Auto) 80.3 % Lymph % (Auto) 14.0 % Ada % (Auto) 4.7 % Eos % (Auto) 0.5 % Baso % (Auto) 0.3 % Neut # (Auto) 8.04 H (1.4-6.5) K/uL Lymph # (Auto) 1.40 (1.2-3.4) K/uL Ada # (Auto) 0.47 (0.11-0.59) K/uL Eos # (Auto) 0.05 (0-0.5) K/uL Baso # (Auto) 0.03 (0-0.2) K/uL Immature Gran # (Auto) 0.02 (0.00-0.02) K/uL Sodium 139 (136-145) mmol/L Potassium 4.3 (3.5-5.1) mmol/L Chloride 107 (98-107) mmol/L Carbon Dioxide 27 (21-32) mmol/L Anion Gap 5.0 (3-11) BUN 20 H (7-18) mg/dl Creatinine 0.81 (0.6-1.2) mg/dl Est Cr Clr Drug Dosing Not Reportable Est GFR ( Amer) 92.1 ml/min Est GFR (Non-Af Amer) 79.5 ml/min BUN/Creatinine Ratio 24.5 H (10-20) Glucose 101 H (70-99) mg/dl Calcium 9.2 (8.5-10.1) mg/dl Urine Color Yellow Urine Appearance Clear (Clear) Urine pH 8.5 H (4.5-7.5) Ur Specific Flora 1.011 (1.000-1.030) Urine Protein Negative (Negative) Urine Glucose (UA) Negative (Negative) Urine Ketones Negative (Negative) Urine Blood 3+ H (Negative) Urine Nitrite Positive A (Negative) Urine Bilirubin Negative (Negative) Urine Urobilinogen Negative (Negative) Ur Leukocyte Esterase 2+ H (Negative) Urine WBC (Auto) >30 H (0-5) /hpf Urine RBC (Auto) >30 H (0-4) /hpf U Hyaline Cast (Auto) 1-5 (0-5) /lpf U Epithel Cells (Auto) 0-5 (0-5) /lpf Urine Bacteria (Auto) 2+ H (Negative) SARS-CoV-2, RNA, NAAT (NEGATIVE) 05/13/21 Range/Units 11:48 WBC (4.8-10.8) K/uL RBC (4.2-5.4) M/uL Hgb (12.0-16.0) g/dL Hct (37-47) % MCV (80-100) fL MCH (25-34) pg MCHC (32-36) g/dL RDW Std Deviation (36.4-46.3) fL RDW Coeff of Jeny (11.5-14.5) % Plt Count (130-400) K/uL MPV (7.4-10.4) fL Immature Gran % (Auto) % Neut % (Auto) % Lymph % (Auto) % Ada % (Auto) % Eos % (Auto) % Baso % (Auto) % Neut # (Auto) (1.4-6.5) K/uL Lymph # (Auto) (1.2-3.4) K/uL Ada # (Auto) (0.11-0.59) K/uL Eos # (Auto) (0-0.5) K/uL Baso # (Auto) (0-0.2) K/uL Immature Gran # (Auto) (0.00-0.02) K/uL Sodium (136-145) mmol/L Potassium (3.5-5.1) mmol/L Chloride (98-107) mmol/L Carbon Dioxide (21-32) mmol/L Anion Gap (3-11) BUN (7-18) mg/dl Creatinine (0.6-1.2) mg/dl Est Cr Clr Drug Dosing Est GFR ( Amer) ml/min Est GFR (Non-Af Amer) ml/min BUN/Creatinine Ratio (10-20) Glucose (70-99) mg/dl Calcium (8.5-10.1) mg/dl Urine Color Urine Appearance (Clear) Urine pH (4.5-7.5) Ur Specific Flora (1.000-1.030) Urine Protein (Negative) Urine Glucose (UA) (Negative) Urine Ketones (Negative) Urine Blood (Negative) Urine Nitrite (Negative) Urine Bilirubin (Negative) Urine Urobilinogen (Negative) Ur Leukocyte Esterase (Negative) Urine WBC (Auto) (0-5) /hpf Urine RBC (Auto) (0-4) /hpf U Hyaline Cast (Auto) (0-5) /lpf U Epithel Cells (Auto) (0-5) /lpf Urine Bacteria (Auto) (Negative) SARS-CoV-2, RNA, NAAT NEGATIVE (NEGATIVE) Administered Medications Sodium Chloride (Nss 1000ml) 1,000 mls @ 80 mls/hr IV .[id number] DIAMANTE Stop: 06/12/21 09:44 Last Admin: 05/13/21 10:08 Dose: 80 mls/hr Documented by: [id number] Discontinued Medications Ceftriaxone Sodium (Rocephin) 1,000 mg in 50 mls @ 100 mls/hr IV NOW STA Stop: 05/13/21 11:03 Last Infusion: 05/13/21 11:26 Dose: 0 mls/hr Documented by: [id number] Admin: 05/13/21 10:56 Dose: 100 mls/hr Documented by: [id number] Ketorolac Tromethamine (Ketorolac Tromethamine 15 Mg/Ml Vial) 10 mg IV NOW ONE Stop: 05/13/21 09:49 Last Admin: 05/13/21 10:08 Dose: 10 mg Documented by: [id number] Morphine Sulfate (Morphine Sulfate 4 Mg/Ml 1 Ml Carp\Vial) 4 mg IV NOW STA Stop: 05/13/21 09:49 Last Admin: 05/13/21 10:09 Dose: 4 mg Documented by: [id number] Morphine Sulfate (Morphine Sulfate 4 Mg/Ml 1 Ml Carp\Vial) 4 mg IV NOW STA Stop: 05/13/21 11:44 Last Admin: 05/13/21 11:53 Dose: 4 mg Documented by: [id number] Imaging Data Radiologist's Impression: Abdomen/Pelvis CT 05/13/21 09:37 CT OF THE ABDOMEN AND PELVIS WITHOUT CONTRAST CLINICAL HISTORY: Lower abdominal pain. History of stones. COMPARISON STUDY: CT of the abdomen and pelvis November 22, 2016. TECHNIQUE: Axial images of the abdomen and pelvis were obtained without IV contrast. Images were reviewed in the axial, sagittal, and coronal planes. Aut omated exposure control was utilized for the study. A dose lowering technique was utilized adhering to the principles of ALARA. FINDINGS: No pneumatosis, free air or portal venous gas is present. Mild to moderate left hydroureteronephrosis is noted due to a 1.1 x 0.8 cm distal left ureteral calculus. No additional urinary calculi identified on this exam. Moderate to marked left renal atrophy is noted. There is left perinephric stranding. There is no right hydronephrosis. Evaluation of the remainder of the abdomen and pelvis is suboptimal on this unenhanced exam. There is no evidence for a bowel obstruction status post gastric bypass. There is no biliary ductal dilatation status post cholecystectomy. Unenhanced images of the spleen, adrenal glands and pancreas are unremarkable. Postoperative findings of the anterior abdominal wall are noted. There is no ascites. No lymphadenopathy. No acute fracture or suspicious lesion is identified within the visualized skeletal structures. Left iliac and femoral stents are suboptimally assessed on this unenhanced exam. IMPRESSION: 1. 1.1 x 0.8 cm distal left ureteral calculus which results in mild to moderate left hydronephrosis. 2. Moderate to marked left renal atrophy. 3. No bowel obstruction. Status post gastric bypass. ACT 112: Negative or not required by law. Electronically signed by: Darrel Galicia M.D. 05/13/2021 10:36 AM Discharge Plan Visit Data Chief Complaint: Abdominal Pain Stated Complaint: AB PAIN ED Provider: Momo Cole ED Midlevel Provider: Jose Blanco Discharge Problem: Hydronephrosis with renal and ureteral calculus obstruction, Urinary tract infection Patient Disposition: Being Evaluated by Hospitalist Forms Stand Alone Forms: My [facility] [employer] Prescriptions Prescriptions: No Action clopidogrel 75 mg tablet 75 mg PO DAILY Qty: 90 RF: 3 atorvastatin 40 mg tablet 40 mg PO DAILY Qty: 90 RF: 3 olmesartan 5 mg tablet 5 mg PO DAILY Qty: 90 RF: 3 hydrocodone-acetaminophen 10-325 mg tablet 1 tab PO Q6 PRN (Reason: Pain) RF: 0 fluoxetine 20 mg capsule 20 mg PO DAILY RF: 0 zolpidem [Ambien] 10 mg tablet 10 mg PO HS RF: 0 levetiracetam 500 mg tablet 500 mg PO DAILY RF: 0 gabapentin 300 mg capsule 300 mg PO DAILY RF: 0 Referrals Referrals: Cookie Jones DO [Primary Care Provider] -
[2021-05-13] MEDS: SODIUM CHLORIDE 0.9% 1000ML 1,000 ML IV SCH ×2 (10:08→18:00)
[2021-05-13 10:11] LABS: Appearance Urine Clear (Clear); Bacteria Urine Automated 2+ (Negative); Bilirubin Urine Negative (Negative); Blood Urine 3+ (Negative); Color Urine Yellow; Epithelial Cell Urine Auto 0-5 /lpf (0-5); Glucose Urine UA Negative (Negative); Ketones Urine Negative (Negative); Leukocyte Esterase Urine 2+ (Negative); Nitrite Urine Positive (Negative); Protein Urine Negative (Negative); RBC Urine Automated >30 /hpf (0-4); Specific Gravity Urine 1.011 (1.000-1.030); Urobilinogen Urine Negative (Negative); WBC Urine Automated >30 /hpf (0-5); pH Urine 8.5 (4.5-7.5)
[2021-05-13 10:12] LABS: Basophils # (auto) 0.03 K/uL (0-0.2); Basophils % (auto) 0.3 %; Eosinophils # (auto) 0.05 K/uL (0-0.5); Eosinophils % (auto) 0.5 %; Hematocrit (blood only) 45.1 % (37-47); Immature Granulocytes # (auto) 0.02 K/uL (0.00-0.02); Immature Granulocytes % (auto) 0.2 %; Mean Corpuscular Hemoglobin 30.9 pg (25-34); Mean Corpuscular Hgb Conc 33.3 g/dL (32-36); Mean Platelet Volume 10.6 fL (7.4-10.4); Monocytes # (auto) 0.47 K/uL (0.11-0.59); Monocytes % (auto) 4.7 %; Neutrophils # (auto) 8.04 K/uL (1.4-6.5); Neutrophils % (auto) 80.3 %; Platelet Count 281 K/uL (130-400); RDW Coefficient of Variation 16.3 % (11.5-14.5); RDW Standard Deviation 55.3 fL (36.4-46.3); Red Blood Count 4.85 M/uL (4.2-5.4); White Blood Count 10.01 K/uL (4.8-10.8)
[2021-05-13] MEDS ORDERED: cefTRIAXone SODIUM 1,000 MG/50 ML BAG IV STA (10:34)
--- NOTE | 2021-05-13 10:37 | CT Scan Report ---
CT OF THE ABDOMEN AND PELVIS WITHOUT CONTRAST CLINICAL HISTORY: Lower abdominal pain. History of stones. COMPARISON STUDY: CT of the abdomen and pelvis November 22, 2016. TECHNIQUE: Axial images of the abdomen and pelvis were obtained without IV contrast. Images were revi ewed in the axial, sagittal, and coronal planes. Automated exposure control was utilized for the fabi dy. A dose lowering technique was utilized adhering to the principles of ALARA. FINDINGS: No pneumatosis, free air or portal venous gas is present. Mild to moderate left hydroureter onephrosis is noted due to a 1.1 x 0.8 cm distal left ureteral calculus. No additional urinary calcul i identified on this exam. Moderate to marked left renal atrophy is noted. There is left perinephric stranding. There is no right hydronephrosis. Evaluation of the remainder of the abdomen and pelvis is suboptimal on this unenhanced exam. There is no evidence for a bowel obstruction status post gastric bypass. There is no biliary ductal dilatation status post cholecystectomy. Unenhanced images of the spleen, adrenal glands and pancreas are unremarkable. Postoperative findings of the anterior abdomina l wall are noted. There is no ascites. No lymphadenopathy. No acute fracture or suspicious lesion is identified within the visualized skeletal structures. Left iliac and femoral stents are suboptimally assessed on this unenhanced exam. IMPRESSION: 1. 1.1 x 0.8 cm distal left ureteral calculus which results in mild to moderate left hydronephrosis. 2. Moderate to marked left renal atrophy. 3. No bowel obstruction. Status post gastric bypass. ACT 112: Negative or not required by law. Electronically signed by: Darrel Galicia M.D. 05/13/2021 10:36 AM
[2021-05-13 10:42] LABS: BUN Creatinine Ratio 24.5 (10-20); Blood Urea Nitrogen 20 mg/dl (7-18); Calcium 9.2 mg/dl (8.5-10.1); Carbon Dioxide 27 mmol/L (21-32); Chloride 107 mmol/L (98-107); Est GFR (African American) 92.1 ml/min; Est GFR (Non-African American) 79.5 ml/min; Glucose 101 mg/dl (70-99); Potassium 4.3 mmol/L (3.5-5.1); Sodium 139 mmol/L (136-145)
--- NOTE | 2021-05-13 13:15 | History & Physical Report ---
Date of Service May 13, 2021 Assessment & Plan (1) Ureterolithiasis: Plan: Pain management with acetaminophen, Toradol and morphine. Strain urine, stone analysis if she passes stone Consult urology (2) Hydronephrosis: Plan: Consult urology - possible ureteral stent later today (3) Acute UTI: Plan: Ceftriaxone 1g IV given in ER. Continue ceftriaxone daily (dose weight dependant, weight pending in ER) (4) Hypertension: Plan: Reports non-compliance with olmesartan although current BP appears to suggest she needs to take this therefore will restart (5) CAD, multiple vessel: Plan: Continue clopidogrel and atorvastatin Plan: VTE Prophylaxis - low risk, chemical prophylaxis deferred Diet - NPO Disposition - admit to med/surg Admission and Anticipated Discharge Date Admission Date: May 13, 2021 History of Present Illness Chief Complaint: Lower abdominal pain, difficulty urinating Primary Care Provider: Cookie Jones DO Gem Leo is a 60 year old female who presents to the ER due to lower abdominal pain and difficulty urinary. Started around 11:30pm, left flank pain, improved with urination but then switched to lower abdominal pain. She reports increased urination and felt like something "dropped" and then couldn't urinate after this. Woke up this morning and called EMS due to the lower abdominal pain and generalized weakness to the point she felt she couldn't safely drive in. She felt like she had to urinate but couldn't. No fevers although she currently fee ls cold but notes the ER room is cold. In the ER she passed some stones prior to the CT scan and was able to pass some urine however post void bladder scanned for 493 ml therefore pool catheter was inserted. CT confirmed a 1.1 x 0.8cm distal left ureteral calculus. Urology have been contacted - consult pending at time of admission. She was referred to medicine for admission and ongoing management. Allergies Allergy/AdvReac Type Severity Reaction Status Date / Time lisinopril AdvReac Mild Cough Verified 01/30/21 11:21 Home Medications Medication Instructions Recorded Confirmed Type fluoxetine 20 mg capsule 20 mg PO DAILY 05/28/18 05/13/21 History hydrocodone 10 mg-acetaminophen 1 tab PO Q6 PRN 05/28/18 05/13/21 History 325 mg tablet atorvastatin 40 mg tablet 40 mg PO DAILY #90 tab 11/22/20 05/13/21 Rx clopidogrel 75 mg tablet 75 mg PO DAILY #90 tab 11/22/20 05/13/21 Rx olmesartan 5 mg tablet 5 mg PO DAILY #90 tab 11/22/20 05/13/21 Rx zolpidem 10 mg tablet (Ambien) 10 mg PO HS tab 11/22/20 05/13/21 History gabapentin 300 mg capsule 300 mg PO DAILY 05/13/21 05/13/21 History levetiracetam 500 mg tablet 500 mg PO DAILY 05/13/21 05/13/21 History Past Med/Surg History Medical History Abdominal mass Abdominal pain (06/26/14) Coronary artery disease History of anemia History of [place] (myocardial infarction) Open wound anterior abdominal wall Partial small bowel obstruction Precordial chest pain Vomiting Surgical History H/O colonoscopy H/O hernia repair (06/26/14) EXPLORATORY LAPAROTOMY lyses of adhesions reduction internal hernia biopsy desmoid process root of mesentery culture of necrotic mass Dr. Still Hx of excision of epidermal inclusion cyst (01/30/21) Excision of cyst back of neck in office Dr. Still S/P hernia repair (04/14/17) Open repair compartement separation incisional hernia with marlex onlay 04/14/17 Status post surgery Abdominal wall debridement skin and sub cut [address] Still 04/28/17 Excision of necrtoic tissue apprx. 3 cm in diameter and 20 cm in lenght of the abdominal wall and removal of previous packing 04/30/17 Family History Grandfather Cancer Grandmother Cancer Heart disease Stroke Mother Diabetes Aunt Hypertension Social History Smoking Status: Current every day smoker Tobacco Type: Cigarettes packs per day: 0.5; Years Smoked: 40; Cigarettes Per Day: 10; Do You Dip or Chew Tobacco: No; Hx Alcohol Use: No Hx Substance Use: No Preferred Language: Hebrew Communication Ability: Effective Putaway Driver Required: No Beliefs That Will Affect Care: None marital status: / Current Living Situation: Family Current Living Situation Comment: Lives w/mother/niece/nephew current occupational status: disabled How many Children do You have: 1 How many Children do You have Comment: custody of great niece Feels Safe at Home: Yes Safety Concerns: Feels Safe At This Time during the past year weight has: remained stable Assistive Devices: Denture - Upper and Glasses Review of Systems Review of Systems: All systems reviewed & are unremarkable except as noted in HPI & below Physical Exam Constitutional: WD/WN, vitals as above Eyes: + anicteric sclerae; normal pupil size ENMT: external ear and nose normal, oropharynx normal Neck: trachea midline, no thyromegaly Respiratory: normal respiratory effort, lungs clear to auscultation Cardiovascular: RRR, no murmur, no edema Gastrointestinal (Abdomen): normal bowel sounds, soft, nontender, no hepatosplenomegaly Musculoskeletal: no cyanosis or clubbing, extremities motor strength 5/5 Skin: no rashes, warm and dry Neurologic: moves all extremities and awake; not confused Psychiatric: A+Ox3, euthymic affect Genitourinary: + CVA tenderness (left) Pool catheter with clear urine Results & Data Results & Data ([facility]) Vital Signs (Past 12 Hours) Vital Signs Temp Pulse Pulse Resp BP BP Pulse Ox 05/13/21 10:28 77 20 174/98 H 98 05/13/21 09:26 36.7 C 84 18 217/114 H 98 Laboratory Results Abnormal lab results 05/13/21 05/13/21 05/13/21 Range/Units 09:54 09:54 09:54 RDW Std Deviation 55.3 H (36.4-46.3) fL RDW Coeff of Jeny 16.3 H (11.5-14.5) % MPV 10.6 H (7.4-10.4) fL Neut # (Auto) 8.04 H (1.4-6.5) K/uL BUN 20 H (7-18) mg/dl BUN/Creatinine Ratio 24.5 H (10-20) Glucose 101 H (70-99) mg/dl Urine pH 8.5 H (4.5-7.5) Urine Blood 3+ H (Negative) Urine Nitrite Positive A (Negative) Ur Leukocyte Esterase 2+ H (Negative) Urine WBC (Auto) >30 H (0-5) /hpf Urine RBC (Auto) >30 H (0-4) /hpf Urine Bacteria (Auto) 2+ H (Negative) Diagnostic Findings CT OF THE ABDOMEN AND PELVIS WITHOUT CONTRAST CLINICAL HISTORY: Lower abdominal pain. History of stones. COMPARISON STUDY: CT of the abdomen and pelvis November 22, 2016. TECHNIQUE: Axial images of the abdomen and pelvis were obtained without IV contrast. Images were reviewed in the axial, sagittal, and coronal planes. Automated exposure control was utilized for the study. A dose lowering technique was utilized adhering to the principles of ALARA. FINDINGS: No pneumatosis, free air or portal venous gas is present. Mild to moderate left hydroureteronephrosis is noted due to a 1.1 x 0.8 cm distal left ureteral calculus. No additional urinary calculi identified on this exam. Moderate to marked left renal atrophy is noted. There is left perinephric stranding. There is no right hydronephrosis. Evaluation of the remainder of the abdomen and pelvis is suboptimal on this unenhanced exam. There is no evidence for a bowel obstruction status post gastric bypass. There is no biliary ductal dilatation status post cholecystectomy. Unenhanced images of the spleen, adrenal glands and pancreas are unremarkable. Postoperative findings of the anterior abdominal wall are noted. There is no ascites. No lymphadenopathy. No acute fracture or suspicious lesion is identified within the visualized skeletal structures. Left iliac and femoral stents are suboptimally assessed on this unenhanced exam. IMPRESSION: 1. 1.1 x 0.8 cm distal left ureteral calculus which results in mild to moderate left hydronephrosis. 2. Moderate to marked left renal atrophy. 3. No bowel obstruction. Status post gastric bypass. Medications Administered ER Medications Given: NSS 1L @ 80 ml/hr Morphine 4mg IV x2 Toradol 10mg IV Ceftriaxone 1000mg IV Code Status & VTE Plan Code Status Full VTE Prophylaxis Plan VTE Prophylaxis will be ordered: No PG Care Time/CCT Total # of Minutes Spent Total Time Spent with Patient: Total time spent is greater than 50% in coordination of care (as documented) at patient's floor/unit and/or counseling patient: Coding Level of Care Code 97728 Initial Inpt Care Lvl 2 Diagnoses Ureterolithiasis N20.1 Hydronephrosis N13.30 Acute UTI N39.0 Hypertension I10 CAD, multiple vessel I25.10
[2021-05-13] MEDS ORDERED: SODIUM CHLORIDE 0.9% 1000ML 1,000 ML IV STA (13:20)
--- NOTE | 2021-05-13 14:10 | Urology Consultation ---
Date of Consultation May 13, 2021 Assessment & Plan (1) Hydronephrosis with renal and ureteral calculus obstruction: (2) Acute UTI: 60yo F admitted with intractable left flank pain and presumed UTI secondary to an obstructing 1.1 x 0.8 cm distal left ureteral calculus with hydronephrosis - Afebrile, non-toxic appearing. - Labs reviewed - White count and creatinine stable - Urinalysis suspicious for infection, UC&S pending - Pool catheter intact, draining clear yellow urine - Keep NPO - Maintain pool catheter - Plan of care and imaging reviewed with Dr. Diaz, on-call urologist - Given her intractable left flank pain and presumed acute UTI in the setting of an obstructing distal left ureteral stone, will proceed to OR for cystoscopy, retrograde pyelogram, and left ureteral stent placement depending on findings. Risks and benefits of procedure to be reviewed with patient by Dr. Diaz. OR notified. Covid test negative. IV Ceftriaxone given in the ED. - Patient agreeable to plan, all questions were answered. - Will continue to follow ATTENDING NOTE: Independently evaluated, assessed, examined, and interviewed. Passing fragments of stone with large stone in ureter. Considerable and severe pain not completely responding to pain medication. Has become severe and bothersome. Has no previous histories of stones. Risks and benefits discussed at length for procedure. These include bleeding, infection, injury to surrounding tissues or organs, and risks associated with anesthesia. Patient states understanding and agrees to proceed. Will sign consent and proceed Plan to have cystoscopy with left stent placement. History of Present Illness Reason for Consultation: Ureteral stone, hydronephrosis History of Present Illness 60yo F with a PMHx including CAD, PAD, HLD, and HTN who presented to the ER today due to left lower abdominal/flank pain and difficulty urinating starting around 11:30pm last night. CT abdomen pelvis confirmed a 1.1 x 0.8cm distal left ureteral calculus. In the ER she did pass two stones prior to the CT scan and was able to then pass some urine. However her post void bladder scanned for 493 ml and therefore a pool catheter was inserted. On presentation, she was afebrile, white count 10.01, hemoglobin 15.0, and creatinine 0.81. Urinalysis with 3+blood, 2+leukocytes, 2+bacteria, >30WBC, >30RBC, positive nitrite Stones passed in ED sent for analysis Urine culture pending CT abdomen pelvis IMPRESSION: 1. 1.1 x 0.8 cm distal left ureteral calculus which results in mild to moderate left hydronephrosis. 2. Moderate to marked left renal atrophy. 3. No bowel obstruction. Status post gastric bypass. Patient examined at bedside in the ED. No acute distress. Still with left flank pain, however this has improved with medication. Tolerating the pool catheter with minimal bother. Catheter currently draining clear yellow urine. No hematuria or dysuria. Denies f/c/n/v. She reports the pain started abruptly last night. She denies prior history of stones. Allergies Allergy/AdvReac Type Severity Reaction Status Date / Time lisinopril AdvReac Mild Cough Verified 01/30/21 11:21 Home Medications Medication Instructions Recorded Confirmed Type fluoxetine 20 mg capsule 20 mg PO DAILY 05/28/18 05/13/21 History hydrocodone 10 mg-acetaminophen 1 tab PO Q6 PRN 05/28/18 05/13/21 History 325 mg tablet atorvastatin 40 mg tablet 40 mg PO DAILY #90 tab 11/22/20 05/13/21 Rx clopidogrel 75 mg tablet 75 mg PO DAILY #90 tab 11/22/20 05/13/21 Rx olmesartan 5 mg tablet 5 mg PO DAILY #90 tab 11/22/20 05/13/21 Rx zolpidem 10 mg tablet (Ambien) 10 mg PO HS tab 11/22/20 05/13/21 History gabapentin 300 mg capsule 300 mg PO DAILY 05/13/21 05/13/21 History levetiracetam 500 mg tablet 500 mg PO DAILY 05/13/21 05/13/21 History Patient History Medical History Abdominal mass Abdominal pain (06/26/14) Coronary artery disease History of anemia History of [place] (myocardial infarction) Open wound anterior abdominal wall Partial small bowel obstruction Precordial chest pain Vomiting Surgical History H/O colonoscopy H/O hernia repair (06/26/14) EXPLORATORY LAPAROTOMY lyses of adhesions reduction internal hernia biopsy desmoid process root of mesentery culture of necrotic mass Dr. Still Hx of excision of epidermal inclusion cyst (01/30/21) Excision of cyst back of neck in office Dr. Still S/P hernia repair (04/14/17) Open repair compartement separation incisional hernia with marlex onlay 04/14/17 Status post surgery Abdominal wall debridement skin and sub cut [address] Still 04/28/17 Excision of necrtoic tissue apprx. 3 cm in diameter and 20 cm in lenght of the abdominal wall and removal of previous packing 04/30/17 Family History Grandfather Cancer Grandmother Cancer Heart disease Stroke Mother Diabetes Aunt Hypertension Social History Smoking Status: Never smoker Tobacco Type: Cigarettes packs per day: 0.5; Years Smoked: 40; Hx Alcohol Use: Yes Alcohol Intake Frequency: Monthly or Less Hx Substance Use: No Preferred Language: Turkish Communication Ability: Effective Auto Radio Mechanic Required: No marital status: / current occupational status: disabled How many Children do You have: 1 How many Children do You have Comment: custody of great niece Feels Safe at Home: Yes during the past year weight has: remained stable Review of Systems Review of Systems: All systems reviewed & are unremarkable except as noted in HPI & below Physical Exam Constitutional: well developed and well nourished; no acute distress Neck: normal visual inspection Respiratory: normal respiratory effort and able to speak in complete sentences; no labored breathing and no audible wheezes Gastrointestinal (Abdomen): Inspection/Auscultation: abdomen normal to inspection; abdomen not distended Musculoskeletal: Head/Neck/Chest: normocephalic Skin: No visible rashes or lesions to exposed skin areas Neurologic: moves all extremities and awake Psychiatric: Orientation: alert, oriented x 3 and cooperative Genitourinary: Pool catheter intact, draining clear yellow urine Results & Data ([facility]) Vital Signs (Past 12 Hours) Vital Signs Temp Pulse Pulse Resp BP BP Pulse Ox 05/13/21 10:28 77 20 174/98 H 98 05/13/21 09:26 36.7 C 84 18 217/114 H 98 PG Care Time/CCT Total # of Minutes Spent Total Time Spent with Patient: Total time spent is greater than 50% in coordination of care (as documented) at patient's floor/unit and/or counseling patient: Coding Level of Care Code 07830 Inpt Consult Level 4 Diagnoses Hydronephrosis with renal and ureteral calculus obstruction N13.2 Acute UTI N39.0
[2021-05-13] MEDS ORDERED: LIDOCAINE 2% 2 ML VIAL/AMP(20MG/ML) INFIL ONE (14:21)
[2021-05-13] MEDS ORDERED: fentaNYL citrate 100 MCG/2 ML VIAL ONE (14:21)
[2021-05-13] MEDS ORDERED: MIDAZOLAM HCL 1 MG/ML 2ML VIAL ONE (14:21)
[2021-05-13] MEDS ORDERED: PROPOFOL IV EMULSION 10 MG/ML 20 ML VIAL IV ONE ×2 (14:22→16:03)
[2021-05-13] MEDS ORDERED: ONDANSETRON INJ 2 MG/ML 2 ML VIAL ONE (14:23)
[2021-05-13] MEDS ORDERED: DIATRIZOATE MEGLUMINE 30% 100ML VIAL INSTIL PRN (15:55)
[2021-05-13] MEDS ORDERED: ONDANSETRON INJ 2 MG/ML 2 ML VIAL IV PRN (15:59)
[2021-05-13] MEDS ORDERED: ATROPINE SULFATE 0.1 MG/ML 10ML SYR IV PRN (15:59)
[2021-05-13] MEDS ORDERED: ePHEDrine sulfate 50 MG/ML AMP IV PRN (15:59)
[2021-05-13] MEDS ORDERED: fentaNYL citrate 100 MCG/2 ML VIAL IV PRN (15:59)
--- NOTE | 2021-05-13 16:13 | Operative Report ---
PG Post Operative Report Pre & Post Diagnosis Operation Date: 05/13/21 19:35 Pre-Op Diagnosis: Left obstructing ureteral stone Post-Op Diagnosis: Left obstructing ureteral stone I identified the patient and participated in the time-out.: Yes Procedure Operation Date: 05/13/21 19:35 Actual Procedures p Cystoscopy with Left urine aspiration, Retrograde pyelogram, and Left Ureteral Stent Placement(Left) - Jack Diaz, Surgeon Jack Diaz, II, DO Silk Trimmer None Estimated Blood Loss 1 Findings Consistent with Post-Op Diagnosis Stent placed in good position. Severe distal hydronephrosis with distal stone causing mass effect on UO Specimens Urine for analysis from left renal pelvis Drains 6x24 stent Anesthesia Type MAC Complications none Disposition Disposition: Recovery Room Indications Patient with obstruction. Risks and benefits discussed at length. Description of Procedure Patient was consented and brought back to the operating room. Patient was placed under anesthesia in the supine position and moved to the dorsal lithotomy position. Patient was prepped and draped in the regular sterile fashion. A time out was completed. A 30degree Cystoscope was placed into the bladder and the entire bladder was examined. The UO's were identified. The UO was cannulized with a catheter and the stone was dislodged. The distal ureteral large stone was causing significant bulging of the ureter possibly due to the stone causing mass effect versus an underlying ureterocele. Urine was aspirated from the renal pelvis and a retrograde pyelogram was completed. A wire was then placed. With the wire in place, a 6 Fr Double J stent was placed. It was confirmed with fluoroscopy. With the stent in place, the bladder was emptied. The scope was removed. The patient was cleaned, aroused from anesthesia, and transferred to the pacu in stable condition having tolerated the procedure well with no complications. I was present and participated in all aspects of the procedure. The patient will be monitored in the PACU until transferred. Plan to maintain stent and likely need ureteroscopy to treat stone in 2-3 weeks. I attest to the content of the Intraoperative Record and any orders documented therein. Any exceptions are noted below.
--- NOTE | 2021-05-13 16:18 | Anesthesiology Consultation ---
Date of Service May 13, 2021 Assessment & Plan (1) Encounter for pre-operative examination: Chart Review Chart Review: Acceptable Risk for Surgery Consults Requested none ASA ASA3 Proposed Anesthesia Anesthesia Type: MAC Risk / Benefits Reviewed With: PT / POA / Parent / Guardian, Accepts Plan and Informed Consent Obtained History Surgery Operation Date: 05/13/21 19:35 Proposed Procedures p Cystoscopy Left Retrograde Stent - Jack Diaz, DO Height/Weight Height: 5 ft 5 in Allergies Allergy/AdvReac Type Severity Reaction Status Date / Time lisinopril AdvReac Mild Cough Verified 01/30/21 11:21 Medications Home Medications Medication Instructions Recorded Confirmed Last Taken fluoxetine 20 mg capsule 20 mg PO DAILY 05/28/18 05/13/21 Unknown hydrocodone 10 mg-acetaminophen 1 tab PO Q6 PRN 05/28/18 05/13/21 Unknown 325 mg tablet atorvastatin 40 mg tablet 40 mg PO DAILY #90 tab 11/22/20 05/13/21 Unknown clopidogrel 75 mg tablet 75 mg PO DAILY #90 tab 11/22/20 05/13/21 Unknown olmesartan 5 mg tablet 5 mg PO DAILY #90 tab 11/22/20 05/13/21 Unknown zolpidem 10 mg tablet (Ambien) 10 mg PO HS tab 11/22/20 05/13/21 Unknown gabapentin 300 mg capsule 300 mg PO DAILY 05/13/21 05/13/21 Unknown levetiracetam 500 mg tablet 500 mg PO DAILY 05/13/21 05/13/21 Unknown Active Medications Generic Name Dose Route Start Last Admin Trade Name Freq PRN Reason Stop Dose Admin Diatrizoate Meglumine 30 ml 05/13/21 15:55 05/13/21 16:06 Diatrizoate Meglumine 30% 100ml Vial INSTIL 05/17/21 15:54 6 ml UD PRN Administration surgery Sodium Chloride 1,000 mls @ 80 mls/hr 05/13/21 09:45 05/13/21 10:08 Nss 1000ml IV 06/12/21 09:44 80 mls/hr .[id number] DIAMANTE Administration NPO Date Last Intake of Fluids: 05/12/21 Time Last Intake of Fluids: 22:00 Date Last Intake of Solids: 05/12/21 Time Last Intake of Solids: 22:00 Past Medical History Medical History Abdominal mass Abdominal pain (06/26/14) Coronary artery disease History of anemia History of [place] (myocardial infarction) Open wound anterior abdominal wall Partial small bowel obstruction Precordial chest pain Vomiting Exercise / Class Metabolic Activity II 4-5 Yardwork/Stairs/Walk up hill Past Family History Family History Grandfather Cancer Grandmother Cancer Heart disease Stroke Mother Diabetes Aunt Hypertension Past Surgical History Surgical History H/O colonoscopy H/O hernia repair (06/26/14) EXPLORATORY LAPAROTOMY lyses of adhesions reduction internal hernia biopsy desmoid process root of mesentery culture of necrotic mass Dr. Still Hx of excision of epidermal inclusion cyst (01/30/21) Excision of cyst back of neck in office Dr. Still S/P hernia repair (04/14/17) Open repair compartement separation incisional hernia with marlex onlay 04/14/17 Status post surgery Abdominal wall debridement skin and sub cut [address] Still 04/28/17 Excision of necrtoic tissue apprx. 3 cm in diameter and 20 cm in lenght of the abdominal wall and removal of previous packing 04/30/17 Past Anesthesia History No Hx of Anesthesia Complications and No Family Hx of Anesthesia Complications History of PONV No Hx of PONV and No Hx of Motion Sickness Social History Smoking Status: Never smoker Hx Alcohol Use: Yes Hx Substance Use: No Physical Exam Vital Signs Last Vital Signs Temp 99.3 F 05/13/21 14:18 Pulse 78 05/13/21 14:18 Resp 16 05/13/21 14:18 BP 184/92 H 05/13/21 14:18 Pulse Ox 97 05/13/21 14:18 ENMT Mouth: no dentition abnormality Thyromental Distance: > or= 3.5 Finger Breadths Mallampati Class: II Neck normal visual inspection Respiratory normal respiratory effort Auscultation: lungs clear to auscultation bilaterally Cardiovascular Rate/Rhythm: regular rate and regular rhythm Testing Laboratory Results 05/13/21 09:54 05/13/21 09:54 Urine Color Yellow 05/13/21 09:54 Urine Appearance Clear (Clear) 05/13/21 09:54 Urine pH 8.5 (4.5-7.5) H 05/13/21 09:54 Ur Specific [place] 1.011 (1.000-1.030) 05/13/21 09:54 Urine Protein Negative (Negative) 05/13/21 09:54 Urine Glucose (UA) Negative (Negative) 05/13/21 09:54 Urine Ketones Negative (Negative) 05/13/21 09:54 Urine Nitrite Positive (Negative) A 05/13/21 09:54 Ur Leukocyte Esterase 2+ (Negative) H 05/13/21 09:54 Urine WBC (Auto) >30 /hpf (0-5) H 05/13/21 09:54 Urine RBC (Auto) >30 /hpf (0-4) H 05/13/21 09:54 U Hyaline Cast (Auto) 1-5 /lpf (0-5) 05/13/21 09:54 U Epithel Cells (Auto) 0-5 /lpf (0-5) 05/13/21 09:54 Urine Bacteria (Auto) 2+ (Negative) H 05/13/21 09:54
--- NOTE | 2021-05-13 16:26 | Anesthesiology Progress Note ---
Date of Service May 13, 2021 Anesthesia Post Procedure Vital Signs Vital Signs: Temp Pulse Pulse Resp BP BP Pulse Ox 05/13/21 14:18 99.3 F 78 16 184/92 H 97 05/13/21 13:00 67 20 183/100 H 98 05/13/21 10:28 77 20 174/98 H 98 05/13/21 09:26 98.1 F 84 18 217/114 H 98 Pain Intensity Bilateral Groin: Pain Intensity: 6 Transfer of Care Handoff Completed per policy Notes Mental Status: alert / awake / arousable and participated in evaluation Patient Amnestic to Procedure: Yes Nausea / Vomiting: adequately controlled Pain: adequately controlled Airway Patency, RR, SpO2: stable & adequate BP & HR: stable & adequate Hydration State: stable & adequate Anesthetic Complications: no major complications apparent and Pt Satisfied with anesthetic care
[2021-05-13] MEDS ORDERED: LABETALOL HCL IV 5 MG/ML 20ML IV ONE (16:43)
[2021-05-13] MEDS ORDERED: LABETALOL HCL IV 5 MG/ML 20ML IV STA (16:44)
[2021-05-13] MEDS ORDERED: MEPERIDINE HCL 25 MG/ML CARP/VIAL ONE (16:44)
[2021-05-13] MEDS ORDERED: MEPERIDINE HCL 25 MG/ML CARP/VIAL IV ONE (16:44)
[2021-05-13] MEDS ORDERED: MEPERIDINE HCL 50 MG/ML CARP IV ONE (16:46)
--- NOTE | 2021-05-13 16:50 | Fluoroscopy Report ---
FL retrograde includes kub CLINICAL HISTORY: LT STENT placement COMPARISON STUDY: CT of the abdomen and pelvis from 05/13/2021 FLUOROSCOPY TIME: 24 seconds. FLUOROSCOPIC IMAGES: 2 fluoroscopic spot images FINDINGS: A double-J ureteral stent is in place on the left with no definite hydronephrosis present o n the images obtained. IMPRESSION: Status post double-J ureteral stent placement on the left. ACT 112: Negative or not required by law. Electronically signed by: Jordon Wilks M.D. 05/13/2021 4:49 PM
[2021-05-13] MEDS ORDERED: PATIENT'S HEIGHT AND/OR WEIGHT NEEDED SCH (18:00)
[2021-05-13] MEDS: ACETAMINOPHEN 500 MG TAB PO SCH ×2 (18:17→20:47)
[2021-05-13] MEDS: KETOROLAC TROMETHAMINE 15 MG/ML VIAL IV PRN (18:41)
[2021-05-13] MEDS: MoRPHine SULFATE 4 MG/ML 1 ML CARP\\VIAL IV PRN (19:52)
[2021-05-13] MEDS: ZOLPIDEM TARTRATE 10 MG TAB PO SCH (20:48)
[2021-05-13] MEDS: ATORVASTATIN 40 MG TAB PO SCH (20:48)
[2021-05-13] MEDS: OLMESARTAN MEDOXOMIL 5 MG TAB PO SCH (20:49)
[2021-05-13] MEDS: FLUoxetine HCL 20 MG CAP PO SCH (20:49)
[2021-05-13] MEDS: CLOPIDOGREL BISULFATE 75 MG TAB PO SCH (20:51)
[2021-05-14] MEDS: MoRPHine SULFATE 4 MG/ML 1 ML CARP\\VIAL IV PRN ×4 (01:18→16:36)
[2021-05-14] MEDS: KETOROLAC TROMETHAMINE 15 MG/ML VIAL IV PRN ×3 (04:29→20:15)
[2021-05-14] MEDS: ACETAMINOPHEN 500 MG TAB PO SCH ×3 (08:43→20:25)
[2021-05-14 09:27] LABS: BUN Creatinine Ratio 20.5 (10-20); Calcium 8.1 mg/dl (8.5-10.1); Est GFR (Non-African American) 81.9 ml/min; Potassium 4.4 mmol/L (3.5-5.1)
[2021-05-14] MEDS: cefTRIAXone SODIUM 1,000 MG in DEXTROSE 5% 50 ML IV SCH (11:16)
--- NOTE | 2021-05-14 12:29 | Urology Progress Note ---
Date of Service May 14, 2021 Assessment & Plan (1) Hydronephrosis with renal and ureteral calculus obstruction: (2) Urinary tract infection: Plan: 60yo F admitted with intractable left flank pain and UTI secondary to an obstructing 1.1 x 0.8 cm distal left ureteral calculus with hydronephrosis - POD #1 s/p Cystoscopy with Left urine aspiration, Retrograde pyelogram, and Left Ureteral Stent Placement with Dr. Diaz - Tolerating the ureteral stent with minimal bother. - T-max this morning at 38.3 - Labs reviewed - Creatinine remains stable - UC&S preliminary gram negative bacilli; Left kidney urine aspirate preliminary gram negative bacilli - Continues on IV Ceftriaxone - Pool catheter intact, draining clear yellow urine - No further intervention indicated at this time - Recommend maintaining pool catheter for maximum drainage while treating infection - Will arrange outpatient follow-up with urology for definitive stone treatment once infection has resolved - Continue supportive care, antibiotic therapy, and close monitoring, follow cultures - Will continue to follow peripherally Admission and Anticipated Discharge Date Admission Date: May 13, 2021 Subjective Pt examined at bedside this AM. Awake, resting in bed on arrival. No acute distress. Febrile this morning, Tylenol given per AUG. Denies chills. Reports left flank/suprapubic discomfort, managing with IV pain medication. Pool catheter intact, draining clear yellow urine. No dysuria. Denies nausea or vomiting. Tolerating PO diet. Review of Systems Constitutional: as per Subjective / HPI Gastrointestinal: as per Subjective / HPI Genitourinary: as per Subjective / HPI Physical Exam Constitutional: well developed and well nourished; no acute distress Neck: normal visual inspection Respiratory: normal respiratory effort and able to speak in complete sentences; no labored breathing and no audible wheezes Gastrointestinal (Abdomen): Inspection/Auscultation: abdomen normal to inspection; abdomen not distended Musculoskeletal: Head/Neck/Chest: normocephalic Skin: No visible rashes or lesions to exposed skin areas Neurologic: moves all extremities and awake Psychiatric: Orientation: alert, oriented x 3 and cooperative Genitourinary: Pool catheter intact, draining clear yellow urine Results & Data ([facility]) Vital Signs (Past 12 Hours) Vital Signs Temp Pulse Resp BP Pulse Ox 05/14/21 05:59 38.3 C H 94 H 22 153/78 H 91 05/14/21 03:52 37.8 C H 89 20 184/79 H 91 PG Care Time/CCT Total # of Minutes Spent Total Time Spent with Patient: Total time spent is greater than 50% in coordination of care (as documented) at patient's floor/unit and/or counseling patient: Coding Level of Care Code 14665 Subseq Hosp Care Lvl 2 Diagnoses Hydronephrosis with renal and ureteral calculus obstruction N13.2 Urinary tract infection N39.0; R31.9 Hematuria presence: with hematuria Urinary tract infection type: site unspecified (1) Urinary tract infection Hematuria presence: with hematuria Urinary tract infection type: site unspecified Qualified Code(s): N39.0 - Urinary tract infection, site not specified; R31.9 - Hematuria, unspecified
--- NOTE | 2021-05-14 13:18 | Communication Note ---
Date of Service: May 13, 2021 I saw this patient and participated in their care and management under the direct supervision of Dr. Cole. Resident Activity Tracking Resident Involvement: Resident Care Provided Care Provided: Adult ED
--- NOTE | 2021-05-14 14:10 | Hospitalist Progress Note ---
Date of Service May 14, 2021 Assessment & Plan (1) Ureterolithiasis: Plan: - With Hydronephrosis and acute UTI; now S/P Cystoscopy with urine aspiration and L ureteral stent on 05/13 - CT - 1.1 x 0.8 cm distal L ureteral calculus with mild to moderate L hydroneph rosis; moderate to marked L renal atrophy; S/P gastric bypass - Was febrile this AM and will monitor - UCx - two gram negative bacilli organisms growing - await further identification and - Continue Ceftriaxone 1 g IV daily - Continue bowel and pain regimen - Urology following - recommend maintaining pool for maximum drainage while treating infection; they will arrange outpatient F/U for definitive stone treatment once infection resolved (2) Hypertension: Plan: - Reports non-compliance with olmesartan although current BP appears to suggest she needs to take this therefore will restart (3) CAD, multiple vessel: Plan: - Continue clopidogrel and atorvastatin Plan: VTE Prophylaxis - low risk, chemical prophylaxis deferred Disposition - Await UCx for Abx regimen; if remains afebrile likely can D/C tomorrow Admission and Anticipated Discharge Date Admission Date: May 13, 2021 Subjective Reports doing well. Some mild suprapubic tenderness but much improved since being hospitalized. Is having chronic back pain that is unchanged from its nor mal. Tolerating a diet without issue. Was febrile in the AM. Review of Systems Review of Systems: All systems reviewed & are unremarkable except as noted in Subjective Physical Exam Physical Exam: PHYSICAL EXAM General Appearance: WDWN in NAD who is A&O x 3 HEENT: Head is normocephalic/atraumatic; Hearing grossly intact; Mucous membranes moist; poor dentition Neck: Supple; Trachea midline Heart: RRR with no M/G/R Lungs: CTA in all lung patiño bilaterally; Respirations unlabored; Neg accessory muscle use Abdomen: Soft, non-distended; Positive BS x 4 quadrants Extremities: Neg cyanosis or edema Neurological: Speech clear; Gross motor/sensory function intact; Neg focal neurologic deficits Psychiatric: Appropriate mood/affect Skin: Normal Color; Warm/Dry Results & Data Results & Data ([facility]) Vital Signs (Past 12 Hours) Vital Signs Temp Pulse Resp BP Pulse Ox 05/14/21 05:59 38.3 C H 94 H 22 153/78 H 91 05/14/21 03:52 37.8 C H 89 20 184/79 H 91 PG Care Time/CCT Total # of Minutes Spent Total Time Spent with Patient: Total time spent is greater than 50% in coordination of care (as documented) at patient's floor/unit and/or counseling patient: Coding Level of Care Code 55708 Subseq Hosp Care Lvl 3 Diagnoses Ureterolithiasis N20.1 Hypertension I10 CAD, multiple vessel I25.10
[2021-05-14] MEDS: FLUoxetine HCL 20 MG CAP PO SCH (20:14)
[2021-05-14] MEDS: OLMESARTAN MEDOXOMIL 5 MG TAB PO SCH (20:14)
[2021-05-14] MEDS: ATORVASTATIN 40 MG TAB PO SCH (20:14)
[2021-05-14] MEDS: CLOPIDOGREL BISULFATE 75 MG TAB PO SCH (20:15)
[2021-05-14] MEDS: ZOLPIDEM TARTRATE 10 MG TAB PO SCH (20:25)
[2021-05-15] MEDS: MoRPHine SULFATE 4 MG/ML 1 ML CARP\\VIAL IV PRN ×3 (00:38→11:54)
[2021-05-15] MEDS: KETOROLAC TROMETHAMINE 15 MG/ML VIAL IV PRN ×2 (04:46→10:46)
[2021-05-15] MEDS: ACETAMINOPHEN 500 MG TAB PO SCH ×2 (09:26→14:11)
[2021-05-15] MEDS ORDERED: TAMSULOSIN HCL 0.4 MG CAP PO ONE (10:00)
[2021-05-15] MEDS: cefTRIAXone SODIUM 1,000 MG in DEXTROSE 5% 50 ML IV SCH (11:55)
--- NOTE | 2021-05-15 14:53 | Discharge Summary ---
Date of Service May 15, 2021 Admission HPI Per Admitting Provider Gem Leo is a 60 year old female who presents to the ER due to lower abdominal pain and difficulty urinary. Started around 11:30pm, left flank pain, improved with urination but then switched to lower abdominal pain. She reports increased urination and felt like something "dropped" and then couldn't urinate after this. Woke up this morning and called EMS due to the lower abdominal pain and generalized weakness to the point she felt she couldn't safely drive in. She felt like she had to urinate but couldn't. No fevers although she currently feels cold but notes the ER room is cold. In the ER she passed some stones prior to the CT scan and was able to pass some urine however post void bladder scanned for 493 ml therefore pool catheter was inserted. CT confirmed a 1.1 x 0.8cm distal left ureteral calculus. Urology have been contacted - consult pending at time of admission. She was referred to medicine for admission and ongoing management. Principal Diagnosis Ureterolithiasis Discharge Exam PHYSICAL EXAM General Appearance: WDWN in NAD who is A&O x 3 HEENT: Head is normocephalic/atraumatic; Hearing grossly intact; Mucous membranes moist; poor dentition Neck: Supple; Trachea midline Heart: RRR with no M/G/R Lungs: CTA in all lung patiño bilaterally; Respirations unlabored; Neg accessory muscle use Abdomen: Soft, non-distended; Positive BS x 4 quadrants Extremities: Neg cyanosis or edema Neurological: Speech clear; Gross motor/sensory function intact; Neg focal neurologic deficits Psychiatric: Appropriate mood/affect Skin: Normal Color; Warm/Dry Discharge Data Allergies Allergy/AdvReac Type Severity Reaction Status Date / Time lisinopril AdvReac Mild Cough Verified 01/30/21 11:21 Consultations 05/13/21 12:13 Consult Urology Stat 05/13/21 12:55 ED Decision to Admit Stat Procedures Performed Operation Date: 05/13/21 19:35 Actual Procedures p Left Ureteral Stent Placement(Left) - Jack Diaz DO s Cystoscopy Left Retrograde pyelogram,(Left) - Jack Diaz DO Ordered Studies Abdomen/Pelvis CT 05/13/21 09:37 CT OF THE ABDOMEN AND PELVIS WITHOUT CONTRAST CLINICAL HISTORY: Lower abdominal pain. History of stones. COMPARISON STUDY: CT of the abdomen and pelvis November 22, 2016. TECHNIQUE: Axial images of the abdomen and pelvis were obtained without IV contrast. Images were reviewed in the axial, sagittal, and coronal planes. Aut omated exposure control was utilized for the study. A dose lowering technique was utilized adhering to the principles of ALARA. FINDINGS: No pneumatosis, free air or portal venous gas is present. Mild to moderate left hydroureteronephrosis is noted due to a 1.1 x 0.8 cm distal left ureteral calculus. No additional urinary calculi identified on this exam. Moderate to marked left renal atrophy is noted. There is left perinephric stranding. There is no right hydronephrosis. Evaluation of the remainder of the abdomen and pelvis is suboptimal on this unenhanced exam. There is no evidence for a bowel obstruction status post gastric bypass. There is no biliary ductal dilatation status post cholecystectomy. Unenhanced images of the spleen, adrenal glands and pancreas are unremarkable. Postoperative findings of the anterior abdominal wall are noted. There is no ascites. No lymphadenopathy. No acute fracture or suspicious lesion is identified within the visualized skeletal structures. Left iliac and femoral stents are suboptimally assessed on this unenhanced exam. IMPRESSION: 1. 1.1 x 0.8 cm distal left ureteral calculus which results in mild to moderate left hydronephrosis. 2. Moderate to marked left renal atrophy. 3. No bowel obstruction. Status post gastric bypass. ACT 112: Negative or not required by law. Electronically signed by: Darrel Galicia M.D. 05/13/2021 10:36 AM Retrograde Pyelogram 05/13/21 15:00 FL retrograde includes kub CLINICAL HISTORY: LT STENT placement COMPARISON STUDY: CT of the abdomen and pelvis from 05/13/2021 FLUOROSCOPY TIME: 24 seconds. FLUOROSCOPIC IMAGES: 2 fluoroscopic spot images FINDINGS: A double-J ureteral stent is in place on the left with no definite hydronephrosis present on the images obtained. IMPRESSION: Status post double-J ureteral stent placement on the left. ACT 112: Negative or not required by law. Electronically signed by: Jordon Wilks M.D. 05/13/2021 4:49 PM Hospital Course (1) Ureterolithiasis: - With Hydronephrosis and acute UTI; now S/P Cystoscopy with urine as piration and L ureteral stent on 05/13 - CT - 1.1 x 0.8 cm distal L ureteral calculus with mild to moderate L hydronephrosis; moderate to marked L renal atrophy; S/P gastric bypass - Now afebrile > 24 hours - UCx - klebsiella and e. coli both sensitive to Rocephin and will convert to Cefdinir 300 mg BID x 10 days - Was retaining urine on admission and had pool placed. Initial plan was to maintain pool with trial of void next week with Urology. Patient would not like to keep pool in. Did explain reasoning and also advised if she would retain she would need to go to the ER for re-insertion. -- Did perform trial of void. Patient did urinate 3 times prior to discharge with adequate output. She also was bladder scanned with no residuals - Will give Rx for Flomax - Urology followed - plan to follow-up as outpatient for stent removal in 2-3 weeks (2) Hypertension: - Reports non-compliance with olmesartan although current BP appears to suggest she needs to take this (3) CAD, multiple vessel: - Continue clopidogrel and atorvastatin -- States she is supposed to take a baby ASA but doesn't VTE Prophylaxis - low risk, chemical prophylaxis deferred Disposition - Follow-up with Urology Total Time Total Time Spent Total Time Spent (In Minutes): Spent greater than 30 minutes preparing patient for discharge. This includes discussion with patient/family, assessment, intervention, medication reconciliation, and coordination of care. Discharge Plan Discharge Items Patient Disposition: Home - Self-Care Reason For Visit: URETEROLITHIASIS, HYDRONEPHROSIS Discharge Diagnosis: Kidney Stone Activity: Resume your previous activity Non-emergency contact: Primary Care Provider and Urologist Call non-emergency contact if: you have any medication questions, your symptoms worsen and you have a fever Follow-up/Referrals: Jack Diaz DO [Physician] - 05/22/21 10:00 am Cookie Jones DO [Primary Care Provider] - 05/22/21 9:10 am Diet: Heart Healthy Addtl Attending Provider Instructions: Kidney Stone: - You were admitted for a kidney stone that moved out of your kidney and into the ureter. You had a scope and stent placed on 05/13 - You also have a urinary tract infection growing e. coli and klebsiella which are common bacteria that can cause infection -- You will need to take antibiotics for the next 10 days. Start this tomorrow on 05/16 as you had antibiotics this morning in the hospital -- You will take Cefdinir 300 mg twice a day for 10 days - You did have a pool catheter to help you urinate while in the hospital. It is understandable to not want to go home with this however it can help keep urine draining. If you stop urinating or retaining more urine this can cause the infection to not clear the urinary system. If you are having trouble urinating please go to the ER as you may need to have the catheter put back in. - We will also prescribe Flomax. This is a medication that can help relax the ureters/urethra to make it easier to urinate while having a stone. - You will have the stent in place for about 2-3 weeks and the Urology team will plan for an appointment to have it removed - You may use your home pain medication as needed for discomfort - Will send a prescription for Toradol to use as needed for pain. As discussed, this is a strong version of Ibuprofen so do not use Ibuprofen, Motrin, Aleve, Aspirin, Naproxyn, Naprosyn...while using Toradol. Tylenol is safe to use while using Toradol Home Medications: - You may continue your home medications as previously prescribed. We did not make adjustments to these Pending Studies at Discharge: No Stand-Alone Forms: [facility], Opioid Pain Management, Smoking Cessation Medications and DC Order Prescriptions: New cefdinir 300 mg capsule 300 mg PO BID 10 Days Qty: 20 RF: 0 ketorolac 10 mg tablet 10 mg PO Q6H PRN (Reason: pain) 5 Days Qty: 20 RF: 0 tamsulosin [Flomax] 0.4 mg capsule 0.4 mg PO DAILY 21 Days Qty: 21 RF: 0 Continued clopidogrel 75 mg tablet 75 mg PO DAILY Qty: 90 RF: 3 atorvastatin 40 mg tablet 40 mg PO DAILY Qty: 90 RF: 3 olmesartan 5 mg tablet 5 mg PO DAILY Qty: 90 RF: 3 hydrocodone-acetaminophen 10-325 mg tablet 1 tab PO Q6 PRN (Reason: Pain) RF: 0 fluoxetine 20 mg capsule 20 mg PO DAILY RF: 0 zolpidem [Ambien] 10 mg tablet 10 mg PO HS RF: 0 levetiracetam 500 mg tablet 500 mg PO DAILY RF: 0 gabapentin 300 mg capsule 300 mg PO DAILY RF: 0 Discharge Orders: Discharge Order (Routine); Ordered 05/15/21 Ordered By: Sunitha Bai/Other Patient Handouts: Healthy Kidneys, How Your Kidneys Work, Preventing Kidney Stones Admission Data Admit Date/Time: 05/13/21 13:59 Attending Provider: Manjeet Solis Admit Provider: Kush Helton Primary Care Provider: Cookie Jones Other Providers: Jack Diaz ; Kush Helton Other Interventions: Discharge Summary Assessment (RN) Last Done: 05/15/21 14:15 Coding Level of Care Code D/C DAY MANAGEMENT >30 MINS Diagnoses Ureterolithiasis N20.1 Hypertension I10 CAD, multiple vessel I25.10
[2021-05-15] MEDS ORDERED: HYDROcodone/ACETAMINOPHEN 10/325 TAB PO ONE (14:55)
[2021-05-16 11:31] LABS: Component 2 DNR; Source BLADDER
== END 2021-05-15 16:00 | disposition home or self-care (01) | DRG 661 ==
LOC: ED 09:23 → SUATTDRO 13:59 → 3W 13:59

== ENCOUNTER 2022-02-21 10:18 | Observation (INO) ==
[2022-02-21] MEDS ORDERED: ALBUT/IPRATROP 3MG/0.5MG NEB 3 ML VIAL INH STA (10:30)
[2022-02-21] MEDS ORDERED: methylPREDNISolone 125 MG/2 ML VIAL IV STA (10:30)
--- NOTE | 2022-02-21 10:35 | Emergency Department Note ---
Impression & Plan Pneumonia ADMIT ED Provider Note HPI: The patient is a 61-year-old female with history of coronary artery disease, hypertension, active smoker, presents the emergency department chief complaint of cough, fever/chills, and shortness of breath for about the past 5 days. Patient states that she continues to have a harsh cough. On arrival here to the ED the patient is saturating well on room air, she is afebrile on presentation, she does exhibit a harsh cough on my examination. She is otherwise in no acute distress on my initial evaluation. ROS: -Pulmonary: Cough, shortness of breath -General: Subjective fever/chills *10 point review systems was conducted and is otherwise negative unless stated above *Outpatient medications and allergy history reviewed PE: General: Alert, NAD HEENT: Normocephalic, atraumatic Eyes: Extraocular eye movement is intact, no scleral erythema Pulmonary: Coarse bilateral breath sounds with expiratory wheezing Cardio: Regular rate and rhythm GI: Abdomen is soft, nontender : No suprapubic tenderness MSK: No evidence of trauma or malformation of the extremities, no edema Skin: No evidence of rash Neuro: Alert, no focal deficits 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 COVID-19 testing was obtained and is negative. Chest x- ray shows evidence of a right-sided pneumonia. Patient does have a slight leukocytosis, blood cultures were drawn here in the ED, troponin is negative, patient denies any typical chest pain, states she does get some pain with cough. Patient did have an episode of desaturation to 87% while here in the ED and she was unable to maintain her oxygen on room air therefore was placed on nasal cannula oxygen with good improvement. She was treated with IV ceftriaxone and IV azithromycin for her pneumonia given the COVID-19 testing is negative. She is otherwise alert and appears in no acute distress on my reassessment following dose of pain medicine for her rib pain. I discussed the above findings with the on-call hospitalist and the patient was admitted to a monitored bed for further management. Patient was admitted in stable condition. * CRITICAL CARE TIME: ( 40 ) minutes -Stabilization of hypoxia requiring nasal cannula oxygen for correction, time spent at the bedside, interpretation of diagnostic studies, arrangement of admission Diagnosis: 1. Pneumonia, community-acquired, right-sided 2. Hypoxia 3. Leukocytosis 4. COPD exacerbation, mild Disposition: Admission Bill Saez DO Emergency Medicine Past Med/Surg History Medical History (Updated 02/21/22 @ 17:04 by Bill Saez DO) Atrophy of left kidney Coronary artery disease CAD s/p STEMI s/p RCA Bare Metal Stent (June 2012), Residual Left Coronary System CAD Depression History of anemia History of AL (myocardial infarction) 2010 Hyperlipidemia Hypertension Kidney stones Osteoarthritis arthritis in neck and lower back PAD (peripheral artery disease) Lower Extremity PAD s/p Angioplasty/Atherectomy to Right SFA/Popliteal and Left External Iliac/Common Femoral INSERTER with Atherectomy and Stenting Sleep apnea Per records, no device Urinary tract infection Vitamin D deficiency Surgical History H/O colonoscopy H/O hernia repair (06/26/14) EXPLORATORY LAPAROTOMY lyses of adhesions reduction internal hernia biopsy desmoid process root of mesentery culture of necrotic mass Dr. Still History of laparotomy stomach stapling in 1999 and then trouble with procedure and then did the gastric bypass. Hx of cystoscopy stent in place Hx of excision of epidermal inclusion cyst (01/30/21) Excision of cyst back of neck in office Dr. Still S/P hernia repair (04/14/17) Open repair compartement separation incisional hernia with marlex onlay 04/14/17 Status post surgery Abdominal wall debridement skin and sub cut [address] Still 04/28/17 Excision of necrtoic tissue apprx. 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: No Beliefs That Will Affect Care: None marital status: / Current Living Situation: Family Current Living Situation Comment: Lives w/mother/niece/nephew current occupational status: disabled How many Children do You have: 1 How many Children do You have Comment: custody of great niece Feels Safe at Home: Yes during the past year weight has: remained stable Assistive Devices: None Allergies Allergies Allergy/AdvReac Type Severity Reaction Status Date / Time No Known Allergies Allergy Unverified 01/06/22 13:03 Home Meds Home Medications Medication Instructions Recorded Confirmed fluoxetine 20 mg capsule 20 mg PO HS 05/28/18 02/21/22 hydrocodone 10 mg-acetaminophen 1 tab PO Q6 PRN Pain 05/28/18 02/21/22 325 mg tablet zolpidem 10 mg tablet (Ambien) 10 mg PO HS 11/22/20 01/06/22 gabapentin 300 mg capsule 300 mg PO TID 05/13/21 02/21/22 atorvastatin 40 mg tablet 40 mg PO HS 05/23/21 02/21/22 clopidogrel 75 mg tablet 75 mg PO QPM 05/23/21 02/21/22 olmesartan 5 mg tablet 5 mg PO HS 05/23/21 02/21/22 aspirin 81 mg tablet,delayed 81 mg PO DAILY 01/06/22 02/21/22 release (Adult Aspirin Regimen) multivitamin (Daily Multi-Vitamin 1 tab PO DAILY 01/06/22 02/21/22 tablet) Results & Data (ED) Vital Signs Vital Signs - 24 hr 02/21/22 10:22 02/21/22 10:48 02/21/22 10:52 Temperature 36.3 C L Temperature Source Temporal Artery Scan Pulse Rate 82 74 Pulse Rate [Apical] Pulse Rate from SpO2 Sensor 85 Pulse Rhythm [Apical] Respiratory Rate 18 18 Respiratory Effort / Characteristics Non-Labored Respiratory Depth Normal Respiratory Pattern Regular Blood Pressure 159/95 H 158/94 H Blood Pressure [Left Arm] Blood Pressure Mean 116 115 Blood Pressure Mean [Left Arm] Blood Pressure Position Sitting Pulse Oximetry 94 92 94 Oxygen Delivery Method Room Air Nasal Cannula Oxygen Flow Rate 3 Sepsis Recent Fever Within 48 Hours No Sepsis New/Unexplained Change in Mental Status No Sepsis Action Taken by Nursing No Action Required 02/21/22 12:12 02/21/22 12:13 02/21/22 11:30 Temperature Temperature Source Pulse Rate 75 Pulse Rate [Apical] 83 Pulse Rate from SpO2 Sensor 85 Pulse Rhythm [Apical] Regular Respiratory Rate 20 22 Respiratory Effort / Characteristics Spontaneous Respiratory Depth Normal Respiratory Pattern Regular Blood Pressure 158/87 H Blood Pressure [Left Arm] 135/86 Blood Pressure Mean 110 Blood Pressure Mean [Left Arm] 102 Blood Pressure Position Pulse Oximetry 87 L 91 93 Oxygen Delivery Method Room Air Nasal Cannula Nasal Cannula Oxygen Flow Rate 2 3 Sepsis Recent Fever Within 48 Hours Sepsis New/Unexplained Change in Mental Status Sepsis Action Taken by Nursing 02/21/22 12:00 Temperature Temperature Source Pulse Rate 84 Pulse Rate [Apical] Pulse Rate from SpO2 Sensor 83 Pulse Rhythm [Apical] Respiratory Rate 18 Respiratory Effort / Characteristics Respiratory Depth Respiratory Pattern Blood Pressure 155/90 H Blood Pressure [Left Arm] Blood Pressure Mean 111 Blood Pressure Mean [Left Arm] Blood Pressure Position Pulse Oximetry 93 Oxygen Delivery Method Oxygen Flow Rate 3 Sepsis Recent Fever Within 48 Hours Sepsis New/Unexplained Change in Mental Status Sepsis Action Taken by Nursing Laboratory Data Result diagrams: 02/21/22 10:45 02/21/22 10:45 Lab Results 02/21/22 02/21/22 02/21/22 Range/Units 10:45 10:45 10:45 WBC 11.32 H (4.8-10.8) K/ul RBC 4.67 (3.93-5.22) M/uL Hgb 14.1 (12.0-16.0) g/dl Hct 41.0 (34.1-44.9) % MCV 87.8 (80.0-100.0) fL MCH 30.2 (25.0-34.0) pg MCHC 34.4 (32.0-36.0) g/dL RDW Std Deviation 49.1 H (36.4-46.3) fL RDW Coeff of Jeny 15.3 H (11.5-14.5) % Plt Count 308 (130-400) K/uL MPV 9.8 (9.4-12.3) fL Immature Gran % (Auto) 0.5 % Neut % (Auto) 79.9 % Lymph % (Auto) 12.8 % Broome % (Auto) 6.0 % Eos % (Auto) 0.4 % Baso % (Auto) 0.4 % Neut # (Auto) 9.04 H (1.4-6.5) K/uL Lymph # (Auto) 1.45 (1.2-3.4) K/uL Broome # (Auto) 0.68 (0.24-0.82) K/uL Eos # (Auto) 0.05 (0-0.50) K/uL Baso # (Auto) 0.04 (0-0.2) K/uL Immature Gran # (Auto) 0.06 H (0.00-0.02) K/uL PT 11.3 (9.0-12.0) Seconds INR 1.1 (0.9-1.1) APTT 30.8 (21.0-31.0) Seconds PTT Ratio 1.1 Sodium 137 (136-145) mmol/L Potassium 3.6 (3.5-5.1) mmol/L Chloride 104 (98-107) mmol/L Carbon Dioxide 24 (21-32) mmol/L Anion Gap 9 (3-11) BUN 9 (6-23) mg/dl Creatinine 0.58 L (0.6-1.2) mg/dl Est Cr Clr Drug Dosing 81.6 ml/min Est GFR ( Amer) 116.1 ml/min Est GFR (Non-Af Amer) 100.2 ml/min BUN/Creatinine Ratio 15.5 (10-20) Glucose 112 H (70-99(Fasting)) mg/dl Calcium 9.1 (8.5-10.1) mg/dl Total Bilirubin 0.6 (0.2-1.0) mg/dl AST 7 L (13-39) U/L ALT 9 (7-52) U/L Alkaline Phosphatase 95 (34-104) U/L Troponin I High Sens 13.8 (0-14) pg/ml Total Protein 6.2 (6.0-8.3) gm/dl Albumin 3.4 (3.4-5.0) gm/dl Globulin 2.8 (2.5-4.0) gm/dl Albumin/Globulin Ratio 1.2 (0.9-2) Procalcitonin (0-0.5) ng/ml SARS-CoV-2 (PCR) (Negative) Influenza Type A (PCR) (Neg) Influenza Type B (PCR) (Neg) RSV (RT-PCR) (Neg) 02/21/22 02/21/22 02/21/22 Range/Units 10:45 10:55 12:22 WBC (4.8-10.8) K/ul RBC (3.93-5.22) M/uL Hgb (12.0-16.0) g/dl Hct (34.1-44.9) % MCV (80.0-100.0) fL MCH (25.0-34.0) pg MCHC (32.0-36.0) g/dL RDW Std Deviation (36.4-46.3) fL RDW Coeff of Jeny (11.5-14.5) % Plt Count (130-400) K/uL MPV (9.4-12.3) fL Immature Gran % (Auto) % Neut % (Auto) % Lymph % (Auto) % Broome % (Auto) % Eos % (Auto) % Baso % (Auto) % Neut # (Auto) (1.4-6.5) K/uL Lymph # (Auto) (1.2-3.4) K/uL Broome # (Auto) (0.24-0.82) K/uL Eos # (Auto) (0-0.50) K/uL Baso # (Auto) (0-0.2) K/uL Immature Gran # (Auto) (0.00-0.02) K/uL PT (9.0-12.0) Seconds INR (0.9-1.1) APTT (21.0-31.0) Seconds PTT Ratio Sodium (136-145) mmol/L Potassium (3.5-5.1) mmol/L Chloride (98-107) mmol/L Carbon Dioxide (21-32) mmol/L Anion Gap (3-11) BUN (6-23) mg/dl Creatinine (0.6-1.2) mg/dl Est Cr Clr Drug Dosing ml/min Est GFR ( Amer) ml/min Est GFR (Non-Af Amer) ml/min BUN/Creatinine Ratio (10-20) Glucose (70-99(Fasting)) mg/dl Calcium (8.5-10.1) mg/dl Total Bilirubin (0.2-1.0) mg/dl AST (13-39) U/L ALT (7-52) U/L Alkaline Phosphatase (34-104) U/L Troponin I High Sens 12.6 (0-14) pg/ml Total Protein (6.0-8.3) gm/dl Albumin (3.4-5.0) gm/dl Globulin (2.5-4.0) gm/dl Albumin/Globulin Ratio (0.9-2) Procalcitonin 0.19 (0-0.5) ng/ml SARS-CoV-2 (PCR) NEGATIVE (Negative) Influenza Type A (PCR) Negative (Neg) Influenza Type B (PCR) Negative (Neg) RSV (RT-PCR) Negative (Neg) Administered Medications Hydrocodone Bitart/Acetaminophen (Hydrocodone/Acetaminophen 10/325 Tab) 1 tab PO Q6 PRN PRN Reason: Pain Stop: 03/07/22 16:04 Last Admin: 02/21/22 16:26 Dose: 1 tab Documented By: ZINA Albuterol (Albut/Ipratrop 3mg/0.5mg Neb 3 Ml Vial) 3 ml NEB QIDR [facility]; Protocol Stop: 03/23/22 15:49 Last Admin: 02/21/22 16:27 Dose: 3 ml Documented By: ERICA Gabapentin (Gabapentin 300 Mg Cap) 300 mg PO TID DIAMANTE Stop: 03/23/22 13:59 Last Admin: 02/21/22 16:53 Dose: 300 mg Documented By: ZINA Discontinued Medications Albuterol (Albut/Ipratrop 3mg/0.5mg Neb 3 Ml Vial) 3 ml INH NOW STA Stop: 02/21/22 10:31 Last Admin: 02/21/22 11:09 Dose: 3 ml Documented By: ZINA Ceftriaxone Sodium (Rocephin) 1,000 mg in 50 mls @ 100 mls/hr IV NOW STA Stop: 02/21/22 12:43 Last Infusion: 02/21/22 14:14 Dose: 0 mls/hr Documented By: Admin: 02/21/22 13:29 Dose: 100 mls/hr Documented By: ZINA Azithromycin 500 mg/ Dextrose 255 mls @ 125 mls/hr IV ONE ONE Stop: 02/21/22 14:16 Last Admin: 02/21/22 14:23 Dose: 125 mls/hr Documented By: MT Sodium Chloride (Nss 1000ml) 500 mls @ 999 mls/hr IV .Q31M ONE Stop: 02/21/22 13:17 Last Infusion: 02/21/22 14:15 Dose: 0 mls/hr Documented By: Admin: 02/21/22 13:32 Dose: 999 mls/hr Documented By: MT Methylprednisolone (Methylprednisolone 125 Mg/2 Ml Vial) 125 mg IV NOW STA Stop: 02/21/22 10:31 Last Admin: 02/21/22 11:09 Dose: 125 mg Documented By: MT Morphine Sulfate (Morphine Sulfate 4 Mg/Ml 1 Ml Carp\Vial) 4 mg IV NOW STA Stop: 02/21/22 12:06 Last Admin: 02/21/22 12:14 Dose: 4 mg Documented By: NA Ondansetron HCl (Ondansetron Inj 2 Mg/Ml 2 Ml Vial) 4 mg IV NOW STA Stop: 02/21/22 12:06 Last Admin: 02/21/22 12:14 Dose: 4 mg Documented By: ANGELIQUE Imaging Data Radiologist's Impression: Chest X-Ray 02/21/22 10:30 SINGLE VIEW CHEST CLINICAL HISTORY: Dyspnea. FINDINGS: An AP, portable, upright chest radiograph is compared to study dated 01/06/2022. The cardiomediastinal silhouette is top normal for projection. There is airspace consolidation at the right lung base. No large pleural effusion or pneumothorax is seen. The skeletal structures are osteopenic. The bony thorax is grossly intact. IMPRESSION: Airspace consolidation is seen at the right lung base, typical for pneumonia/aspiration pneumonitis. Clinical correlation will be required and radiographic follow-up to resolution is recommended. ACT 112: Negative or not required by law. Electronically signed by: Qasim Krause M.D. 02/21/2022 11:13 AM Discharge Plan Visit Data Chief Complaint: Shortness of Breath/Dyspnea Stated Complaint: LOW OXYGEN LEVELS, SOB ED Provider: Bill Saez Discharge Problem: Pneumonia Patient Disposition: Admitted As Inpatient Discharge Instructions Interventions: ED Discharge Assessment Last Done: 02/21/22 15:21
[2022-02-21 11:08] LABS: Basophils # (auto) 0.04 K/uL (0-0.2); Basophils % (auto) 0.4 %; Eosinophils # (auto) 0.05 K/uL (0-0.50); Eosinophils % (auto) 0.4 %; Hemoglobin 14.1 g/dl (12.0-16.0); Immature Granulocytes # (auto) 0.06 K/uL (0.00-0.02); Immature Granulocytes % (auto) 0.5 %; Lymphocytes # (auto) 1.45 K/uL (1.2-3.4); Lymphocytes % (auto) 12.8 %; Mean Corpuscular Hemoglobin 30.2 pg (25.0-34.0); Mean Corpuscular Hgb Conc 34.4 g/dL (32.0-36.0); Mean Corpuscular Volume 87.8 fL (80.0-100.0); Mean Platelet Volume 9.8 fL (9.4-12.3); Monocytes # (auto) 0.68 K/uL (0.24-0.82); Neutrophils # (auto) 9.04 K/uL (1.4-6.5); Neutrophils % (auto) 79.9 %; Platelet Count 308 K/uL (130-400); RDW Coefficient of Variation 15.3 % (11.5-14.5); RDW Standard Deviation 49.1 fL (36.4-46.3); Red Blood Count 4.67 M/uL (3.93-5.22); White Blood Count 11.32 K/ul (4.8-10.8)
--- NOTE | 2022-02-21 11:15 | XRay Report ---
SINGLE VIEW CHEST CLINICAL HISTORY: Dyspnea. FINDINGS: An AP, portable, upright chest radiograph is compared to study dated 01/06/2022. The cardiom ediastinal silhouette is top normal for projection. There is airspace consolidation at the right lung base. No large pleural effusion or pneumothorax is seen. The skeletal structures are osteopenic. The bony thorax is grossly intact. IMPRESSION: Airspace consolidation is seen at the right lung base, typical for pneumonia/aspiration p neumonitis. Clinical correlation will be required and radiographic follow-up to resolution is recomme nded. ACT 112: Negative or not required by law. Electronically signed by: Qasim Krause M.D. 02/21/2022 11:13 AM
[2022-02-21 11:19] LABS: INR 1.1 (0.9-1.1); Partial Thromboplastin Ratio 1.1; Partial Thromboplastin Time 30.8 Seconds (21.0-31.0); Prothrombin Time 11.3 Seconds (9.0-12.0)
[2022-02-21 11:34] LABS: Albumin Globulin Ratio 1.2 (0.9-2); Albumin Level 3.4 gm/dl (3.4-5.0); BUN Creatinine Ratio 15.5 (10-20); Bilirubin,Total 0.6 mg/dl (0.2-1.0); Calcium 9.1 mg/dl (8.5-10.1); Creatinine Clr Calc Pharmacy 81.6 ml/min; Est GFR (African American) 116.1 ml/min; Est GFR (Non-African American) 100.2 ml/min; Globulin 2.8 gm/dl (2.5-4.0); Potassium 3.6 mmol/L (3.5-5.1); Total Protein 6.2 gm/dl (6.0-8.3)
[2022-02-21 11:38] LABS: Troponin I High Sensitivity 13.8 pg/ml (0-14)
[2022-02-21 11:53] LABS: Influenza A virus by PCR Negative (Neg); Influenza B virus by PCR Negative (Neg); RSV by PCR Negative (Neg); SARS CoV2 RNA(COVID-19) InHosp NEGATIVE (Negative)
[2022-02-21] MEDS ORDERED: ONDANSETRON INJ 2 MG/ML 2 ML VIAL IV STA (12:05)
[2022-02-21] MEDS ORDERED: MoRPHine SULFATE 4 MG/ML 1 ML CARP\\VIAL IV STA (12:05)
[2022-02-21] MEDS ORDERED: AZITHROMYCIN 500 MG in DEXTROSE 5% 250 ML IV ONE (12:14)
[2022-02-21] MEDS ORDERED: cefTRIAXone SODIUM 1,000 MG/50 ML BAG IV STA (12:14)
[2022-02-21] MEDS ORDERED: SODIUM CHLORIDE 0.9% 1000ML 500 ML IV ONE (12:47)
[2022-02-21] MEDS ORDERED: POLYETHYLENE (MIRALAX) 17 GM PACK PO PRN (12:48)
[2022-02-21] MEDS ORDERED: ACETAMINOPHEN 325 MG TAB PO PRN (12:48)
[2022-02-21] MEDS ORDERED: ONDANSETRON INJ 2 MG/ML 2 ML VIAL IV PRN (12:48)
--- NOTE | 2022-02-21 12:49 | History & Physical Report ---
Date of Service February 21, 2022 Assessment & Plan (1) Pneumonia: Plan: - Cough, myalgias, chills x5 days, leukocytosis with normal procalcitonin. - COVID/flu/RSV negative - SpO2 87% on room air, placed on 3 L NC with SPO2 now >95% - Goal oxygen saturation 88-92% - Blood cultures ordered and pending. Will order sputum culture, although patient states she has not been able to cough up anything. - IV Rocephin and azithromycin for now. Initially there was concern for aspiration given it is a right lower lobe pneumonia, patient with no risk factors for aspiration, no recent choking or dysphagia. - DuoNebs QID, incentive spirometry ordered. - Tylenol for fever/pain. (2) Acute respiratory failure with hypoxia: Plan: - 2/2 pneumonia and this patient is a regular smoker. - Management as above - Patient counseled on smoking cessation. (3) Coronary artery disease: Plan: - s/p STEMI s/p RCA Bare Metal Stent (June 2012), Residual Left Coronary System CAD. - She is noncompliant with olmesartan because she feels it causes her fatigue. - BPs acceptable for now, however will restart olmesartan while hospitalized for cardiac protection, as well as, aspirin plus Plavix. (4) PAD (peripheral artery disease): Plan: - LE PAD s/p angioplasty/atherectomy to right SFA/popliteal and left external iliac/common femoral KNUCKLE BENDER with atherectomy and stenting. - Continue aspirin, Plavix, statin. (5) Chronic back pain: Plan: - Continue hydrocodone/APAP q6h prn. (6) Depression: Plan: - Continue Prozac. (7) Insomnia: Plan: - Continue Ambien. Plan - Admit to med/tele. -SCDs for VTE ppx. - Full Code. History of Present Illness Chief Complaint: Cough, body aches, chills x5 days Primary Care Provider: DO Gem Duval is a 61-year-old female with a PMH of COPD, CAD, PVD, NYA, depression who presents today with worsening cough and body aches and chills for the past week. She had her flu shot this past Thursday, and the next day felt very achy, cold, and has since developed a productive cough. She is a longtime smoker, admits to half pack per day, however does not have a cough at baseline. She feels with this cough that she has sputum to bring up, however has not been able to. The highest temp she had recorded at home was 99.4. Feels she has been keeping up with her fluids well. Has not noticed obvious shortness of breath with activity. She is having chest discomfort with coughing, however no chest pain or palpitations. She saw her PCP today, who was concerned that she was hypoxic <88% on room air, therefore referred her to ED for further evaluation. Upon presentation to the ED, she is moderately hypertensive, otherwise vital signs within normal limits, no tachycardia, afebrile and 94% on room air. She did eventually desat to 87%, now on 3L NC breathing comfortably with SPO2 >95%. Labs significant for leukocytosis 11.32, Pro-Rudi within normal limits. Electrolytes WNL, renal function at baseline, without transaminitis, troponin 12.6, COVID/flu/RSV negative. CXR shows an airspace consolidation is seen at the right lung base, typical for pneumonia/aspiration pneumonitis. Allergies Allergy/AdvReac Type Severity Reaction Status Date / Time No Known Allergies Allergy Unverified 01/06/22 13:03 Home Medications Medication Instructions Recorded Confirmed Type fluoxetine 20 mg capsule 20 mg PO HS 05/28/18 02/21/22 History hydrocodone 10 mg-acetaminophen 1 tab PO Q6 PRN Pain 05/28/18 02/21/22 History 325 mg tablet zolpidem 10 mg tablet (Ambien) 10 mg PO HS 11/22/20 01/06/22 History gabapentin 300 mg capsule 300 mg PO TID 05/13/21 02/21/22 History atorvastatin 40 mg tablet 40 mg PO HS 05/23/21 02/21/22 History clopidogrel 75 mg tablet 75 mg PO QPM 05/23/21 02/21/22 History olmesartan 5 mg tablet 5 mg PO HS 05/23/21 02/21/22 History aspirin 81 mg tablet,delayed 81 mg PO DAILY 01/06/22 02/21/22 History release (Adult Aspirin Regimen) multivitamin (Daily Multi-Vitamin 1 tab PO DAILY 01/06/22 02/21/22 History tablet) Past Med/Surg History Medical History (Updated 02/21/22 @ 17:04 by Bill Saez, ) Atrophy of left kidney Coronary artery disease CAD s/p STEMI s/p RCA Bare Metal Stent (June 2012), Residual Left Coronary System CAD Depression History of anemia History of [place] (myocardial infarction) 2010 Hyperlipidemia Hypertension Kidney stones Osteoarthritis arthritis in neck and lower back PAD (peripheral artery disease) Lower Extremity PAD s/p Angioplasty/Atherectomy to Right SFA/Popliteal and Left External Iliac/Common Femoral KNUCKLE BENDER with Atherectomy and Stenting Sleep apnea Per records, no device Urinary tract infection Vitamin D deficiency Surgical History H/O colonoscopy H/O hernia repair (06/26/14) EXPLORATORY LAPAROTOMY lyses of adhesions reduction internal hernia biopsy desmoid process root of mesentery culture of necrotic mass Dr. Still History of laparotomy stomach stapling in 1999 and then trouble with procedure and then did the gastric bypass. Hx of cystoscopy stent in place Hx of excision of epidermal inclusion cyst (01/30/21) Excision of cyst back of neck in office Dr. Still S/P hernia repair (04/14/17) Open repair compartement separation incisional hernia with marlex onlay 04/14/17 Status post surgery Abdominal wall debridement skin and sub cut [address] Still 04/28/17 Excision of necrtoic tissue apprx. 3 cm in diameter and 20 cm in lenght of the abdominal wall and removal of previous packing 04/30/17 Family History Grandfather Cancer Grandmother Cancer Heart disease Stroke Mother Diabetes Aunt Hypertension Social History Smoking Status: Current every day smoker Tobacco Type: Cigarettes packs per day: 0.5; Years Smoked: 40; Cigarettes Per Day: 5-10 cig a day; Second Hand Exposure: No; Do You Dip or Chew Tobacco: No; Tobacco Cessation Education Requested by Patient: No Hx Alcohol Use: No Hx Substance Use: Yes Last Used Substance: Hours (ago) Preferred Language: [place]guill[place] Communication Ability: Effective Clinical Safety Manager Required: No Beliefs That Will Affect Care: None marital status: / Current Living Situation: Alone Current Living Situation Comment: Lives w/mother/niece/nephew current occupational status: disabled How many Children do You have: 1 How many Children do You have Comment: custody of great niece Other Information That Helps Us Care for You: No Feels Safe at Home: Yes Safety Concerns: Feels Safe At This Time during the past year weight has: remained stable Assistive Devices: Glasses Review of Systems Review of Systems: Constitutional: Chills, myalgias, fatigue and 5 days; no weakness, anorexia, night sweats Eyes: No diplopia, no worsening or blurred vision ENT: normal hearing, no trouble swallowing Respiratory: Cough or sputum, no shortness of breath at rest, some associated with activity Cardiovascular: No chest pain, tightness or palpitations Abdomen: No pain, nausea, vomiting, diarrhea or constipation : Denies dysuria, hematuria, increased urgency/frequency, urinary retention Musculoskeletal: No joint pain, calf pain, swelling Neurologic: No weakness, numbness/tingling, or balance problems Psychiatric: No anxiety or depression Skin: No rash or itch Physical Exam Physical Exam: General: awake, alert, no apparent distress, on 3 L NC Head: Normocephalic, atraumatic ENT: PERRL, EOMI, no pharyngeal exudate, mucous membranes moist Chest: Breath sounds in right posterior lung; otherwise clear to auscultation, no adventitious breath sounds Cardiac: Regular rate and rhythm, no murmur, no JVD, normal peripheral pulses, good capillary refill Abdominal: NABS x 4 quadrants, soft, nontender to palpation, no rebound, guarding or tenderness Extremities: Normal inspection, no peripheral edema or erythema, calfs nontender to palpation Psych: Normal mood and affect Neuro: AAO x 3, strength intact bilaterally and rated 5/5, no motor deficits, speech is clear, no peripheral sensory deficits Skin: no rash or erythema Results & Data Results & Data ([facility]) Vital Signs (Past 12 Hours) Vital Signs Temp Pulse Pulse Resp BP BP Pulse Ox 02/21/22 12:13 91 02/21/22 12:12 83 20 135/86 87 L 02/21/22 10:52 94 02/21/22 10:48 74 18 158/94 H 92 02/21/22 10:22 36.3 C L 82 18 159/95 H 94 O2 Del Method O2 Flow Rate 02/21/22 12:13 Nasal Cannula 2 02/21/22 12:12 Room Air 02/21/22 10:52 Nasal Cannula 3 02/21/22 10:48 02/21/22 10:22 Room Air Laboratory Results Abnormal lab results 02/21/22 02/21/22 Range/Units 10:45 10:45 WBC 11.32 H (4.8-10.8) K/ul RDW Std Deviation 49.1 H (36.4-46.3) fL RDW Coeff of Jeny 15.3 H (11.5-14.5) % Neut # (Auto) 9.04 H (1.4-6.5) K/uL Immature Gran # (Auto) 0.06 H (0.00-0.02) K/uL Creatinine 0.58 L (0.6-1.2) mg/dl Glucose 112 H (70-99(Fasting)) mg/dl AST 7 L (13-39) U/L Diagnostic Findings Chest X-Ray 02/21/22 10:30 SINGLE VIEW CHEST CLINICAL HISTORY: Dyspnea. FINDINGS: An AP, portable, upright chest radiograph is compared to study dated 01/06/2022. The cardiomediastinal silhouette is top normal for projection. There is airspace consolidation at the right lung base. No large pleural effusion or pneumothorax is seen. The skeletal structures are osteopenic. The bony thorax is grossly intact. IMPRESSION: Airspace consolidation is seen at the right lung base, typical for pneumonia/aspiration pneumonitis. Clinical correlation will be required and radiographic follow-up to resolution is recommended. ACT 112: Negative or not required by law. Electronically signed by: Qasim Krause M.D. 02/21/2022 11:13 AM Code Status & VTE Plan Code Status Full code Supervising Physician Co-Signing Physician Notes I personally saw and examined the patient. I verified all helton points and agree with Gloria Villalobos PA-C with the following exceptions and/or additions: 61 year old female admission for 1 week of shortness of breath and cough. No fever or chills. O/E HS1+2, no murmurs, Chest reduced right base, no crackles or wheezing A/P Community acquired pneumonia - ceftriaxone + azithromycin Hypoxia - Aim O2 sats > 90% PG Care Time/CCT Total # of Minutes Spent Total Time Spent with Patient: Total time spent is greater than 50% in coordination of care (as documented) at patient's floor/unit and/or counseling patient: Coding Level of Care Code 84380 Initial Inpt Care Lvl 3 Diagnoses Pneumonia J18.9 Acute respiratory failure with hypoxia J96.01 Coronary artery disease I25.10 PAD (peripheral artery disease) I73.9 Chronic back pain M54.9; G89.29 Depression F32.A Insomnia G47.00
--- NOTE | 2022-02-21 15:03 | Electrocardiogram Report ---
Test Reason : Blood Pressure : / mmHG Vent. Rate : 079 BPM Atrial Rate : 079 BPM P-R Int : 130 ms QRS Dur : 136 ms QT Int : 416 ms P-R-T Axes : 056 -56 -23 degrees QTc Int : 477 ms Normal sinus rhythm Right bundle branch block Left anterior fascicular block Bifascicular block Abnormal ECG When compared with ECG of 22-MAY-2021 12:55, Premature atrial complexes are no longer Present T wave inversion more evident in Inferior leads T wave inversion now evident in Anterior leads Confirmed by Ren Campa ([id number]) on 02/21/2022 3:03:35 PM Referred By: REFERRED SELF Confirmed By:Tony Campa
[2022-02-21] MEDS: HYDROcodone/ACETAMINOPHEN 10/325 TAB PO PRN ×2 (16:26→22:43)
[2022-02-21] MEDS: ALBUT/IPRATROP 3MG/0.5MG NEB 3 ML VIAL NEB SCH ×2 (16:27→19:05)
[2022-02-21] MEDS: GABAPENTIN 300 MG CAP PO SCH ×2 (16:53→21:14)
[2022-02-21] MEDS: NICOTINE 14 MG/24 HR PATCH TD SCH (17:44)
[2022-02-21] MEDS ORDERED: KETOROLAC TROMETHAMINE 15 MG/ML VIAL IV ONE (18:05)
[2022-02-21] MEDS: LIDOCAINE 5% 1 PATCH TD SCH (18:49)
[2022-02-21] MEDS ORDERED: ALBUT/IPRATROP 3MG/0.5MG NEB 3 ML VIAL NEB PRN (20:15)
--- NOTE | 2022-02-21 20:17 | Communication Note ---
Date of Service: February 21, 2022 Changed Duonebs from qidr to q3h prn at patient request. added flutter valve
[2022-02-21] MEDS ORDERED: DICLOFENAC SOD 1% GEL 100 GM TUBE EXT PRN (20:42)
[2022-02-21] MEDS: OLMESARTAN MEDOXOMIL 5 MG TAB PO SCH ×2 (21:13→21:22)
[2022-02-21] MEDS: FLUoxetine HCL 20 MG CAP PO SCH (21:13)
[2022-02-21] MEDS: CLOPIDOGREL BISULFATE 75 MG TAB PO SCH (21:13)
[2022-02-21] MEDS: TAMSULOSIN HCL 0.4 MG CAP PO SCH (21:13)
[2022-02-21] MEDS: guaiFENesin 600 MG TABCR PO SCH (21:14)
[2022-02-21] MEDS: ATORVASTATIN 40 MG TAB PO SCH (21:14)
[2022-02-21] MEDS: ZOLPIDEM TARTRATE 10 MG TAB PO SCH (21:14)
[2022-02-21] MEDS: ENOXAPARIN INJ 40 MG/0.4 ML SYR SQ SCH (21:15)
[2022-02-21 21:26] LABS: Appearance Urine Clear (Clear); Bacteria Urine Automated Negative (Negative); Bilirubin Urine Negative (Negative); Blood Urine Negative (Negative); Color Urine Yellow; Epithelial Cell Urine Auto >30 /lpf (0-5); Glucose Urine UA 3+ (Negative); Ketones Urine Trace (Negative); Leukocyte Esterase Urine Negative (Negative); Nitrite Urine Negative (Negative); Protein Urine Trace (Negative); RBC Urine Automated 0-4 /hpf (0-4); Specific Gravity Urine 1.039 (1.000-1.030); Urobilinogen Urine Negative (Negative); pH Urine 5.5 (4.5-7.5)
[2022-02-22] MEDS ORDERED: KETOROLAC TROMETHAMINE 15 MG/ML VIAL IV ONE (01:13)
[2022-02-22 06:27] LABS: Basophils # (auto) 0.04 K/uL (0-0.2); Basophils % (auto) 0.3 %; Hematocrit (blood only) 39.8 % (34.1-44.9); Hemoglobin 13.5 g/dl (12.0-16.0); Immature Granulocytes # (auto) 0.11 K/uL (0.00-0.02); Immature Granulocytes % (auto) 0.7 %; Lymphocytes # (auto) 1.35 K/uL (1.2-3.4); Lymphocytes % (auto) 8.7 %; Mean Corpuscular Hemoglobin 30.1 pg (25.0-34.0); Mean Corpuscular Hgb Conc 33.9 g/dL (32.0-36.0); Mean Corpuscular Volume 88.6 fL (80.0-100.0); Mean Platelet Volume 10.1 fL (9.4-12.3); Monocytes # (auto) 0.84 K/uL (0.24-0.82); Monocytes % (auto) 5.4 %; Neutrophils # (auto) 13.22 K/uL (1.4-6.5); Neutrophils % (auto) 84.9 %; Platelet Count 347 K/uL (130-400); RDW Coefficient of Variation 15.1 % (11.5-14.5); RDW Standard Deviation 49.4 fL (36.4-46.3); Red Blood Count 4.49 M/uL (3.93-5.22); White Blood Count 15.56 K/ul (4.8-10.8)
[2022-02-22 06:45] LABS: BUN Creatinine Ratio 27.3 (10-20); Creatinine Clr Calc Pharmacy 53.8 ml/min; Est GFR (African American) 82.8 ml/min; Est GFR (Non-African American) 71.4 ml/min; Potassium 4.1 mmol/L (3.5-5.1)
[2022-02-22] MEDS: HYDROcodone/ACETAMINOPHEN 10/325 TAB PO PRN ×3 (07:39→21:26)
[2022-02-22] MEDS: cefTRIAXone SODIUM 1,000 MG in DEXTROSE 5% 50 ML IV SCH (09:37)
[2022-02-22] MEDS: NICOTINE 14 MG/24 HR PATCH TD SCH (09:40)
[2022-02-22] MEDS: ASPIRIN 81 MG ECTAB PO SCH (09:41)
[2022-02-22] MEDS: guaiFENesin 600 MG TABCR PO SCH ×2 (09:41→21:28)
[2022-02-22] MEDS: GABAPENTIN 300 MG CAP PO SCH ×3 (09:41→21:28)
[2022-02-22] MEDS: AZITHROMYCIN 500 MG in DEXTROSE 5% 250 ML IV SCH (10:19)
[2022-02-22] MEDS: KETOROLAC TROMETHAMINE 15 MG/ML VIAL IV PRN ×2 (10:41→16:52)
--- NOTE | 2022-02-22 15:09 | Hospitalist Progress Note ---
Date of Service February 22, 2022 Assessment & Plan (1) Pneumonia: Plan: - Cough, myalgias, chills x5 days, leukocytosis with normal procalcitonin. - COVID/flu/RSV negative - SpO2 87% on room air, placed on 3 L NC with SPO2 now >95% - Goal oxygen saturation 88-92% - Blood cultures ordered and pending. Will order sputum culture, although patient states she has not been able to cough up anything. - IV Rocephin and azithromycin for now. Initially there was concern for aspiration given it is a right lower lobe pneumonia, patient with no risk factors for aspiration, no recent choking or dysphagia. - DuoNebs QID, incentive spirometry ordered. - Tylenol for fever/pain. (2) Acute respiratory failure with hypoxia: Plan: - 2/2 pneumonia and this patient is a regular smoker. - Management as above - Patient counseled on smoking cessation. (3) Coronary artery disease: Plan: - s/p STEMI s/p RCA Bare Metal Stent (June 2012), Residual Left Coronary System CAD. - She is noncompliant with olmesartan because she feels it causes her fatigue. - BPs acceptable for now, however will restart olmesartan while hospitalized for cardiac protection, as well as, aspirin plus Plavix. (4) PAD (peripheral artery disease): Plan: - LE PAD s/p angioplasty/atherectomy to right SFA/popliteal and left external iliac/common femoral CLINICAL HAEMATOLOGIST with atherectomy and stenting. - Continue aspirin, Plavix, statin. (5) Chronic back pain: Plan: - Continue hydrocodone/APAP q6h prn. (6) Depression: Plan: - Continue Prozac. (7) Insomnia: Plan: - Continue Ambien. Plan - Admit to med/tele. -SCDs for VTE ppx. - Full Code. Admission and Anticipated Discharge Date Admission Date: February 21, 2022 Subjective Improved since admission but still with significant shortness of breath especially on exertion. Still requiring 2LPM O2 at rest. Cough becoming less productive as she clears her lungs. Review of Systems Review of Systems: All systems reviewed & are unremarkable except as noted in Subjective Physical Exam Constitutional: WD/WN, vitals as above ENMT: external ear and nose normal, oropharynx normal Respiratory: normal respiratory effort; no respiratory distress Auscultation: + diminished lung sounds (right base); no crackles and no wheezes Cardiovascular: RRR, no murmur, no edema Gastrointestinal (Abdomen): normal bowel sounds, soft, nontender, no hepatosplenomegaly Skin: no rashes, warm and dry Neurologic: moves all extremities and awake; not confused Results & Data Results & Data ([facility]) Vital Signs (Past 12 Hours) Vital Signs Temp Pulse Pulse Resp BP Pulse Ox Pulse Ox 02/22/22 12:55 02/22/22 12:48 95 02/22/22 12:04 36.9 C 71 16 108/72 90 02/22/22 08:10 36.8 C 77 20 111/76 111 H 02/22/22 07:26 68 O2 Del Method O2 Del Method O2 Flow Rate 02/22/22 12:55 Nasal Cannula 2 02/22/22 12:48 Room Air 02/22/22 12:04 Nasal Cannula 2 02/22/22 08:10 Room Air, Nasal Cannula 2 02/22/22 07:26 PG Care Time/CCT Total # of Minutes Spent Total Time Spent with Patient: Total time spent is greater than 50% in coordination of care (as documented) at patient's floor/unit and/or counseling patient: Coding Level of Care Code 48308 Subseq Hosp Care Lvl 2 Diagnoses Pneumonia J18.9 Acute respiratory failure with hypoxia J96.01 Coronary artery disease I25.10 PAD (peripheral artery disease) I73.9 Chronic back pain M54.9; G89.29 Depression F32.A Insomnia G47.00
[2022-02-22] MEDS: LIDOCAINE 5% 1 PATCH TD SCH (18:20)
[2022-02-22] MEDS: ZOLPIDEM TARTRATE 10 MG TAB PO SCH (21:26)
[2022-02-22] MEDS: TAMSULOSIN HCL 0.4 MG CAP PO SCH (21:27)
[2022-02-22] MEDS: OLMESARTAN MEDOXOMIL 5 MG TAB PO SCH (21:28)
[2022-02-22] MEDS: ATORVASTATIN 40 MG TAB PO SCH (21:29)
[2022-02-22] MEDS: FLUoxetine HCL 20 MG CAP PO SCH (21:29)
[2022-02-22] MEDS: CLOPIDOGREL BISULFATE 75 MG TAB PO SCH (21:29)
[2022-02-22] MEDS: ENOXAPARIN INJ 40 MG/0.4 ML SYR SQ SCH (21:29)
[2022-02-23] MEDS: KETOROLAC TROMETHAMINE 15 MG/ML VIAL IV PRN ×3 (00:06→12:03)
[2022-02-23] MEDS: HYDROcodone/ACETAMINOPHEN 10/325 TAB PO PRN ×2 (03:58→10:20)
[2022-02-23] MEDS: cefTRIAXone SODIUM 1,000 MG in DEXTROSE 5% 50 ML IV SCH (08:32)
[2022-02-23] MEDS: GABAPENTIN 300 MG CAP PO SCH (08:34)
[2022-02-23] MEDS: guaiFENesin 600 MG TABCR PO SCH (08:34)
[2022-02-23] MEDS: NICOTINE 14 MG/24 HR PATCH TD SCH (08:34)
[2022-02-23] MEDS: ASPIRIN 81 MG ECTAB PO SCH (08:34)
[2022-02-23] MEDS: AZITHROMYCIN 500 MG in DEXTROSE 5% 250 ML IV SCH (09:16)
--- NOTE | 2022-02-23 12:30 | Discharge Summary ---
Date of Service February 23, 2022 Admission HPI Per Admitting Provider Gem Lim is a 61-year-old female with a PMH of COPD, CAD, PVD, NYA, depression who presents today with worsening cough and body aches and chills for the past week. She had her flu shot this past Thursday, and the next day felt very achy, cold, and has since developed a productive cough. She is a longtime smoker, admits to half pack per day, however does not have a cough at baseline. She feels with this cough that she has sputum to bring up, however has not been able to. The highest temp she had recorded at home was 99.4. Feels she has been keeping up with her fluids well. Has not noticed obvious shortness of breath with activity. She is having chest discomfort with coughing, however no chest pain or palpitations. She saw her PCP today, who was concerned that she was hypoxic <88% on room air, therefore referred her to ED for further evaluation. Upon presentation to the ED, she is moderately hypertensive, otherwise vital signs within normal limits, no tachycardia, afebrile and 94% on room air. She did eventually desat to 87%, now on 3L NC breathing comfortably with SPO2 >95%. Labs significant for leukocytosis 11.32, Pro-Rudi within normal limits. Electrolytes WNL, renal function at baseline, without transaminitis, troponin 12.6, COVID/flu/RSV negative. CXR shows an airspace consolidation is seen at the right lung base, typical for pneumonia/aspiration pneumonitis. Principal Diagnosis Community-acquired pneumonia Discharge Exam Constitutional WD/WN, vitals as above ENMT external ear and nose normal, oropharynx normal Respiratory normal respiratory effort; no respiratory distress Auscultation: + diminished lung sounds (right base); no crackles and no wheezes Cardiovascular RRR, no murmur, no edema Gastrointestinal (Abdomen) normal bowel sounds, soft, nontender, no hepatosplenomegaly Skin no rashes, warm and dry Neurologic moves all extremities and awake; not confused Discharge Data Allergies Allergy/AdvReac Type Severity Reaction Status Date / Time No Known Allergies Allergy Unverified 01/06/22 13:03 Consultations 02/21/22 12:46 ED Decision to Admit Stat Ordered Studies SINGLE VIEW CHEST IMPRESSION: Airspace consolidation is seen at the right lung base, typical for pneumonia/aspiration pneumonitis. Clinical correlation will be required and radiographic follow-up to resolution is recommended. Hospital Course (1) Pneumonia: Gem Lim is a 61 year old female admitted to [facility] from February 21 - 2021 due to shortness of breath and cough. She was diagnosed with community-acquired pneumonia. This was treated with ceftriaxone and azithromycin during her inpatient stay. She was initially hypoxic however this resolved during her admission and 6 minute walk on discharge showed she did not require any oxygen at rest or on exertion. She finished her 3-day course of azithromycin during her inpatient stay and will be switched to Augmentin on discharge for total 7-day course. She was advised to follow-up with her primary care physician in 1 to 2 weeks on discharge for hospital follow-up. Consider follow-up chest x-ray for resolution in approximately 4 weeks. (2) Acute respiratory failure with hypoxia: (3) Coronary artery disease: (4) PAD (peripheral artery disease): (5) Chronic back pain: (6) Depression: (7) Insomnia: Total Time Total Time Spent Total Time Spent (In Minutes): 40 Discharge Plan Discharge Items Patient Disposition: Home - Self-Care Reason For Visit: PNEUMONIA Discharge Diagnosis: Pneumonia Activity: Resume your previous activity Non-emergency contact: Primary Care Provider Call non-emergency contact if: you have any medication questions and your symptoms worsen Follow-up/Referrals: Cookie Jones DO [Primary Care Provider] - Diet: Regular Addtl Attending Provider Instructions: You were admitted to [facility] from February 21 - 2021 due to shortness of breath and cough. You were diagnosed with community acquired pneumonia. This was treated with ceftriaxone and azithromycin (antibiotics). You will be switched to Augmentin (antibiotic) on discharge to complete a total 7 day course. Please follow up with your primary care physician in the next 1-2 weeks after discharge. Pending Studies at Discharge: No Stand-Alone Forms: [facility] [employer] Smoking Cessation Medications and DC Order Prescriptions: New amoxicillin-pot clavulanate 875-125 mg tablet 1 tab PO BID 4 Days Qty: 8 0RF Continued aspirin [Adult Aspirin Regimen] 81 mg tablet,delayed release (DR/EC) 81 mg PO DAILY multivitamin [Daily Multi-Vitamin] Tablet 1 tab PO DAILY hydrocodone-acetaminophen 10-325 mg tablet 1 tab PO Q6 PRN (Reason: Pain) fluoxetine 20 mg capsule 20 mg PO HS zolpidem [Ambien] 10 mg tablet 10 mg PO HS gabapentin 300 mg capsule 300 mg PO TID atorvastatin 40 mg tablet 40 mg PO HS clopidogrel 75 mg tablet 75 mg PO QPM olmesartan 5 mg tablet 5 mg PO HS Discharge Orders: Discharge Order (Routine); Ordered 02/23/22 Ordered By: Kush Helton Admission Data Admit Date/Time: 02/21/22 12:48 Attending Provider: Kush Helton Admit Provider: Kush Helton Primary Care Provider: Cookie Jones Other Providers: Kush Helton Other Interventions: Discharge Summary Assessment (RN) Last Done: 02/23/22 13:04 Coding Level of Care Code D/C DAY MANAGEMENT >30 MINS Diagnoses Pneumonia J18.9 Acute respiratory failure with hypoxia J96.01 Coronary artery disease I25.10 PAD (peripheral artery disease) I73.9 Chronic back pain M54.9; G89.29 Depression F32.A Insomnia G47.00
== END 2022-02-23 13:54 | disposition home or self-care (01) ==
LOC: ED 10:18 → INTOOBSV 12:48 → EDINP 12:48 → 2W 15:21

== ENCOUNTER 2022-06-28 17:36 | Inpatient (IN) ==
--- NOTE | 2022-06-28 17:48 | Emergency Department Note ---
Impression & Plan Acute hypoxemic respiratory failure, Pneumonia, Encounter for smoking cessation counseling, History of peripheral arterial disease, Sepsis ED Provider Note NAME: LOUIS LOVE AGE: 61 SEX: F : 1960 ARRIVES VIA: Walk-In INFORMANT: Patient, ED PROVIDER(S): Pacheco Gonzalez MD CHIEF COMPLAINT: Leg pain MEDICAL DECISION MAKING: Patient presents with leg pain does have a prior history of significant procedures of the left lower extremity. The patient does have decreased cap refill. The patient was also noted to have fever does complain of generalized body aches and did have a septic work-up completed given the patient's significant medical comorbidities. The patient is not tachycardic but is febrile. The patient did receive IV fluids and IV Tylenol. Patient did have blood work completed along with blood cultures. Viral panel also sent along with a chest x-ray and left lower extremity arterial Doppler. I did speak with the residential appliance repair technician in order to explain the procedures that have been completed in order to help facilitate their study. The patient was noted to be hypoxemic and was placed on nasal cannula and subsequent oxime mask. I did ask for ultrasound to do a portable given the hypoxemia. The patient does have evidence of pneumonia and Zosyn was ordered in addition to additional IV fluids. and the patient did receive 30 cc/kg bolus. Patient does have a white count of 17 with mild anemia hemoglobin 11.9. Kidney function is unremarkable. The patient's troponin is 1295. No active chest pain and no obvious EKG changes. Procalcitonin slightly elevated 0.7. Negative COVID flu and RSV. Lactate is normal. Patient's arterial Doppler is negative for acute clot. CT angiography was ordered given the patient's elevated troponin and hypoxemia. I did speak with the on-call hospitalist Dr. Su and the patient was admitted to the medicine service. I also did speak with on-call cardiology given the patient's elevated troponin Dr. Howell. Given the patient's lack of EKG changes or chest pain he does not advocate for heparin unless the patient does develop the symptoms. I did convey this to the on-call hospitalist Dr. Toribio. The patient's CT does not show any evidence of PE. Patient does have interstitial infiltrates and slight predominance within the left lower lobe with a small pleural effusion. The patient was noted to be persistently hypoxemic when sleeping so the patient was placed on BiPAP. Patient's heart rate has improved after IV fluids. Critical Care: I have personally spent 77 minutes of critical care time in direct management of this patient. This includes bedside care, interpretation of diagnostic studies, and testing, discussion with consultants, patient, and family members, and other require inpatient management activities. This 77 minutes is in excess of all separately billable procedures. Prior /Outside records reviewed: Did review an outpatient cardiology note from November 2020 which showed that the patient did have an angioplasty atherectomy to right SFA/popliteal and left external iliac/common femoral BAND LINING BANDER with atherectomy and stenting. Differential diagnosis: Viral syndrome, otitis, pharyngitis, pneumonia, influenza, meningitis, urinary tract infection, sepsis, bacteremia, as well as other pathologies. DVT, limb ischemia, musculoskeletal, infection, joint effusion, trauma, lymphedema, idiopathic, CHF, as well as other pathologies. Diagnostics, as interpreted by me: ECG: Sinus tachycardia, rate of 103, wide QRS, left axis deviation, right bundle branch block pattern. T wave versions inferiorly. This is grossly unchanged from comparison EKG February 21, 2022 Cardiac monitoring: An order was placed for continuous cardiac monitoring. The monitor shows a rate of with rhythm. Patient was placed on pulse oximetry Medical decision rules: None Imaging studies: See below CT angiography of the chest does not show any PE but likely infectious process HPI: Patient presents due to concern for left lower extremity pain. The patient does have a known prior history of angioplasty and atherectomy. This was completed by Dr. Gregory in the past. Patient states that she developed some pain in the last 2 to 3 days but also does complain of generalized body aches. No cough but the patient was noted to have fever upon presentation but denies feeling feverish or chilled. Patient has had some increasing use as the patient has been helping clearing out a house but denies any falls or trauma to the left lower extremity. The patient is on aspirin but has not been taking her Plavix for over a year. Patient denies any chest pains or shortness of breath. The patient is a pack per day smoker. The patient denies any additional exacerbating remitting factors PAST MEDICAL HISTORY: See Below PAST SURGICAL HISTORY: See Below SOCIAL HISTORY: See Below HOME MEDICATIONS: See Below ALLERGIES: See Below VITALS: See Below PHYSICAL EXAMINATION: GENERAL: NAD, wearing a mask, non-toxic. Wearing glasses. EYE EXAM: Normal conjunctiva. PERRL, no anisocoria and EOM's grossly intact w/o pain. NECK: Supple, no nuchal rigidity, no adenopathy, non-tender. No signs of meningismus. FROM of the neck with good chin to chest and neck extension. No stridor. LUNGS: Clear to auscultation. Normal chest wall mechanics. HEART: NSR, no MRG. ABDOMEN: Abdomen soft, non-tender, normo-active bowel sounds, no masses, no rebound or guarding. BACK: No CVA TTP. SKIN: No rashes and no bruising. UPPER EXTREMITIES: Upper extremities are grossly normal. LOWER EXTREMITIES: Decreased cap refill left lower extremity compared to right, no TTP and no obvious deformity. NEURO EXAM: A&O x3, cranial nerves II-XII grossly intact, normal speech, moves all 4 extremities. Past Med/Surg History Medical History Atrophy of left kidney Coronary artery disease CAD s/p STEMI s/p RCA Bare Metal Stent (June 2012), Residual Left Coronary System CAD Depression History of anemia History of AK (myocardial infarction) 2010 Hyperlipidemia Hypertension Kidney stones Osteoarthritis arthritis in neck and lower back PAD (peripheral artery disease) Lower Extremity PAD s/p Angioplasty/Atherectomy to Right SFA/Popliteal and Left External Iliac/Common Femoral BAND LINING BANDER with Atherectomy and Stenting Sleep apnea Per records, no device Urinary tract infection Vitamin D deficiency Surgical History H/O colonoscopy H/O hernia repair (06/26/14) EXPLORATORY LAPAROTOMY lyses of adhesions reduction internal hernia biopsy desmoid process root of mesentery culture of necrotic mass Dr. Still History of laparotomy stomach stapling in 1999 and then trouble with procedure and then did the gastric bypass. Hx of cystoscopy stent in place Hx of excision of epidermal inclusion cyst (01/30/21) Excision of cyst back of neck in office Dr. Still S/P hernia repair (04/14/17) Open repair compartement separation incisional hernia with marlex onlay 04/14/17 Status post surgery Abdominal wall debridement skin and sub cut [address] Still 04/28/17 Excision of necrtoic tissue apprx. 3 cm in diameter and 20 cm in lenght of the abdominal wall and removal of previous packing 04/30/17 Family History Grandfather Cancer Grandmother Cancer Heart disease Stroke Mother Diabetes Aunt Hypertension Social History Smoking Status: Current every day smoker Tobacco Type: Cigarettes packs per day: 0.5; Cigarettes Per Day: 5-10 cig a day; Second Hand Exposure: No; Hx Alcohol Use: No Hx Substance Use: Yes Last Used Substance: Hours (ago) Preferred Language: Malay Communication Ability: Effective Corporate Planner Required: No Beliefs That Will Affect Care: None marital status: / Current Living Situation: Alone Current Living Situation Comment: Lives w/mother/niece/nephew current occupational status: disabled How many Children do You have: 1 How many Children do You have Comment: custody of great niece Feels Safe at Home: Yes during the past year weight has: remained stable Assistive Devices: Glasses Allergies Allergies Allergy/AdvReac Type Severity Reaction Status Date / Time No Known Allergies Allergy Unverified 06/28/22 22:30 Home Meds Home Medications Medication Instructions Recorded Confirmed zolpidem 10 mg tablet (Ambien) 10 mg PO HS 11/22/20 06/28/22 gabapentin 300 mg capsule 300 mg PO TID 05/13/21 06/28/22 atorvastatin 40 mg tablet 40 mg PO HS 05/23/21 06/28/22 clopidogrel 75 mg tablet 75 mg PO QPM 05/23/21 06/28/22 aspirin 81 mg tablet,delayed 81 mg PO DAILY 01/06/22 06/28/22 release (Adult Aspirin Regimen) multivitamin (Daily Multi-Vitamin 1 tab PO DAILY 01/06/22 06/28/22 tablet) fluoxetine 40 mg capsule 40 mg PO HS 06/28/22 06/28/22 hydrocodone 10 mg-acetaminophen 1 tab PO Q4H PRN Pain 06/28/22 06/28/22 325 mg tablet Results & Data (ED) Vital Signs Vital Signs - 24 hr 06/28/22 17:38 06/28/22 17:56 06/28/22 19:00 Temperature 38.3 C H Temperature Source Temporal Artery Scan Pulse Rate 90 82 Pulse Rate [Apical] 97 H Pulse Rate from SpO2 Sensor Respiratory Rate 14 16 24 Respiratory Effort / Characteristics Non-Labored Respiratory Depth Normal Blood Pressure 134/61 Blood Pressure [Right Arm] 108/69 Blood Pressure Mean 85 Blood Pressure Mean [Right Arm] 82 Pulse Oximetry 100 96 93 Oxygen Delivery Method Room Air Room Air Nasal Cannula Oxygen Flow Rate 4 Fraction of Inspired Oxygen Sepsis Recent Fever Within 48 Hours No Sepsis New/Unexplained Change in Mental Status No Sepsis Action Taken by Nursing No Action Required 06/28/22 20:00 06/28/22 19:30 06/28/22 20:30 Temperature Temperature Source Pulse Rate Pulse Rate [Apical] 92 H 92 H 96 H Pulse Rate from SpO2 Sensor Respiratory Rate 20 22 22 Respiratory Effort / Characteristics Non-Labored Respiratory Depth Normal Blood Pressure Blood Pressure [Right Arm] 110/68 105/67 106/69 Blood Pressure Mean Blood Pressure Mean [Right Arm] 82 79 81 Pulse Oximetry 92 93 91 Oxygen Delivery Method Nasal Cannula Nasal Cannula Oxymask Oxygen Flow Rate 6 6 4 Fraction of Inspired Oxygen Sepsis Recent Fever Within 48 Hours Sepsis New/Unexplained Change in Mental Status Sepsis Action Taken by Nursing 06/28/22 21:06 06/28/22 21:10 06/28/22 19:00 Temperature Temperature Source Pulse Rate 91 H Pulse Rate [Apical] Pulse Rate from SpO2 Sensor Respiratory Rate 32 H Respiratory Effort / Characteristics Spontaneous Respiratory Depth Blood Pressure 108/69 Blood Pressure [Right Arm] Blood Pressure Mean 82 Blood Pressure Mean [Right Arm] Pulse Oximetry 98 Oxygen Delivery Method Oxygen Flow Rate Fraction of Inspired Oxygen 45 30 Sepsis Recent Fever Within 48 Hours Sepsis New/Unexplained Change in Mental Status Sepsis Action Taken by Nursing 06/28/22 19:00 06/28/22 19:30 06/28/22 19:30 Temperature Temperature Source Pulse Rate 96 H 97 H Pulse Rate [Apical] Pulse Rate from SpO2 Sensor 94 H 97 H Respiratory Rate 13 19 Respiratory Effort / Characteristics Respiratory Depth Blood Pressure 104/67 Blood Pressure [Right Arm] Blood Pressure Mean 79 Blood Pressure Mean [Right Arm] Pulse Oximetry 90 93 Oxygen Delivery Method Oxygen Flow Rate Fraction of Inspired Oxygen Sepsis Recent Fever Within 48 Hours Sepsis New/Unexplained Change in Mental Status Sepsis Action Taken by Nursing 06/28/22 20:00 06/28/22 20:00 06/28/22 21:00 Temperature Temperature Source Pulse Rate 94 H Pulse Rate [Apical] Pulse Rate from SpO2 Sensor 94 H Respiratory Rate 16 Respiratory Effort / Characteristics Respiratory Depth Blood Pressure 105/67 106/66 Blood Pressure [Right Arm] Blood Pressure Mean 79 79 Blood Pressure Mean [Right Arm] Pulse Oximetry 97 Oxygen Delivery Method Oxygen Flow Rate Fraction of Inspired Oxygen Sepsis Recent Fever Within 48 Hours Sepsis New/Unexplained Change in Mental Status Sepsis Action Taken by Nursing 06/28/22 21:00 06/28/22 21:30 06/28/22 21:30 Temperature Temperature Source Pulse Rate 95 H 96 H Pulse Rate [Apical] Pulse Rate from SpO2 Sensor 95 H 95 H Respiratory Rate 18 28 H Respiratory Effort / Characteristics Respiratory Depth Blood Pressure 132/81 Blood Pressure [Right Arm] Blood Pressure Mean 98 Blood Pressure Mean [Right Arm] Pulse Oximetry 95 100 Oxygen Delivery Method Oxygen Flow Rate Fraction of Inspired Oxygen Sepsis Recent Fever Within 48 Hours Sepsis New/Unexplained Change in Mental Status Sepsis Action Taken by Nursing 06/28/22 22:00 06/28/22 22:00 06/28/22 23:00 Temperature Temperature Source Pulse Rate Pulse Rate [Apical] Pulse Rate from SpO2 Sensor 92 H 78 Respiratory Rate Respiratory Effort / Characteristics Respiratory Depth Blood Pressure 110/69 96/62 L Blood Pressure [Right Arm] Blood Pressure Mean 82 73 Blood Pressure Mean [Right Arm] Pulse Oximetry 94 90 Oxygen Delivery Method Oxygen Flow Rate Fraction of Inspired Oxygen Sepsis Recent Fever Within 48 Hours Sepsis New/Unexplained Change in Mental Status Sepsis Action Taken by Nursing 06/28/22 23:30 Temperature Temperature Source Pulse Rate Pulse Rate [Apical] Pulse Rate from SpO2 Sensor 77 Respiratory Rate Respiratory Effort / Characteristics Respiratory Depth Blood Pressure Blood Pressure [Right Arm] Blood Pressure Mean Blood Pressure Mean [Right Arm] Pulse Oximetry 93 Oxygen Delivery Method Oxygen Flow Rate Fraction of Inspired Oxygen Sepsis Recent Fever Within 48 Hours Sepsis New/Unexplained Change in Mental Status Sepsis Action Taken by Retirement Medications Current Medication List: was personally reviewed by me Laboratory Data Attestation: I reviewed the patient's lab results. 06/28/22 18:29 06/28/22 18:29 Lab Results 06/28/22 06/28/22 06/28/22 Range/Units 18:29 18:29 18:29 WBC 17.70 H (4.8-10.8) K/ul RBC 3.94 (3.93-5.22) M/uL Hgb 11.9 L (12.0-16.0) g/dl Hct 36.0 (34.1-44.9) % MCV 91.4 (80.0-100.0) fL MCH 30.2 (25.0-34.0) pg MCHC 33.1 (32.0-36.0) g/dL RDW Std Deviation 57.9 H (36.4-46.3) fL RDW Coeff of Jeny 17.1 H (11.5-14.5) % Plt Count 251 (130-400) K/uL MPV 10.6 (9.4-12.3) fL Immature Gran % (Auto) 0.5 % Neut % (Auto) 87.8 % Lymph % (Auto) 7.9 % Ware % (Auto) 3.4 % Eos % (Auto) 0.1 % Baso % (Auto) 0.3 % Neut # (Auto) 15.56 H (1.4-6.5) K/uL Lymph # (Auto) 1.39 (1.2-3.4) K/uL Ware # (Auto) 0.61 (0.24-0.82) K/uL Eos # (Auto) 0.01 (0-0.50) K/uL Baso # (Auto) 0.05 (0-0.2) K/uL Immature Gran # (Auto) 0.08 H (0.00-0.02) K/uL PT 10.6 (9.0-12.0) Seconds INR 1.0 (0.9-1.1) APTT 29.1 (21.0-31.0) Seconds PTT Ratio 1.1 Sodium 135 L (136-145) mmol/L Potassium 4.5 (3.5-5.1) mmol/L Chloride 107 (98-107) mmol/L Carbon Dioxide 22 (21-32) mmol/L Anion Gap 6 (3-11) BUN 23 (6-23) mg/dl Creatinine 0.92 (0.6-1.2) mg/dl Est Cr Clr Drug Dosing 55.9 ml/min Est GFR ( Amer) 78.4 ml/min Est GFR (Non-Af Amer) 67.7 ml/min BUN/Creatinine Ratio 25.0 H (10-20) Glucose 115 H (70-99(Fasting)) mg/dl Lactate (0.4-2.0) mmol/L Calcium 8.5 (8.5-10.1) mg/dl Magnesium 1.8 (1.7-2.4) mg/dl Total Bilirubin 0.3 (0.2-1.0) mg/dl Direct Bilirubin 0.0 (0-0.2) mg/dl AST 28 (13-39) U/L ALT 16 (7-52) U/L Alkaline Phosphatase 78 (34-104) U/L Troponin I High Sens 1295.9 H* (0-14) pg/ml Total Protein 6.4 (6.0-8.3) gm/dl Albumin 3.4 (3.4-5.0) gm/dl Procalcitonin (0-0.5) ng/ml SARS-CoV-2 (PCR) (Negative) Influenza Type A (PCR) (Neg) Influenza Type B (PCR) (Neg) RSV (RT-PCR) (Neg) 06/28/22 06/28/22 06/28/22 Range/Units 18:29 18:29 Unknown WBC (4.8-10.8) K/ul RBC (3.93-5.22) M/uL Hgb (12.0-16.0) g/dl Hct (34.1-44.9) % MCV (80.0-100.0) fL MCH (25.0-34.0) pg MCHC (32.0-36.0) g/dL RDW Std Deviation (36.4-46.3) fL RDW Coeff of Jeny (11.5-14.5) % Plt Count (130-400) K/uL MPV (9.4-12.3) fL Immature Gran % (Auto) % Neut % (Auto) % Lymph % (Auto) % Ware % (Auto) % Eos % (Auto) % Baso % (Auto) % Neut # (Auto) (1.4-6.5) K/uL Lymph # (Auto) (1.2-3.4) K/uL Ware # (Auto) (0.24-0.82) K/uL Eos # (Auto) (0-0.50) K/uL Baso # (Auto) (0-0.2) K/uL Immature Gran # (Auto) (0.00-0.02) K/uL PT (9.0-12.0) Seconds INR (0.9-1.1) APTT (21.0-31.0) Seconds PTT Ratio Sodium (136-145) mmol/L Potassium (3.5-5.1) mmol/L Chloride (98-107) mmol/L Carbon Dioxide (21-32) mmol/L Anion Gap (3-11) BUN (6-23) mg/dl Creatinine (0.6-1.2) mg/dl Est Cr Clr Drug Dosing ml/min Est GFR ( Amer) ml/min Est GFR (Non-Af Amer) ml/min BUN/Creatinine Ratio (10-20) Glucose (70-99(Fasting)) mg/dl Lactate 1.5 (0.4-2.0) mmol/L Calcium (8.5-10.1) mg/dl Magnesium (1.7-2.4) mg/dl Total Bilirubin (0.2-1.0) mg/dl Direct Bilirubin (0-0.2) mg/dl AST (13-39) U/L ALT (7-52) U/L Alkaline Phosphatase (34-104) U/L Troponin I High Sens (0-14) pg/ml Total Protein (6.0-8.3) gm/dl Albumin (3.4-5.0) gm/dl Procalcitonin 0.71 H (0-0.5) ng/ml SARS-CoV-2 (PCR) NEGATIVE (Negative) Influenza Type A (PCR) Negative (Neg) Influenza Type B (PCR) Negative (Neg) RSV (RT-PCR) Negative (Neg) Administered Medications Discontinued Medications Acetaminophen (Acetaminophen 500 Mg Tab) 1,000 mg PO NOW STA Stop: 06/28/22 17:56 Last Admin: 06/28/22 18:18 Dose: 1,000 mg Documented By: TNB Albuterol (Albut/Ipratrop 3mg/0.5mg Neb 3 Ml Vial) 3 ml NEB NOW STA; Protocol Stop: 06/28/22 19:12 Last Admin: 06/28/22 19:52 Dose: 3 ml Documented By: TNB Sodium Chloride (Nss 1000ml) 1,000 mls @ 999 mls/hr IV .Q1H1M DIAMANTE Stop: 06/28/22 19:00 Last Infusion: 06/28/22 19:18 Dose: 0 mls/hr Documented By: Admin: 06/28/22 18:18 Dose: 999 mls/hr Documented By: TNB Piperacillin Sod/Tazobactam Sod (Zosyn) 4.5 gm in 120 mls @ 240 mls/hr IV NOW ONE Stop: 06/28/22 19:43 Last Infusion: 06/28/22 20:27 Dose: 0 mls/hr Documented By: Admin: 06/28/22 19:52 Dose: 240 mls/hr Documented By: TNB Sodium Chloride (Nss 1000ml) 1,000 mls @ 999 mls/hr IV .Q1H1M ONE Stop: 06/28/22 20:32 Last Infusion: 06/28/22 20:27 Dose: 0 mls/hr Documented By: Admin: 06/28/22 19:52 Dose: 999 mls/hr Documented By: TNB Ioversol (Optiray 320 500ml) 115 ml IV ONCE ONE Stop: 06/28/22 21:46 Last Admin: 06/28/22 21:45 Dose: 115 ml Documented By: EDK Imaging Data Radiologist's Impression: Chest X-Ray 06/28/22 17:55 XR chest 1V portable HISTORY: 61 years-old Female Sepsis acute sepsis COMPARISON: Radiograph February 21, 2022 TECHNIQUE: AP view of the chest FINDINGS: Cardiac silhouette is enlarged. No pneumothorax. Left midlung and bibasilar patchy airspace opacities with interstitial coarsening. No pneumothorax, pleural effusion or overt pulmonary edema. Bones of the chest appear grossly intact. IMPRESSION: Bibasilar and left midlung airspace opacities are suggestive of pneumonia. ACT 112: Negative or not required by law. The above report was generated using voice recognition software. It may contain grammatical, syntax or spelling errors. Electronically signed by: Cory Hi M.D. 06/28/2022 7:23 PM Duplex Scan Lower Extremity Artery 06/28/22 17:55 US arterial duplex LE LT HISTORY: 61 years-old Female decreased cap refill, h/o of stent/bypass of LLE peripheral arterial disease COMPARISON: None TECHNIQUE: Multiple real-time sonographic images of the left lower extremity arterial structures were obtained assessing grayscale appearance, color and spectral flow FINDINGS: Diffuse atherosclerotic vascular disease. Predominantly monophasic waveforms throughout the left lower extremity. Decreased peak systolic velocities within the mid femoral artery measuring up to 6 cm/s. No arterial occlusion identified. IMPRESSION: 1. Atherosclerotic vascular disease with monophasic waveforms throughout. 2. No arterial occlusion identified. ACT 112: Negative or not required by law. The above report was generated using voice recognition software. It may contain grammatical, syntax or spelling errors. Electronically signed by: Cory Hi M.D. 06/28/2022 8:02 PM Discharge Plan Visit Data Chief Complaint: Leg Injury/Pain Stated Complaint: LEFT LEG PAIN AND NUMBNESS ED Provider: Pacheco Gonzalez Discharge Problem: Acute hypoxemic respiratory failure, Pneumonia, Encounter for smoking cessation counseling, History of peripheral arterial disease, Sepsis Patient Disposition: Admitted As Inpatient Forms Stand Alone Forms: [facility] Prescriptions Prescriptions: No Action aspirin [Adult Aspirin Regimen] 81 mg tablet,delayed release (DR/EC) 81 mg PO DAILY multivitamin [Daily Multi-Vitamin] Tablet 1 tab PO DAILY zolpidem [Ambien] 10 mg tablet 10 mg PO HS gabapentin 300 mg capsule 300 mg PO TID atorvastatin 40 mg tablet 40 mg PO HS clopidogrel 75 mg tablet 75 mg PO QPM fluoxetine 40 mg capsule 40 mg PO HS hydrocodone-acetaminophen 10-325 mg tablet 1 tab PO Q4H MDD 6TABS PRN (Reason: Pain) Referrals Referrals: Cookie Jones DO [Primary Care Provider] -
[2022-06-28] MEDS ORDERED: ACETAMINOPHEN 500 MG TAB PO STA (17:55)
[2022-06-28] MEDS ORDERED: SODIUM CHLORIDE 0.9% 1000ML 1,000 ML IV SCH (18:00)
[2022-06-28 18:45] LABS: Basophils # (auto) 0.05 K/uL (0-0.2); Basophils % (auto) 0.3 %; Eosinophils # (auto) 0.01 K/uL (0-0.50); Eosinophils % (auto) 0.1 %; Hemoglobin 11.9 g/dl (12.0-16.0); Immature Granulocytes # (auto) 0.08 K/uL (0.00-0.02); Immature Granulocytes % (auto) 0.5 %; Lymphocytes # (auto) 1.39 K/uL (1.2-3.4); Lymphocytes % (auto) 7.9 %; Mean Corpuscular Hemoglobin 30.2 pg (25.0-34.0); Mean Corpuscular Hgb Conc 33.1 g/dL (32.0-36.0); Mean Corpuscular Volume 91.4 fL (80.0-100.0); Mean Platelet Volume 10.6 fL (9.4-12.3); Monocytes # (auto) 0.61 K/uL (0.24-0.82); Monocytes % (auto) 3.4 %; Neutrophils # (auto) 15.56 K/uL (1.4-6.5); Neutrophils % (auto) 87.8 %; Platelet Count 251 K/uL (130-400); RDW Coefficient of Variation 17.1 % (11.5-14.5); RDW Standard Deviation 57.9 fL (36.4-46.3); Red Blood Count 3.94 M/uL (3.93-5.22)
[2022-06-28 18:57] LABS: Partial Thromboplastin Ratio 1.1; Partial Thromboplastin Time 29.1 Seconds (21.0-31.0); Prothrombin Time 10.6 Seconds (9.0-12.0)
[2022-06-28] MEDS ORDERED: ALBUT/IPRATROP 3MG/0.5MG NEB 3 ML VIAL NEB STA (19:11)
[2022-06-28 19:12] LABS: Albumin Level 3.4 gm/dl (3.4-5.0); Bilirubin,Total 0.3 mg/dl (0.2-1.0); Calcium 8.5 mg/dl (8.5-10.1); Creatinine Clr Calc Pharmacy 55.9 ml/min; Est GFR (African American) 78.4 ml/min; Est GFR (Non-African American) 67.7 ml/min; Magnesium 1.8 mg/dl (1.7-2.4); Potassium 4.5 mmol/L (3.5-5.1); Total Protein 6.4 gm/dl (6.0-8.3)
[2022-06-28] MEDS ORDERED: PIPERACILLIN/TAZOBACTAM 4.5 GM/120 ML BAG IV ONE (19:14)
--- NOTE | 2022-06-28 19:25 | XRay Report ---
XR chest 1V portable HISTORY: 61 years-old Female Sepsis acute sepsis COMPARISON: Radiograph February 21, 2022 TECHNIQUE: AP view of the chest FINDINGS: Cardiac silhouette is enlarged. No pneumothorax. Left midlung and bibasilar patchy airspace opacities with interstitial coarsening. No pneumothorax, pleural effusion or overt pulmonary edema. Bones of t he chest appear grossly intact. IMPRESSION: Bibasilar and left midlung airspace opacities are suggestive of pneumonia. ACT 112: Negative or not required by law. The above report was generated using voice recognition software. It may contain grammatical, syntax o r spelling errors. Electronically signed by: Cory Hi M.D. 06/28/2022 7:23 PM
[2022-06-28 19:29] LABS: Influenza A virus by PCR Negative (Neg); Influenza B virus by PCR Negative (Neg); RSV by PCR Negative (Neg); SARS CoV2 RNA(COVID-19) Ceph NEGATIVE (Negative)
[2022-06-28 19:31] LABS: Troponin I High Sensitivity 1295.9 pg/ml (0-14)
[2022-06-28] MEDS ORDERED: SODIUM CHLORIDE 0.9% 1000ML 1,000 ML IV ONE (19:32)
--- NOTE | 2022-06-28 20:03 | Ultrasound Report ---
US arterial duplex LE LT HISTORY: 61 years-old Female decreased cap refill, h/o of stent/bypass of LLE peripheral arterial di sease COMPARISON: None TECHNIQUE: Multiple real-time sonographic images of the left lower extremity arterial structures were obtained assessing grayscale appearance, color and spectral flow FINDINGS: Diffuse atherosclerotic vascular disease. Predominantly monophasic waveforms throughout the left lowe r extremity. Decreased peak systolic velocities within the mid femoral artery measuring up to 6 cm/s. No arterial occlusion identified. IMPRESSION: 1. Atherosclerotic vascular disease with monophasic waveforms throughout. 2. No arterial occlusion identified. ACT 112: Negative or not required by law. The above report was generated using voice recognition software. It may contain grammatical, syntax o r spelling errors. Electronically signed by: Cory Hi M.D. 06/28/2022 8:02 PM
[2022-06-28] MEDS ORDERED: OPTIRAY 320 500ml IV ONE (21:45)
--- NOTE | 2022-06-28 22:26 | History & Physical Report ---
Date of Service June 28, 2022 Assessment & Plan (1) Bilateral interstitial pneumonia: (2) PAD (peripheral artery disease): (3) Depression: (4) Acute respiratory failure with hypoxia: (5) Coronary artery disease: (6) Hypertension: (7) Dyslipidemia: Plan Acute respiratory failure with hypoxia/bilateral interstitial pneumonia- Patient is negative for COVID-19, influenza a and B, and RSV MRSA swab is pending Zosyn 4.5 g IV every 8 hours Duonebs every 4 hours while awake and every 2 hours when necessary. Guaifenesin extended release 12 mg p.o. twice daily Methylprednisolone 40 mg IV every 8 hours Nasal cannula oxygen, titrate to keep pulse ox around 94% Elevated troponin/CAD with stented coronary arteries/hypertension- Troponin 1295.9, with follow-up 1340.4. The patient will be admitted to telemetry for serial cardiac enzymes, serial EKG's, cardiac rhythm monitoring and a 2-D echocardiogram with Dopplers. Continue aspirin 81 mg daily, clopidogrel 75 mg daily Start heparin drip low-dose without bolus Consult cardiology Peripheral arterial disease/status post stents- Continue aspirin 81 mg daily and clopidogrel 75 mg daily as noted above Left lower extremity arterial Doppler negative for occlusion If pain persists, may require aortogram with runoff Hyperlipidemia- Continue atorvastatin 40 mg at bedtime Check a fasting lipid panel Depression/insomnia- Continue fluoxetine and zolpidem Peripheral neuropathy- Continue gabapentin Chronic pain- Continue hydrocodone/acetaminophen 5/325, 1 every 4 hours as needed for moderate pain History of Present Illness Chief Complaint: the patient presents to the emergency department with complaint of left lower extremity pain, shortness of breath, fevers and cough. Primary Care Provider: Cookie Jones DO The patient is a 61-year-old female with a past medical history including PAD status post stents, depression, chronic back pain, acute respiratory failure w ith hypoxia, CAD, pneumonia, vitamin D deficiency, kidney stones, stented coronary artery, dyslipidemia, epidermoid cyst, hydronephrosis with renal and ureteral calculus obstruction. The patient presents with symptoms as noted above. She had a history of peripheral arterial stent, and therefore underwent a left lower extremity. Doppler which was negative. Chest x-ray showed bibasilar pneumonia. CT angiography PE was negative for PE, but did show bilateral pneumonia and esophageal thickening. Patient had a temperature of 38.3 recorded in the ED Significant abnormal laboratories: Troponin 1295.9, glucose 115, WBC 17.70. While in ED she was COVID19, RSV and influenza a and B negative Allergies Allergy/AdvReac Type Severity Reaction Status Date / Time No Known Allergies Allergy Unverified 06/28/22 22:30 Home Medications Medication Instructions Recorded Confirmed Type zolpidem 10 mg tablet (Ambien) 10 mg PO HS 11/22/20 06/28/22 History gabapentin 300 mg capsule 300 mg PO TID 05/13/21 06/28/22 History atorvastatin 40 mg tablet 40 mg PO HS 05/23/21 06/28/22 History clopidogrel 75 mg tablet 75 mg PO QPM 05/23/21 06/28/22 History aspirin 81 mg tablet,delayed 81 mg PO DAILY 01/06/22 06/28/22 History release (Adult Aspirin Regimen) multivitamin (Daily Multi-Vitamin 1 tab PO DAILY 01/06/22 06/28/22 History tablet) fluoxetine 40 mg capsule 40 mg PO HS 06/28/22 06/28/22 History hydrocodone 10 mg-acetaminophen 1 tab PO Q4H PRN Pain 06/28/22 06/28/22 History 325 mg tablet Past Med/Surg History Medical History (Updated 06/29/22 @ 02:25 by Claudio Ramírez MD) Atrophy of left kidney Coronary artery disease CAD s/p STEMI s/p RCA Bare Metal Stent (June 2012), Residual Left Coronary System CAD Depression History of anemia History of MT (myocardial infarction) 2010 Hyperlipidemia Hypertension Kidney stones Osteoarthritis arthritis in neck and lower back PAD (peripheral artery disease) Lower Extremity PAD s/p Angioplasty/Atherectomy to Right SFA/Popliteal and Left External Iliac/Common Femoral [employer] with Atherectomy and Stenting Sleep apnea Per records, no device Urinary tract infection Vitamin D deficiency Surgical History H/O colonoscopy H/O hernia repair (06/26/14) EXPLORATORY LAPAROTOMY lyses of adhesions reduction internal hernia biopsy desmoid process root of mesentery culture of necrotic mass Dr. Still History of laparotomy stomach stapling in 1999 and then trouble with procedure and then did the gastric bypass. Hx of cystoscopy stent in place Hx of excision of epidermal inclusion cyst (01/30/21) Excision of cyst back of neck in office Dr. Still S/P hernia repair (04/14/17) Open repair compartement separation incisional hernia with marlex onlay 04/14/17 Status post surgery Abdominal wall debridement skin and sub cut [address] Still 04/28/17 Excision of necrtoic tissue apprx. 3 cm in diameter and 20 cm in lenght of the abdominal wall and removal of previous packing 04/30/17 Family History Grandfather Cancer Grandmother Cancer Heart disease Stroke Mother Diabetes Aunt Hypertension Social History Smoking Status: Current every day smoker Tobacco Type: Cigarettes packs per day: 0.5; Cigarettes Per Day: 10; Second Hand Exposure: No; Do You Dip or Chew Tobacco: No; Hx Alcohol Use: No Hx Substance Use: No Preferred Language: Irish Communication Ability: Effective Catering And Events Manager Required: No Beliefs That Will Affect Care: None marital status: / Current Living Situation: Family Current Living Situation Comment: Lives w/mother/niece/nephew current occupational status: disabled How many Children do You have: 1 How many Children do You have Comment: custody of great niece Other Information That Helps Us Care for You: No Feels Safe at Home: Yes Safety Concerns: Feels Safe At This Time during the past year weight has: remained stable Assistive Devices: Glasses Review of Systems Review of Systems: The patient denies chest pain, palpitations, sore throat, fevers, chills, sweats, nausea, vomiting, diarrhea , constipation, abdominal pain, pelvic pain, blood in urine or stool, dysuria, urinary frequency or urgency, lightheadedness, dizziness, headache, memory loss, loss of consciousness, rash, abnormal bruising or bleeding, imbalance, focal or generalized weakness, numbness or tingling in arms or legs, generalized arthralgias or myalgias, back or neck pain, or night sweats. The review of systems is otherwise negative other than for that already noted above, and at least 10 systems have been reviewed. Physical Exam Physical Exam: The patient is awake, alert and oriented 3, well developed and well nourished, normocephalic and atraumatic, lying in bed and in no acute distress. HEENT--PERRL, EOMI, mucous membranes and oropharynx dry. Neck--supple. No JVD. No bruits. Thyroid normal, trachea midline, no adenopathy. Heart--normal S1 and S2. No murmurs, rubs or gallops. Lungs--coarse breath sounds with wheezes bilaterally, worse at the bases. no respiratory distress, no accessory muscle use. Abdomen--normal bowel sounds and soft. Nontender. Nondistended, no hernias or masses, no organomegaly. Extremities--no cyanosis or clubbing. No edema. There are good distal pulses b/l. Dermatologic--normal skin turgor, normal color, no abnormal lymph nodes, no rash. Neurologic--cranial nerves II through XII grossly intact. Rheumatologic--normal range of motion. Psychiatric--normal affect. Results & Data Results & Data ([facility]) Vital Signs (Past 12 Hours) Vital Signs Temp Pulse Pulse Resp BP BP Pulse Ox 06/28/22 21:10 06/28/22 21:06 91 H 32 H 98 06/28/22 20:30 96 H 22 106/69 91 06/28/22 19:30 92 H 22 105/67 93 06/28/22 20:00 92 H 20 110/68 92 06/28/22 19:00 97 H 24 108/69 93 06/28/22 17:56 82 16 96 06/28/22 17:38 38.3 C H 90 14 134/61 100 O2 Del Method O2 Flow Rate FiO2 06/28/22 21:10 30 06/28/22 21:06 45 06/28/22 20:30 Oxymask 4 06/28/22 19:30 Nasal Cannula 6 06/28/22 20:00 Nasal Cannula 6 06/28/22 19:00 Nasal Cannula 4 06/28/22 17:56 Room Air 06/28/22 17:38 Room Air Laboratory Results Laboratory Results WBC 17.70 K/ul (4.8-10.8) H 06/28/22 18:29 RBC 3.94 M/uL (3.93-5.22) 06/28/22 18:29 Hgb 11.9 g/dl (12.0-16.0) L 06/28/22 18:29 Hct 36.0 % (34.1-44.9) 06/28/22 18: MCV 91.4 fL (80.0-100.0) 06/28/22 18: MCH 30.2 pg (25.0-34.0) 06/28/22 18: MCHC 33.1 g/dL (32.0-36.0) 06/28/22 18: RDW Std Deviation 57.9 fL (36.4-46.3) H 06/28/22 18: RDW Coeff of Jeny 17.1 % (11.5-14.5) H 06/28/22 18: Plt Count 251 K/uL (130-400) 06/28/22 18: MPV 10.6 fL (9.4-12.3) 06/28/22 18: Immature Gran % (Auto) 0.5 % 06/28/22 18: Neut % (Auto) 87.8 % 06/28/22 18: Lymph % (Auto) 7.9 % 06/28/22 18: [place] % (Auto) 3.4 % 06/28/22 18: Eos % (Auto) 0.1 % 06/28/22 18: Baso % (Auto) 0.3 % 06/28/22 18: Neut # (Auto) 15.56 K/uL (1.4-6.5) H 06/28/22 18: Lymph # (Auto) 1.39 K/uL (1.2-3.4) 06/28/22 18: [place] # (Auto) 0.61 K/uL (0.24-0.82) 06/28/22 18: Eos # (Auto) 0.01 K/uL (0-0.50) 06/28/22 18: Baso # (Auto) 0.05 K/uL (0-0.2) 06/28/22 18: Immature Gran # (Auto) 0.08 K/uL (0.00-0.02) H 06/28/22 18: PT 10.6 Seconds (9.0-12.0) 06/28/22 18: INR 1.0 (0.9-1.1) 06/28/22 18:29 APTT 29.1 Seconds (21.0-31.0) 06/28/22 18:29 PTT Ratio 1.1 06/28/22 18:29 Sodium 135 mmol/L (136-145) L 06/28/22 18:29 Potassium 4.5 mmol/L (3.5-5.1) 06/28/22 18:29 Chloride 107 mmol/L (98-107) 06/28/22 18: Carbon Dioxide 22 mmol/L (21-32) 06/28/22 18:29 Anion Gap 6 (3-11) 06/28/22 18:29 BUN 23 mg/dl (6-23) 06/28/22 18: Creatinine 0.92 mg/dl (0.6-1.2) 06/28/22 18: Est Cr Clr Drug Dosing 55.9 ml/min 06/28/22 18:29 Est GFR ( Amer) 78.4 ml/min 06/28/22 18: Est GFR (Non-Af Amer) 67.7 ml/min 06/28/22 18:29 BUN/Creatinine Ratio 25.0 (10-20) H 06/28/22 18:29 Glucose 115 mg/dl (70-99(Fasting)) H 06/28/22 18:29 Lactate 1.5 mmol/L (0.4-2.0) 06/28/22 18: Calcium 8.5 mg/dl (8.5-10.1) 06/28/22 18: Magnesium 1.8 mg/dl (1.7-2.4) 06/28/22 18:29 Total Bilirubin 0.3 mg/dl (0.2-1.0) 06/28/22 18:29 Direct Bilirubin 0.0 mg/dl (0-0.2) 06/28/22 18:29 AST 28 U/L (13-39) 06/28/22 18:29 ALT 16 U/L (7-52) 06/28/22 18:29 Alkaline Phosphatase 78 U/L (34-104) 06/28/22 18:29 Troponin I High Sens 1340.4 pg/ml (0-14) H* 06/29/22 00:34 Total Protein 6.4 gm/dl (6.0-8.3) 06/28/22 18:29 Albumin 3.4 gm/dl (3.4-5.0) 06/28/22 18:29 Procalcitonin 0.71 ng/ml (0-0.5) H 06/28/22 18:29 Nasal Screen MRSA (PCR) Positive (Negative) A 06/28/22 23:10 SARS-CoV-2 (PCR) NEGATIVE (Negative) 06/28/22 Unknown Influenza Type A (PCR) Negative (Neg) 06/28/22 Unknown Influenza Type B (PCR) Negative (Neg) 06/28/22 Unknown RSV (RT-PCR) Negative (Neg) 06/28/22 Unknown Impressions Chest X-Ray 06/28/22 17:55 XR chest 1V portable HISTORY: 61 years-old Female Sepsis acute sepsis COMPARISON: Radiograph February 21, 2022 TECHNIQUE: AP view of the chest FINDINGS: Cardiac silhouette is enlarged. No pneumothorax. Left midlung and bibasilar patchy airspace opacities with interstitial coarsening. No pneumothorax, pleural effusion or overt pulmonary edema. Bones of the chest appear grossly intact. IMPRESSION: Bibasilar and left midlung airspace opacities are suggestive of pneumonia. ACT 112: Negative or not required by law. The above report was generated using voice recognition software. It may contain grammatical, syntax or spelling errors. Electronically signed by: Cory Hi M.D. 06/28/2022 7:23 PM Duplex Scan Lower Extremity Artery 06/28/22 17:55 US arterial duplex LE LT HISTORY: 61 years-old Female decreased cap refill, h/o of stent/bypass of LLE peripheral arterial disease COMPARISON: None TECHNIQUE: Multiple real-time sonographic images of the left lower extremity arterial structures were obtained assessing grayscale appearance, color and spectral flow FINDINGS: Diffuse atherosclerotic vascular disease. Predominantly monophasic waveforms throughout the left lower extremity. Decreased peak systolic velocities within the mid femoral artery measuring up to 6 cm/s. No arterial occlusion identified. IMPRESSION: 1. Atherosclerotic vascular disease with monophasic waveforms throughout. 2. No arterial occlusion identified. ACT 112: Negative or not required by law. The above report was generated using voice recognition software. It may contain grammatical, syntax or spelling errors. Electronically signed by: Cory Hi M.D. 06/28/2022 8:02 PM [facility] Patient: LOUIS LOVE (Female) : 62 Status: ER Date: 06/28/22 21:46 Room #: History: LEG PAIN SOB OPTIRAY 320 115ML EK/DG Slices: [id number] Priors: Tech: Qasim Lopez @ [phone] Exams: CTA CHEST Contrast: IV Amt: 115ML Accession Numbers: [id number] Referring Physician: REFERRED SELF Preliminary Findings Only See Final Report For Complete Findings CTA CHEST: No pulmonary embolus present. Diffuse interstitial infiltrates scattered throughout the lungs bilaterally likely infectious or inflammatory etiology. There is a slight predominance within the left lower lobe with a small left pleural effusion. Circumferential wall thickening of the esophagus which is suboptimally evaluated on this exam. Direct visual inspection is recommended for further evaluation. Postoperative changes of the stomach. Stable since 05/13/2021. Left adrenal gland thickening. Radiologist: Maxwell Aguilar MD Study ready at 21:50 and initial results transmitted at 23:07 *This report constitutes a preliminary interpretation only. Non-acute f indings felt to be unrelated to the clinical presentation may not be discussed in this report. The study will be interpreted and a final report will be generated by the local Radiologist the following shift. To reach the hospital radiology department call [phone]. If a discrepancy is found between the preliminary and final interpretations of this study, please notify us via our Client Portal at [email or web address], under QA Exams. You can also fax this report with a description of the discrepancy, or include the final report, to our daytime fax number [phone]. If faxing, please indicate the severity of discrepancy using one of the following categories: [ ] 1 - Agree/Informational [ ] 2 - Unlikely to Affect Management [ ] 3 - Possible Eventual Change of Management [ ] 4 - Probable Immediate Change of Management For all other patient related information, please fax us at [phone]. [id number] Code Status & VTE Plan Code Status Full code VTE Prophylaxis Plan VTE Prophylaxis will be ordered: Yes PG Care Time/CCT Total # of Minutes Spent Total Time Spent with Patient: Total time spent is greater than 50% in coordination of care (as documented) at patient's floor/unit and/or counseling patient: Coding Level of Care Code 56594 INT INP/OBS CARE 3/75MIN Diagnoses Bilateral interstitial pneumonia J84.9 PAD (peripheral artery disease) I73.9 Depression F32.A Acute respiratory failure with hypoxia J96.01 Coronary artery disease I25.10 Hypertension I10 Dyslipidemia E78.5
[2022-06-29] MEDS ORDERED: ACETAMINOPHEN 325 MG TAB PO PRN (00:25)
[2022-06-29] MEDS ORDERED: ONDANSETRON INJ 2 MG/ML 2 ML VIAL IV PRN (00:25)
[2022-06-29] MEDS: methylPREDNISolone 40 MG in SYRINGE 0 ML IV SCH ×3 (01:59→18:06)
[2022-06-29] MEDS ORDERED: Heparin IV Adult Wt-Based Low-Dose *NO* Bolus Protocol IV SCH (02:28)
[2022-06-29] MEDS ORDERED: HEPARIN 25000 UNIT/500 ML D5W IV ONE (03:29)
[2022-06-29] MEDS ORDERED: HEPARIN SODIUM/DEXTROSE 25,000 UNITS/500 ML BAG IV SCH (03:30)
[2022-06-29] MEDS: PIPERACILLIN/TAZOBACTAM 4.5 GM in DEXTROSE 5% 100 ML IV SCH ×3 (03:31→20:02)
[2022-06-29] MEDS: HYDROcodone/ACETAMINOPHEN 10/325 TAB PO PRN ×3 (05:49→21:21)
[2022-06-29 06:35] LABS: Hematocrit (blood only) 35.7 % (34.1-44.9); Hemoglobin 11.7 g/dl (12.0-16.0); Mean Corpuscular Hemoglobin 29.8 pg (25.0-34.0); Mean Corpuscular Hgb Conc 32.8 g/dL (32.0-36.0); Mean Corpuscular Volume 90.8 fL (80.0-100.0); Mean Platelet Volume 10.6 fL (9.4-12.3); Platelet Count 226 K/uL (130-400); Red Blood Count 3.93 M/uL (3.93-5.22); White Blood Count 10.08 K/ul (4.8-10.8)
[2022-06-29 06:59] LABS: Basophils # (auto) 0.02 K/uL (0-0.2); Basophils % (auto) 0.2 %; Eosinophils # (auto) 0.02 K/uL (0-0.50); Eosinophils % (auto) 0.2 %; Immature Granulocytes # (auto) 0.05 K/uL (0.00-0.02); Immature Granulocytes % (auto) 0.5 %; Lymphocytes # (auto) 0.55 K/uL (1.2-3.4); Lymphocytes % (auto) 5.5 %; Monocytes # (auto) 0.08 K/uL (0.24-0.82); Monocytes % (auto) 0.8 %; Neutrophils # (auto) 9.36 K/uL (1.4-6.5); Neutrophils % (auto) 92.8 %
[2022-06-29 07:11] LABS: Albumin Level 3.1 gm/dl (3.4-5.0); BUN Creatinine Ratio 25.7 (10-20); Calcium 8.1 mg/dl (8.5-10.1); Creatinine Clr Calc Pharmacy 73.5 ml/min; Est GFR (African American) 109.1 ml/min; Est GFR (Non-African American) 94.2 ml/min; Phosphorus 3.6 mg/dl (2.5-4.9); Potassium 4.5 mmol/L (3.5-5.1)
[2022-06-29] MEDS: ALBUT/IPRATROP 3MG/0.5MG NEB 3 ML VIAL NEB SCH ×4 (07:15→18:50)
--- NOTE | 2022-06-29 07:31 | Hospitalist Progress Note ---
Date of Service June 29, 2022 Assessment & Plan (1) Bilateral interstitial pneumonia: Plan: 61yo F with PMH PAD s/p stents in LLE 5 years ago, CAD, depression, HLD, chronic pain, peripheral neuropathy here for LLE pain with ambulation and b/l PNA. Acute respiratory failure with hypoxia/bilateral interstitial pneumonia- Patient is negative for COVID-19, influenza a and B, and RSV MRSA swab positive, isolation precautions ordered Zosyn 4.5 g IV every 8 hours given downtrending WBC, will continue zosyn, no need for MRSA coverage at this time Duonebs every 4 hours while awake and every 2 hours when necessary. Guaifenesin extended release 12 mg p.o. twice daily Methylprednisolone 40 mg IV every 8 hours Nasal cannula oxygen, titrate to keep pulse ox around 94% Elevated troponin/CAD with stented coronary arteries/hypertension- Troponin max 1340.4 downtrending The patient will be admitted to telemetry for serial cardiac enzymes, serial EKG's, cardiac rhythm monitoring and a 2-D echocardiogram with Dopplers. Continue aspirin 81 mg daily, clopidogrel 75 mg daily echo obtained pending read Stopped heparin drip Consult cardiology, appreciate recs stop heparin, continue ASA plavix atorvastatin, encourage med compliance smoking cessation Peripheral arterial disease/status post stents- Continue aspirin 81 mg daily and clopidogrel 75 mg daily as noted above Left lower extremity arterial Doppler negative for occlusion Cardiology consulted, Dr. Gregory to see her tomorrow to connect her for outpatient f/u patient advised on smoking cessation, medication compliance Continue atorvastatin 40 mg at bedtime lipid panel in December 2021 wnl Depression/insomnia- Continue fluoxetine and zolpidem Peripheral neuropathy- Continue gabapentin Chronic pain- Continue hydrocodone/acetaminophen 5/325, 1 every 4 hours as needed for moderate pain (2) Hyperlipidemia: (3) Acute hypoxemic respiratory failure: (4) Pneumonia: (5) Encounter for smoking cessation counseling: (6) History of peripheral arterial disease: (7) PAD (peripheral artery disease): (8) Depression: (9) Chronic back pain: (10) Coronary artery disease: Admission and Anticipated Discharge Date Admission Date: June 28, 2022 Supervising Physician Co-Signing Physician Notes I personally examined the patient and verified all [place] points of history and exam, discussed case, and agree with decision making with Dr Garcia. Feeling okay. Breathing is okay. Legs hurting some when she walks, but notes she has not been up muchwould like to get up and see how she does. Vitals noted, in general she is awake and alert pleasant no distress. HEENT normocephalic atraumatic mucous membranes moist. Breathing unlabored no accessory muscle use good effort. Skin shows no rashes no pallor or icterus. Neuro without focal deficits. Community-acquired pneumonia with sepsis present on admission precipitating acute hypoxia as well as myocardial demand ischemia with concomitant worsening of her claudicationcontinue antibiotics, supportive care, await vascular evaluation, await echo otherwise as above Subjective Patient seen at bedside, calm comfortable cooperative. States that her primary concern in the hospital is the pain in her left leg, only happens when she walks which she has not tested today, is not bothering her while she is laying down. Patient states she has had arteries in both her legs 'cleaned out', has a stent in her left leg placed at least 5 years ago, right leg had clogging too extensive to treat with a stent. Patient states she is not compliant with her blood thinner medications and is still smoking at this time. She states that 1-2 months ago she had pneumonia as well. At this time not having fever, nausea, no SOB on 5L oxymask. Review of Systems Review of Systems: All systems reviewed & are unremarkable except as noted in HPI & below Physical Exam Constitutional: WD/WN, vitals as above Eyes: PERRL, conjunctivae normal, anicteric sclerae ENMT: external ear and nose normal, oropharynx normal Neck: trachea midline, no thyromegaly Respiratory: normal respiratory effort on oxymask Cardiovascular: Rate/Rhythm: regular rate and regular rhythm extremities warm, normal color Gastrointestinal (Abdomen): Inspection/Auscultation: abdomen normal to inspec tion; abdomen not distended Skin: no rashes, warm and dry Results & Data Results & Data ([facility]) Vital Signs (Past 12 Hours) Vital Signs Temp Pulse Pulse Resp BP BP Pulse Ox 06/29/22 07:15 64 18 98 06/29/22 06:00 06/29/22 05:36 36.7 C 75 18 127/76 96 06/29/22 05:00 70 16 95 06/29/22 05:00 109/62 06/29/22 04:38 74 15 94 06/29/22 04:38 97/59 L 06/29/22 04:30 72 16 93 06/29/22 04:00 77 18 91 06/29/22 03:30 83 24 100 06/29/22 03:04 73 20 06/29/22 02:30 75 20 100 06/29/22 02:30 131/83 06/29/22 02:00 74 21 96 06/29/22 02:00 118/73 06/29/22 01:30 98/64 L 06/29/22 04:27 06/29/22 01:30 73 17 92 06/29/22 01:00 74 18 91/62 L 94 06/29/22 00:30 82 21 102/71 97 06/29/22 00:00 78 19 105/72 93 06/29/22 01:00 06/29/22 01:14 37.0 C 83 20 105/72 98 06/28/22 23:30 93 06/28/22 23:00 96/62 L 90 06/28/22 22:00 94 06/28/22 22:00 110/69 06/28/22 21:30 96 H 28 H 100 06/28/22 21:30 132/81 06/28/22 21:00 95 H 18 95 06/28/22 21:00 106/66 06/28/22 20:00 94 H 16 97 06/28/22 20:00 105/67 06/28/22 21:10 06/28/22 21:06 91 H 32 H 98 06/28/22 20:30 96 H 22 106/69 91 06/28/22 20:00 92 H 20 110/68 92 Pulse Ox O2 Del Method O2 Del Method O2 Flow Rate FiO2 06/29/22 07:15 Oxymask 5 06/29/22 06:00 Oxymask 6 06/29/22 05:36 Oxymask 6 06/29/22 05:00 06/29/22 05:00 06/29/22 04:38 06/29/22 04:38 06/29/22 04:30 06/29/22 04:00 06/29/22 03:30 06/29/22 03:04 06/29/22 02:30 06/29/22 02:30 06/29/22 02:00 06/29/22 02:00 06/29/22 01:30 06/29/22 04:27 Oxymask 6 06/29/22 01:30 06/29/22 01:00 06/29/22 00:30 06/29/22 00:00 06/29/22 01:00 94 Room Air 06/29/22 01:14 Nasal Cannula 6 06/28/22 23:30 06/28/22 23:00 06/28/22 22:00 06/28/22 22:00 06/28/22 21:30 06/28/22 21:30 06/28/22 21:00 06/28/22 21:00 06/28/22 20:00 06/28/22 20:00 06/28/22 21:10 30 06/28/22 21:06 45 06/28/22 20:30 Oxymask 4 06/28/22 20:00 Nasal Cannula 6 Resident Activity Tracking Resident Involvement: Resident Care Provided Care Provided: Adult Hospital Medicine (1) Pneumonia Laterality: unspecified laterality Lung location: unspecified part of lung Pneumonia type: due to unspecified organism Qualified Code(s): J18.9 - Pneumonia, unspecified organism
--- NOTE | 2022-06-29 08:05 | CT Scan Report ---
CHEST CTA for PULMONARY ARTERIES CT DOSE: 244.96 mGy.cm HISTORY: Shortness of breath. Leg pain. TECHNIQUE: Multiaxial CT images of the chest were performed following the intravenous administration of contrast to evaluate the pulmonary arteries. Maximal intensity projection images were also obtaine d. A dose lowering technique was utilized adhering to the principles of ALARA. COMPARISON STUDY: None. FINDINGS: Limited views of the upper abdomen demonstrate normal liver and spleen. Thickening of the a drenal glands which may be age-related. Postoperative changes noted within the stomach suggesting tabatha or gastric bypass. There is trace perihepatic ascites. Trace bilateral pleural effusions are noted. M ild body wall edema. Normal caliber esophagus. The heart is mildly enlarged. Trace pericardial effusi on is noted. Prominent mediastinal and hilar lymph nodes. Dominant subcarinal lymph node measures 2.4 x 1.5 cm. Normal caliber thoracic aorta with no evidence for dissection. No filling defects within t he pulmonary arteries to suggest a pulmonary embolus. No acute fractures identified. The central airw ays are patent. No pneumothorax. An 8 mm nodule within the base of the left lower lobe on image 79. E mphysema. Scattered groundglass airspace opacities and interlobular septal thickening are seen throug hout the lungs. This is most pronounced within the left lower lobe and left lung apex. IMPRESSION: 1. No evidence for a pulmonary embolus. 2. Scattered groundglass airspace opacities and interstitial thickening seen throughout the lungs. Th is could represent pulmonary edema and/or an atypical pneumonia. 3. Trace bilateral pleural effusions. 4. Mild body wall edema. 5. Mild mediastinal and bilateral hilar lymphadenopathy. 6. Emphysema. 7. An 8 mm nodule within the base of the left lower lobe. Please refer to the chart below for recomme nded follow-up. Please refer to below summary of Fleischner criteria recommendations for follow-up of incidental CT n odules (Altaf Aviles, Guidelines for management of small pulmonary nodules detected on CT scans: A sta tement from the Fleischner Society, Radiology 237: [phone].) SOLID NODULES Solitary nodule size: <6 mm * Low risk patients: no follow-up needed * high risk patients: optional CT at 12 months Solitary nodule size: 6-8 mm * Low risk patients: follow-up at 6-12 months, then consider further follow-up at 18-24 months * high risk patients: initial follow-up CT at 6-12 months and then at 18-24 months if no change Solitary nodule size: >8 mm * either low or high risk patients - consider follow-up CT at 3 months, and/or CT-PET, and/or biopsy Multiple nodules size: <6 mm * Low risk patients: no routine follow-up * high risk patients: optional CT at 12 months Multiple nodules size: 6-8 mm * Low risk patients: follow-up at 3-6 months, then consider further follow-up at 18-24 months * high risk patients: follow-up at 3-6 months, then at 18-24 months if no change Multiple nodules size: >8 mm * Low risk patients: follow-up at 3-6 months, then consider further follow-up at 18-24 months * high risk patients: follow-up at 3-6 months, then at 18-24 months if no change Note: newly detected indeterminate nodule in persons 35 years of age or older. * Low risk patients: minimal or absent history of smoking and/or other known risk factors * high risk patients: history of smoking or of other known risk factors (e.g. first degree relative with lung cancer, or exposure to asbestos, radon, uranium) * if a nodule up to 8 mm is partly solid or is ground glass further follow-up is required after 24 m onths to exclude possible slow growing adenocarcinoma (OZ) SUBSOLID NODULES Solitary pure ground-glass nodule * nodule size <6 mm - no CT follow-up required * nodule size >=6 mm - follow-up CT at 6-12 months, then every 2 years until 5 years Solitary part-solid nodule * nodule size <6 mm - no CT follow-up required * nodule size >=6 mm - follow-up CT at 3-6 months. If unchanged, and solid component remains <6 mm, then annual follow-up for 5 years Multiple subsolid nodules * nodule size <6 mm - follow-up CT at 3-6 months, consider further follow-up at 2 and 4 years if sta ble * nodule size >=6 mm - follow-up CT at 3-6 months, subsequent management based on the most suspiciou s nodule(s) ACT 112: Positive. There are findings on this exam that require communication between the performing entity and the patient following Patient Test Result Information Act ([place] Act 112) guidelines. Electronically signed by: Good Valdovinos M.D. 06/29/2022 8:03 AM
[2022-06-29] MEDS ORDERED: ENOXAPARIN INJ 30 MG/0.3 ML SYR SQ SCH (09:00)
[2022-06-29] MEDS: GABAPENTIN 300 MG CAP PO SCH ×3 (09:15→21:10)
[2022-06-29] MEDS: MULTIVITAMIN TAB PO SCH (09:16)
[2022-06-29] MEDS: ASPIRIN 81 MG ECTAB PO SCH (09:16)
[2022-06-29] MEDS: guaiFENesin 600 MG TABCR PO SCH ×2 (09:16→21:10)
[2022-06-29 12:21] LABS: Partial Thromboplastin Ratio 1.3; Partial Thromboplastin Time 34.5 Seconds (21.0-31.0)
[2022-06-29] MEDS ORDERED: HEPARIN SOD (PORCINE) 1000 UNIT/ML IV ONE (13:00)
--- NOTE | 2022-06-29 16:08 | Billing Data ---
Date of Service June 29, 2022 Coding Level of Care Code 24215 SUB INP/OBS CARE MIN
--- NOTE | 2022-06-29 16:49 | XCELERA ---
[id number]
--- NOTE | 2022-06-29 17:30 | Cardiology Consultation ---
Date of Consultation June 29, 2022 Assessment & Plan (1) Coronary artery disease: (2) Elevated troponin: (3) PAD (peripheral artery disease): (4) Acute hypoxemic respiratory failure: (5) Bilateral interstitial pneumonia: (6) Dyslipidemia: (7) Stented coronary artery: (8) Hypertension: Plan ASSESSMENT/PLAN: 1. Elevated troponin: Likely due to demand ischemia in the setting of pneumonia, hypoxia, fever, with underlying CAD. She did not present with acute coronary syndrome, denying any angina. Therapeutic heparin drip not necessary from a cardiac standpoint. Continue antiplatelet therapy for underlying CAD. 2. CAD s/p RCA PCI: No angina. Continue antiplatelet therapy. Has not been taking statin therapy regularly. High intensity statin therapy strongly recommended. Consider beta-blayne therapy at some point given residual CAD. 3. Peripheral arterial disease: Has undergone intervention of bilateral lower extremities in the past but now with progressive left lower extremity claudication symptoms, similar to prior. Discussed with Dr. 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 He plans on seeing her tomorrow. No rest symptoms. Antiplatelet therapy, high intensity statin therapy, smoking cessation recommended. 4. Tobacco abuse: Recommended that she stop smoking. 5. Dyslipidemia: Most recent LDL was not at goal however she is noncompliant with statin therapy. High intensity statin therapy compliance recommended. 6. Hypertension: Blood pressure reasonably controlled. 7. Pneumonia/acute hypoxemic respiratory failure: Treatment as per primary hospitalist service. Had mild JVD and hepatojugular reflux. Would consider low-dose diuretic dose today to encourage net negative fluid balance. Oxygen saturation 90% on 3 L currently. 8. Disposition: Cardiology will continue to follow. Dr. Gregory plans on continuing her cardiology care tomorrow. Patient care discussed with Dr. Polanco of the primary hospitalist service. Highly complex medical issues. Thank you for allowing me to participate in the care of your patient. Please call for any other questions or concerns. Sincerely, Eric Howell M.D. History of Present Illness Reason for Consultation: Elevated troponin Requesting Physician: Dr. Ramírez Attending Physician: Maxwell Simon DO History of Present Illness Ms. Leo is a pleasant 61-year-old female with a history significant for CAD s/p RCA STEMI and PCI, peripheral arterial disease s/p intervention of bilateral lower extremities, hypertension, dyslipidemia, and sleep apnea. She has been followed in the past by Dr. Gregory, but has not been seen since 11/22/2020 (by Mr. Willem TOLENTINO). Per records, in June 2012 she underwent PCI of her RCA in the setting of STEMI. In December 2015, she underwent iliac stenting. 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 She has had the following studies/procedures: 1. Cardiac cath June 2012: Mid LAD 80 to 90%. D1 ostial 50%. D2 subtotal oc clusion. Proximal circumflex 80 to 90%. Mid circumflex MIRROR PAINTER with left to left collaterals. Proximal RCA 80 to 90%, and underwent PCI with 3 x 15 mm integrity BMS, postdilated 3.25. 2. Echo 06/29/2022: Normal LV size, wall motion, systolic function. EF 60 to 65%. Mild AI. Normal RVSP. She was hospitalized on 06/28/2022 after presenting to the hospital with progressively worsening left lower extremity pain, shortness of breath, and cough. She was found to be febrile. She has not had any significant sputum production with her cough but has had rhinorrhea, shortness of breath and dyspnea with exertion in general. She denies any chest discomfort, syncope, near syncope, edema, or bleeding such as melena, hematochezia, or hematuria. She has been experiencing progressively worsening left lower extremity muscle pain, consistent with her prior claudication. Over the past 1 to 2 days prior to presentation, the pain became much more severe with minimal ambulation. She denies any rest pain. She admits that she has not been compliant with Plavix or atorvastatin. She states that she has been taking aspirin however. Unfortunately, she continues to smoke. On presentation, she was diagnosed with bilateral interstitial pneumonia by hospitalist service. Troponin was checked and peaked at 1340. Review of systems: As above. Review of systems otherwise negative/unremarkable. Family history: Noncontributory. Social history: Smokes at least 1 pack/day. No significant alcohol or drug abuse. She lives with her brother, mother, and nephew. She was unaccompanied. Allergies Allergy/AdvReac Type Severity Reaction Status Date / Time No Known Allergies Allergy Unverified 06/28/22 22:30 Home Medications Medication Instructions Recorded Confirmed Type zolpidem 10 mg tablet (Ambien) 10 mg PO HS 11/22/20 06/28/22 History gabapentin 300 mg capsule 300 mg PO TID 05/13/21 06/28/22 History atorvastatin 40 mg tablet 40 mg PO HS 05/23/21 06/28/22 History clopidogrel 75 mg tablet 75 mg PO QPM 05/23/21 06/28/22 History aspirin 81 mg tablet,delayed 81 mg PO DAILY 01/06/22 06/28/22 History release (Adult Aspirin Regimen) multivitamin (Daily Multi-Vitamin 1 tab PO DAILY 01/06/22 06/28/22 History tablet) fluoxetine 40 mg capsule 40 mg PO HS 06/28/22 06/28/22 History hydrocodone 10 mg-acetaminophen 1 tab PO Q4H PRN Pain 06/28/22 06/28/22 History 325 mg tablet Patient History Medical History Atrophy of left kidney Coronary artery disease CAD s/p STEMI s/p RCA Bare Metal Stent (June 2012), Residual Left Coronary System CAD Depression History of anemia History of GA (myocardial infarction) 2010 Hyperlipidemia Hypertension Kidney stones Osteoarthritis arthritis in neck and lower back PAD (peripheral artery disease) Lower Extremity PAD s/p Angioplasty/Atherectomy to Right SFA/Popliteal and Left External Iliac/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 Still History of laparotomy stomach stapling in 1999 and then trouble with procedure and then did the gastric bypass. Hx of cystoscopy stent in place Hx of excision of epidermal inclusion cyst (01/30/21) Excision of cyst back of neck in office Dr. Still S/P hernia repair (04/14/17) Open repair compartement separation incisional hernia with marlex onlay 03/23 10/06 Status post surgery Abdominal wall debridement skin and sub cut [address] Still 04/28/17 Excision of necrtoic tissue apprx. 3 cm in diameter and 20 cm in lenght of the abdominal wall and removal of previous packing 04/30/17 Family History Grandfather Cancer Grandmother Cancer Heart disease Stroke Mother Diabetes Aunt Hypertension Social History Smoking Status: Current every day smoker Tobacco Type: Cigarettes packs per day: 0.5; Cigarettes Per Day: 10; Second Hand Exposure: No; Do You Dip or Chew Tobacco: No; Hx Alcohol Use: No Hx Substance Use: No Preferred Language: Ukrainian Communication Ability: Effective Payable Processor Required: No Beliefs That Will Affect Care: None marital status: / Current Living Situation: Family Current Living Situation Comment: Lives w/mother/niece/nephew current occupational status: disabled How many Children do You have: 1 How many Children do You have Comment: custody of great niece Other Information That Helps Us Care for You: No Feels Safe at Home: Yes Safety Concerns: Feels Safe At This Time during the past year weight has: remained stable Assistive Devices: Glasses Physical Exam Physical Exam: Gen.: No acute distress. Alert and oriented. HEENT: Anicteric sclera. Neck: Minimal JVD. Hepatojugular reflux noted. No bruits. Normal carotid upstrokes bilaterally. Cardiac: No ventricular heave. Regular. Normal S1-S2. No murmurs, rubs, or gallops. Pulmonary: Left lung coarse sounds noted at the base/mid lung field. Abdomen: Soft, nontender, nondistended, with normoactive bowel sounds. No bruits noted. Extremities: 2+ radial pulses bilaterally. Very weak dorsalis pedis pulses. No edema or cyanosis. Psychiatric: Affect appears appropriate. Results & Data ([facility]) Vital Signs (Past 12 Hours) Vital Signs Temp Pulse Pulse Resp BP BP Pulse Ox 06/29/22 16:52 78 06/29/22 08:30 63 06/29/22 16:00 36.5 C 82 19 111/72 90 06/29/22 12:00 36.7 C 88 19 113/65 91 06/29/22 15:29 94 H 18 94 06/29/22 15:11 66 18 94 06/29/22 10:30 75 16 94 06/29/22 10:00 85 18 92 06/29/22 09:30 89 18 93 06/29/22 09:00 70 16 94 06/29/22 08:30 69 18 93 06/29/22 08:00 72 16 136/77 95 06/29/22 07:30 71 16 94 06/29/22 08:00 36.8 C 06/29/22 09:50 06/29/22 07:15 64 18 98 06/29/22 06:00 06/29/22 05:36 36.7 C 75 18 127/76 96 O2 Del Method O2 Flow Rate 06/29/22 16:52 06/29/22 08:30 06/29/22 16:00 Nasal Cannula 3 06/29/22 12:00 Nasal Cannula 3 06/29/22 15:29 Oxymask 3 06/29/22 15:11 Nasal Cannula 3 06/29/22 10:30 06/29/22 10:00 06/29/22 09:30 06/29/22 09:00 06/29/22 08:30 06/29/22 08:00 06/29/22 07:30 06/29/22 08:00 06/29/22 09:50 Oxymask 3 06/29/22 07:15 Oxymask 5 06/29/22 06:00 Oxymask 6 06/29/22 05:36 Oxymask 6 Intake & Output 06/27/22 06/28/22 06/29/22 06/30/22 06:59 06:59 06:59 06:59 Intake Total 2220 / 2220 270.034 / 270.034 Output Total 0 / 0 Balance 2220 / 2220 270.034 / 270.034 Weight 134 lb 11.239 oz Laboratory Results Laboratory Results - last 24 hr 06/28/22 06/28/22 06/28/22 18:29 18:29 18:29 WBC 17.70 H RBC 3.94 Hgb 11.9 L Hct 36.0 MCV 91.4 MCH 30.2 MCHC 33.1 RDW Std Deviation 57.9 H RDW Coeff of Jeny 17.1 H Plt Count 251 MPV 10.6 Immature Gran % (Auto) 0.5 Neut % (Auto) 87.8 Lymph % (Auto) 7.9 [place] % (Auto) 3.4 Eos % (Auto) 0.1 Baso % (Auto) 0.3 Neut # (Auto) 15.56 H Lymph # (Auto) 1.39 [place] # (Auto) 0.61 Eos # (Auto) 0.01 Baso # (Auto) 0.05 Immature Gran # (Auto) 0.08 H PT 10.6 INR 1.0 APTT 29.1 PTT Ratio 1.1 Sodium 135 L Potassium 4.5 Chloride 107 Carbon Dioxide 22 Anion Gap 6 BUN 23 Creatinine 0.92 Est Cr Clr Drug Dosing 55.9 Est GFR ( Amer) 78.4 Est GFR (Non-Af Amer) 67.7 BUN/Creatinine Ratio 25.0 H Glucose 115 H Lactate Calcium 8.5 Phosphorus Magnesium 1.8 Total Bilirubin 0.3 Direct Bilirubin 0.0 AST 28 ALT 16 Alkaline Phosphatase 78 Troponin I High Sens 1295.9 H* Total Protein 6.4 Albumin 3.4 Procalcitonin Nasal Screen MRSA (PCR) SARS-CoV-2 (PCR) Influenza Type A (PCR) Influenza Type B (PCR) RSV (RT-PCR) 06/28/22 06/28/22 06/28/22 18:29 18:29 23:10 WBC RBC Hgb Hct MCV MCH MCHC RDW Std Deviation RDW Coeff of Jeny Plt Count MPV Immature Gran % (Auto) Neut % (Auto) Lymph % (Auto) [place] % (Auto) Eos % (Auto) Baso % (Auto) Neut # (Auto) Lymph # (Auto) [place] # (Auto) Eos # (Auto) Baso # (Auto) Immature Gran # (Auto) PT INR APTT PTT Ratio Sodium Potassium Chloride Carbon Dioxide Anion Gap BUN Creatinine Est Cr Clr Drug Dosing Est GFR ( Amer) Est GFR (Non-Af Amer) BUN/Creatinine Ratio Glucose Lactate 1.5 Calcium Phosphorus Magnesium Total Bilirubin Direct Bilirubin AST ALT Alkaline Phosphatase Troponin I High Sens Total Protein Albumin Procalcitonin 0.71 H Nasal Screen MRSA (PCR) Positive A SARS-CoV-2 (PCR) Influenza Type A (PCR) Influenza Type B (PCR) RSV (RT-PCR) 06/28/22 06/29/22 06/29/22 Unknown 00:34 06:11 WBC RBC Hgb Hct MCV MCH MCHC RDW Std Deviation RDW Coeff of Jeny Plt Count MPV Immature Gran % (Auto) Neut % (Auto) Lymph % (Auto) [place] % (Auto) Eos % (Auto) Baso % (Auto) Neut # (Auto) Lymph # (Auto) [place] # (Auto) Eos # (Auto) Baso # (Auto) Immature Gran # (Auto) PT INR APTT PTT Ratio Sodium Potassium Chloride Carbon Dioxide Anion Gap BUN Creatinine Est Cr Clr Drug Dosing Est GFR ( Amer) Est GFR (Non-Af Amer) BUN/Creatinine Ratio Glucose Lactate Calcium Phosphorus Magnesium Total Bilirubin Direct Bilirubin AST ALT Alkaline Phosphatase Troponin I High Sens 1340.4 H* 1056.5 H* D Total Protein Albumin Procalcitonin Nasal Screen MRSA (PCR) SARS-CoV-2 (PCR) NEGATIVE Influenza Type A (PCR) Negative Influenza Type B (PCR) Negative RSV (RT-PCR) Negative 06/29/22 06/29/22 06/29/22 06:11 06:11 11:53 WBC 10.08 RBC 3.93 Hgb 11.7 L Hct 35.7 MCV 90.8 MCH 29.8 MCHC 32.8 RDW Std Deviation 57.0 H RDW Coeff of Jeny 17.0 H Plt Count 226 MPV 10.6 Immature Gran % (Auto) 0.5 Neut % (Auto) 92.8 Lymph % (Auto) 5.5 [place] % (Auto) 0.8 Eos % (Auto) 0.2 Baso % (Auto) 0.2 Neut # (Auto) 9.36 H Lymph # (Auto) 0.55 L [place] # (Auto) 0.08 L Eos # (Auto) 0.02 Baso # (Auto) 0.02 Immature Gran # (Auto) 0.05 H PT INR APTT 34.5 H PTT Ratio 1.3 Sodium 137 Potassium 4.5 Chloride 111 H Carbon Dioxide 22 Anion Gap 4 BUN 18 Creatinine 0.70 Est Cr Clr Drug Dosing 73.5 Est GFR ( Amer) 109.1 Est GFR (Non-Af Amer) 94.2 BUN/Creatinine Ratio 25.7 H Glucose 121 H Lactate Calcium 8.1 L Phosphorus 3.6 Magnesium 2.0 Total Bilirubin Direct Bilirubin AST ALT Alkaline Phosphatase Troponin I High Sens Total Protein Albumin 3.1 L Procalcitonin Nasal Screen MRSA (PCR) SARS-CoV-2 (PCR) Influenza Type A (PCR) Influenza Type B (PCR) RSV (RT-PCR) 06/29/22 12:32 WBC RBC Hgb Hct MCV MCH MCHC RDW Std Deviation RDW Coeff of Jeny Plt Count MPV Immature Gran % (Auto) Neut % (Auto) Lymph % (Auto) [place] % (Auto) Eos % (Auto) Baso % (Auto) Neut # (Auto) Lymph # (Auto) [place] # (Auto) Eos # (Auto) Baso # (Auto) Immature Gran # (Auto) PT INR APTT PTT Ratio Sodium Potassium Chloride Carbon Dioxide Anion Gap BUN Creatinine Est Cr Clr Drug Dosing Est GFR ( Amer) Est GFR (Non-Af Amer) BUN/Creatinine Ratio Glucose Lactate Calcium Phosphorus Magnesium Total Bilirubin Direct Bilirubin AST ALT Alkaline Phosphatase Troponin I High Sens 551.7 H* D Total Protein Albumin Procalcitonin Nasal Screen MRSA (PCR) SARS-CoV-2 (PCR) Influenza Type A (PCR) Influenza Type B (PCR) RSV (RT-PCR) Diagnostic Findings Telemetry personally reviewed: Sinus rhythm. No arrhythmia. Labs reviewed and notable for mild anemia, elevated troponin, elevated procalcitonin level, elevated LDL in the setting of CAD and PAD. Echo reviewed as noted above in HPI. ECG personally reviewed 06/28/2022 at 1813: Sinus tachycardia 103 bpm. RBBB. LAFB. ECG 06/29/2022 at 1332: Sinus rhythm 74 bpm. RBBB. LAFB. CTA chest 06/28/2022: No PE. Scattered groundglass airspace opacities and interstitial thickening throughout the lungs. Trace bilateral pleural e ffusions. Mild body wall edema. Mediastinal and bilateral hilar lymphadenopathy. Emphysema. Left lower lobe lung nodule. Left leg arterial duplex 06/28/2022: Monophasic waveforms throughout per rad iology. Records reviewed including emergency room note, history and physical, and historical cardiology records. Medications Administered Current Inpatient Medications Acetaminophen (Acetaminophen 325 Mg Tab) 650 mg PO Q4H PRN PRN Reason: Pain or Fever Stop: 07/29/22 00:24 Hydrocodone Bitart/Acetaminophen (Hydrocodone/Acetaminophen 10/325 Tab) 1 tab PO Q6 PRN PRN Reason: Moderate Pain Stop: 07/13/22 00:24 Last Admin: 06/29/22 11:50 Dose: 1 tab Albuterol (Albut/Ipratrop 3mg/0.5mg Neb 3 Ml Vial) 3 ml NEB QIDR [facility]; Protocol Stop: 07/29/22 06:59 Last Admin: 06/29/22 15:10 Dose: 3 ml Aspirin (Aspirin 81 Mg Ectab) 81 mg PO DAILY [facility] Stop: 07/29/22 08:59 Last Admin: 06/29/22 09:16 Dose: 81 mg Atorvastatin Calcium (Atorvastatin 40 Mg Tab) 40 mg PO HS [facility] Stop: 07/29/22 20:59 Clopidogrel Bisulfate (Clopidogrel Bisulfate 75 Mg Tab) 75 mg PO QPM [facility] Stop: 07/29/22 20:59 Enoxaparin Sodium (Enoxaparin Inj 40 Mg/0.4 Ml Syr) 40 mg SQ QAM [facility] Stop: 07/30/22 08:59 Fluoxetine HCl (Fluoxetine Hcl 20 Mg Cap) 20 mg PO HS [facility] Stop: 07/29/22 20:59 Gabapentin (Gabapentin 300 Mg Cap) 300 mg PO TID [facility] Stop: 07/29/22 08:59 Last Admin: 06/29/22 14:50 Dose: 300 mg Guaifenesin (Guaifenesin 600 Mg Tabcr) 1,200 mg PO Q12 [facility] Stop: 07/29/22 08:59 Last Admin: 06/29/22 09:16 Dose: 1,200 mg Piperacillin Sod/Tazobactam (Sod 4.5 gm/ Dextrose) 120 mls @ 30 mls/hr IV Q8H [facility]; Protocol Stop: 07/06/22 03:59 Last Admin: 06/29/22 13:12 Dose: 30 mls/hr Methylprednisolone 40 mg/ (Syringe) 0.64 mls @ 1.5 mls/min IV Q8H [facility] Stop: 07/29/22 01:59 Last Admin: 06/29/22 09:15 Dose: 1.5 mls/min Multivitamins (Multivitamin Tab) 1 tab PO DAILY [facility] Stop: 07/29/22 08:59 Last Admin: 06/29/22 09:16 Dose: 1 tab Ondansetron HCl (Ondansetron Inj 2 Mg/Ml 2 Ml Vial) 4 mg IV Q6H PRN PRN Reason: Nausea Stop: 07/29/22 00:24 Zolpidem Tartrate (Zolpidem Tartrate 10 Mg Tab) 10 mg PO HS [facility] Stop: 07/29/22 20:59 PG Care Time/CCT Total # of Minutes Spent Total Time Spent with Patient: Total time spent is greater than 50% in coordination of care (as documented) at patient's floor/unit and/or counseling patient: Coding Level of Care Code 94429 INT INP/OBS CARE 3/75MIN Diagnoses Coronary artery disease I25.10 Elevated troponin R77.8 PAD (peripheral artery disease) I73.9 Acute hypoxemic respiratory failure J96.01 Bilateral interstitial pneumonia J84.9 Dyslipidemia E78.5 Stented coronary artery Z95.5 Hypertension I10
[2022-06-29] MEDS ORDERED: FUROSEMIDE INJ 20 MG/2 ML VIAL IV ONE (17:54)
[2022-06-29] MEDS: ZOLPIDEM TARTRATE 10 MG TAB PO SCH (21:10)
[2022-06-29] MEDS: CLOPIDOGREL BISULFATE 75 MG TAB PO SCH (21:10)
[2022-06-29] MEDS: FLUoxetine HCL 20 MG CAP PO SCH (21:10)
[2022-06-29] MEDS: ATORVASTATIN 40 MG TAB PO SCH (21:11)
[2022-06-30 00:21] LABS: Appearance Urine Clear (Clear); Bacteria Urine Automated Negative (Negative); Bilirubin Urine Negative (Negative); Blood Urine Negative (Negative); Cast Urine Automated 0 /lpf (0-5); Color Urine Yellow; Epithelial Cell Urine Auto >30 /lpf (0-5); Glucose Urine UA Negative (Negative); Ketones Urine Negative (Negative); Leukocyte Esterase Urine 1+ (Negative); Nitrite Urine Negative (Negative); Protein Urine Trace (Negative); RBC Urine Automated 0-4 /hpf (0-4); Urobilinogen Urine Negative (Negative); pH Urine 5.5 (4.5-7.5)
[2022-06-30] MEDS: methylPREDNISolone 40 MG in SYRINGE 0 ML IV SCH ×3 (01:14→17:09)
[2022-06-30] MEDS: HYDROcodone/ACETAMINOPHEN 10/325 TAB PO PRN ×4 (04:00→23:22)
[2022-06-30] MEDS: PIPERACILLIN/TAZOBACTAM 4.5 GM in DEXTROSE 5% 100 ML IV SCH ×2 (04:19→11:39)
--- NOTE | 2022-06-30 06:16 | Electrocardiogram Report ---
Test Reason : Blood Pressure : / mmHG Vent. Rate : 103 BPM Atrial Rate : 103 BPM P-R Int : 134 ms QRS Dur : 136 ms QT Int : 350 ms P-R-T Axes : 069 -48 -10 degrees QTc Int : 458 ms Sinus tachycardia Possible Left atrial enlargement Right bundle branch block Left anterior fascicular block Bifascicular block Abnormal ECG When compared with ECG of 21-FEB-2022 10:41, No significant change Confirmed by Grayson Howell ([id number]) on 06/30/2022 6:16:00 AM Referred By: REFERRED SELF Confirmed By:Grayson Howell
--- NOTE | 2022-06-30 06:34 | Electrocardiogram Report ---
Test Reason : Blood Pressure : / mmHG Vent. Rate : 074 BPM Atrial Rate : 074 BPM P-R Int : 146 ms QRS Dur : 142 ms QT Int : 428 ms P-R-T Axes : 075 -37 -20 degrees QTc Int : 475 ms Normal sinus rhythm Left axis deviation Right bundle branch block Cannot rule out Anterior infarct , age undetermined T wave abnormality, consider inferior ischemia Abnormal ECG When compared with ECG of 28-JUN-2022 18:13, T wave inversion now evident in Anterior leads Confirmed by Grayson Howell ([id number]) on 06/30/2022 6:34:15 AM Referred By: REFERRED SELF Confirmed By:Grayson Howell
[2022-06-30 06:53] LABS: Hematocrit (blood only) 33.8 % (34.1-44.9); Hemoglobin 11.4 g/dl (12.0-16.0); Mean Corpuscular Hemoglobin 30.6 pg (25.0-34.0); Mean Corpuscular Hgb Conc 33.7 g/dL (32.0-36.0); Mean Corpuscular Volume 90.6 fL (80.0-100.0); Mean Platelet Volume 10.4 fL (9.4-12.3); Platelet Count 249 K/uL (130-400); RDW Coefficient of Variation 17.1 % (11.5-14.5); RDW Standard Deviation 57.3 fL (36.4-46.3); Red Blood Count 3.73 M/uL (3.93-5.22); White Blood Count 20.19 K/ul (4.8-10.8)
[2022-06-30] MEDS: ALBUT/IPRATROP 3MG/0.5MG NEB 3 ML VIAL NEB SCH ×4 (07:20→19:59)
[2022-06-30 07:29] LABS: Basophils # (auto) 0.03 K/uL (0-0.2); Basophils % (auto) 0.1 %; Immature Granulocytes # (auto) 0.11 K/uL (0.00-0.02); Immature Granulocytes % (auto) 0.5 %; Lymphocytes # (auto) 0.72 K/uL (1.2-3.4); Lymphocytes % (auto) 3.6 %; Monocytes # (auto) 0.38 K/uL (0.24-0.82); Monocytes % (auto) 1.9 %; Neutrophils # (auto) 18.95 K/uL (1.4-6.5); Neutrophils % (auto) 93.9 %
[2022-06-30 07:31] LABS: BUN Creatinine Ratio 32.6 (10-20); Calcium 8.5 mg/dl (8.5-10.1); Creatinine Clr Calc Pharmacy 59.3 ml/min; Est GFR (African American) 81.6 ml/min; Est GFR (Non-African American) 70.4 ml/min; Magnesium 2.1 mg/dl (1.7-2.4); Potassium 4.8 mmol/L (3.5-5.1)
[2022-06-30] MEDS: guaiFENesin 600 MG TABCR PO SCH ×2 (08:53→20:20)
[2022-06-30] MEDS: MULTIVITAMIN TAB PO SCH (08:53)
[2022-06-30] MEDS: ASPIRIN 81 MG ECTAB PO SCH (08:54)
[2022-06-30] MEDS: ENOXAPARIN INJ 40 MG/0.4 ML SYR SQ SCH (08:54)
[2022-06-30] MEDS: GABAPENTIN 300 MG CAP PO SCH ×3 (11:17→21:57)
--- NOTE | 2022-06-30 12:46 | Medical Student Progress Note ---
Date of Service June 30, 2022 Assessment & Plan (1) Bilateral interstitial pneumonia: Plan Gem 61 yo female hx pad sp stents, cad sp pci, hld, pain, peripheral neuropathy presented to ED 06/28/2022 with left leg pain preventing her from walking. While here she was found to be hypoxic and treated for pneumonia with zosyn, NC o2. negative duplex scan LLE artery. CTA neg for PE. CTA showed bibasilar and left midlung airspace airspace opacities. found to have elevated troponin. MRSA positive. Echo was normal and EKG non specific changes. responsive to zosyn. (1) Acute respiratory failure with hypoxia/bilateral interstitial pneumonia -Patient is negative for COVID-19, influenza a and B, and RSV -MRSA swab positive, isolation precautions ordered -Zosyn 4.5 g IV every 8 hours -continue zosyn, no need for MRSA coverage at this time -Duonebs every 4 hours while awake and every 2 hours when necessary. -Guaifenesin extended release 12 mg p.o. twice daily -Methylprednisolone 40 mg IV every 8 hours, discontinue on day 3 -Nasal cannula oxygen, titrate to keep pulse ox around 94% -pt/ot evaluation (3) Elevated troponin/CAD with stented coronary arteries/hypertension- -Troponin max 1340.4 downtrending -The patient will be admitted to telemetry for serial cardiac enzymes, serial EKG's, cardiac rhythm monitoring and a 2-D -echocardiogram with Dopplers. -Continue aspirin 81 mg daily, clopidogrel 75 mg daily -echo obtained pending read -Stopped heparin drip -Consult cardiology, appreciate recs stop heparin, continue ASA plavix atorvastatin, encourage med compliance smoking cessation (4) Peripheral arterial disease/status post stents- -Continue aspirin 81 mg daily and clopidogrel 75 mg daily as noted above -Left lower extremity arterial Doppler negative for occlusion -Cardiology consulted, appreciate recs -patient advised on smoking cessation, medication compliance (5) Continue atorvastatin 40 mg at bedtime -lipid panel in December 2021 wnl (6) Depression/insomnia- Continue fluoxetine and zolpidem (7) Peripheral neuropathy- -Continue gabapentin (8) Chronic pain- -Continue hydrocodone/acetaminophen 5/325, 1 every 4 hours as needed for moderate pain FEN/GI reg diet Full Code DVT PPX: SCD knee Dispo: Med/Tele Admission and Anticipated Discharge Date Admission Date: June 28, 2022 Subjective Still has heavier breathing however no claudication symptoms when going to bathroom. Does not use O2 at home. Pt still smokes. No chest pain. Physical Exam Constitutional: WD/WN, vitals as above Respiratory: non labored breathing, scattered rhonchi bilaterally Cardiovascular: RRR no MRG, symmetric radial pulses, diminished left pedal pulse, symmetric capillary refill bilaterally in LE, no edema Results & Data ([facility]) Vital Signs (Past 12 Hours) Vital Signs Temp Pulse Resp BP Pulse Ox O2 Del Method O2 Del Method 06/30/22 10:58 36.4 C L 73 22 111/69 98 Nasal Cannula 06/30/22 10:54 72 19 94 Nasal Cannula 06/30/22 08:00 Nasal Cannula 06/30/22 07:31 36.6 C 76 20 133/79 91 Oxymask 06/30/22 07:21 70 18 90 Oxymask 06/30/22 03:25 36.5 C 68 18 120/72 92 Nasal Cannula 06/30/22 01:00 Nasal Cannula O2 Flow Rate O2 Flow Rate 06/30/22 10:58 6 06/30/22 10:54 6 06/30/22 08:00 6 06/30/22 07:31 8 06/30/22 07:21 8 06/30/22 03:25 4 06/30/22 01:00 4
--- NOTE | 2022-06-30 14:21 | Electrocardiogram Report ---
Test Reason : Blood Pressure : / mmHG Vent. Rate : 068 BPM Atrial Rate : 068 BPM P-R Int : 148 ms QRS Dur : 140 ms QT Int : 442 ms P-R-T Axes : 062 -28 -19 degrees QTc Int : 469 ms Normal sinus rhythm Left atrial enlargement Right bundle branch block T-wave inversion in Anterior leads , consider ischemia Abnormal ECG When compared with ECG of 29-JUN-2022 13:32, Minor T-wave inversion in Anterior leads now present Confirmed by Jeremias Chavez ([id number]) on 06/30/2022 2:20:44 PM Referred By: REFERRED SELF Confirmed By:Jeremias Chavez
--- NOTE | 2022-06-30 15:14 | Medical Student Progress Note ---
Date of Service June 30, 2022 Assessment & Plan (1) Bilateral interstitial pneumonia: Plan: Gem 61 yo female hx pad sp stents, cad sp pci, hld, pain, peripheral neuropathy presented to ED 06/28/2022 with left leg pain preventing her from walking. While here she was found to be hypoxic and treated for pneumonia with zosyn, NC o2. negative duplex scan LLE artery. CTA neg for PE. CTA showed bibasilar and left midlung airspace airspace opacities. found to have elevated troponin. MRSA positive. Echo was normal and EKG non specific changes. responsive to zosyn. (1) Acute respiratory failure with hypoxia/bilateral interstitial pneumonia -Patient is negative for COVID-19, influenza a and B, and RSV -MRSA swab positive, isolation precautions ordered -Zosyn 4.5 g IV every 8 hours -discontinue zosyn, no need for pseudomonal coverage at this time -Start Ceftriaxone IV 2000mg daily -Duonebs every 4 hours while awake and every 2 hours when necessary. -Guaifenesin extended release 12 mg p.o. twice daily -Methylprednisolone 40 mg IV every 8 hours, discontinue on day 3 -Nasal cannula oxygen, titrate to keep pulse ox around 94% -pt/ot evaluation (3) Elevated troponin/CAD with stented coronary arteries/hypertension- -Troponin max 1340.4 downtrending -The patient will be admitted to telemetry for serial cardiac enzymes, serial EKG's, cardiac rhythm monitoring and a 2-D -echocardiogram with Dopplers. -Continue aspirin 81 mg daily, clopidogrel 75 mg daily -echo obtained pending read -Stopped heparin drip -Consult cardiology, appreciate recs stop heparin, continue ASA plavix atorvastatin, encourage med compliance smoking cessation (4) Peripheral arterial disease/status post stents- -Continue aspirin 81 mg daily and clopidogrel 75 mg daily as noted above -Left lower extremity arterial Doppler negative for occlusion -Cardiology consulted, appreciate recs -patient advised on smoking cessation, medication compliance (5) Continue atorvastatin 40 mg at bedtime -lipid panel in December 2021 wnl (6) Depression/insomnia- Continue fluoxetine and zolpidem (7) Peripheral neuropathy- -Continue gabapentin (8) Chronic pain- -Continue hydrocodone/acetaminophen 5/325, 1 every 4 hours as needed for mod erate pain FEN/GI reg diet Full Code DVT PPX: SCD knee Dispo: Med/Tele Admission and Anticipated Discharge Date Admission Date: June 28, 2022 Supervising Attestation Resident Physician Supervision Note: I independently interviewed and examined the patient and verified the [place] history and physical, reviewed labs and image studies and agree with resident findings and care plan. breathing is better but still easily short of breath with minimal exertion no chest pain. comfortable in bed. minimal resp distress during conversation. rhonchi bilateral lung exam. heart regular Acute hypoxic resp failure Interstitial pneumonia -continue oxygen support -IV abx - ceftriaxone -IV steroids. -rise in wbc sec to steroids Trop elevation -sec to demand ischemia Lovenox To add PT/OT once resp stable Results & Data ([facility]) Vital Signs (Past 12 Hours) Vital Signs Temp Pulse Resp BP Pulse Ox O2 Del Method O2 Flow Rate 06/30/22 14:58 81 18 93 Nasal Cannula 4 06/30/22 10:58 36.4 C L 73 22 111/69 98 Nasal Cannula 6 06/30/22 10:54 72 19 94 Nasal Cannula 6 06/30/22 08:00 Nasal Cannula 6 06/30/22 07:31 36.6 C 76 20 133/79 91 Oxymask 8 06/30/22 07:21 70 18 90 Oxymask 8 06/30/22 03:25 36.5 C 68 18 120/72 92 Nasal Cannula 4
[2022-06-30] MEDS: cefTRIAXone SODIUM 2,000 MG in DEXTROSE 5% 50 ML IV SCH (19:22)
[2022-06-30] MEDS ORDERED: oxyCODONE HCL IR 5 MG TAB (IMMEDIATE RELEASE) PO STA (19:47)
[2022-06-30] MEDS: FLUoxetine HCL 20 MG CAP PO SCH (20:20)
[2022-06-30] MEDS: CLOPIDOGREL BISULFATE 75 MG TAB PO SCH (20:20)
[2022-06-30] MEDS: ATORVASTATIN 40 MG TAB PO SCH (20:20)
[2022-06-30] MEDS: ZOLPIDEM TARTRATE 10 MG TAB PO SCH (20:23)
--- NOTE | 2022-06-30 22:44 | Vascular Medicine ProgressNote ---
Date of Service June 30, 2022 Assessment & Plan (1) PAD (peripheral artery disease): Plan: 2. Bilateral interstitial pneumonia 3. Elevated troponin 4. History of coronary disease post prior PCI with BMS to RCA. Residual mid LAD disease, circumflex GARAGEMAN 5. Hypertension 6. Tobacco abuse Patient with gradually progressive claudication. Has palpable left DP pulse and distal left lower extremity appears well-perfused. No signs or symptoms of critical limb ischemia. Reviewed recent arterial duplex. Waveforms suggest left external iliac stent patent. Suspect some degree of mid SFA disease. Tibial vessels appear patent. No need for acute revascularization during this admission. We will schedule outpatient aortoiliac duplex and repeat ROMELIA/TBI's. Pending findings will consider repeat lower extremity angiogram and possible intervention to SFA. Stable from a cardiac standpoint. With patient's history of multivessel disease continue DAPT with aspirin, clopidogrel. Continue current statin. Follow-up with me in 2 to 3 weeks following discharge. Admission and Anticipated Discharge Date Admission Date: June 28, 2022 Subjective Breathing still not at baseline, hypoxia with activity this morning. No chest pain. LT > RT leg pain unchanged. Gradual progression of exertional LT lower extremity pain, now with minimal ambulation. Symptoms have been worse in the setting of acute illness. No rest pain. Review of Systems Review of Systems: All systems reviewed & are unremarkable except as noted in HPI & below Physical Exam Physical Exam: General: Comfortable, no acute distress Eyes: Sclerae anicteric Neck: No JVD. Lungs: Coarse breath sounds throughout Cardiac: Regular rate and rhythm, no murmurs, rubs or gallops. Abdomen: Soft, nontender Neuro: Nonfocal Psych: Alert orient x3, normal affect and mood Extremities/Vascular: -- 2+ radial bilaterally -- 1+ femoral pulses bilaterally -- Nonpalpable popliteal pulses -- 2 + DP on right, 1+ DP on left. Diminished PT pulses. Normal capillary refill. -- No lower extremity ulcerations. -- No edema -- No hyperpigmentation, stasis dermatitis or lipodermatosclerosis Results & Data ([facility]) Vital Signs (Past 12 Hours) Vital Signs Temp Pulse Resp BP Pulse Ox O2 Del Method O2 Flow Rate 06/30/22 20:00 92 H 18 91 Nasal Cannula 4 06/30/22 19:29 97.9 F 81 18 155/82 H 93 Nasal Cannula 4 06/30/22 15:52 97.5 F L 96 H 18 114/70 90 Nasal Cannula 4 06/30/22 14:58 81 18 93 Nasal Cannula 4 06/30/22 10:58 97.5 F L 73 22 111/69 98 Nasal Cannula 6 06/30/22 10:54 72 19 94 Nasal Cannula 6 PG Care Time/CCT Total # of Minutes Spent Total Time Spent with Patient: Total time spent is greater than 50% in coordination of care (as documented) at patient's floor/unit and/or counseling patient: Coding Level of Care Code 86823 SUB INP/OBS CARE 350MIN Diagnoses PAD (peripheral artery disease) I73.9
[2022-07-01] MEDS: methylPREDNISolone 40 MG in SYRINGE 0 ML IV SCH ×3 (02:55→16:50)
[2022-07-01] MEDS: HYDROcodone/ACETAMINOPHEN 10/325 TAB PO PRN ×3 (06:03→20:05)
[2022-07-01 06:29] LABS: Hematocrit (blood only) 36.9 % (34.1-44.9); Hemoglobin 12.5 g/dl (12.0-16.0); Mean Corpuscular Hgb Conc 33.9 g/dL (32.0-36.0); Mean Corpuscular Volume 88.7 fL (80.0-100.0); Mean Platelet Volume 10.4 fL (9.4-12.3); Nucleated RBC # (auto) 0.02 K/uL (0-0); Nucleated RBC % (auto) 0.1 %; Platelet Count 310 K/uL (130-400); RDW Coefficient of Variation 16.9 % (11.5-14.5); RDW Standard Deviation 55.1 fL (36.4-46.3); Red Blood Count 4.16 M/uL (3.93-5.22); White Blood Count 20.48 K/ul (4.8-10.8)
[2022-07-01 06:52] LABS: Basophils # (auto) 0.03 K/uL (0-0.2); Basophils % (auto) 0.1 %; Echinocytes 1+; Lymphocytes # (auto) 0.84 K/uL (1.2-3.4); Lymphocytes % (auto) 4.1 %; Monocytes # (auto) 0.37 K/uL (0.24-0.82); Monocytes % (auto) 1.8 %; Neutrophils # (auto) 19.04 K/uL (1.4-6.5); Polychromasia 1+
[2022-07-01] MEDS: ALBUT/IPRATROP 3MG/0.5MG NEB 3 ML VIAL NEB SCH ×4 (07:00→19:46)
[2022-07-01 07:02] LABS: BUN Creatinine Ratio 35.1 (10-20); Calcium 9.1 mg/dl (8.5-10.1); Creatinine Clr Calc Pharmacy 71.3 ml/min; Est GFR (African American) 102.1 ml/min; Est GFR (Non-African American) 88.1 ml/min; Potassium 4.4 mmol/L (3.5-5.1)
--- NOTE | 2022-07-01 07:22 | Hospitalist Progress Note ---
Date of Service July 01, 2022 Assessment & Plan (1) Bilateral interstitial pneumonia: Plan: Gem 61 yo female hx pad sp stents, cad sp pci, hld, pain, peripheral neuropathy presented to ED 06/28/2022 with left leg pain preventing her from walking. While here she was found to be hypoxic and treated for pneumonia with zosyn, NC o2. negative duplex scan LLE artery. CTA neg for PE. CTA showed bibasilar and left midlung airspace airspace opacities. found to have elevated troponin. MRSA positive. Echo was normal and EKG non specific changes. responsive to zosyn. (1) Acute respiratory failure with hypoxia/bilateral interstitial pneumonia -Patient is negative for COVID-19, influenza a and B, and RSV -MRSA swab positive, isolation precautions ordered -discontinue zosyn, no need for pseudomonal coverage at this time -Start Ceftriaxone IV 2000mg daily -added azithromycin 500mg daily -monitor symptoms, if needed add flagyl for aneorobic coverage -Duonebs every 4 hours while awake and every 2 hours when necessary. -Guaifenesin extended release 12 mg p.o. twice daily -Methylprednisolone 40 mg IV every 8 hours, continue at this time monitor symptoms -Needing 3L O2. oxygen as needed (3) Elevated troponin/CAD with stented coronary arteries/hypertension- -Troponin max 1340.4 downtrending -echo - normal EF. Mild LVH -Consulted cardiology, stop heparin, continue ASA plavix atorvastatin, encourage med compliance smoking cessation (4) Peripheral arterial disease/status post stents- -Continue aspirin 81 mg daily and clopidogrel 75 mg daily as noted above -Left lower extremity arterial Doppler negative for occlusion -Cardiology consulted, no critical limb ischemia, f/u in outpatient in 2-3 weeks -vascular surgery - no intervention -patient advised on smoking cessation, medication compliance (5) Continue atorvastatin 40 mg at bedtime -lipid panel in December 2021 wnl (6) Depression/insomnia- Continue fluoxetine and zolpidem (7) Peripheral neuropathy- -Continue gabapentin (8) Chronic pain- -Continue hydrocodone/acetaminophen 5/325, 1 every 4 hours as needed for moderate pain FEN/GI reg diet Full Code DVT PPX: SCD knee Dispo: Med/Tele; -pt/ot ordered, pending (2) Hyperlipidemia: (3) Acute hypoxemic respiratory failure: (4) Pneumonia: (5) Encounter for smoking cessation counseling: (6) History of peripheral arterial disease: (7) PAD (peripheral artery disease): (8) Depression: (9) Chronic back pain: (10) Coronary artery disease: Admission and Anticipated Discharge Date Admission Date: June 28, 2022 Supervising Physician Co-Signing Physician Notes Resident Physician Supervision Note: I independently interviewed and examined the patient and verified the [place] history and physical, reviewed labs and image studies and agree with resident findings and care plan. Subjective Patient seen at bedside, calm comfortable cooperative. States 6L oxygen hurts her nose, would like it decreased to 4L. Patient understands she can be discharged when she does not need as much oxygen. States her breathing is ok on oxygen. Tolerated breakfast well. Patient met with cardiology yesterday, understands her PAD will be address in outpatient. 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 Review of Systems Review of Systems: All systems reviewed & are unremarkable except as noted in HPI & below Physical Exam Constitutional: WD/WN, vitals as above Eyes: PERRL, conjunctivae normal, anicteric sclerae ENMT: external ear and nose normal, oropharynx normal Neck: trachea midline, no thyromegaly Respiratory: normal respiratory effort Auscultation: lungs clear to auscultation bilaterally Cardiovascular: Rate/Rhythm: regular rate and regular rhythm extremities warm, normal color Gastrointestinal (Abdomen): Inspection/Auscultation: abdomen normal to inspection; abdomen not distended Skin: no rashes, warm and dry Results & Data Results & Data ([facility]) Vital Signs (Past 12 Hours) Vital Signs Temp Pulse Pulse Resp BP Pulse Ox O2 Del Method 07/01/22 07:01 75 20 97 Nasal Cannula 07/01/22 03:51 36.7 C 80 18 170/97 H 98 Nasal Cannula 06/30/22 22:04 88 06/30/22 23:56 36.5 C 81 18 178/76 H 94 Nasal Cannula 06/30/22 20:00 92 H 18 91 Nasal Cannula 06/30/22 19:29 36.6 C 81 18 155/82 H 93 Nasal Cannula O2 Flow Rate 07/01/22 07:01 5 07/01/22 03:51 8 06/30/22 22:04 06/30/22 23:56 6 01/09/23 20:00 4 06/30/22 19:29 4 Resident Activity Tracking Resident Involvement: Resident Care Provided Care Provided: Adult Hospital Medicine (1) Pneumonia Laterality: unspecified laterality Lung location: unspecified part of lung Pneumonia type: due to unspecified organism Qualified Code(s): J18.9 - Pneumonia, unspecified organism
[2022-07-01] MEDS: guaiFENesin 600 MG TABCR PO SCH ×2 (08:06→20:06)
[2022-07-01] MEDS: ENOXAPARIN INJ 40 MG/0.4 ML SYR SQ SCH (08:06)
[2022-07-01] MEDS: ASPIRIN 81 MG ECTAB PO SCH (08:06)
[2022-07-01] MEDS: MULTIVITAMIN TAB PO SCH (08:06)
[2022-07-01] MEDS: GABAPENTIN 300 MG CAP PO SCH ×3 (08:06→20:07)
[2022-07-01] MEDS ORDERED: AZITHROMYCIN 250 MG TAB PO ONE (11:00)
[2022-07-01] MEDS: FIRST - Mouthwash BLM 119 ML PO SCH ×2 (11:29→20:08)
[2022-07-01] MEDS ORDERED: oxyCODONE HCL IR 5 MG TAB (IMMEDIATE RELEASE) PO STA (16:31)
[2022-07-01] MEDS: cefTRIAXone SODIUM 2,000 MG in DEXTROSE 5% 50 ML IV SCH (20:00)
[2022-07-01] MEDS: ZOLPIDEM TARTRATE 10 MG TAB PO SCH (20:05)
[2022-07-01] MEDS: CLOPIDOGREL BISULFATE 75 MG TAB PO SCH (20:07)
[2022-07-01] MEDS: FLUoxetine HCL 20 MG CAP PO SCH (20:07)
[2022-07-01] MEDS: ATORVASTATIN 40 MG TAB PO SCH (20:07)
[2022-07-01] MEDS: oxyCODONE HCL IR 5 MG TAB (IMMEDIATE RELEASE) PO PRN (20:45)
[2022-07-02] MEDS: methylPREDNISolone 40 MG in SYRINGE 0 ML IV SCH ×2 (02:54→09:00)
[2022-07-02] MEDS: HYDROcodone/ACETAMINOPHEN 10/325 TAB PO PRN ×2 (02:58→11:18)
--- NOTE | 2022-07-02 06:50 | Hospitalist Progress Note ---
Date of Service July 02, 2022 Assessment & Plan (1) Bilateral interstitial pneumonia: Plan: Gem 61 yo female hx pad sp stents, cad sp pci, hld, pain, peripheral neuropathy presented to ED 06/28/2022 with left leg pain preventing her from walking. While here she was found to be hypoxic and treated for pneumonia with zosyn, NC o2. negative duplex scan LLE artery. CTA neg for PE. CTA showed bibasilar and left midlung airspace airspace opacities. found to have elevated troponin. MRSA positive. Echo was normal and EKG non specific changes. responsive to zosyn. (1) Acute respiratory failure with hypoxia/bilateral interstitial pneumonia -Patient is negative for COVID-19, influenza a and B, and RSV -MRSA swab positive, isolation precautions ordered -discontinue zosyn, no need for pseudomonal coverage at this time -Start Ceftriaxone IV 2000mg daily -added azithromycin 500mg daily -monitor symptoms, if needed add flagyl for aneorobic coverage -Duonebs every 4 hours while awake and every 2 hours when necessary. -Guaifenesin extended release 12 mg p.o. twice daily -Methylprednisolone 40 mg IV every 8 hours, continue at this time monitor symptoms -Needing 3L O2. oxygen as needed (3) Elevated troponin/CAD with stented coronary arteries/hypertension- -Troponin max 1340.4 downtrending -echo - normal EF. Mild LVH -Consulted cardiology, stop heparin, continue ASA plavix atorvastatin, encourage med compliance smoking cessation (4) Peripheral arterial disease/status post stents- -Continue aspirin 81 mg daily and clopidogrel 75 mg daily as noted above -Left lower extremity arterial Doppler negative for occlusion -Cardiology consulted, no critical limb ischemia, f/u in outpatient in 2-3 weeks -vascular surgery - no intervention -patient advised on smoking cessation, medication compliance (5) Continue atorvastatin 40 mg at bedtime -lipid panel in December 2021 wnl (6) Depression/insomnia- Continue fluoxetine and zolpidem (7) Peripheral neuropathy- -Continue gabapentin (8) Chronic pain- -Continue hydrocodone/acetaminophen 5/325, 1 every 4 hours as needed for moderate pain FEN/GI reg diet Full Code DVT PPX: SCD knee Dispo: Med/Tele; -pt/ot ordered, pending (2) Hyperlipidemia: (3) Acute hypoxemic respiratory failure: (4) Pneumonia: (5) Encounter for smoking cessation counseling: (6) History of peripheral arterial disease: (7) PAD (peripheral artery disease): (8) Depression: (9) Chronic back pain: (10) Coronary artery disease: Admission and Anticipated Discharge Date Admission Date: June 28, 2022 Results & Data Results & Data ([facility]) Vital Signs (Past 12 Hours) Vital Signs Temp Pulse Pulse Resp BP BP Pulse Ox 07/02/22 02:54 36.3 C L 68 16 177/107 H 94 07/01/22 22:00 80 07/01/22 23:24 36.6 C 79 18 176/96 H 91 07/01/22 19:30 07/01/22 19:46 78 18 94 07/01/22 19:25 36.4 C L 87 20 141/77 H 100 O2 Del Method O2 Flow Rate 07/02/22 02:54 Nasal Cannula 3 07/01/22 22:00 07/01/22 23:24 Nasal Cannula 3 07/01/22 19:30 Nasal Cannula 3 07/01/22 19:46 Room Air 07/01/22 19:25 Room Air (1) Pneumonia Laterality: unspecified laterality Lung location: unspecified part of lung Pneumonia type: due to unspecified organism Qualified Code(s): J18.9 - Pneumonia, unspecified organism
[2022-07-02 07:04] LABS: Hematocrit (blood only) 39.9 % (34.1-44.9); Hemoglobin 13.7 g/dl (12.0-16.0); Mean Corpuscular Hgb Conc 34.3 g/dL (32.0-36.0); Mean Corpuscular Volume 87.3 fL (80.0-100.0); Mean Platelet Volume 9.7 fL (9.4-12.3); Nucleated RBC # (auto) 0.02 K/uL (0-0); Nucleated RBC % (auto) 0.1 %; Platelet Count 360 K/uL (130-400); RDW Coefficient of Variation 16.7 % (11.5-14.5); RDW Standard Deviation 53.1 fL (36.4-46.3); Red Blood Count 4.57 M/uL (3.93-5.22)
[2022-07-02] MEDS: ALBUT/IPRATROP 3MG/0.5MG NEB 3 ML VIAL NEB SCH ×3 (07:21→15:08)
[2022-07-02 07:36] LABS: BUN Creatinine Ratio 34.3 (10-20); Creatinine Clr Calc Pharmacy 74.3 ml/min; Est GFR (African American) 109.1 ml/min; Est GFR (Non-African American) 94.2 ml/min; Potassium 4.6 mmol/L (3.5-5.1)
[2022-07-02] MEDS: guaiFENesin 600 MG TABCR PO SCH (08:43)
[2022-07-02] MEDS: ASPIRIN 81 MG ECTAB PO SCH (08:43)
[2022-07-02] MEDS: GABAPENTIN 300 MG CAP PO SCH ×2 (08:43→13:21)
[2022-07-02] MEDS: oxyCODONE HCL IR 5 MG TAB (IMMEDIATE RELEASE) PO PRN ×2 (08:43→13:22)
[2022-07-02] MEDS: FIRST - Mouthwash BLM 119 ML PO SCH (08:44)
[2022-07-02] MEDS: ENOXAPARIN INJ 40 MG/0.4 ML SYR SQ SCH (08:44)
[2022-07-02] MEDS: MULTIVITAMIN TAB PO SCH (08:44)
[2022-07-02] MEDS ORDERED: AZITHROMYCIN 250 MG TAB PO SCH (09:00)
--- NOTE | 2022-07-02 17:20 | Discharge Summary ---
Date of Service July 02, 2022 Admission HPI Per Admitting Provider Gem Lim is a 61-year-old female with a PMH of COPD, CAD, PVD, NYA, depression who presents today with worsening cough and body aches and chills for the past week. She had her flu shot this past Thursday, and the next day felt very achy, cold, and has since developed a productive cough. She is a longtime smoker, admits to half pack per day, however does not have a cough at baseline. She feels with this cough that she has sputum to bring up, however has not been able to. The highest temp she had recorded at home was 99.4. Feels she has been keeping up with her fluids well. Has not noticed obvious shortness of breath with activity. She is having chest discomfort with coughing, however no chest pain or palpitations. She saw her PCP today, who was concerned that she was hypoxic <88% on room air, therefore referred her to ED for further evaluation. Upon presentation to the ED, she is moderately hypertensive, otherwise vital signs within normal limits, no tachycardia, afebrile and 94% on room air. She did eventually desat to 87%, now on 3L NC breathing comfortably with SPO2 >95%. Labs significant for leukocytosis 11.32, Pro-Rudi within normal limits. Electrolytes WNL, renal function at baseline, without transaminitis, troponin 12.6, COVID/flu/RSV negative. CXR shows an airspace consolidation is seen at the right lung base, typical for pneumonia/aspiration pneumonitis. Admission Exam Per Admitting Provider The patient is awake, alert and oriented 3, well developed and well nourished, normocephalic and atraumatic, lying in bed and in no acute distress. HEENT--PERRL, EOMI, mucous membranes and oropharynx dry. Neck--supple. No JVD. No bruits. Thyroid normal, trachea midline, no ad enopathy. Heart--normal S1 and S2. No murmurs, rubs or gallops. Lungs--coarse breath sounds with wheezes bilaterally, worse at the bases. no respiratory distress, no accessory muscle use. Abdomen--normal bowel sounds and soft. Nontender. Nondistended, no hernias or masses, no organomegaly. Extremities--no cyanosis or clubbing. No edema. There are good distal pulses b/l. Dermatologic--normal skin turgor, normal color, no abnormal lymph nodes, no rash. Neurologic--cranial nerves II through XII grossly intact. Rheumatologic--normal range of motion. Psychiatric--normal affect. Principal Diagnosis Pneumonia Discharge Exam Constitutional: WD/WN, vitals as above Eyes: PERRL, conjunctivae normal, anicteric sclerae ENMT: external ear and nose normal, oropharynx normal Neck: trachea midline, no thyromegaly Respiratory: normal respiratory effort Auscultation: lungs clear to auscultation bilaterally Cardiovascular: Rate/Rhythm: regular rate and regular rhythm extremities warm, normal color Gastrointestinal (Abdomen): Inspection/Auscultation: abdomen normal to insp ection; abdomen not distended Skin: no rashes, warm and dry Discharge Data Allergies Allergy/AdvReac Type Severity Reaction Status Date / Time No Known Allergies Allergy Unverified 06/28/22 22:30 Consultations 06/28/22 20:37 ED Decision to Admit Stat 06/29/22 00:25 Consult Cardiology Routine Ordered Studies 06/28/22 17:55 US arterial duplex LE LT Stat 06/28/22 20:23 CT angio chest PE protocol Stat Hospital Course (1) Bilateral interstitial pneumonia: Gem 61 yo female hx pad sp stents, cad sp pci, hld, pain, peripheral neuropathy presented to ED 06/28/2022 with left leg pain preventing her from walking. While here she was found to be hypoxic and treated for pneumonia with zosyn, NC o2. negative duplex scan LLE artery. CTA neg for PE. CTA showed bibasilar and left midlung airspace airspace opacities. found to have elevated troponin. MRSA positive. Echo was normal and EKG non specific changes. responsive to zosyn. (1) Acute respiratory failure with hypoxia/bilateral interstitial pneumonia -Patient is negative for COVID-19, influenza a and B, and RSV -Started on zosy - later discontinued -Start Ceftriaxone IV 2000mg daily, today is day 5, send home on 600mg cefdinir one dose tonight -added azithromycin 500mg daily, today is day 2, send home on 500mg azithromycin for tomorrow -Received Duonebs every 4 hours while awake and every 2 hours when necessary. Sent home on albuterol inhaler as needed -Guaifenesin extended release 12 mg p.o. twice daily -Methylprednisolone 40 mg IV every 8 hours - finished 5 days of steorids, stop steroids upon discharge (3) Elevated troponin/CAD with stented coronary arteries/hypertension- -Troponin max 1340.4 downtrending -echo - normal EF. Mild LVH -Consulted cardiology, continue ASA plavix atorvastatin, encourage med compliance smoking cessation (4) Peripheral arterial disease/status post stents- -Continue aspirin 81 mg daily and clopidogrel 75 mg daily as noted above -Left lower extremity arterial Doppler negative for occlusion -Cardiology consulted, no critical limb ischemia, f/u in outpatient in 2-3 weeks -vascular surgery - no intervention -patient advised on smoking cessation, medication compliance (5) Continue atorvastatin 40 mg at bedtime -lipid panel in December 2021 wnl (6) Depression/insomnia- Continue fluoxetine and zolpidem (7) Peripheral neuropathy- -Continue gabapentin (8) Chronic pain- -Continue hydrocodone/acetaminophen 5/325, 1 every 4 hours as needed for moderate pain Tooth Pain -use hydrocodone/acetaminophen as needed, recommend close f/u with dentist for tooth removal (2) Hyperlipidemia: (3) Acute hypoxemic respiratory failure: (4) Pneumonia: (5) Encounter for smoking cessation counseling: (6) History of peripheral arterial disease: (7) PAD (peripheral artery disease): (8) Depression: (9) Chronic back pain: (10) Coronary artery disease: Total Time Total Time Spent Total Time Spent (In Minutes): see attending attestation Discharge Plan Discharge Items Patient Disposition: Home - Self-Care Reason For Visit: BIBASILAR PNEUMONIA WITH HYPOXIA Discharge Diagnosis: Bibasilar PNA with hypoxia Activity: Resume your previous activity Non-emergency contact: Primary Care Provider Call non-emergency contact if: you have any medication questions, your symptoms worsen and your pain is concerning for you Follow-up/Referrals: Frank Rapp MD [Surgeon] - 07/11/22 11:05 am (Seeing patient at [facility]. Covers both family practice and sports medicine. ) Diet: Regular Addtl Attending Provider Instructions: You were admitted to the hospital with pneumonia. You were treated with antibiotics, steroids, and supplemental oxygen, and your symptoms improved. You described increased leg pain while walking, likely related to your peripheral artery disease. We will have you follow with cardiology upon discharge to discuss future management. However, should your legs develop pain even at rest, change color or become cold please return to the hospital immediately. We recommend you stop smoking, as smoking even at a reduced amount is contributing to the reoccurrence of the blockages in your leg arteries. Please see your dentist for tooth removal upon discharge. A discharge summary will be sent to your primary care physician to ensure continuity of care. Please bring this discharge summary with you to your next office appointment so that your provider can review it at that time. Follow-up appointments: Make a follow-up appointment with your PCP within the next week. It is very important that you follow up with them shortly after discharge from the hospital. We have requested a follow-up appointment with your configuration technician Keep all your follow-up appointments as already scheduled. If you cannot make an appointment, notify your provider. Medications: Your medication list has been reviewed and reconciled upon discharge to ensure accuracy and continuity of care. An updated list of all your medications is included with your hospital discharge paperwork. Please review this list closely, and make note of any changes. * We sent a new medication called Azithromycin to your pharmacy. Take Azithromycin 500mg 2 tablets tomorrow morning * We sent a new medication called Cefdinir to your pharmacy. Take Cefdinir 600mg 1 capsule tonight * We sent a new medication called Albuterol to your pharmacy. Take 1 puff albuterol every 6 hours as needed for wheezing Take your medications as instructed; do not skip a dose of your medicines. Make sure all of your doctors know every medicine you are taking (including kyib-fon-btjoogx medicines, vitamins, and supplements). Call your primary care provider before taking any new medicines (including ixxb-cbd-qvhnpen medicines, vitamins, and supplements), because some of these may interact with your current medications, or may make your symptoms worse. Tell your primary care provider if you cannot afford your medications. CONTACT YOUR PRIMARY CARE PROVIDER if you experience any of the following: Pain of your legs at rest Increased difficulty breathing, fever Difficulty following your treatment plan, or difficulty taking medications CALL 911 OR GO TO THE EMERGENCY DEPARTMENT if you experience any of the following: Sudden, severe abdominal pain or nausea/vomiting Severe chest pain, or chest pain that radiates (moves) to your jaw or arm Sudden, severe shortness of breath or difficulty breathing Thank you for allowing us to participate in your care. Pending Studies at Discharge: No Stand-Alone Forms: My [facility], Smoking Cessation Medications and DC Order Prescriptions: New azithromycin 250 mg Tablet 500 mg PO QAM 1 Days Qty: 2 0RF Rx Instructions: Please take your last dose of azithromycin tomorrow morning 07/03 albuterol sulfate 90 mcg/actuation HFA aerosol inhaler 1 inh inhalation Q6H PRN (Reason: shortness of breath or wheezing) 7 Days Qty: 6.7 0RF Rx Instructions: Please use 1 puff every 6 hours as needed for wheezing cefdinir 300 mg capsule 600 mg PO ONCE 1 Days Qty: 2 0RF Rx Instructions: Please take 2 capsules tonight. Continued aspirin [Adult Aspirin Regimen] 81 mg tablet,delayed release (DR/EC) 81 mg PO DAILY multivitamin [Daily Multi-Vitamin] Tablet 1 tab PO DAILY zolpidem [Ambien] 10 mg tablet 10 mg PO HS gabapentin 300 mg capsule 300 mg PO TID atorvastatin 40 mg tablet 40 mg PO HS clopidogrel 75 mg tablet 75 mg PO QPM fluoxetine 40 mg capsule 40 mg PO HS hydrocodone-acetaminophen 10-325 mg tablet 1 tab PO Q4H MDD 6TABS PRN (Reason: Pain) Discharge Orders: Discharge Order (Routine); Ordered 07/02/22 Ordered By: Daysi Garcia Admission Data Admit Date/Time: 06/28/22 22:26 Attending Provider: Margarita Pineda Admit Provider: Claudio Ramírez Primary Care Provider: Cookie Jones Other Providers: Claudio Ramírez ; Grayson Howell Other Interventions: Discharge Summary Assessment (RN) Last Done: 07/02/22 17:19 Supervising Physician Co-Signing Physician Notes Resident Physician Supervision Note: I independently interviewed and examined the patient and verified the helton history and physical, reviewed labs and image studies and agree with resident findings and care plan. Resident Activity Tracking Resident Involvement: Resident Care Provided Care Provided: Adult Hospital Medicine
== END 2022-07-02 17:35 | disposition home or self-care (01) | DRG 871 ==
LOC: ED 17:36 → EDINP 22:26 → SUATTDRO 22:26 → 1E 06-29 00:26 → 2S 06-29 23:01

== ENCOUNTER 2023-05-10 18:21 | Inpatient (IN) ==
--- OUTSIDE RECORDS SUMMARY | 2023-05-10 18:25 | External Medical Summary | Continuity of Care Document ---
Author Name Unknown Organization [id number] Address [address] [place] [address] [id number] Care Team Providers Care Voice Intercept Technician Name Role Phone Cookie Jones Primary Care Physician [phone] Encounter [facility] [id number] Date(s): 02/10/23 - 02/10/23 [facility] [place] [id number] [address] [place] [address] Encounter Diagnosis Right knee DJD(Discharge Diagnosis) - 02/10/23 Discharge Disposition: Home or Self Care Attending Physician: RANDA Pretty [place] Allergies, Adverse Reactions, Alerts No Known Allergies Assessment and Plan Extracted from: Title:Clinical Document Author:RANDA PrettyMelitno son Date:02/10/23 OUTPATIENT NOTE Name: LOUIS LOVE Patient Number:1 [id number] : 1960 Date of Service: 02/10/2023 CHIEF COMPLAINT: Euflexxa 1 of 3 HISTORY OF PRESENT ILLNESS: Patient is here today for gel injection. It is a 4- 10 today. She had a cortisone injection 01/14 with very minimal relief. This is her first time doing the hyaluronic acid injections. 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 They have no major questions or concerns today. They are ready to proceed with their injection. ROS: Denies swelling, erythema, warmth PHYSICAL EXAM: General: Pt is well nourished, seated on the exam table AA&O, in NAD, calm and cooperative during exam Knee Exam: Pt ambulates without assisted device with an antalgic gait Skin is intact with no effusion, erythema, ecchymosis or warmth No signs of lymphatic or vascular insufficiency IMPRESSION/ PLAN: Right knee osteoarthritis, 1 of 3 Euflexxa injection The patient received their gel injection today. They tolerated the procedure well. Pt was encouraged to ice, rest, and use OTC anti-inflammatories as needed for her pain. They were instructed to keep their knee moving today to avoid stiffness. They will follow up in 1 week. All of their questions and concerns were answered today. PROCEDURE: After explaining the risks and benefits of the procedure, verbal consent was obtained and the patient was placed in the seated position. The injection site was confirmed by Carlita Rob LPN. After performing a time-out, identifying the right knee as the correct knee for intra-articular gel injection, the anterolateral portal area was palpated and marked. This area was prepped with Betadine, followed by ethyl chloride spray and alcohol wipe. Then, a 2 mL prepackaged syringe of Euflexxa was easily injected. The area was cleaned and dried and a Band-Aid was placed on the top. The patient will follow all my above-noted instructions. Immunizations Given and Recorded Vaccine Date Status Refusal Reason influenza virus vaccine, inactivated 1 07/11/22 Gi jena influenza virus vaccine, inactivated 03/21/21 Give n influenza virus vaccine, inactivated 03/09/20 Give n influenza virus vaccine, inactivated 03/01/19 Give n influenza virus vaccine, inactivated 03/26/18 Give n influenza virus vaccine, inactivated 03/03/17 Give n influenza virus vaccine, inactivated 07/16/16 Give n influenza virus vaccine, inactivated 06/07/15 Give n influenza virus vaccine, inactivated 04/19/14 Give n influenza virus vaccine, inactivated 03/21/13 Give n influenza virus vaccine, inactivated 04/19/12 Give n pneumococcal 20-valent conjugate vaccine 03/06/22 Given SARS-CoV-2 (COVID-19) mRNA-1273 vaccine 04/15/21 R ecorded tetanus/diphtheria/pertuss, acel (Tdap) 2 01/03/21 Given SARS-CoV-2 (COVID-19) mRNA BNT-162b2 vax 3 10/10/20 Recorded SARS-CoV-2 (COVID-19) mRNA BNT-162b2 vax 4 09/19/20 Recorded pneumococcal 23-valent vaccine 1/7/19 Given pneumococcal 23-valent vaccine 5 05/21/06 Recorded tetanus toxoids-diphtheria, Td (Adult) 6 02/23/04 Recorded 1Result Comment: christopher alcantara cma 2Result Comment: verified by Christopher Jones DO 3Result Comment: 2021-10-15: Historical information-source unspecified 4Result Comment: 2021-10-15: Historical information-source unspecified 5Result Comment: 2021-10-15: Historical information-source unspecified 6Result Comment: 2022-07-11: Historical information-source unspecified Medications acetaminophen-hydrocodone 325 mg-10 mg oral tablet Start: 01/26/23 12:41:00 EDT, 1 tab, PO, qid, Disp# 90 tab, Refills: 0, prn-- not to exceed 6 tablets/day, Note to Pharmacy: PDMP verified, PRN: as needed for pain, Pharmacy: [facility]/pharmacy #[id number] Start Date: 01/26/23 Status: Ordered aspirin 81 mg oral tablet Start: 11/11/12 13:01:00, 1 tab, PO, Daily Start Date: 11/11/12 Status: Ordered atorvastatin 40 mg oral tablet Start: 01/02/20 11:47:00 EDT, See Instructions, Disp# 30 tab, Refills: 11, TAKE ONE TABLET BY MOUTHEVERY DAY, [id number] Start Date: 01/02/20 Status: Ordered FLUoxetine 40 mg oral capsule Start: 04/15/22 10:52:00 EDT, 1 cap, PO, Daily, Disp# 90 cap, Refills: 3, Pharmacy: [facility]/pharmacy #[id number] Start Date: 04/15/22 Stop Date: 04/10/23 Status: Ordered gabapentin 300 mg oral capsule Start: 12/30/22 16:52:00 EDT, See Instructions, Disp# 90 cap, Refills: 4, TAKE 1 CAPSULE BY MOUTH THREE TIMES A DAY, Pharmacy: [id number] Start Date: 12/30/22 Status: Ordered Hair, Skin & Nails Start: 10/22/16 18:44:00, 1 tab, PO, Daily Start Date: 10/22/16 Status: Ordered multivitamin Start: 03/03/13 15:27:00, 1 tab, PO, Daily, children's chewable complete Start Date: 03/03/13 Status: Ordered Narcan 4 mg/0.1 mL nasal spray Start: 10/29/22 14:19:00 EDT, 4 mg =, intranasal, ONCE, Disp# 2 each, Refills: 0, Pharmacy: [facility]/pharmacy #[id number] Start Date: 10/29/22 Status: Ordered predniSONE 20 mg oral tablet Start: 01/12/23 11:44:00 EDT, 1 tab, PO, Daily, Disp# 3 tab, Refills: 0, Pharmacy: [facility]/pharmacy #[id number] Start Date: 01/12/23 Stop Date: 01/15/23 Status: Ordered Xarelto 2.5 mg oral tablet Start: 10/29/22 13:41:00 EDT, bid Start Date: 10/29/22 Status: Ordered zolpidem 10 mg oral tablet Start: 02/03/23 8:10:00 EDT, 1 tab, PO, qhs, Disp# 90 tab, Refills: 0, do not use continuously, Note to Pharmacy: PDMP verified, Pharmacy: [facility]/pharmacy #[id number] Start Date: 02/03/23 Status: Ordered Mental Status 02/10/23 Barriers to Learning one year None evide nt Mandatory Health Literacy Documentation Yes Health Literacy Communication Barriers N ever Primary Language Serbian Problem List Condition Confirmation Course Effective Dates Status H ealth Status Informant Anxiety Confirmed Active B12 deficiency Confirmed Active CAD 1 Confirmed Active Chronic depression Confirmed Active Chronic pain Confirmed Active Chronic pain Confirmed Active IBS (irritable bowel syndrome) Confirmed Active Loss of height Confirmed Active Depression Confirmed Active Poor sleep Confirmed Active Mixed dyslipidemia Confirmed Active Enteritis Confirmed Active Gastritis Confirmed Active GASTROPARESIS Confirmed Active GERD Confirmed Active HTN - Hypertension Confirmed Active Knee pain Confirmed Active Lower back pain Confirmed Active MDD (major depressive disorder) Confirmed Active Chronic narcotic use Confirmed Active Meningioma Confirmed Active OA (osteoarthritis) Confirmed Active Breast cancer screening by mammogram Confirmed Active PE (physical exam), routine Confirmed Active PAD (peripheral artery disease) Confirmed Active Peripheral arterial occlusive disease Confirmed Active Thrombocytopenia Confirmed Active Pneumonia Confirmed Active De Quervain's tenosynovitis Confirmed Active Elevated troponin level Confirmed Active Sleep disorder Confirmed Active Spinal stenosis Confirmed Active Situational stress Confirmed Active Tobacco abuse Confirmed Active Tobacco abuse Confirmed Active 3-vessel CAD Confirmed Active Weight disorder Confirmed Active 1Had cath by Dr. Melchor, multi vessel disease, see his report Diagnosis Diagnosis Type Effective Dates Health Status Cl inical Service Informant Right knee DJD Discharge Diagnosis 02/10/23 Procedures Procedure Date Related Diagnosis Body Site Status Angiocardiography 1 10/17/22 Compl eted Myocardial perfusion 2 09/04/22 Co mpleted Phacoemulsification with int raocular lens implantation 3, 4 07/25/21 Completed Cystoscopy 05/13/21 Completed Chest X-ray 5 04/30/17 Completed Debridement 6 04/25/17 Completed open Repair of incisional hernia 04/14/17 Completed DEXA - Dual energy X-ray scarlett ton absorptiometry 03/26/17 Completed Upper GI endoscopy 7 11/24/16 Comp leted Imaging,chest 09/22/16 Completed Stent placement 8 01/16/16 Complet ed LLE Arteriogram with BOILER TESTER 11/23/12 Completed RLE Arteriogram with BOILER TESTER of Right SFA 11/01/12 Completed heart stent 2012 Completed gastric bypass Completed 1B Lower extremity 2study 3R eye 4Pt had L eye done on 08/08/21 5Linear subsegmental opacities suggest atelectasis. No acute cardiopulmonary process. 6ischemic abdominal wall skin and subcutaneous tissure 7done while patient inpatient at [facility] 8RLE Social History Social History Type Response Tobacco Current every day sm oker, Cigarettes 1, 2 Smoking Status Current every day he marcelle smoker Sex Female 1Smokes 2 to 10 cigs per day 23/ pack per day Outpatient Note * RANDA Pretty, Ivana: PERFORM Event Display: .Outpt Note Authored Date: [id number] OUTPATIENT NOTE Name: LOUIS LOVE Patient Number:1 [id number] : 1960 Date of Service: 02/10/2023 CHIEF COMPLAINT: Euflexxa 1 of 3 HISTORY OF PRESENT ILLNESS: Patient is here today for gel injection. It is a 4- 10 today. She had a cortisone injection 01/14 with very minimal relief. This is her first time doing the hyaluronic acid injections. 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 They have no major questions or concerns today. They are ready to proceed with their injection. ROS: Denies swelling, erythema, warmth PHYSICAL EXAM: General: Pt is well nourished, seated on the exam table AA&O, in NAD, calm and cooperative during exam Knee Exam: Pt ambulates without assisted device with an antalgic gait Skin is intact with no effusion, erythema, ecchymosis or warmth No signs of lymphatic or vascular insufficiency IMPRESSION/ PLAN: Right knee osteoarthritis, 1 of 3 Euflexxa injection The patient received their gel injection today. They tolerated the procedure well. Pt was encouraged to ice, rest, and use OTC anti-inflammatories as needed for her pain. They were instructed to keeptheir knee moving today to avoid stiffness. They will follow up in 1 week. All of their questions and concerns were answered today. PROCEDURE: After explaining the risks and benefits of the procedure, verbal consent was obtained and the patient was placed in the seated position. The injection site was confirmed by Carlita Rob LPN. After performing a time-out, identifying the right knee as the correct knee for intra-articular gel injection, the anterolateral portal area was palpated and marked. This area was prepped with Betadine, followed by ethyl chloride spray and alcohol wipe. Then, a 2 mL prepackaged syringe of Euflexxa was easily injected. The area was cleaned and dried and a Band-Aid was placed on the top. The patient will follow all my above-noted instructions. Electronic Signature on File Electronically Reviewed/Signed by: Ivana Pretty PA-C Author Signature Dt/Tm:02/10/2023 12:55 PM Physician Fixture Builder, Dept. of Orthopaedics and Sports Medicine [facility] Medical [facility] - [address], [address] [place] [address] Electronically Reviewed/Signed by: MD Casie Scottignyesika Signature Dt/Tm: 02/11/2023 05:47 PM [facility] Technical Associate Department of Orthopaedics and Rehabilitation [facility] [address], [place], [place] [address] MK Patient Care team information Care Team Personnel Name: DO Jones Kristen M Position: Physician - Family Med Member Role: Primary Care Provider Address: Address: [address] [place] [address] [address] [place] [address] Name: RANDA Zhu Lynn Position: Physician Fixture Builder Exempt - Vasc Surg Member Role: Lifetime Relationship Address: Address: [address] [place] [id number] Name: MD Sarah, Michael Carranza Position: Physician - Vascular Surg Member Role: Lifetime Relationship Address: Address: [address] [place] [id number] Care Team Related Persons Name: JASMYNE DREW Address: home [address] [place] [facility] [id number]
--- OUTSIDE RECORDS SUMMARY | 2023-05-10 18:25 | External Medical Summary | Continuity of Care Document ---
Author Name Unknown Organization [id number] Address [address] [place] [id number] Care Team Providers Care Tearoom Hostess Name Role Phone Cookie Jones Primary Care Physician [phone] Encounter [facility] [id number] Date(s): 02/17/23 - 02/17/[address] [id number] [address] [place] [address] Encounter Diagnosis OA (osteoarthritis)(Discharge Diagnosis) - 02/17/23 Discharge Disposition: Home or Self Care Attending Physician: RANDA Lazo Dennis Allergies, Adverse Reactions, Alerts No Known Allergies Assessment and Plan Extracted from: Title:Clinical Document Author:RANDA Lazo Denn is Date:02/17/23 OUTPATIENT NOTE Name: LOUIS LOVE Patient Number:1 [id number] : 1960 Date of Service: 02/17/2023 HPI: This 62-year-old female presents to the clinic today for right knee Euflexxa injection #2. She states that she experienced mild pain relief after the initial injection last week. Currently she denies any signs or symptoms of infection and has no complaint of numbness or tingling in the right lower extremity. Physical examination: Right knee; range of motion is from 6 degrees of extension to 120 degrees of flexion. There is medial joint line tenderness when the knee is palpated in the flexed position. Patient's patella is not mobile due to arthritic changes of the patellofemoral joint. There is also crepitation with passive range of motion of the knee joint. There is no laxity with varus valgus stressing. AP drawer sign Alexander test are negative. Patient is neurovascular intact in right lower extremity. Impression: Right knee osteoarthritis Procedure: Patient was seated on the edge of the table with the right knee placed in the flexed position. Using the cap of the needle the lateral joint space of the right knee was marked. A timeout was performed with the patient and she verbalizes that we will proceed with right knee Euflexxa injection #2. Marked site as cleansed with a Betadine swab, anesthetized with ethyl chloride spray, and wiped clean with alcohol soaked 4 x 4. A 22-gauge needle connected to a prefilled syringe containing Euflexxa was easily passed through the lateral joint space of the right knee and injected free-flowing without meeting resistance. Upon removal of the needle patient had no bleeding. Site was again cleansed with an alcohol soaked 4 x 4, wiped dry with a sterile 4 x 4 and covered with a Band-Aid. MAC Redman served as a witness for this procedure. Plan: Patient was advised to watch for signs symptoms of infection if any should occur she is advised to either contact her clinic or go to the emergency department immediately. Patient verbalized understanding of all information provided during today's visit. She states for the care that she received. If she has questions or concerns prior to her final injection in 1 week, she will contact the clinic. This chart was completed utilizing [employer]io[employer] voice recognition software. Grammatical errors, random word insertions, pronoun errors, and in complete sentences are an occasional consequence of the system. Any questions or concerns about the content, text, or information contained within the body of this dictation should be addressed directly to the physician for clarification. Immunizations Given and Recorded Vaccine Date Status Refusal Reason influenza virus vaccine, inactivated 07/11/22 Gi jena influenza virus vaccine, inactivated [...] vax 4 09/19/20 Recorded pneumococcal 23-valent vaccine 06/28/18 Given pneumococcal 23-valent vaccine 5 05/21/06 Recorded tetanus toxoids-diphtheria, Td (Adult) 6 02/23/04 Recorded 1Result Comment: christopher alcantara cma 2Result Comment: verified by Christopher Jones DO 3Result Comment: 2021-10-15: Historical information-source unspecified 4Result Comment: 2021-10-15: Historical information-source unspecified 5Result Comment: 2021-10-15: Historical information-source unspecified 6Result Comment: 2022-07-11: Historical information-source unspecified Medications acetaminophen-hydrocodone 325 mg-10 mg oral tablet Start: 02/17/23 13:44:00 EDT, 1 tab, PO, qid, Disp# 90 tab, Refills: 0, prn-- not to exceed 6 tablets/day, Note to Pharmacy: PDMP verified, PRN: as needed for pain, Pharmacy: [facility]/pharmacy #[id number] Start Date: 02/17/23 Status: Ordered aspirin 81 mg oral tablet Start: 11/11/12 13:01:00, 1 tab, PO, Daily Start Date: 11/11/12 Status: Ordered atorvastatin 40 mg oral tablet Start: 01/02/20 11:47:00 EDT, See Instructions, Disp# 30 tab, Refills: 11, TAKE ONE TABLET BY MOUTHEVERY DAY, Pharmacy: [facility]/pharmacy #[id number] Start Date: 01/02/20 Status: Ordered FLUoxetine 40 mg oral capsule Start: 04/15/22 10:52:00 EDT, 1 cap, PO, Daily, Disp# 90 cap, Refills: 3, Pharmacy: [facility]/pharmacy #[id number] Start Date: 04/15/22 Stop Date: 04/10/23 Status: Ordered gabapentin 300 mg oral capsule Start: 12/30/22 16:52:00 EDT, See Instructions, Disp# 90 cap, Refills: 4, TAKE 1 CAPSULE BY MOUTH THREE TIMES A DAY, Pharmacy: [id number] Start Date: 12/30/22 Status: Ordered Hair, Skin & Nails Start: 10/22/16 18:44:00, 1 tab, PO, Daily Start Date: 10/22/16 Status: Ordered multivitamin Start: 03/03/13 15:27:00, 1 tab, PO, Daily, children's chewable complete Start Date: 03/03/13 Status: Ordered Narcan 4 mg/0.1 mL nasal spray Start: 10/29/22 14:19:00 EDT, 4 mg =, intranasal, ONCE, Disp# 2 each, Refills: 0, Pharmacy: [id number] Start Date: 10/29/22 Status: Ordered predniSONE 20 mg oral tablet Start: 01/12/23 11:44:00 EDT, 1 tab, PO, Daily, Disp# 3 tab, Refills: 0, Pharmacy: [facility] #[id number] Start Date: 01/12/23 Stop Date: 01/15/23 Status: Ordered Xarelto 2.5 mg oral tablet Start: 10/29/22 13:41:00 EDT, bid Start Date: 10/29/22 Status: Ordered zolpidem 10 mg oral tablet Start: 02/03/23 8:10:00 EDT, 1 tab, PO, qhs, Disp# 90 tab, Refills: 0, do not use continuously, Note to Pharmacy: PDMP verified, [id number] Start Date: 02/03/23 Status: Ordered Mental Status 02/17/23 Barriers to Learning one year None evide nt Mandatory Health Literacy Documentation Yes Health Literacy Communication Barriers N ever Primary Language Cymraes Problem List Condition Confirmation Course Effective Dates [...] Dates Health Status Cl inical Service Informant OA (osteoarthritis) Discharge Diagnosis 02/17/23 Procedures Procedure Date Related Diagnosis Body Site [...] 8 01/16/16 Complet ed LLE Arteriogram with HISTORICAL MANUSCRIPTS CURATOR 11/23/12 Completed RLE Arteriogram with HISTORICAL MANUSCRIPTS CURATOR of Right SFA 11/01/12 Completed heart stent 2012 Completed gastric bypass Completed 1B Lower extremity 2study 3R eye 4Pt had L eye done on 08/08/21 5Linear subsegmental opacities suggest atelectasis. No acute cardiopulmonary process. 6ischemic abdominal wall skin and subcutaneous tissure 7done while patient inpatient at [facility] 8RLE Social History Social History Type Response Tobacco Current every day sm oker, Cigarettes 1, 2 Smoking Status Current every day he marcelle smoker Sex Female 1Smokes 2 to 10 cigs per day 23/4 pack per day Outpatient Note * RANDA Lazo, Pierre: PERFORM Event Display: .Outpt Note Authored Date: [id number] OUTPATIENT NOTE Name: LOUIS LOVE Patient Number:1 [id number] : 1960 Date of Service: 02/17/2023 HPI: This 62-year-old female presents to the clinic today for right knee Euflexxa injection #2. Shestates that she experienced mild pain relief after the initial injection last week. Currently she denies any signs or symptoms of infection and has no complaint of numbness or tingling in the right lower extremity. Physical examination: Right knee; range of motion is from 6 degrees of extension to 120 degrees of flexion. There is medial joint line tenderness when the knee is palpated in the flexed position. Patient's patella is not mobile due to arthritic changes of the patellofemoral joint. There is also crepitation with passive range of motion of the knee joint. There is no laxity with varus valgus stressing. AP drawer sign Alexander test are negative. Patient is neurovascular intact in right lower extremity. Impression: Right knee osteoarthritis Procedure: Patient was seated on the edge of the table with the right knee placed in the flexed position. Using the cap of the needle the lateral joint space of the right knee was marked. A timeout was performed with the patient and she verbalizes that we will proceed with right knee Euflexxa injection #2. Marked site as cleansed with a Betadine swab, anesthetized with ethyl chloride spray, and wiped clean with alcohol soaked 4 x 4. A 22-gauge needle connected to a prefilled syringe containing Euflexxa was easily passed through the lateral joint space of the right knee and injected free-flowing without meeting resistance. Upon removal of the needle patient had no bleeding. Site was again cleansed with an alcohol soaked 4 x 4, wiped dry with a sterile 4 x 4 and covered with a Band-Aid. Yunior Redman served as a witness for this procedure. Plan: Patient was advised to watch for signs symptoms of infection if any should occur she is advised to either contact her clinic or go to the emergency department immediately. Patient verbalized understanding of all information provided during today's visit. She states for the care that she received. If she has questions or concerns prior to her final injection in 1 week, she will contact the clinic. This chart was completed utilizing [employer] voice recognition software. Grammatical errors,random word insertions, pronoun errors, and in complete sentences are an occasional consequence of the system. Any questions or concerns about the content, text, or information contained within the body of this dictation should be addressed directly to the physician for clarification. Electronic Signature on File Electronically Reviewed/Signed by: Pierre Lazo PA-C Author Signature Dt/Tm:02/17/2023 04:23 PM Division of Sports Medicine Electronically Reviewed/Signed by: MD Dorothy Scotter Signature Dt/Tm: 02/19/2023 05:48 PM [facility] Rand Cementer Department of Orthopaedics and Rehabilitation [facility] [place] [address], [place] [address] DC Patient Care team information Care Team Personnel Name: DO Jones Kristen M Position: Physician - Family Med Member Role: Primary Care Provider Address: Address: [address] [place] [address], [place] [address] [place] Name: RANDA Zhu Lynn Position: Physician Steam Box Tender Exempt - Vasc Surg Member Role: Lifetime Relationship Address: Address: [address] [place] [address] [place] Name: MD Smith Eugene J Position: Physician - Vascular Surg Member Role: Lifetime Relationship Address: Address: [address] [place] [id number] Care Team Related Persons Name: JASMYNE DREW Address: home [address] [place], [place] [id number]
--- OUTSIDE RECORDS SUMMARY | 2023-05-10 18:25 | External Medical Summary | Continuity of Care Document ---
Author Name Unknown Organization [id number] Address [address] [place] [phone] Care Team Providers Care Physical Therapy Resident Name Role Phone Cookie Jones Primary Care Physician [phone] [id number] Date(s): 01/14/23 - 01/14/[address] [facility] [facility] Medicine [address] [place] [address] Encounter Diagnosis OA (osteoarthritis)(Discharge Diagnosis) - 01/13/23 Discharge Disposition: Home or Self Care Attending Physician: MD Robe, Rocky A Allergies, Adverse Reactions, Alerts No Known Allergies Immunizations Given and Recorded Vaccine Date Status [...] alcantara cma 2Result Comment: verified by Christopher Joens DO 3Result Comment: 2021-10-15: Historical information-source unspecified 4Result Comment: 2021-10-15: Historical information-source unspecified 5Result Comment: 2021-10-15: Historical information-source unspecified 6Result Comment: 2022-07-11: Historical information-source unspecified Medications acetaminophen-HYDROcodone 325 mg-10 mg oral tablet Start: 01/12/23 11:31:00 EDT, 1 tab, PO, qid, Disp# 90 tab, Refills: 0, prn-- not to exceed 6 tablets/day, Note to Pharmacy: PDMP verified, PRN: as needed for pain, [id number] Start Date: 01/12/23 Status: Ordered aspirin 81 mg oral tablet Start: 11/11/12 13:01:00, 1 tab, PO, Daily Start Date: 11/11/12 Status: Ordered atorvastatin 40 mg oral tablet Start: 01/02/20 11:47:00 EDT, See Instructions, Disp# 30 tab, Refills: 11, TAKE ONE TABLET BY MOUTHEVERY DAY, [id number] Start Date: 01/02/20 Status: Ordered FLUoxetine 40 mg oral capsule Start: 04/15/22 10:52:00 EDT, 1 cap, PO, Daily, Disp# 90 cap, Refills: 3, [id number] Start Date: 04/15/22 Stop Date: 04/10/23 Status: Ordered gabapentin 300 mg oral capsule Start: 12/30/22 16:52:00 EDT, See Instructions, Disp# 90 cap, Refills: 4, TAKE 1 CAPSULE BY MOUTH THREE TIMES A DAY, Pharmacy: [id number] Start Date: 12/30/22 Status: Ordered Hair, Skin & Nails Start: 10/22/16 18:44:00, 1 tab, PO, Daily Start Date: 10/22/16 Status: Ordered multivitamin Start: 03/03/13 15:27:00, 1 tab, PO, Daily, children's chewable complete Start Date: 03/03/13 Status: Ordered Narcan 4 mg/0.1 mL nasal spray Start: 10/29/22 14:19:00 EDT, 4 mg =, intranasal, ONCE, Disp# 2 each, Refills: 0, Pharmacy: [facility] #[id number] Start Date: 10/29/22 Status: Ordered predniSONE 20 mg oral tablet Start: 01/12/23 11:44:00 EDT, 1 tab, PO, Daily, Disp# 3 tab, Refills: 0, Pharmacy: [facility]/pharmacy #[id number] Start Date: 01/12/23 Stop Date: 01/15/23 Status: Ordered Xarelto 2.5 mg oral tablet Start: 10/29/22 13:41:00 EDT, bid Start Date: 10/29/22 Status: Ordered zolpidem 10 mg oral tablet Start: 11/10/22 13:44:00 EDT, 1 tab, PO, qhs, Disp# 90 tab, Refills: 0, do not use continuously, Note to Pharmacy: PDMP verified, Pharmacy: [facility] #[id number] Start Date: 11/10/22 Status: Ordered Mental Status 01/14/23 Barriers to Learning one year None evide nt Mandatory Health Literacy Documentation Yes Health Literacy Communication Barriers N ever Primary Language Chinese Problem List Condition Confirmation Course Effective Dates [...] inical Service Informant OA (osteoarthritis) Discharge Diagnosis 01/13/23 Non-Specified Procedures Procedure Date Related Diagnosis Body Site [...] 8 01/16/16 Complet ed LLE Arteriogram with STAGE MANAGER 11/23/12 Completed RLE Arteriogram with STAGE MANAGER of Right SFA 11/01/12 Completed heart stent 2012 Completed gastric bypass Completed 1B Lower extremity 2study 3R eye 4Pt had L eye done on 08/08/21 5Linear subsegmental opacities suggest atelectasis. No acute cardiopulmonary process. 6ischemic abdominal wall skin and subcutaneous tissure 7done while patient inpatient at [facility] 8RLE Social History Social History Type Response Tobacco Current every day sm oker, Cigarettes 1, 2 Smoking Status Current every day he marcelle smoker Sex Female 1Smokes 2 to 10 cigs per day 23/4 pack per day Primary care Note * MD Robe, Rocky A: MODIFY MD Robe, Rocky A: MODIFY, MODIFY Event Display: Ortho Outpt Note Authored Date: [id number] Name:LOUIS LOVE Patient Number:[id number] :1960 Date of Service:01/14/2023 CHIEF COMPLAINT: Follow up right knee pain HPI: [id number] presents today fora follow up of right knee pain. She has been taking hydrocodone for her knee and back pain prescribed by her PCP. Patient believes hergaitchanges have led to some hip pain. She reports pain with walking for long periods of time. Patient has previously received cortisone injections to her heel and small right finger. Today she rates her knee pain as a 5/10. She believes that she is ready forcortisone injection today. ROS: Refer to the HPI. PHYSICAL EXAM: Focusing on the patient'srightlower extremity: 2+ DP pulse Sensation to light touch is intact Motor to the gastroc soleus, tibialis anterior, and EHL is 5/5. Able to perform straight leg raise. -Ki's - NoEffusion Range of motion 0 to 130 +Tenderness to palpation lateral joint line > medial joint line + Tendernessover medial patellar facet - Tenderness to percussion about proximal tibia RADIOGRAPHY: X-ray imaging: I obtained personally performed the interpretation of the bilateral hipsto ankles, bilateral AP standing,right kneelateral, and sunrise viewsthat show 3 of Varus alignment on the right and 2 on the left There appears to be a nondisplaced fracture of a lateral patellar osteophyte that is unchanged from X-rays obtained on 01/14/2022, best seen on sunrise view. There appears to be some mild calcification of the menisci. There is medial joint space narrowing and marginal osteophytes. There is incidental finding of calcification within hervessels between thefibula and tibia on the right as well as again seencalcificationat the metaphyseal diaphyseal junction of the right tibia that appears benign. This lesion is unchanged in size in the posterior aspect of her tibia. IMPRESSION: 62-year-old female with right knee pain secondarily to degenerative changes. Acute on chronic. GOAL: Decrease pain PLAN: - In addition due to their significant amount of pain today, they were offered a cortisone injection. The risks of the injections were discussed and included but not limited to: Inflection, bleeding,nerve damage, continued pain, possible need for repeat injections, altered glucose levels, and permanent skin changes at the site of injection. They would like to proceed. They will keep track of howmuch pain relief they obtain and for how long. They will ice tonight and over the next several daysand understands it may be more painful tomorrow due to a steroid flare. -Also recommended starting BAIRD injections. - RICE. - Short course of anti-inflammatories, alternating with Tylenol as needed for pain. - Discussed usingcaneor walking sticks to unloadthe affected side if she were having pain or limping. - Follow-up in 1 yearwith OA series X-raysto ensure no changes to the posterior cortex of therighttibiaas well as assessing changeswithin the joint. -Follow up after insurance approval for BAIRD injections. -Discussedif patient failed conservative treatment with cortisone and BAIRD injections, may become acandidate forTKA. The patient understood all my instructions and explanation; all their questions were satisfactorilyaddressed. PROCEDURE: After obtaining verbal consent, performing a time-out, identifying theright knee as the correct knee for intra-articular cortisone injection, the anterolateral portal area was palpated and marked. Hernandez Weston, my nurse, was present to verify the procedure and site. This area was prepped with Betadine, followed by ethyl chloride spray and alcohol wipe. Then, a combination of1 mL of 1% lidocaine plain plus 2 mL of 0.5% bupivacaine plain plus 1mL of 40 mg of Depo-Medrol were easily injected. The patient noteda sense of fullness in the kneeandcomplete immediate relief. The area was cleaned and dried and a Band-Aid was placed on the top. The patient will follow all of my above-noted instructions. ATTESTATION: I, Sofi Manning, have scribed for, and in the presence of, Rocky Nagel, on this date,01/14/2023 13:16:13. I, Dr. Nagel, saw and examined the patient with Sofi Manning acting as my scribe. I reviewed the note and agree with the documented findings and the plan of care I developed. Electronic Signature on File Electronically Reviewed/Signed by: Sofi Manning Author Signature Dt/Tm:01/14/2023 01:29 PM Electronically Reviewed/Signed by: Rocky Nagel MD Cosigner Signature Dt/Tm: 01/14/2023 02:29 PM [facility] [employer] Department of Orthopaedics and Rehabilitation [facility] [address], [place] [address] OA Patient Care team information Care Team Personnel Name: DO Jones Kristen M Position: Physician - Family Med Member Role: Primary Care Provider Address: Address: [address] [place] [address] [address] [place] [address] Name: RANDA Zhu Lynn Position: Physician Manager Of Data Exempt - Vasc Surg Member Role: Lifetime Relationship Address: Address: [address] [place] [address] Name: MD Smith Eugene J Position: Physician - Vascular Surg Member Role: Lifetime Relationship Address: Address: [address] [place] [address] Care Team Related Persons Name: JASMYNE DREW Address: home [address] [facility] [place] [phone]
--- OUTSIDE RECORDS SUMMARY | 2023-05-10 18:25 | External Medical Summary | Continuity of Care Document ---
Author Name Unknown Organization [id number] Address [address] [place] [phone] Care Team Providers Care Mining Helper Name Role Phone Cookie Jones Primary Care Physician [phone] Encounter [facility] [id number] Date(s): 02/24/23 - 02/24/23 [facility] [address] [place], [place] [address]A [facility] [address] [place] [address] Encounter Diagnosis Right knee DJD(Discharge Diagnosis) - 02/24/23 Discharge Disposition: Home or Self Care Attending Physician: RANDA Lazo Dennis Allergies, Adverse Reactions, Alerts No Known Allergies Assessment and Plan Extracted from: Title:Clinical Document Author:RANDA Lazo Denn is Date:02/24/23 OUTPATIENT NOTE Name: LOUIS LOVE Patient Number:1 [id number] : 1960 Date of Service: 02/24/2023 HPI: This 62-year-old female presents to the clinic today for right knee Euflexxa injection #3. She states that she experienced mild pain relief after the injection last week. Currently she denies any [...] will proceed with right knee Euflexxa injection #3. Marked site as cleansed with a Betadine [...] has questions or concerns prior to her 3 month follow up, she will contact the clinic. This chart was completed utilizing KOEZY voice recognition software. Grammatical errors, random word insertions, pronoun errors, and in complete sentences are an occasional consequence of the system. Any questions or concerns about the content, text, or information contained within the body of this dictation should be addressed directly to the physician for clarification. Immunizations Given and Recorded Vaccine Date Status Refusal Reason influenza virus vaccine, inactivated 07/11/22 Gi ejna influenza virus vaccine, inactivated 03/21/21 Give n [...] verified, PRN: as needed for pain, Pharmacy: [facility]/pharmacy #[id number] Start Date: 02/17/23 Status: Ordered aspirin 81 mg oral tablet Start: 11/11/12 13:01:00, 1 tab, PO, Daily Start Date: 11/11/12 Status: Ordered atorvastatin 40 mg oral tablet Start: 01/02/20 11:47:00 EDT, See Instructions, Disp# 30 tab, Refills: 11, TAKE ONE TABLET BY MOUTHEVERY DAY, Pharmacy: [facility]/pharmacy #[id number] Start Date: 01/02/20 Status: Ordered FLUoxetine 40 mg oral capsule Start: 04/15/22 10:52:00 EDT, 1 cap, PO, Daily, Disp# 90 cap, Refills: 3, Pharmacy: [facility]/pharmacy #[id number] Start Date: 04/15/22 Stop Date: 04/10/23 Status: Ordered gabapentin 300 mg oral capsule Start: 12/30/22 16:52:00 EDT, See Instructions, Disp# 90 cap, Refills: 4, TAKE 1 CAPSULE BY MOUTH THREE TIMES A DAY, Pharmacy: [id number] Start Date: 12/30/22 Status: Ordered Hair, Skin & Nails Start: 10/22/16 18:44:00, 1 tab, PO, Daily Start Date: 10/22/16 Status: Ordered multivitamin Start: 03/03/13 15:27:00, 1 tab, PO, Daily, children's chewable complete Start Date: 03/03/13 Status: Ordered Narcan 4 mg/0.1 mL nasal spray Start: 10/29/22 14:19:00 EDT, 4 mg =, intranasal, ONCE, Disp# 2 each, Refills: 0, Pharmacy: [facility] #[id number] Start Date: 10/29/22 Status: Ordered predniSONE 20 mg oral tablet Start: 01/12/23 11:44:00 EDT, 1 tab, PO, Daily, Disp# 3 tab, Refills: 0, Pharmacy: [facility] #[id number] Start Date: 01/12/23 Stop Date: 01/15/23 Status: Ordered Xarelto 2.5 mg oral tablet Start: 10/29/22 13:41:00 EDT, bid Start Date: 10/29/22 Status: Ordered zolpidem 10 mg oral tablet Start: 02/03/23 8:10:00 EDT, 1 tab, PO, qhs, Disp# 90 tab, Refills: 0, do not use continuously, Note to Pharmacy: PDMP verified, Pharmacy: [id number] Start Date: 02/03/23 Status: Ordered Mental Status 02/24/23 Barriers to Learning one year None evide nt Mandatory Health Literacy Documentation Yes Health Literacy Communication Barriers N ever Primary Language Northern Irish Problem List Condition Confirmation Course Effective Dates [...] Meningioma Confirmed Active OA (osteoarthritis) Confirmed Active Right knee DJD Confirmed Active Breast cancer screening by mammogram [...] Service Informant Right knee DJD Discharge Diagnosis 02/24/23 Procedures Procedure Date Related Diagnosis Body Site [...] 8 01/16/16 Complet ed LLE Arteriogram with DISPATCHER SERVICE CHIEF 11/23/12 Completed RLE Arteriogram with DISPATCHER SERVICE CHIEF of Right SFA 11/01/12 Completed heart stent 2012 Completed gastric bypass Completed 1B Lower extremity 2study 3R eye 4Pt had L eye done on 08/08/21 5Linear subsegmental opacities suggest atelectasis. No acute cardiopulmonary process. 6ischemic abdominal wall skin and subcutaneous tissure 7done while patient inpatient at [facility] 8RLE Social History Social History Type Response Tobacco Current every day sm oker, Cigarettes 1, 2 Smoking Status Current every day he marcelle smoker Sex Female 1Smokes 2 to 10 cigs per day 23/4 pack per day Outpatient Note * RANDA Lazo, Pierre: PERFORM Event Display: .Outpt Note Authored Date: OUTPATIENT NOTE Name: LOUIS LOVE Patient Number:1 [id number] : 1960 Date of Service: 02/24/2023 HPI: This 62-year-old female presents to the clinic today for right knee Euflexxa injection #3. Shestates that she experienced mild pain relief after the injection last week. Currently she denies any [...] will proceed with right knee Euflexxa injection #3. Marked site as cleansed with a Betadine [...] has questions or concerns prior to her 3 month follow up, she will contact the clinic. This chart was completed utilizing KOEZY voice recognition software. Grammatical errors,random word insertions, pronoun errors, and in complete sentences are an occasional consequence of the system. Any questions or concerns about the content, text, or information contained within the body of this dictation should be addressed directly to the physician for clarification. Electronic Signature on File Electronically Reviewed/Signed by: Pierre Lazo PA-C Author Signature Dt/Tm:02/24/2023 09:43 PM Division of Sports Medicine Electronically Reviewed/Signed by: MD Dennys Scott Signature Dt/Tm: 02/25/2023 12:38 PM [facility] [employer] Department of Orthopaedics and Rehabilitation [facility] [address], [place] [address] [place] Patient Care team information Care Team Personnel Name: DO Jones Kristen M Position: Physician - Family Med Member Role: Primary Care Provider Address: Address: [address] [place] [address], [place] [address] [place] Name: RANDA Zhu Lynn Position: Physician Development Writer Exempt - Vasc Surg Member Role: Lifetime Relationship Address: Address: [address] [place] [id number] [place] Name: MD Smith Eugene J Position: Physician - Vascular Surg Member Role: Lifetime Relationship Address: Address: [address] [place] [id number] Care Team Related Persons Name: JASMYNE DREW Address: home [address] [facility] [place] [phone]
--- OUTSIDE RECORDS SUMMARY | 2023-05-10 18:25 | External Medical Summary | Continuity of Care Document ---
Author Name Unknown Organization [address] Address [address] [place] [phone] Care Team Providers Care Industrial Analyst Name Role Phone Cookie Jones Primary Care Physician [phone] [id number] Date(s): 03/25/23 - 03/25/[address], [address] [address] [place] [phone] Encounter Diagnosis Spinal stenosis(Discharge Diagnosis) - 03/10/23 Anxiety(Discharge Diagnosis) - 03/25/23 Need for influenza vaccination(Discharge Diagnosis) - 03/25/23 B12 deficiency(Discharge Diagnosis) - 03/25/23 Discharge Disposition: Home or Self Care Attending Physician: DO Jones Kristen M Referring Physician: DO Jones Kristen M Allergies, Adverse Reactions, Alerts No Known Allergies Assessment and Plan Extracted from: Title:Office Visit Note Author:DO Jones Kriste n M Date:03/25/23 1.Anxiety Chronic condition, stable Goal:Resolution Data:unique tests ordered: _ Plan: _Pt thinks she may have ADD version of anxiety and depression--she would like to see neuropsych 2.Need for influenza vaccination Chronic condition, stable Goal:Resolution Data:unique tests ordered: _ Plan: _influenza today 3.B12 deficiency Chronic condition, stable Goal:Resolution Data:unique tests ordered: _ Plan: _B12 injection today shingles and RSV at pharmacy Immunizations Given and Recorded Vaccine Date Status Refusal Reason influenza virus vaccine, inactivated 03/25/23 Give n influenza virus vaccine, inactivated 1 07/11/22 Gi jena influenza virus vaccine, inactivated 03/21/21 Give n influenza virus vaccine, inactivated 9/18/20 Give n influenza virus vaccine, inactivated 03/01/19 [...] acetaminophen-hydrocodone 325 mg-10 mg oral tablet Start: 03/25/23 9:21:00 EDT, 1 tab, PO, qid, Disp# 90 tab, Refills: 0, prn-- not to exceed 6 tablets/day, Note to Pharmacy: PDMP verified, PRN: as needed for pain, Pharmacy: [facility]/pharmacy #[id number] Start Date: 03/25/23 Status: Ordered aspirin 81 mg oral tablet Start: 11/11/12 13:01:00, 1 tab, PO, Daily Start Date: 11/11/12 Status: Ordered atorvastatin 40 mg oral tablet Start: 01/02/20 11:47:00 EDT, See Instructions, Disp# 30 tab, Refills: 11, TAKE ONE TABLET BY MOUTHEVERY DAY, [id number] Start Date: 01/02/20 Status: Ordered FLUoxetine 40 mg oral capsule Start: 03/17/23 17:00:00 EDT, 1 cap, PO, Daily, Disp# 90 cap, Refills: 3, [facility]acy: [facility] Start Date: 03/17/23 Stop Date: 03/11/24 Status: Ordered gabapentin 300 mg oral capsule Start: 12/30/22 16:52:00 EDT, See Instructions, Disp# 90 cap, Refills: 4, TAKE 1 CAPSULE BY MOUTH THREE TIMES A DAY, Pharmacy: [id number] Start Date: 12/30/22 Status: Ordered Hair, Skin & Nails Start: 10/22/16 18:44:00, 1 tab, PO, Daily Start Date: 10/22/16 Status: Ordered multivitamin Start: 03/03/13 15:27:00, 1 tab, PO, Daily, children's chewable complete Start Date: 03/03/13 Status: Ordered Narcan 4 mg/0.1 mL nasal spray Start: 10/29/22 14:19:00 EDT, 4 mg =, intranasal, ONCE, Disp# 2 each, Refills: 0, Pharmacy: [facility]/pharmacy #[id number] Start Date: 10/29/22 Status: Ordered Xarelto 2.5 mg oral tablet Start: 10/29/22 13:41:00 EDT, bid Start Date: 10/29/22 Status: Ordered zolpidem 10 mg oral tablet Start: 03/17/23 17:00:00 EDT, 1 tab, PO, qhs, Disp# 90 tab, Refills: 0, do not use continuously, Note to Pharmacy: PDMP verified, Pharmacy: [facility] Start Date: 03/17/23 Status: Ordered Mental Status 03/25/23 Barriers to Learning one year None evide nt Mandatory Health Literacy Documentation Yes Health Literacy Communication Barriers N ever Primary Language Hungarian Problem List Condition Confirmation Course Effective Dates [...] Confirmed Active Chronic narcotic use Confirmed Active Need for influenza vaccination Confirmed Active Meningioma Confirmed Active OA (osteoarthritis) [...] Diagnosis Diagnosis Type Effective Dates Health Status Clinical Service Informant Spinal stenosis Discharge Diagnosis 03/10/23 Non-Specified Need for influenza vaccination Discharge Diagnosis 03/25/23 B12 deficiency Discharge Diagnosis 03/25/23 Anxiety Discharge Diagnosis 03/25/23 Procedures Procedure Date Related Diagnosis Body Site [...] 8 01/16/16 Complet ed LLE Arteriogram with CUT OFF SAWYER SHINGLE MILL 11/23/12 Completed RLE Arteriogram with CUT OFF [employer]WYER [employer]ING[employer] of Right SFA 11/01/12 Completed heart stent 2012 Completed gastric bypass Completed 1B Lower extremity 2study 3R eye 4Pt had L eye done on 08/08/21 5Linear subsegmental opacities suggest atelectasis. No acute cardiopulmonary process. 6ischemic abdominal wall skin and subcutaneous tissure 7done while patient inpatient at [facility] 8RLE Vital Signs Most recent to oldest [Reference Range]: 1 Patient Weight 58 kg (03/25/23 8:58 AM) Heart Rate 68 bpm (03/25/23 8:58 AM) Respiratory Rate 20 br/min (03/25/23 8:58 AM) Blood Pressure 138/90mmHg (03/25/23 8:58 AM) Social History Social History Type Response Tobacco Current every day sm oker, Cigarettes 1, 2 Smoking Status Current every day he marcelle smoker Sex Female 1Smokes 2 to 10 cigs per day 12/10 pack per day FCM Outpt Note * DO Jones Kristen M: PERFORM Event Display: FCM Outpt Note Authored Date: Chief Complaint med check - discuss prozac History of Present Illness Pt presents for a med check. She states she would like to discuss her fluoxetine. Physical Exam Vitals & Measurements HR:68(Monitored) RR:20 BP:138/90 SpO2:98% WT:58kg WT:58.000kg(Dosing) PHQ2 Data(Data Documented on:03/25/2023 08:58) Emotional health assessment NEGATIVE G: AAAOx3, NAD H: RR normal S1/S2 no M/R/G L: CTA b/l no r/r/w A: soft +bs nt nd E: no c/C/E b/l, pos distal pulses P: normal affect and insight, no homicidal/suicidal ideation Assessment/Plan 1.Anxiety Chronic condition, stable Goal:Resolution Data:unique tests ordered: _ Plan: _Pt thinks she may have ADD version of anxiety and depression--she would like to see neuropsych 2.Need for influenza vaccination Chronic condition, stable Goal:Resolution Data:unique tests ordered: _ Plan: _influenza today 3.B12 deficiency Chronic condition, stable Goal:Resolution Data:unique tests ordered: _ Plan: _B12 injection today shingles and RSV at pharmacy Attestation I spent4 mintime in previsit planning including prepping note and chart review . I spent22 time in face to face interaction with patient concerning the issues that brought them in today. I spent4 min time in post visit planning including finishing note and depart process Total time spent today on patient visit30 min Problem List/Past Medical History Ongoing 3-vessel CAD Anxiety B12 deficiency Breast cancer screening by mammogram CAD Chronic depression Chronic narcotic use Chronic pain Chronic pain De Quervain's tenosynovitis Depression Elevated troponin level Enteritis Gastritis GASTROPARESIS GERD HTN - Hypertension IBS (irritable bowel syndrome) Knee pain Loss of height Lower back pain MDD (major depressive disorder) Meningioma Mixed dyslipidemia OA (osteoarthritis) PAD (peripheral artery disease) PE (physical exam), routine Peripheral arterial occlusive disease Pneumonia Poor sleep Right knee DJD Situational stress Sleep disorder Spinal stenosis Thrombocytopenia Tobacco abuse Tobacco abuse Weight disorder Historical Abdominal pain Acute abdomen AOM (acute otitis media) Apathy Bleeding hemorrhoids Claudication Cough Hospital discharge follow-up Incisional infection Loss of appetite Medicare annual wellness visit, initial Myocardial infarction, inferoposterior wall, initial care Pain at surgical incision Right knee pain Stress disorder, acute Tooth pain Type 2 diabetes, diet controlled Volvulus Procedure/Surgical History Angiocardiography (10/17/2022)Myocardial perfusion (09/04/2022)Phacoemulsification with intraocular lens implantation (07/25/2021)Cystoscopy (05/13/2021)Chest X-ray (04/30/2017)Debridement (04/25/2017)open Repair of incisional hernia (04/14/2017)DEXA - Dual energy X-ray photon absorptiometry (03/26/2017)Upper GI endoscopy (11/24/2016)Imaging,chest (09/22/2016)Stent placement (01/16/2016)LLE Arteriogram with CUT OFF SAWYER SHINGLE MILL (11/23/2012)RLE Arteriogram with CUT OFF SAWYER SHINGLE MILL of RightSFA (11/01/2012)heart stent (2012)gastric bypass Medications acetaminophen-hydrocodone(acetaminophen-hydrocodone 325 mg-10 mg oral tablet), 1 tab, PO, qid, PRN aspirin(aspirin 81 mg oral tablet), 81 mg= 1 tab, PO, Daily atorvastatin(atorvastatin 40 mg oral tablet), See Instructions, 11 refills biotin(Hair, Skin & Nails), 1 tab, PO, Daily FLUoxetine(FLUoxetine 40 mg oral capsule), 40 mg= 1 cap, PO, Daily, 3 refills gabapentin(gabapentin 300 mg oral capsule), See Instructions methylPREDNISolone - AMB Provider Charge(DEPO-Medrol 40 mg/mL - PROVIDER injection), 40 mg= 1 mL, intra-articular, ONCE multivitamin, 1 tab, PO, Daily naloxone(Narcan 4 mg/0.1 mL nasal spray), 4 mg, intranasal, ONCE rivaroxaban(Xarelto 2.5 mg oral tablet), bid sodium hyaluronate - AMB Provider Charge(Euflexxa 20 mg - provider injection), 20 mg= 2 mL, intra-articular, ONCE sodium hyaluronate - AMB Provider Charge(Euflexxa 20 mg - provider injection), 20 mg= 2 mL, intra-articular, ONCE sodium hyaluronate - AMB Provider Charge(Euflexxa 20 mg - provider injection), 20 mg= 2 mL, intra-articular, ONCE zolpidem(zolpidem 10 mg oral tablet), 10 mg= 1 tab, PO, qhs Allergies NKA Social History Smoking Status Current every day heavy smoker Tobacco - High Risk Use:Current every day smoker Type:Cigarettes - Comments: Smokes 2 to 10 cigs per day 3/4 pack per day Family History Cancer: Unknown. Diabetes: Mother. High Blood Pressure: Mother. Health Status Family Member(s) Immunizations Vaccine Date Status influenza virus vaccine, inactivated 07/11/2022 Given Comments : christopher alcantara cma pneumococcal 20-valent conjugate vaccine 03/06/2022 Given SARS-CoV-2 (COVID-19) mRNA-1273 vaccine 04/15/2021 Recorded influenza virus vaccine, inactivated 03/21/2021 Given tetanus/diphtheria/pertuss, acel (Tdap) 01/03/2021 Given Comments : verified by Christopher Jones DO SARS-CoV-2 (COVID-19) mRNA BNT-162b2 vax 10/10/2020 Recorded Comments : 2021-10-15: Historical information-source unspecified SARS-CoV-2 (COVID-19) mRNA BNT-162b2 vax 09/19/2020 Recorded Comments : 2021-10-15: Historical information-source unspecified influenza virus vaccine, inactivated 03/09/2020 Given influenza virus vaccine, inactivated 03/01/2019 Given pneumococcal 23-valent vaccine 06/28/2018 Given influenza virus vaccine, inactivated 03/26/2018 Given influenza virus vaccine, inactivated 03/03/2017 Given influenza virus vaccine, inactivated 07/16/2016 Given influenza virus vaccine, inactivated 06/07/2015 Given influenza virus vaccine, inactivated 04/19/2014 Given influenza virus vaccine, inactivated 03/21/2013 Given influenza virus vaccine, inactivated 04/19/2012 Given pneumococcal 23-valent vaccine 05/21/2006 Recorded Comments : 2021-10-15: Historical information-source unspecified tetanus toxoids-diphtheria, Td (Adult) 02/23/2004 Recorded Comments : 2022-07-11: Historical information-source unspecified Recommendations Health Maintenance Pending(in the next year) OverDue Adult Influenza Vaccine due12/20/22and every 1year Due Adult COVID-19 Vaccination due03/25/23Unknown Frequency Cervical Cancer Screening due03/25/23Unknown Frequency Colorectal Cancer Screening due03/25/23Unknown Frequency Hepatitis C Screening due03/25/23One-time only Shingles Vaccine due03/25/23One-time only Due In Future Breast Cancer Screening not due until01/13/24and every 731day Body Mass Index not due until03/24/24and every 1year Satisfied(in the past 1 year) Satisfied Adult Influenza Vaccine on07/11/22.Satisfied by MAC Corral Angela Body Mass Index on10/29/22.Satisfied by MAC Dockery Lori Breast Cancer Screening on08/01/22.Satisfied by TIAGO Jacobs Lisa Electronic Signature on File Electronically Reviewed/Signed by: Cookie Jones DO Author Signature Dt/Tm:03/25/2023 09:29 AM Department of Family Medicine [facility] Patient Care team information Care Team Personnel Name: DO Jones Kristen M Position: Physician - Family Med Member Role: Primary Care Provider Address: Address: [address] [place] [address] [place] Name: RANDA Zhu Lynn Position: Physician Switchbox Assembler Exempt - Vasc Surg Member Role: Lifetime Relationship Address: Address: [address] [place] [address] [place] Name: MD Smith Eugene J Position: Physician - Vascular Surg Member Role: Lifetime Relationship Address: Address: [address] [place] [address] Care Team Related Persons Name: JASMYNE DREW Address: home [address] [phone]
--- OUTSIDE RECORDS SUMMARY | 2023-05-10 18:25 | External Medical Summary | Continuity of Care Document ---
Author Name Unknown Organization [facility] [id number] Address [address] [place] [phone] Care Team Providers Care Manager Database Name Role Phone Cookie Jones Primary Care Physician [phone] [facility]counter [facility] [id number] Date(s): 01/14/23 - 01/14/23 [facility] 0 [facility] [address] [facility] Medicine [address] [place] [address] Encounter Diagnosis OA (osteoarthritis)(Discharge Diagnosis) - 01/13/23 [...] verified, PRN: as needed for pain, [id number] Start Date: 01/12/23 Status: Ordered aspirin 81 mg oral tablet Start: 11/11/12 13:01:00, 1 tab, PO, Daily Start Date: 11/11/12 Status: Ordered atorvastatin 40 mg oral tablet Start: 01/02/20 11:47:00 EDT, See Instructions, Disp# 30 tab, Refills: 11, TAKE ONE TABLET BY MOUTHEVERY DAY, [id number] Start Date: 01/02/20 Status: Ordered FLUoxetine 40 mg oral capsule Start: 04/15/22 10:52:00 EDT, 1 cap, PO, Daily, Disp# 90 cap, Refills: 3, [id number] Start Date: 04/15/22 Stop Date: 04/10/23 Status: Ordered gabapentin 300 mg oral capsule Start: 12/30/22 16:52:00 EDT, See Instructions, Disp# 90 cap, Refills: 4, TAKE 1 CAPSULE BY MOUTH THREE TIMES A DAY, Pharmacy: [id number] Start Date: 12/30/22 Status: Ordered Hair, Skin & Nails Start: 10/22/16 18:44:00, 1 tab, PO, Daily Start Date: 10/22/16 Status: Ordered multivitamin Start: 03/03/13 15:27:00, 1 tab, PO, Daily, children's chewable complete Start Date: 03/03/13 Status: Ordered Narcan 4 mg/0.1 mL nasal spray Start: 10/29/22 14:19:00 EDT, 4 mg =, intranasal, ONCE, Disp# 2 each, Refills: 0, [id number] Start Date: 10/29/22 Status: Ordered predniSONE 20 mg oral tablet Start: 01/12/23 11:44:00 EDT, 1 tab, PO, Daily, Disp# 3 tab, Refills: 0, Pharmacy: [id number] Start Date: 01/12/23 Stop Date: 01/15/23 Status: Ordered Xarelto 2.5 mg oral tablet Start: 10/29/22 13:41:00 EDT, bid Start Date: 10/29/22 Status: Ordered zolpidem 10 mg oral tablet Start: 11/10/22 13:44:00 EDT, 1 tab, PO, qhs, Disp# 90 tab, Refills: 0, do not use continuously, Note to Pharmacy: PDMP verified, Pharm[id number] Start Date: 11/10/22 Status: Ordered Mental Status 01/14/23 Barriers to Learning one year None evide nt Mandatory Health Literacy Documentation Yes Health Literacy Communication Barriers N ever Primary Language Belarusian Problem List Condition Confirmation Course Effective Dates [...] 8 01/16/16 Complet ed LLE Arteriogram with EQUIPMENT INSTALLER 11/23/12 Completed RLE Arteriogram with EQUIPMENT INSTALLER of Right SFA 11/01/12 Completed heart stent 2012 Completed gastric bypass Completed 1B Lower extremity 2study 3R eye 4Pt had L eye done on 08/08/21 5Linear subsegmental opacities suggest atelectasis. No acute cardiopulmonary process. 6ischemic abdominal wall skin and subcutaneous tissure 7done while patient inpatient at [facility] 8RLE Social History Social History Type Response Tobacco Current every day sm oker, Cigarettes 1, 2 Smoking Status Current every day he marcelle smoker Sex Female 1Smokes 2 to 10 cigs per day 23/4 pack per day Primary care Note * MD Robe, Rocky A: MODIFY MD Robe, Rocky A: MODIFY, MODIFY Event Display: Ortho Outpt Note Authored Date: [id number] Name:LOUIS LOVE Patient Number:[id number] :1960 Date of Service:01/14/2023 CHIEF COMPLAINT: Follow up right knee pain HPI: [id number] presents today fora follow up of right [...] MD Cosigner Signature Dt/Tm: 01/14/2023 02:29 PM [facility] [employer] Administrator Department of Orthopaedics and Rehabilitation [facility] [address], [place] [address] OA Patient Care team information Care Team Personnel Name: DO Jones Kristen M Position: Physician - Family Med Member Role: Primary Care Provider Address: Address: [address] [place] [address] [address] [place] [address] Name: RANDA Zhu Lynn Position: Physician Environmental Engineering Professor Exempt - Vasc Surg Member Role: Lifetime Relationship Address: Address: [address] [place] [id number] Name: MD Smith Eugene J Position: Physician - Vascular Surg Member Role: Lifetime Relationship Address: Address: [address] [place] [id number] Care Team Related Persons Name: JASMYNE DREW Address: home [address] [facility] [place] [phone]
--- OUTSIDE RECORDS SUMMARY | 2023-05-10 18:25 | External Medical Summary | Continuity of Care Document ---
Author Name Unknown Organization [address] Address [address] [place] [id number] Care Team Providers Care Extension Service Advisor Name Role Phone Cookie Jones Primary Care Physician [phone] [id number] Date(s): 01/12/23 - 01/12/[address], [address] [address] [place] [phone] Encounter Diagnosis Situational stress(Discharge Diagnosis) - 01/12/23 Spinal stenosis(Discharge Diagnosis) - 12/11/22 De Quervain's tenosynovitis(Discharge Diagnosis) - 01/12/23 Discharge Disposition: Home or Self Care Attending Physician: DO Jones Kristen M Referring Physician: DO Jones Kristen M Allergies, Adverse Reactions, Alerts No Known Allergies Assessment and Plan Extracted from: Title:Office Visit Note Author:DO Jones Kriste n M Date:01/12/23 1.Situational stress Chronic condition, stable Goal:Resolution Data:unique tests ordered: _ Plan: _discussed and supported 2.Spinal stenosis Chronic condition, stable Goal:Resolution Data:unique tests ordered: _ Plan: _pain management completed 3.De Quervain's tenosynovitis Chronic condition, stable Goal:Resolution Data:unique tests ordered: _ Plan: _prednisone 20 po daily for 3 days Immunizations Given and Recorded Vaccine Date Status [...] verified, PRN: as needed for pain, Pharmacy: [facility]acy #[id number] Start Date: 01/12/23 Status: Ordered aspirin 81 mg oral tablet Start: 11/11/12 13:01:00, 1 tab, PO, Daily Start Date: 11/11/12 Status: Ordered atorvastatin 40 mg oral tablet Start: 01/02/20 11:47:00 EDT, See Instructions, Disp# 30 tab, Refills: 11, TAKE ONE TABLET BY MOUTHEVERY DAY, Pharmacy: [facility]/pharmacy #[id number] Start Date: 01/02/20 Status: Ordered FLUoxetine 40 mg oral capsule Start: 04/15/22 10:52:00 EDT, 1 cap, PO, Daily, Disp# 90 cap, Refills: 3, Pharmacy: [id number] Start Date: 04/15/22 Stop Date: 04/10/23 Status: Ordered gabapentin 300 mg oral capsule Start: 12/30/22 16:52:00 EDT, See Instructions, Disp# 90 cap, Refills: 4, TAKE 1 CAPSULE BY MOUTH THREE TIMES A DAY, Pharmacy: [id number] Start Date: 12/30/22 Status: Ordered Hair, Skin & Nails Start: 10/22/16 18:44:00, 1 tab, PO, Daily Start Date: 10/22/16 Status: Ordered multivitamin Start: 03/03/13 15:27:00, 1 tab, PO, Daily, children's chewable complete Start Date: 03/03/13 Status: Ordered Narcan 4 mg/0.1 mL nasal spray Start: 10/29/22 14:19:00 EDT, 4 mg =, intranasal, ONCE, Disp# 2 each, Refills: 0, Pharmacy: [id number] Start Date: 10/29/22 Status: Ordered predniSONE 20 mg oral tablet Start: 01/12/23 11:44:00 EDT, 1 tab, PO, Daily, Disp# 3 tab, Refills: 0, Pharmacy: [facility] #[id number] Start Date: 01/12/23 Stop Date: 01/15/23 Status: Ordered Xarelto 2.5 mg oral tablet Start: 10/29/22 13:41:00 EDT, bid Start Date: 10/29/22 Status: Ordered zolpidem 10 mg oral tablet Start: 11/10/22 13:44:00 EDT, 1 tab, PO, qhs, Disp# 90 tab, Refills: 0, do not use continuously, Note to Pharmacy: PDMP verified, Pharmacy: [id number] Start Date: 11/10/22 Status: Ordered Mental Status 01/12/23 Barriers to Learning one year None evide [...] Clinical Service Informant Spinal stenosis Discharge Diagnosis 12/11/22 Non-Specified Situational stress Discharge Diagnosis 01/12/23 De Quervain's tenosynovitis Discharge Diagnosis 01/12/23 Procedures Procedure Date Related Diagnosis Body Site [...] 8 01/16/16 Complet ed LLE Arteriogram with CUTTING TABLE OPERATOR 11/23/12 Completed RLE Arteriogram with CUTTING TABLE OPERATOR of Right SFA 11/01/12 Completed heart stent 2012 Completed gastric bypass Completed 1B Lower extremity 2study 3R eye 4Pt had L eye done on 08/08/21 5Linear subsegmental opacities suggest atelectasis. No acute cardiopulmonary process. 6ischemic abdominal wall skin and subcutaneous tissure 7done while patient inpatient at [facility] 8RLE Vital Signs Most recent to oldest [Reference Range]: 1 Patient Weight 57.2 kg (01/12/23 11:11 AM) Temperature [36.5-37.9 DegC] 36.6 DegC (01/12/23 11:11 AM) Blood Pressure 116/60mmHg (01/12/23 11:11 AM) Cuff Pulse Pressure 56 mmHg (01/12/23 11:11 AM) Social History Social History Type Response Tobacco Current every day sm oker, Cigarettes 1, 2 Smoking Status Current every day he marcelle smoker Sex Female 1Smokes 2 to 10 cigs per day 23/4 pack per day Primary care Note * DO Jones Kristen M: PERFORM Event Display: FCM Outpt Note Authored Date: [id number] Chief Complaint Pt here for med check. History of Present Illness Pt presents for med check. She needs her pain medication refiled. She is going camping soon with her great niece. She is stressed with family drama. Physical Exam Vitals & Measurements T:36.6C BP:116/60 SpO2:98% WT:57.2kg WT:57.200kg(Dosing) PHQ2 Data(Data Documented on:01/12/2023 11:11) Emotional health assessment NEGATIVE G: AAAOx3, NAD H: RR normal S1/S2 no M/R/G L: CTA b/l no r/r/w A: soft +bs nt nd E: no c/C/E b/l, pos distal pulses msk: positive finnklestein test P: normal affect and insight, no homicidal/suicidal ideation Assessment/Plan 1.Situational stress Chronic condition, stable Goal:Resolution Data:unique tests ordered: _ Plan: _discussed and supported 2.Spinal stenosis Chronic condition, stable Goal:Resolution Data:unique tests ordered: _ Plan: _pain management completed 3.De Quervain's tenosynovitis Chronic condition, stable Goal:Resolution Data:unique tests ordered: _ Plan: _prednisone 20 po daily for 3 days Attestation I spent4 mintime in previsit planning [...] Chronic narcotic use Chronic pain Chronic pain Depression Elevated troponin level Enteritis Gastritis GASTROPARESIS GERD HTN - Hypertension IBS (irritable bowel syndrome) Knee pain Loss of height Lower back pain MDD (major depressive disorder) Meningioma Mixed dyslipidemia OA (osteoarthritis) PAD (peripheral artery disease) PE (physical exam), routine Peripheral arterial occlusive disease Pneumonia Poor sleep Situational stress Sleep disorder Spinal stenosis Thrombocytopenia [...] endoscopy (11/24/2016)Imaging,chest (09/22/2016)Stent placement (01/16/2016)LLE Arteriogram with CUTTING TABLE OPERATOR (11/23/2012)RLE Arteriogram with CUTTING TABLE OPERATOR of RightSFA (11/01/2012)heart stent (2012)gastric bypass Medications acetaminophen-HYDROcodone(acetaminophen-HYDROcodone 325 mg-10 mg oral tablet), 1 tab, PO, qid, PRN aspirin(aspirin 81 mg oral tablet), 81 mg= 1 tab, PO, Daily atorvastatin(atorvastatin 40 mg oral tablet), See Instructions, 11 refills biotin(Hair, Skin & Nails), 1 tab, PO, Daily clopidogrel(Plavix 75 mg oral tablet), 75 mg= 1 tab, PO, ONCE, 11 refills FLUoxetine(FLUoxetine 40 mg oral capsule), 40 mg= 1 cap, PO, Daily, 3 refills gabapentin(gabapentin 300 mg oral capsule), See Instructions multivitamin, 1 tab, PO, Daily naloxone(Narcan 4 mg/0.1 mL nasal spray), 4 mg, intranasal, ONCE rivaroxaban(Xarelto 2.5 mg oral tablet), bid zolpidem(zolpidem 10 mg oral tablet), 10 mg= [...] Recommendations Health Maintenance Pending(in the next year) Due Adult Influenza Vaccine due12/20/22and every 1year Adult COVID-19 Vaccination due01/12/23Unknown Frequency Cervical Cancer Screening due01/12/23Unknown Frequency Colorectal Cancer Screening due01/12/23Unknown Frequency Hepatitis C Screening due01/12/23One-time only Shingles Vaccine due01/12/23One-time only Due In Future Body Mass Index not due until01/12/24and every 1year Satisfied(in the past 1 year) Satisfied Adult Influenza Vaccine on07/11/22.Satisfied by MAC Corral Angela Body Mass Index on10/29/22.Satisfied by MAC Dockery Lori Breast Cancer Screening on08/01/22.Satisfied by TIAGO Jacobs Lisa Electronic Signature on File Electronically Reviewed/Signed by: Cookie Jones DO Author Signature Dt/Tm:01/12/2023 12:00 PM Department of Family Medicine [facility] Patient Care team information Care Team Personnel Name: DO Jones Kristen M Position: Physician - Family Med Member Role: Primary Care Provider Address: Address: [address] [place] [address] Name: RANDA Zhu Lynn Position: Physician Recoil Spring Winder Exempt - Vasc Surg Member Role: Lifetime Relationship Address: Address: [address] [place] [address] [place] Name: MD Smith Eugene J Position: Physician - Vascular Surg Member Role: Lifetime Relationship Address: Address: [address] [place] [address] Care Team Related Persons Name: JASMYNE DREW Address: [address] [phone]
[2023-05-10 18:55] LABS: Basophils # (auto) 0.06 K/uL (0.00-0.20); Basophils % (auto) 0.4 %; Eosinophils # (auto) 0.04 K/uL (0.00-0.50); Eosinophils % (auto) 0.3 %; Hematocrit (blood only) 38.1 % (37.0-47.0); Hemoglobin 12.3 g/dl (12.0-16.0); Immature Granulocytes # (auto) 0.04 K/uL (0.01-0.20); Immature Granulocytes % (auto) 0.3 %; Lymphocytes # (auto) 2.05 K/uL (1.20-3.40); Mean Corpuscular Hemoglobin 27.3 pg (25.0-34.0); Mean Corpuscular Hgb Conc 32.3 g/dL (32.0-36.0); Mean Corpuscular Volume 84.5 fL (80.0-100.0); Mean Platelet Volume 10.5 fL (9.4-12.4); Monocytes # (auto) 0.51 K/uL (0.11-0.59); Monocytes % (auto) 3.7 %; Neutrophils # (auto) 10.97 K/uL (1.40-6.50); Neutrophils % (auto) 80.3 %; Platelet Count 318 K/uL (130-400); RDW Coefficient of Variation 17.9 % (11.5-14.5); RDW Standard Deviation 54.7 fL (36.4-46.3); Red Blood Count 4.51 M/uL (4.20-5.40); White Blood Count 13.67 K/ul (4.8-10.8)
--- NOTE | 2023-05-10 19:01 | Emergency Department Note ---
Impression & Plan Hypoxia, Leukocytosis, Shortness of breath ED Provider Note NAME: LOUIS LOVE AGE: 62 SEX: F : 1960 ARRIVES VIA: Walk-In INFORMANT: Patient ED PROVIDER(S): Maxwell Gunter DO CHIEF COMPLAINT: shortness of breath HPI: Patient is a 62-year-old female with a past medical history of CAD with stents, hypertension, hyperlipidemia, pneumonia, PAD who presents the ER for shortness of breath. She notes she feels very weak and rundown. Symptoms started about 2 weeks ago with cough and congestion. They have significantly worsened over the past 5 days. Today she notes that she is extremely short of breath and checked her pulse ox at home and it was in the 70s and consequently came in. She admits to chest tightness which has been present for the past 3 days. No belly pain, nausea, vomiting, or diarrhea. No dysuria, urgency, or frequency. No other exacerbating or remitting factors. ADDITIONAL HISTORY OBTAINED: Per HPI Chronic Medical/Social Conditions Affecting Care: Per HPI PAST MEDICAL HISTORY:See Below PAST SURGICAL HISTORY:See Below FAMILY HISTORY:See Below SOCIAL HISTORY:See Below HOME MEDICATIONS:See Below ALLERGIES:See Below VITALS:See Below PHYSICAL EXAMINATION: GENERAL: Sitting up in bed, alert, disheveled, on nasal cannula EYE EXAM: normal conjunctiva. PERRL and EOM's grossly intact. OROPHARYNX: no exudate, no erythema, lips, buccal mucosa, and tongue normal and mucous membranes are moist NECK: supple, no nuchal rigidity, no adenopathy, non-tender LUNGS: Diminished bilaterally. Normal chest wall mechanics HEART: no murmurs, S1 normal and S2 normal ABDOMEN: abdomen soft, non-tender, normo-active bowel sounds, no masses, no rebound or guarding. UPPER EXTREMITIES: upper extremities are grossly normal. LOWER EXTREMITIES: No pitting edema. Calves are equal bilaterally NEURO EXAM: Normal sensorium, cranial nerves II-XII grossly intact, normal speech, no gross weakness of arms, no gross weakness of legs. No drift. Finger to nose intact. Gross sensation intact. MEDICAL DECISION MAKING: Patient is a 62-year-old female who presents ER for shortness of breath. IV was established blood work was obtained. External records reviewed. Patient was found to be significantly hypoxic at 80% on room air. Upon initial evaluation I contacted the charge nurse to notify her that the patient needs to come back and be placed in room due to the hypoxia urgently. Patient remained on 3 L nasal cannula throughout stay in the ER. Labs show no significant anemia but mild leukocytosis of 13,000. D-dimer was negative. BMP with creatinine 1.2. LFTs bilirubin were unremarkable. Troponin was negative. Pro-Rudi was normal. COVID influenza and RSV were negative. Chest x-ray without any focal infiltrate. Patient was given nebs and steroids although no diagnosis of COPD. She was updated bedside. She was given IV antibiotics. Discussed with the hospitalist admitted for further work-up of her hypoxia. External Records Reviewed: Saw Dr. Gregory on 10/2022 for peripheral artery disease Consults/Care Managements Discussions: Per [facility] Triage Nursing notes reviewed. Limited review of prior medical records performed Vital Signs: reviewed and remarkable for hypoxia Differential diagnosis: Differential diagnoses includes but is not limited to pneumonia, bronchitis, COPD/Asthma exacerbation, pneumothorax, pulmonary embolism, congestive heart failure, acute coronary syndrome ER treatment provided: See below Diagnostics interpreted by me include EKG and cardiac monitoring as listed below: -Cardiac Monitoring: An order was placed for continuous cardiac monitoring. The monitor shows a rate of 70 with sinus rhythm. -ECG: Sinus rhythm rate of 66 Left axis T wave inversion in the inferior leads as well as V3 and V4 QTc 463 No significant change from EKG in June -Laboratory studies:Interpreted by me as stated above in MDM and shown below. Imaging studies: Xrays: As interpreted by me: Portable AP upright 1 view of the chest shows no focal infiltrate CTs show: none Procedures:none Critical Care: I have personally spent 31 minutes of critical care time in the direct management of this patient. This includes bedside care, interpretation of diagnostic studies, and testing, discussion with consultants, patient, and family members, and other required patient management activities. This 31 minutes is in excess of all separately billable procedures. Past Med/Surg History Medical History Acute hypoxemic respiratory failure Acute respiratory failure with hypoxia Atrophy of left kidney Coronary artery disease Depression Elevated troponin Encounter for pre-operative examination History of anemia History of RI (myocardial infarction) Hydronephrosis Hyperlipidemia Hypertension Kidney stones Osteoarthritis PAD (peripheral artery disease) Pneumonia Sepsis Sleep apnea Ureterolithiasis Urinary tract infection Vitamin D deficiency Surgical History H/O colonoscopy H/O hernia repair (06/26/14) History of laparotomy Hx of cystoscopy Hx of excision of epidermal inclusion cyst (01/30/21) S/P hernia repair (04/14/17) Status post surgery Family History Grandfather Cancer Grandmother Cancer Heart disease Stroke Mother Diabetes Aunt Hypertension Social History Smoking Status: Current every day smoker Tobacco Type: Cigarettes packs per day: 0.5; Cigarettes Per Day: 15; Second Hand Exposure: No; Do You Dip or Chew Tobacco: No; Hx Alcohol Use: No Hx Substance Use: No Preferred Language: Cymro Communication Ability: Effective 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 Hole Cornerer Required: No Beliefs That Will Affect Care: None marital status: / Current Living Situation: Family Current Living Situation Comment: Lives w/mother/niece/nephew current occupational status: disabled How many Children do You have: 1 How many Children do You have Comment: custody of great niece Feels Safe at Home: Yes Diet: regular during the past year weight has: remained stable Assistive Devices: Denture - Upper, Denture - Lower and Glasses Allergies Allergies Allergy/AdvReac Type Severity Reaction Status Date / Time No Known Allergies Allergy Unverified 05/10/23 19:47 Home Meds Home Medications Medication Instructions Recorded Confirmed zolpidem 10 mg tablet (Ambien) 10 mg PO HS 11/22/20 05/10/23 gabapentin 300 mg capsule 300 mg PO TID 05/13/21 05/10/23 aspirin 81 mg tablet,delayed 81 mg PO HS 01/06/22 05/10/23 release (Adult Aspirin Regimen) multivitamin (Daily Multi-Vitamin 1 tab PO DAILY 01/06/22 05/10/23 tablet) fluoxetine 40 mg capsule 40 mg PO HS 06/28/22 05/10/23 hydrocodone 10 mg-acetaminophen 1 tab PO Q4H PRN Pain 06/28/22 05/10/23 325 mg tablet amlodipine 10 mg tablet 10 mg PO HS 05/10/23 05/10/23 Previous Rx's Medication Instructions Recorded atorvastatin 40 mg tablet 40 mg PO HS #90 tabs 10/02/22 clopidogrel 75 mg tablet 75 mg PO QPM #90 tabs 10/02/22 metoprolol succinate 25 mg 25 mg PO DAILY #90 tabs 11/04/22 tablet,extended release 24 hr rivaroxaban 2.5 mg tablet (Xarelto) 2.5 mg PO BID #180 tabs 05/04/23 Results & Data (ED) Vital Signs Vital Signs - 24 hr 05/10/23 18:27 05/10/23 18:33 05/10/23 19:28 Temperature 37.3 C Temperature Source Oral Pulse Rate 71 71 Pulse Rate [Apical] Respiratory Rate 20 Respiratory Effort / Characteristics Non-Labored Spontaneous Respiratory Depth Normal Respiratory Pattern Regular Blood Pressure 121/69 Blood Pressure [Left Arm] Blood Pressure Mean 86 Blood Pressure Mean [Left Arm] Blood Pressure Position Sitting Pulse Oximetry 83 L 85 L Oxygen Delivery Method Room Air Oxygen Flow Rate 0 Sepsis Recent Fever Within 48 Hours No Sepsis New/Unexplained Change in Mental Status No Sepsis Action Taken by Nursing No Action Required Oxygen Flow Rate - Titration 2 Pulse Oximetry Post Tiitration 92 05/10/23 19:40 05/10/23 19:41 05/10/23 19:51 Temperature Temperature Source Pulse Rate Pulse Rate [Apical] 79 Respiratory Rate 22 Respiratory Effort / Characteristics Respiratory Depth Respiratory Pattern Blood Pressure Blood Pressure [Left Arm] 135/74 Blood Pressure Mean Blood Pressure Mean [Left Arm] 94 Blood Pressure Position Pulse Oximetry 99 94 Oxygen Delivery Method Nebulizer Nasal Cannula Nasal Cannula Oxygen Flow Rate 6 4 Sepsis Recent Fever Within 48 Hours Sepsis New/Unexplained Change in Mental Status Sepsis Action Taken by Nursing Oxygen Flow Rate - Titration Pulse Oximetry Post Tiitration Laboratory Data 05/10/23 18:38 05/10/23 18:38 Lab Results 05/10/23 05/10/23 05/10/23 Range/Units 18:38 18:42 19:36 WBC 13.67 H (4.8-10.8) K/ul RBC 4.51 (4.20-5.40) M/uL Hgb 12.3 (12.0-16.0) g/dl Hct 38.1 (37.0-47.0) % MCV 84.5 (80.0-100.0) fL MCH 27.3 (25.0-34.0) pg MCHC 32.3 (32.0-36.0) g/dL RDW Std Deviation 54.7 H (36.4-46.3) fL RDW Coeff of Jeny 17.9 H (11.5-14.5) % Plt Count 318 (130-400) K/uL MPV 10.5 (9.4-12.4) fL Immature Gran % (Auto) 0.3 % Neut % (Auto) 80.3 % Lymph % (Auto) 15.0 % Lyon % (Auto) 3.7 % Eos % (Auto) 0.3 % Baso % (Auto) 0.4 % Neut # (Auto) 10.97 H (1.40-6.50) K/uL Lymph # (Auto) 2.05 (1.20-3.40) K/uL Lyon # (Auto) 0.51 (0.11-0.59) K/uL Eos # (Auto) 0.04 (0.00-0.50) K/uL Baso # (Auto) 0.06 (0.00-0.20) K/uL Immature Gran # (Auto) 0.04 (0.01-0.20) K/uL D-Dimer 460 (0-500) ug/L FEU Sodium 135 L (136-145) mmol/L Potassium 5.0 (3.5-5.1) mmol/L Chloride 103 (98-107) mmol/L Carbon Dioxide 25 (21-32) mmol/L Anion Gap 7 (3-11) BUN 33 H (6-23) mg/dl Creatinine 1.26 H (0.6-1.2) mg/dl Est Cr Clr Drug Dosing Not Reportable Est GFR ( Amer) 53.3 ml/min Est GFR (Non-Af Amer) 45.9 ml/min BUN/Creatinine Ratio 26.2 H (10-20) Glucose 90 (70-99(Fasting)) mg/dl Calcium 9.1 (8.6-10.3) mg/dl Total Bilirubin 0.5 (0.2-1.0) mg/dl AST 23 (13-39) U/L ALT 15 (7-52) U/L Alkaline Phosphatase 89 (34-104) U/L Troponin I High Sens 4.9 (0-14) pg/ml Total Protein 7.1 (6.0-8.3) gm/dl Albumin 4.1 (3.4-5.0) gm/dl Globulin 3.0 (2.5-4.0) gm/dl Albumin/Globulin Ratio 1.4 (0.9-2) Lipase 21 (11-82) U/L Procalcitonin 0.50 (0-0.5) ng/ml SARS-CoV-2 (PCR) NEGATIVE (Negative) Influenza Type A (PCR) Negative (Neg) Influenza Type B (PCR) Negative (Neg) RSV (RT-PCR) Negative (Neg) Administered Medications Discontinued Medications Hydrocodone Bitart/Acetaminophen (Hydrocodone/Acetaminophen 10/325 Tab) 1 tab PO ONCE ONE Stop: 05/10/23 20:53 Last Admin: 05/10/23 20:57 Dose: 1 tab Documented By: BRIAN Albuterol (Albut/Ipratrop 3mg/0.5mg Neb 3 Ml Vial) 6 ml NEB NOW STA; Protocol Stop: 05/10/23 19:03 Last Admin: 05/10/23 19:30 Dose: 6 ml Documented By: BRIAN Sodium Chloride (Nss) 1,000 mls @ 999 mls/hr IV .Q1H1M ONE Stop: 05/10/23 20:02 Last Infusion: 05/10/23 20:34 Dose: Infused Documented By: Admin: 05/10/23 19:32 Dose: 999 mls/hr Documented By: BRIAN Ceftriaxone Sodium (Rocephin) 2,000 mg in 50 mls @ 100 mls/hr IV NOW STA Stop: 05/10/23 19:32 Last Infusion: 05/10/23 20:15 Dose: Infused Documented By: Admin: 05/10/23 19:30 Dose: 100 mls/hr Documented By: BRIAN Methylprednisolone (Methylprednisolone 40 Mg/Ml Vial) 40 mg IV NOW STA Stop: 05/10/23 19:03 Last Admin: 05/10/23 19:30 Dose: 40 mg Documented By: BRIAN Imaging Data Radiologist's Impression: Chest X-Ray 05/10/23 18:34 XR chest 1V not portable CLINICAL HISTORY: Chest pain, nonspecific COMPARISON STUDY: Chest radiograph and chest CT June 28, 2022. FINDINGS: There is no pneumothorax or pleural effusion. Mild cardiomegaly is noted. No definite consolidation is present. There is subtle interstitial thickening. IMPRESSION: Cardiomegaly. Mild nonspecific interstitial thickening. ACT 112: Negative or not required by law. Electronically signed by: Darrel Galicia M.D. 05/10/2023 7:40 PM Discharge Plan Visit Data Chief Complaint: Shortness of Breath/Dyspnea Stated Complaint: O2 HOVERING IN THE 70S, WEAKNESS, BACK PAIN ED Provider: Maxwell Gunter Discharge Problem: Hypoxia, Leukocytosis, Shortness of breath Forms Stand Alone Forms: [facility] [place] [employer] Prescriptions Prescriptions: No Action atorvastatin 40 mg tablet 40 mg PO HS Qty: 90 3RF clopidogrel 75 mg tablet 75 mg PO QPM Qty: 90 3RF metoprolol succinate 25 mg tablet extended release 24 hr 25 mg PO DAILY Qty: 90 3RF Xarelto 2.5 mg tablet 2.5 mg PO BID Qty: 180 3RF aspirin [Adult Aspirin Regimen] 81 mg tablet,delayed release (DR/EC) 81 mg PO HS multivitamin [Daily Multi-Vitamin] Tablet 1 tab PO DAILY zolpidem [Ambien] 10 mg tablet 10 mg PO HS gabapentin 300 mg capsule 300 mg PO TID amlodipine 10 mg tablet 10 mg PO HS fluoxetine 40 mg capsule 40 mg PO HS hydrocodone-acetaminophen 10-325 mg tablet 1 tab PO Q4H MDD 6TABS PRN (Reason: Pain) Referrals Referrals: Cookie Jones DO [Primary Care Provider] - Discharge Problem: Leukocytosis Qualifiers: Leukocytosis type: unspecified Qualified Code(s): D72.829 - Elevated white blood cell count, unspecified
[2023-05-10] MEDS ORDERED: ALBUT/IPRATROP 3MG/0.5MG NEB 3 ML VIAL NEB STA (19:02)
[2023-05-10] MEDS ORDERED: SODIUM CHLORIDE 0.9% 1,000 ML IV ONE (19:02)
[2023-05-10] MEDS ORDERED: cefTRIAXone SODIUM 2,000 MG/50 ML BAG IV STA (19:03)
[2023-05-10 19:16] LABS: Alanine Aminotransferase 15 U/L (7-52); Albumin Globulin Ratio 1.4 (0.9-2); Albumin Level 4.1 gm/dl (3.4-5.0); Alkaline Phosphatase 89 U/L (34-104); Anion Gap 7 (3-11); Aspartate Aminotransferase 23 U/L (13-39); BUN Creatinine Ratio 26.2 (10-20); Bilirubin,Total 0.5 mg/dl (0.2-1.0); Blood Urea Nitrogen 33 mg/dl (6-23); Calcium 9.1 mg/dl (8.6-10.3); Carbon Dioxide 25 mmol/L (21-32); Chloride 103 mmol/L (98-107); Est GFR (African American) 53.3 ml/min; Est GFR (Non-African American) 45.9 ml/min; Glucose 90 mg/dl (70-99(Fasting)); Lipase 21 U/L (11-82); Sodium 135 mmol/L (136-145); Total Protein 7.1 gm/dl (6.0-8.3)
[2023-05-10 19:23] LABS: Troponin I High Sensitivity 4.9 pg/ml (0-14)
--- NOTE | 2023-05-10 19:41 | XRay Report ---
XR chest 1V not portable CLINICAL HISTORY: Chest pain, nonspecific COMPARISON STUDY: Chest radiograph and chest CT June 28, 2022. FINDINGS: There is no pneumothorax or pleural effusion. Mild cardiomegaly is noted. No definite conso lidation is present. There is subtle interstitial thickening. IMPRESSION: Cardiomegaly. Mild nonspecific interstitial thickening. ACT 112: Negative or not required by law. Electronically signed by: Darrel Galicia M.D. 05/10/2023 7:40 PM
[2023-05-10 19:49] LABS: D Dimer 460 ug/L FEU (0-500)
--- NOTE | 2023-05-10 20:07 | History & Physical Report ---
Date of Service May 10, 2023 Assessment & Plan (1) Cough: Plan: Patient presents to the hospital with 2 weeks of cough shortness of breath with and hypoxia. According to the patient over the past couple of days symptoms got worse and she used her home pulse ox which read 70% Patient is a current smoker but has not been diagnosed with COPD. On exam had expiratory wheeze. Etiology of the cough could be COPD exacerbation, bronchitis or pneumonia although chest x-ray did not suggest pneumonia. However after hydration may repeat chest x-ray to see if there are infiltrates. For now we will just continue supplemental oxygen, symptomatic cough management, DuoNebs, steroids We will also obtain procalcitonin, if elevated will start antibiotics. (2) Hypoxia: Plan: Etiology is uncertain, could be from yet to be diagnosed COPD exacerbation given her history of smoking Also could be due to pneumonia, although chest x-ray did not suggest it. Continue supplemental oxygen (3) ANGELITA (acute kidney injury): Plan: Patient has a history of atrophic left kidney from renal artery stenosis However creatinine has been normal, presents with serum creatinine of 1.26 today Most likely prerenal due to dehydration Some gentle hydration IV normal saline 100 cc/h Recheck BMP (4) Benign essential hypertension: Plan: Blood pressures under good control, 135/74 Continue home medications. (5) Coronary artery disease: Plan: CAD status post stent Continue Plavix and aspirin Plan Admit to telemetry Full code DVT prophylaxis rivaroxaban History of Present Illness Chief Complaint: Cough shortness of breath Primary Care Provider: Cookie JonesDO Is a 62-year-old female with a history of CAD status post stent, hypertension, PAD, current smoker who presents to the hospital today with complaints of cough congestion started 2 weeks prior to presentation. However over the past few days the symptoms got worse so she decided to come to the hospital further investigation. She has a home pulse ox which she checked and read 70, this prompted her to come to the hospital. Patient denied chills or fevers and said that the cough is nonproductive. She is a current smoker but has not been diagnosed with COPD but denies any history of asthma. Here in emergency department she had diffuse wheeze on exam, chest x-ray did not show any acute pathology. Serum creatinine was 1.26 from a normal baseline a few months ago. She received DuoNebs and steroids and will be admitted to the hospital further management. Allergies Allergy/AdvReac Type Severity Reaction Status Date / Time No Known Allergies Allergy Unverified 05/10/23 19:47 Home Medications Medication Instructions Recorded Confirmed Type zolpidem 10 mg tablet (Ambien) 10 mg PO HS 11/22/20 05/10/23 History gabapentin 300 mg capsule 300 mg PO TID 05/13/21 05/10/23 History aspirin 81 mg tablet,delayed 81 mg PO HS 01/06/22 05/10/23 History release (Adult Aspirin Regimen) multivitamin (Daily Multi-Vitamin 1 tab PO DAILY 01/06/22 05/10/23 History tablet) fluoxetine 40 mg capsule 40 mg PO HS 06/28/22 05/10/23 History hydrocodone 10 mg-acetaminophen 1 tab PO Q4H PRN Pain 06/28/22 05/10/23 History 325 mg tablet atorvastatin 40 mg tablet 40 mg PO HS #90 tabs 10/02/22 05/10/23 Rx clopidogrel 75 mg tablet 75 mg PO QPM #90 tabs 10/02/22 05/10/23 Rx metoprolol succinate 25 mg 25 mg PO DAILY #90 tabs 11/04/22 05/10/23 Rx tablet,extended release 24 hr rivaroxaban 2.5 mg tablet (Xarelto) 2.5 mg PO BID #180 tabs 05/04/23 05/10/23 Rx amlodipine 10 mg tablet 10 mg PO HS 05/10/23 05/10/23 History Past Med/Surg History Medical History Acute hypoxemic respiratory failure Acute respiratory failure with hypoxia Atrophy of left kidney Coronary artery disease Depression Elevated troponin Encounter for pre-operative examination History of anemia History of NV (myocardial infarction) Hydronephrosis Hyperlipidemia Hypertension Kidney stones Osteoarthritis PAD (peripheral artery disease) Pneumonia Sepsis Sleep apnea Ureterolithiasis Urinary tract infection Vitamin D deficiency Surgical History H/O colonoscopy H/O hernia repair (06/26/14) History of laparotomy Hx of cystoscopy Hx of excision of epidermal inclusion cyst (01/30/21) S/P hernia repair (04/14/17) Status post surgery Family History Grandfather Cancer Grandmother Cancer Heart disease Stroke Mother Diabetes Aunt Hypertension Social History Smoking Status: Current every day smoker Tobacco Type: Cigarettes packs per day: 0.5; Cigarettes Per Day: 15; Second Hand Exposure: No; Do You Dip or Chew Tobacco: No; Hx Alcohol Use: No Hx Substance Use: No Preferred Language: Niuean Communication Ability: Effective 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 Physical Exam Physical Exam: The patient is awake, alert and oriented 3, well developed and well nourished, normocephalic and atraumatic, lying in bed and in no acute distress. HEENT--PERRL, EOMI, mucous membranes and oropharynx mildly dry Neck--supple. No JVD. No bruits. Thyroid normal, trachea midline, no adenopathy. Heart--normal S1 and S2. No murmurs, rubs or gallops. Lungs--reduced air entry exertion, bibasilar wheeze. Abdomen--normal bowel sounds and soft. Mild epigastric and left sided abdominal pain Extremities--no cyanosis or clubbing. No edema. Dermatologic--normal skin turgor, normal color, no abnormal lymph nodes, no rash. Neurologic--cranial nerves II through XII grossly intact. Rheumatologic--normal range of motion. Psychiatric--normal affect. Results & Data Results & Data Vital Signs (Past 12 Hours) Vital Signs Temp Pulse Pulse Resp BP BP Pulse Ox 05/10/23 19:51 94 05/10/23 19:41 05/10/23 19:40 79 22 135/74 99 05/10/23 19:28 71 05/10/23 18:33 85 L 05/10/23 18:27 99.1 F 71 20 121/69 83 L O2 Del Method O2 Flow Rate 05/10/23 19:51 Nasal Cannula 4 05/10/23 19:41 Nasal Cannula 05/10/23 19:40 Nebulizer 6 05/10/23 19:28 05/10/23 18:33 0 05/10/23 18:27 Room Air PG Care Time/CCT Total # of Minutes Spent Total Time Spent with Patient: Total time spent is greater than 50% in coordination of care (as documented) at patient's floor/unit and/or counseling patient: Coding Level of Care Code 50118 INT INP/OBS CARE 3/75MIN Diagnoses Cough R05.9 Hypoxia R09.02 ANGELITA (acute kidney injury) N17.9 Benign essential hypertension I10 Coronary artery disease I25.10 Time Spent (min) 75
[2023-05-10 20:46] LABS: Influenza A virus by PCR Negative (Neg); Influenza B virus by PCR Negative (Neg); RSV by PCR Negative (Neg); SARS CoV2 RNA(COVID-19) Ceph NEGATIVE (Negative)
[2023-05-10] MEDS ORDERED: HYDROcodone/ACETAMINOPHEN 10/325 TAB PO ONE (20:52)
[2023-05-10] MEDS ORDERED: ACETAMINOPHEN 325 MG TAB PO PRN (21:16)
[2023-05-10] MEDS ORDERED: RIVAROXABAN 2.5 MG TAB PO SCH (21:16)
[2023-05-10] MEDS: ATORVASTATIN 40 MG TAB PO SCH (22:47)
[2023-05-10] MEDS: CLOPIDOGREL BISULFATE 75 MG TAB PO SCH (22:47)
[2023-05-10] MEDS: FLUoxetine HCL 20 MG CAP PO SCH (22:47)
[2023-05-10] MEDS: amLODIPine BESYLATE 5 MG TAB PO SCH (22:47)
[2023-05-10] MEDS: ASPIRIN 81 MG ECTAB PO SCH (22:47)
[2023-05-10] MEDS: GABAPENTIN 300 MG CAP PO SCH (22:47)
[2023-05-10] MEDS: methylPREDNISolone 40 MG in SYRINGE 0 ML IV SCH (22:50)
[2023-05-10] MEDS: ZOLPIDEM TARTRATE 10 MG TAB PO SCH (22:54)
[2023-05-10] MEDS: ALBUT/IPRATROP 3MG/0.5MG NEB 3 ML VIAL NEB SCH (23:07)
[2023-05-11] MEDS: ALBUT/IPRATROP 3MG/0.5MG NEB 3 ML VIAL NEB SCH ×6 (02:37→22:58)
[2023-05-11] MEDS: methylPREDNISolone 40 MG in SYRINGE 0 ML IV SCH (05:35)
[2023-05-11 07:11] LABS: Hematocrit (blood only) 35.4 % (37.0-47.0); Hemoglobin 11.1 g/dl (12.0-16.0); Mean Corpuscular Hemoglobin 26.9 pg (25.0-34.0); Mean Corpuscular Hgb Conc 31.4 g/dL (32.0-36.0); Mean Corpuscular Volume 85.7 fL (80.0-100.0); Platelet Count 245 K/uL (130-400); RDW Coefficient of Variation 17.8 % (11.5-14.5); RDW Standard Deviation 55.8 fL (36.4-46.3); Red Blood Count 4.13 M/uL (4.20-5.40); White Blood Count 8.12 K/ul (4.8-10.8)
[2023-05-11 08:24] LABS: Calcium 8.7 mg/dl (8.6-10.3); Potassium 4.1 mmol/L (3.5-5.1)
[2023-05-11 08:34] LABS: BUN Creatinine Ratio 31.3 (10-20); Creatinine Clr Calc Pharmacy 56.3 ml/min; Est GFR (African American) 88.2 ml/min; Est GFR (Non-African American) 76.1 ml/min
[2023-05-11] MEDS: HYDROcodone/ACETAMINOPHEN 10/325 TAB PO PRN ×3 (08:52→21:01)
[2023-05-11] MEDS: METOPROLOL SUCC 25MG EXT REL TAB PO SCH (08:53)
[2023-05-11] MEDS: GABAPENTIN 300 MG CAP PO SCH ×3 (08:53→20:58)
[2023-05-11] MEDS: MULTIVITAMIN TAB PO SCH (08:53)
--- NOTE | 2023-05-11 13:54 | Hospitalist Progress Note ---
Date of Service May 11, 2023 Assessment & Plan (1) Acute exacerbation of chronic obstructive pulmonary disease (COPD): Plan: Carries no formal diagnosis of lung disease but is a long-term smoker and acute COPD exacerbation possibly triggered by recent viral URI is best explanation for her dyspnea and hypoxia Clinical presentation is not very suspicious for pulmonary embolism, no chest pain, no history of VTE, and hypoxia improving with the above treatment -Improving on steroids, change methylprednisolone to 40 mg prednisone daily anticipate 5 to 7-day course Continue bronchodilators Start oral doxycycline x5-day course Repeat procalcitonin this morning was negative, chest x-ray clear no evidence of pneumonia -Ordered respiratory [employer] panel. COVID/flu/RSV was negative in the ED (2) ANGELITA (acute kidney injury): Plan: Patient has a history of atrophic left kidney from renal artery stenosis However creatinine has been normal, presents with serum creatinine of 1.26 today prerenal due to dehydration normalized with IVF Cr 0.83 today (3) Benign essential hypertension: Plan: BP at goal 05/11 continue amlodipine metoprolol (4) Coronary artery disease: Plan: CAD hx stent, stable no current symptoms Continue Plavix and aspirin Plan Admit to telemetry Full code DVT prophylaxis rivaroxaban Admission and Anticipated Discharge Date Admission Date: May 10, 2023 Subjective less short of breath today than yesterday, coughing frequently and productive had a head cold about 10 days ago, the nasal/sinus symptoms resolved still smokes but no diagnosis of lung disease and uses no inhalers Physical Exam 2 Physical Exam: PHYSICAL EXAMINATION Last 24h vital signs reviewed, see documentation in flowsheet General: comfortable appearing, no distress HEENT: Normocephalic, atraumatic, pupils round and equal, sclerae anicteric, no conjunctival injection, moist mucus membranes Lungs: mildly increased respiratory effort. frequent cough Clear to auscultation bilaterally except occasional loose/coarse sounds. No RRW Heart: Regular rate and rhythm, no murmurs. No JVD Abdomen: Soft, nontender, nondistended. Bowel sounds present. Extremities: Warm, dry, well-perfused. No extremity edema. Neuro: Alert and oriented x 4, face symmetric, moves 4 extremities well Psych: Normal affect and behavior Results & Data Results & Data Vital Signs (Past 12 Hours) Vital Signs Temp Pulse Pulse Pulse Resp BP Pulse Ox 05/11/23 11:52 05/11/23 11:47 36.8 C 78 19 122/67 92 05/11/23 11:12 76 18 91 05/11/23 09:24 66 05/11/23 08:01 36.9 C 80 18 130/70 96 05/11/23 07:37 84 18 96 05/11/23 04:00 94 05/11/23 03:39 36.5 C 72 17 101/55 L 87 L 05/11/23 02:38 18 80 L O2 Del Method O2 Flow Rate 05/11/23 11:52 Nasal Cannula 2 05/11/23 11:47 Nasal Cannula 2.0 05/11/23 11:12 Nasal Cannula 2 05/11/23 09:24 05/11/23 08:01 Nasal Cannula 2.0 05/11/23 07:37 Nasal Cannula 4 05/11/23 04:00 Nasal Cannula 4 05/11/23 03:39 Nasal Cannula 4 05/11/23 02:38 Room Air Laboratory Results 05/11/23 06:12 05/11/23 06:12 Diagnostic Findings Chest X-Ray 05/10/23 18:34 XR chest 1V not portable CLINICAL HISTORY: Chest pain, nonspecific COMPARISON STUDY: Chest radiograph and chest CT June 28, 2022. FINDINGS: There is no pneumothorax or pleural effusion. Mild cardiomegaly is noted. No definite consolidation is present. There is subtle interstitial thickening. IMPRESSION: Cardiomegaly. Mild nonspecific interstitial thickening. ACT 112: Negative or not required by law. Electronically signed by: Darrel Galicia M.D. 05/10/2023 7:40 PM PG Care Time/CCT Total # of Minutes Spent Total Time Spent with Patient: Total time spent is greater than 50% in coordination of care (as documented) at patient's floor/unit and/or counseling patient: Coding Level of Care Code 36018 SUB INP/OBS CARE 2/35MIN Diagnoses Acute exacerbation of chronic obstructive pulmonary disease (COPD) J44.1 ANGELITA (acute kidney injury) N17.9 Benign essential hypertension I10 Coronary artery disease I25.10
[2023-05-11] MEDS: FLUoxetine HCL 20 MG CAP PO SCH (20:58)
[2023-05-11] MEDS: ATORVASTATIN 40 MG TAB PO SCH (20:58)
[2023-05-11] MEDS: amLODIPine BESYLATE 5 MG TAB PO SCH (20:58)
[2023-05-11] MEDS: ASPIRIN 81 MG ECTAB PO SCH (20:58)
[2023-05-11] MEDS: CLOPIDOGREL BISULFATE 75 MG TAB PO SCH (20:58)
[2023-05-11] MEDS: DOXYCYCLINE HYCLATE 100 MG CAP PO SCH (20:58)
[2023-05-11] MEDS: ZOLPIDEM TARTRATE 10 MG TAB PO SCH (21:01)
[2023-05-12 00:04] LABS: Adenovirus PCR Not Detected (NotDetected); Bordetella parapertussis PCR Not Detected (NotDetected); Bordetella pertussis PCR Not Detected (NotDetected); Chlamydia pneumoniae PCR Not Detected (NotDetected); Coronavirus 229E PCR Not Detected (NotDetected); Coronavirus CoV-2 (COVID19)PCR Not Detected (NotDetected); Coronavirus HKU1 PCR Not Detected (NotDetected); Coronavirus NL63 PCR Not Detected (NotDetected); Coronavirus OC43PCR Not Detected (NotDetected); Human Metapneumovirus PCR Not Detected (NotDetected); Influenza A PCR Not Detected (NotDetected); Influenza B PCR Not Detected (NotDetected); Mycoplasma pneumoniae PCR Not Detected (NotDetected); Parainfluenza Virus 1 PCR Not Detected (NotDetected); Parainfluenza Virus 2 PCR Not Detected (NotDetected); Parainfluenza Virus 3 PCR Not Detected (NotDetected); Parainfluenza Virus 4 PCR Not Detected (NotDetected); Respiratory Syncytial VirusPCR Not Detected (NotDetected); Rhinovirus/Enterovirus PCR Not Detected (NotDetected)
[2023-05-12] MEDS: HYDROcodone/ACETAMINOPHEN 10/325 TAB PO PRN ×4 (03:02→20:55)
[2023-05-12] MEDS: ALBUT/IPRATROP 3MG/0.5MG NEB 3 ML VIAL NEB SCH ×5 (03:22→20:04)
[2023-05-12] MEDS: GABAPENTIN 300 MG CAP PO SCH ×3 (08:27→20:55)
[2023-05-12] MEDS: DOXYCYCLINE HYCLATE 100 MG CAP PO SCH ×2 (08:27→20:56)
[2023-05-12] MEDS: guaiFENesin/DEXTROM SYRUP 200MG/20MG 10ML UDC PO PRN (08:28)
[2023-05-12] MEDS: METOPROLOL SUCC 25MG EXT REL TAB PO SCH (08:28)
[2023-05-12] MEDS: MULTIVITAMIN TAB PO SCH (08:28)
[2023-05-12] MEDS: predniSONE 20 MG TAB PO SCH (08:28)
--- NOTE | 2023-05-12 10:10 | CT Scan Report ---
CT SCAN OF THE CHEST WITHOUT IV CONTRAST CLINICAL HISTORY: COPD. Pulmonary nodule. COMPARISON STUDY: Chest CT scan dated 06/28/2022. Chest x-ray dated 05/10/2023. TECHNIQUE: CT scan of the thorax was performed from the thoracic inlet to the upper abdomen. Images are reviewed in the axial, sagittal, and coronal planes. IV contrast was not administered for this ex amination as per the referring clinician. A dose lowering technique was utilized adhering to the [place]atha rivera of RAFIQ. CT DOSE: 304.33 mGy.cm FINDINGS: Thyroid: Imaged portions of the thyroid gland are normal in size and attenuation. Thoracic aorta: There is atherosclerotic calcification of the thoracic aorta, which is normal in octaviano jose juan and demonstrates standard 3-vessel arch anatomy. Heart: The heart is enlarged and without pericardial effusion. The coronary arteries are densely calc ified. There is diminished attenuation of the cardiac blood pool as compared to the myocardium sugges ting anemia. Lungs and pleural spaces: There is advanced emphysema. The trachea and central airways are clear. The re are small pleural effusions with dependent consolidation. Subpleural reticulation seen throughout both lungs and there are extensive groundglass opacities in a predominantly subpleural distribution. This is greatest throughout the left upper lobe. There are scattered calcified granulomas. Mild bronc hiectasis is noted in the lower lobes. No honeycombing is seen. The 8 mm left lower lobe nodule seen on 06/28/2022 has resolved. A final there are pleural-based nodule at the left lung base image #159 is unchanged. No new or enlarging pulmonary lesion is identified. Mediastinum: There are mildly enlarged mediastinal nodes. A pretracheal node measures up to 9 mm shor t axis. AP window nodes measure up to 10 mm short axis. Halle: Not well assessed without IV contrast. Axillae: There is no axillary lymphadenopathy. Upper abdomen: Cholecystectomy clips are noted. The partially visualized left kidney is markedly atro phic. Thickening of the adrenal glands is similar to previous. A small hiatal hernia is observed. Pos toperative change is noted in the stomach. Skeletal structures: The skeletal structures are osteopenic. Degenerative change and mild hyperkyphos is is noted in the spine. No lytic or blastic bony lesions are seen. IMPRESSION: 1. Cardiomegaly and emphysema, likely with superimposed changes of chronic interstitial lung disease. If not already performed, nonemergent follow up with pulmonology is recommended. 2. Small pleural effusions with dependent consolidation. This could represent atelectasis versus pneu monia/aspiration pneumonitis. Correlate clinically. 3. There is diffuse subpleural reticulation with numerous groundglass opacities as above. This may be related to chronic lung disease. Correlate clinically for evidence of a superimposed pneumonitis. Th is should be reassessed at follow-up. 4. The 8 mm left lower lobe nodule seen on 06/28/2022 has resolved. No new or enlarging pulmonary nodul e is identified. 5. Mildly enlarged mediastinal lymph nodes are nonspecific and may be reactive/related to chronic logan g disease. 6. Additional findings as above. ACT 112: Negative or not required by law. Electronically signed by: Qasim Krause M.D. 05/12/2023 10:08 AM
--- NOTE | 2023-05-12 20:41 | Hospitalist Progress Note ---
Date of Service May 12, 2023 Assessment & Plan (1) Acute exacerbation of chronic obstructive pulmonary disease (COPD): Plan: Improving. O2 weaned off. IV steroids have been weaned to po prednisone. Although there are no PFTs by history she has extensive emphysematous changes & ILD changes on CT chest today. Will send to pulmonary post-d/c. Cont steroids, nebs, abx. Passed 2-step. Home tomorrow. (2) ANGELITA (acute kidney injury): Plan: Patient has a history of atrophic left kidney from renal artery stenosis Peak Cr 1.26 Most recent Cr <1 resolved (3) Benign essential hypertension: Plan: continue amlodipine continue metoprolol (4) Coronary artery disease: Plan: Prior h/o stent Continue metoprolol Continue Plavix and aspirin needs smoking cessation (5) Pneumonia: Plan: on CT chest today there appears to be b/l pneumonia add omnicef 300mg BID to the doxy 100mg BID treat 7 days of each (6) ILD (interstitial lung disease): Plan: CT chest with changes suspicious for such send to pulmonary post-d/c smoking-related ILD? 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 home tomorrow Admission and Anticipated Discharge Date Admission Date: May 10, 2023 Subjective patient feeling better than at admission but not back to baseline she is not on oxygen at home during the visit I removed her NC O2 - sats stayed >90% while at rest 2-step performed shortly after I visited with her - sats stayed >90% with walking thus, no O2 needed at home she is pleased by this continues with cough and some congestion but no worse than prior continues to smoke at home mentions chronic arthritic complaints of back, knees, etc PDMP shows she gets 90 tabs of norco on monthly basis Review of Systems Review of Systems: gen - no fevers cv - mild chest tightness at times; no orthopnea pulm - wheezes improved GI - no abd pain/nausea/emesis Physical Exam Physical Exam: gen - occasional cough, looks well otherwise, seems a bit restless mouth - MMM neck - no JVD heart - RRR, s1 s2 lungs - good airation, no wheezes, minimal rales bases abd - soft NT ND BS+ ext - no edema, pulses 2+ b/l Results & Data Results & Data Vital Signs (Past 12 Hours) Vital Signs Temp Pulse Pulse Pulse Pulse Resp Resp 05/12/23 20:06 73 18 05/12/23 19:24 36.7 C 76 18 05/12/23 15:15 90 80 22 05/12/23 14:59 36.3 C L 67 18 05/12/23 14:50 64 18 05/12/23 14:18 61 05/12/23 11:02 36.8 C 69 18 05/12/23 10:59 36.6 C 90 18 05/12/23 10:39 68 18 Resp BP BP Pulse Ox Pulse Ox Pulse Ox O2 Del Method 05/12/23 20:06 90 Room Air 05/12/23 19:24 139/73 93 Room Air 05/12/23 15:15 18 91 97 05/12/23 14:59 125/77 99 Nasal Cannula 05/12/23 14:50 97 Room Air 05/12/23 14:18 05/12/23 11:02 117/67 96 Nasal Cannula 05/12/23 10:59 105/70 93 Nasal Cannula 05/12/23 10:39 97 Nasal Cannula O2 Flow Rate 05/12/23 20:06 05/12/23 19:24 05/12/23 15:15 05/12/23 14:59 3 05/12/23 14:50 05/12/23 14:18 05/12/23 11:02 3 05/12/23 10:59 4 05/12/23 10:39 [address] 05/12/23 08:40 CT SCAN OF THE CHEST WITHOUT IV CONTRAST CLINICAL HISTORY: COPD. Pulmonary nodule. COMPARISON STUDY: Chest CT scan dated 06/28/2022. Chest x-ray dated 05/10/2023. TECHNIQUE: CT scan of the thorax was performed from the thoracic inlet to the upper abdomen. Images are reviewed in the axial, sagittal, and coronal planes. IV contrast was not administered for this examination as per the referring clinician. A dose lowering technique was utilized adhering to the principles of ALARA. CT DOSE: 304.33 mGy.cm FINDINGS: Thyroid: Imaged portions of the thyroid gland are normal in size and attenuation. Thoracic aorta: There is atherosclerotic calcification of the thoracic aorta, which is normal in caliber and demonstrates standard 3-vessel arch anatomy. Heart: The heart is enlarged and without pericardial effusion. The coronary arteries are densely calcified. There is diminished attenuation of the cardiac blood pool as compared to the myocardium suggesting anemia. Lungs and pleural spaces: There is advanced emphysema. The trachea and central airways are clear. There are small pleural effusions with dependent consolidation. Subpleural reticulation seen throughout both lungs and there are extensive groundglass opacities in a predominantly subpleural distribution. This is greatest throughout the left upper lobe. There are scattered calcified granulomas. Mild bronchiectasis is noted in the lower lobes. No honeycombing is seen. The 8 mm left lower lobe nodule seen on 06/28/2022 has resolved. A final there are pleural-based nodule at the left lung base image #159 is unchanged. No new or enlarging pulmonary lesion is identified. Mediastinum: There are mildly enlarged mediastinal nodes. A pretracheal node measures up to 9 mm short axis. AP window nodes measure up to 10 mm short axis. Halle: Not well assessed without IV contrast. Axillae: There is no axillary lymphadenopathy. Upper abdomen: Cholecystectomy clips are noted. The partially visualized left kidney is markedly atrophic. Thickening of the adrenal glands is similar to previous. A small hiatal hernia is observed. Postoperative change is noted in the stomach. Skeletal structures: The skeletal structures are osteopenic. Degenerative change and mild hyperkyphosis is noted in the spine. No lytic or blastic bony lesions are seen. IMPRESSION: 1. Cardiomegaly and emphysema, likely with superimposed changes of chronic interstitial lung disease. If not already performed, nonemergent follow up with pulmonology is recommended. 2. Small pleural effusions with dependent consolidation. This could represent atelectasis versus pneumonia/aspiration pneumonitis. Correlate clinically. 3. There is diffuse subpleural reticulation with numerous groundglass opacities as above. This may be related to chronic lung disease. Correlate clinically for evidence of a superimposed pneumonitis. This should be reassessed at follow-up. 4. The 8 mm left lower lobe nodule seen on 06/28/2022 has resolved. No new or enlarging pulmonary nodule is identified. 5. Mildly enlarged mediastinal lymph nodes are nonspecific and may be reactive/related to chronic lung disease. 6. Additional findings as above. ACT 112: Negative or not required by law. Electronically signed by: Qasim Krause M.D. 05/12/2023 10:08 AM PG Care Time/CCT Total # of Minutes Spent Total Time Spent with Patient: Total time spent is greater than 50% in coordination of care (as documented) at patient's floor/unit and/or counseling patient: Coding Level of Care Code 88984 SUB INP/OBS CARE 3/50MIN Diagnoses Acute exacerbation of chronic obstructive pulmonary disease (COPD) J44.1 ANGELITA (acute kidney injury) N17.9 Benign essential hypertension I10 Coronary artery disease I25.10 Pneumonia J18.9 Laterality: right Lung location: lower lobe of lung Pneumonia type: due to unspecified organism ILD (interstitial lung disease) J84.9 Chronic pain syndrome G89.4 Tobacco dependence F17.200 (5) Pneumonia Laterality: right Lung location: lower lobe of lung Pneumonia type: due to unspecified organism Qualified Code(s): J18.9 - Pneumonia, unspecified organism
[2023-05-12] MEDS: ASPIRIN 81 MG ECTAB PO SCH (20:55)
[2023-05-12] MEDS: ZOLPIDEM TARTRATE 10 MG TAB PO SCH (20:55)
[2023-05-12] MEDS: FLUoxetine HCL 20 MG CAP PO SCH (20:56)
[2023-05-12] MEDS: amLODIPine BESYLATE 5 MG TAB PO SCH (20:56)
[2023-05-12] MEDS: CLOPIDOGREL BISULFATE 75 MG TAB PO SCH (20:57)
[2023-05-12] MEDS: ATORVASTATIN 40 MG TAB PO SCH (20:57)
[2023-05-13] MEDS: ALBUT/IPRATROP 3MG/0.5MG NEB 3 ML VIAL NEB SCH ×5 (00:24→15:06)
[2023-05-13] MEDS: HYDROcodone/ACETAMINOPHEN 10/325 TAB PO PRN ×4 (03:15→17:30)
[2023-05-13] MEDS: GABAPENTIN 300 MG CAP PO SCH ×2 (08:49→13:09)
[2023-05-13] MEDS: DOXYCYCLINE HYCLATE 100 MG CAP PO SCH ×2 (08:49→18:50)
[2023-05-13] MEDS: MULTIVITAMIN TAB PO SCH (08:50)
[2023-05-13] MEDS: METOPROLOL SUCC 25MG EXT REL TAB PO SCH (08:50)
[2023-05-13] MEDS: predniSONE 20 MG TAB PO SCH (08:50)
[2023-05-13] MEDS: guaiFENesin/DEXTROM SYRUP 200MG/20MG 10ML UDC PO PRN (08:51)
[2023-05-13] MEDS ORDERED: FLUTICASONE/VILANTEROL 100/25MCG 14 PUFFS/INHALER INH SCH (09:00)
[2023-05-13] MEDS: CEFDINIR 300 MG CAP PO SCH ×2 (09:23→18:50)
[2023-05-13 10:46] VITALS: O2SAT 92
[2023-05-13 12:45] LABS: BUN Creatinine Ratio 27.2 (10-20); Calcium 9.4 mg/dl (8.6-10.3); Creatinine Clr Calc Pharmacy 57.7 ml/min; Est GFR (African American) 90.9 ml/min; Est GFR (Non-African American) 78.4 ml/min; Potassium 4.4 mmol/L (3.5-5.1)
[2023-05-13 12:50] LABS: Troponin I High Sensitivity 5.4 pg/ml (0-14)
[2023-05-13 13:00] LABS: D Dimer 810 ug/L FEU (0-500)
[2023-05-13] MEDS ORDERED: OPTIRAY 320 125ml IV ONE (13:56)
--- NOTE | 2023-05-13 14:39 | CT Scan Report ---
CHEST CTA for PULMONARY ARTERIES CT DOSE: HISTORY: chest discomfort, elevated dimer; eval for PE TECHNIQUE: Multiaxial CT images of the chest were performed following the intravenous administration of contrast to evaluate the pulmonary arteries. 3D/Maximal intensity projection images were also obta ined. Sagittal and coronal reformations were also reviewed. A dose lowering technique was utilized a dhering to the principles of ALARA. COMPARISON STUDY: Chest CT 05/12/2023. FINDINGS: Normal caliber thoracic aorta with no evidence for a dissection. The heart is mildly enlarg ed. Questionable nonocclusive filling defects within a subsegmental branch of the left upper lobe on image 155 is likely artifact. Otherwise, the remaining pulmonary arteries show no filling defects to suggest a pulmonary embolus. Coronary artery calcifications are again noted. Limited views the upper abdomen demonstrate normal liver and spleen. Bilateral adrenal gland thickening persists. Prior gastr ic bypass is partially visualized. Normal thyroid gland. Mild body wall edema. Normal caliber esophag us. No hilar lymphadenopathy. Stable prominent mediastinal lymph nodes. No acute fractures within the chest. No pneumothorax. Emphysema. The central airways are patent. Diffuse interstitial thickening a nd scattered groundglass opacities have significantly improved in the interval. Bibasilar linear dens ities have also improved. A few tree-in-bud nodular opacities remaining at the lung bases. There is a 6 mm nodule within the base of the left lower lobe on image 48, unchanged. Stable 4 mm nodule within the left lower lobe on image 61. These demonstrate greater than 2 year stability and are therefore c onsidered to be benign. No new pulmonary nodules identified. Trace bilateral pleural effusions are ag ain noted. IMPRESSION: 1. Questionable nonocclusive filling defect within a subsegmental branch of the left upper lobe as de scribed above. This is indeterminate but favors artifact. 2. Otherwise, the remaining pulmonary arteries show no filling defects to suggest a pulmonary embolus . 3. Significant improvement in the interstitial thickening and scattered airspace opacities. This favo rs a resolving pneumonitis or pulmonary edema. 4. Emphysema. 5. Stable left lower lobe pulmonary nodules. These are likely benign. 6. Stable prominent mediastinal lymph nodes. 7. Trace bilateral pleural effusions, unchanged. ACT 112: Negative or not required by law. Electronically signed by: Good Valdovinos M.D. 05/13/2023 2:37 PM
[2023-05-13 15:07] VITALS: RESP 16
[2023-05-13 16:48] VITALS: TEMP 98.1
--- NOTE | 2023-05-13 18:03 | XCELERA ---
[id number] \\[id number]
--- NOTE | 2023-05-13 19:11 | Discharge Summary ---
Date of Service May 13, 2023 Admission HPI Per Admitting Provider Is a 62-year-old female with a history of CAD status post stent, hypertension, PAD, current smoker who presents to the hospital today with complaints of cough congestion started 2 weeks prior to presentation. However over the past few days the symptoms got worse so she decided to come to the hospital further investigation. She has a home pulse ox which she checked and read 70, this prompted her to come to the hospital. Patient denied chills or fevers and said that the cough is nonproductive. She is a current smoker but has not been diagnosed with COPD but denies any history of asthma. Here in emergency department she had diffuse wheeze on exam, chest x-ray did not show any acute pathology. Serum creatinine was 1.26 from a normal baseline a few months ago. She received DuoNebs and steroids and will be admitted to the hospital further management. Discharge Exam gen - occasional cough, looks well otherwise, seems a bit restless mouth - MMM neck - no JVD heart - RRR, s1 s2 lungs - good airation, no wheezes, minimal rales bases abd - soft NT ND BS+ ext - no edema, pulses 2+ b/l Discharge Data Allergies Allergy/AdvReac Type Severity Reaction Status Date / Time No Known Allergies Allergy Unverified 05/10/23 19:47 Consultations 05/10/23 19:24 ED Decision to Admit Stat Ordered Studies 05/12/23 08:40 CT chest diagnostic wo con Routine 05/13/23 13:09 CT angio chest PE protocol Routine Hospital Course (1) Acute exacerbation of chronic obstructive pulmonary disease (COPD): Improving. O2 weaned off. IV steroids have been weaned to po prednisone. Although there are no PFTs by history she has extensive emphysematous changes & ILD changes on CT chest today. Will send to pulmonary post-d/c. Cont steroids, nebs, abx. Passed 2-step. Home tomorrow. (2) ANGELITA (acute kidney injury): Patient has a history of atrophic left kidney from renal artery stenosis Peak Cr 1.26 Most recent Cr <1 resolved (3) Benign essential hypertension: continue amlodipine continue metoprolol (4) Coronary artery disease: Prior h/o stent Continue metoprolol Continue Plavix and aspirin needs smoking cessation (5) Pneumonia: on CT chest today there appears to be b/l pneumonia add omnicef 300mg BID to the doxy 100mg BID treat 7 days of each (6) ILD (interstitial lung disease): CT chest with changes suspicious for such send to pulmonary post-d/c smoking-related ILD? (7) Chronic pain syndrome: on norco multiple times/day at home for chronic back pain, joint pains, etc PDMP confirms monthly scripts for norco (8) Tobacco dependence: youth counselor to quit Plan rivaroxaban 2.5mg BID reason for chronic use of such?? home tomorrow Discharge Plan Discharge Items Patient Disposition: Home - Self-Care Reason For Visit: COUGH, Low Oxygen Levels Discharge Diagnosis: 1. suspected "COPD" exacerbation - improving; pulmonary follow-up needed 2. bilateral pneumonia - improving 3. tobacco use 4. possible interstitial lung disease - pulmonary follow-up needed for this possible diagnosis 5. chest tightness - likely due to #1 - blood work for the heart, echocardiogram normal; CT scan negative for blood clots of lungs 6. coronary artery disease Activity: As commented below Activity Comment: gradually increase activities over the next 7-10 days Non-emergency contact: Primary Care Provider and Weaving Inspector Call non-emergency contact if: you have any medication questions, your symptoms worsen and you have a fever Follow-up/Referrals: Ren Gregory MD [Physician] - 05/19/23 (keep previously scheduled appointment with Dr Gregory ) Matthew Skinner MD [Physician] - 05/25/23 8:45 am Cookie Jones DO [Primary Care Provider] - (5 days if possible for recheck ) Diet: Regular Addtl Attending Provider Instructions: Mrs Leo, You were hospitalized due to difficulty breathing and low oxygen levels. Your CT scans show that you likely have emphysema (COPD). The scans also showed that you likely have pneumonia in both lungs. Thus, your difficulty breathing was likely due to a combination of pneumonia as well as a "COPD Exacerbation." You improved with nebulizer treatments, steroids, and antibiotics. Your oxygen levels improved. A walking oxygen test on 05/12/23 showed that you do NOT need oxygen at home at this time. You mentioned some mild chest tightness with activity as well as at rest. I suspect that the tightness is due to your current respiratory problems rather than your heart. Your blood work for the heart on 05/13 was normal, and your echocardiogram on 05/13 showed normal heart function. Although the tightness is likely from your underlying COPD/pneumonia please mention the pain to Dr Gregory at your appointment on 05/19. 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 You will need additional lung tests at that time. Recommendations - 1. antibiotics for pneumonia - * doxycycline 100mg twice daily x 4 days, first dose tomorrow am * this antibiotic can cause heartburn/stomach upset * rarely it can cause a rash when you go out in the sun while taking the medication; if you spend a lot of time in the sun over the next week be sure to cover up * cefdinir 300mg twice daily x 6 days, first dose tomorrow am 2. for COPD/emphysema - * Breo inhaler - 1 puff daily every day; rinse your mouth with water after using it * albuterol inhaler - 2 puffs via spacer device every 4 hours as needed for coug h/wheezing/shortness of breath * see handouts on COPD and spacer device * prednisone course / taper - start 05/14/23; take with food 3. tobacco - please talk with your family doctor about ways in which to quit smoking 4. pantoprazole - 40mg once daily each morning x 2 weeks (to prevent stomach irritation from prednisone, antibiotics, etc) 5. check your oxygen levels at home with your finger pulse ox machine a couple of times each day; if your oxygen levels are consistently less than 88% please seek medical attention Follow-up - see separate section RETURN TO [facility] IF - * you have fever over 100 degrees * you have worsening shortness of breath despite taking all of the above medications * you have severe diarrhea * you have chest pains (especially if they remind you of your heart pains you have had in the past) * you have oxygen levels on your pulse ox consistently less than 88% * any other concerns It was our pleasure to care for you! Happy Thanksgiving Pending Studies at Discharge: No Stand-Alone Forms: [facility] [employer] Maps, Smoking Cessation Medications and DC Order Prescriptions: New doxycycline hyclate 100 mg Capsule 100 mg PO BID 4 Days Qty: 8 0RF Rx Instructions: start 05/14/23 cefdinir 300 mg Capsule 300 mg PO BID 6 Days Qty: 12 0RF Rx Instructions: start 05/14/23 fluticasone furoate-vilanterol [Breo Ellipta] 100-25 mcg/dose Blister With Device 1 inh inhalation DAILY Qty: 60 1RF Rx Instructions: rinse mouth with water after each use albuterol sulfate [Ventolin HFA] 90 mcg/actuation HFA aerosol inhaler 2 inh inhalation Q4H PRN (Reason: shortness of breath or wheezing or cough) Qty: 8.5 0RF Rx Instructions: use with spacer device prednisone 10 mg tablet 10 mg PO DIRECTED Qty: 16 0RF Rx Instructions: start 05/14, take w/ food. 4 tabs PO QD x 1 day; 3 tabs PO QD x 2 days; 2 tabs PO QD x 2 days; 1 tab PO QD x 2 days. pantoprazole [Protonix] 40 mg tablet,delayed release (DR/EC) 40 mg PO DAILY Qty: 14 0RF Rx Instructions: start 05/14/23; take each AM. stop after 2 weeks. Continued atorvastatin 40 mg tablet 40 mg PO HS Qty: 90 3RF clopidogrel 75 mg tablet 75 mg PO QPM Qty: 90 3RF metoprolol succinate 25 mg tablet extended release 24 hr 25 mg PO DAILY Qty: 90 3RF Xarelto 2.5 mg tablet 2.5 mg PO BID Qty: 180 3RF aspirin [Adult Aspirin Regimen] 81 mg tablet,delayed release (DR/EC) 81 mg PO HS multivitamin [Daily Multi-Vitamin] Tablet 1 tab PO DAILY zolpidem [Ambien] 10 mg tablet 10 mg PO HS gabapentin 300 mg capsule 300 mg PO TID amlodipine 10 mg tablet 10 mg PO HS fluoxetine 40 mg capsule 40 mg PO HS hydrocodone-acetaminophen 10-325 mg tablet 1 tab PO Q4H MDD 6TABS PRN (Reason: Pain) Discharge Orders: Discharge Order (Routine); Ordered 05/13/23 Ordered By: Kush Bai/Other Patient Handouts: What Is COPD, Using an Inhaler with a Spacer, COPD Quit Smoking, Diagnosing COPD, ED COPD Flare Admission Data Admit Date/Time: 05/10/23 20:02 Attending Provider: Kush Uriarte Admit Provider: Padma Mendez Primary Care Provider: Cookie Jones Other Providers: Padma Mendez Coding Diagnoses Acute exacerbation of chronic obstructive pulmonary disease (COPD) J44.1 ANGELITA (acute kidney injury) N17.9 Benign essential hypertension I10 Coronary artery disease I25.10 Pneumonia J18.9 Laterality: right Lung location: lower lobe of lung Pneumonia type: due to unspecified organism ILD (interstitial lung disease) J84.9 Chronic pain syndrome G89.4 Tobacco dependence F17.200
[2023-05-13 19:28] VITALS: BP 125/77; PULSE 80
--- NOTE | 2023-05-13 23:11 | Electrocardiogram Report ---
Test Reason : Blood Pressure : / mmHG Vent. Rate : 066 BPM Atrial Rate : 066 BPM P-R Int : 142 ms QRS Dur : 128 ms QT Int : 442 ms P-R-T Axes : 063 -38 -21 degrees QTc Int : 463 ms Normal sinus rhythm Possible Left atrial enlargement Left axis deviation Left ventricular hypertrophy with QRS widening ( Isom product ) Right bundle branch block Nonspecific T wave abnormality Abnormal ECG When compared with ECG of 30-JUN-2022 05:23, No significant change Confirmed by Grayson Howell ([id number]) on 05/13/2023 11:10:53 PM Referred By: REFERRED SELF Confirmed By:Grayson Howell
--- NOTE | 2023-05-14 07:51 | Electrocardiogram Report ---
Test Reason : Blood Pressure : / mmHG Vent. Rate : 064 BPM Atrial Rate : 064 BPM P-R Int : 100 ms QRS Dur : 130 ms QT Int : 440 ms P-R-T Axes : 049 -39 -21 degrees QTc Int : 453 ms Sinus rhythm with short LA Left axis deviation Right bundle branch block Abnormal ECG When compared with ECG of 10-MAY-2023 18:38, No significant change Confirmed by Grayson Howell ([id number]) on 05/14/2023 7:50:58 AM Referred By: REFERRED SELF Confirmed By:Grayson Howell
== END 2023-05-13 19:45 | disposition home or self-care (01) | DRG 194 ==
LOC: ED 18:21 → SUATTDRO 20:02 → EDINP 20:02 → 2S 21:58
DX: G89.4 Chronic pain syndrome; Z79.899 Other long term (current) drug therapy; Z87.01 Personal history of pneumonia (recurrent); E78.5 Hyperlipidemia, unspecified; I25.2 Old myocardial infarction; I10 Essential (primary) hypertension; J18.9 Pneumonia, unspecified organism; Z79.82 Long term (current) use of aspirin; I25.10 Atherosclerotic heart disease of native coronary artery without angina pectoris; F17.210 Nicotine dependence, cigarettes, uncomplicated; J44.1 Chronic obstructive pulmonary disease with (acute) exacerbation; N17.9 Acute kidney failure, unspecified; R09.02 Hypoxemia; I73.9 Peripheral vascular disease, unspecified